=== PATIENT | female | born 1960 | race Caucasian/White ===

== ENCOUNTER → 2020-05-15 14:41 | Outpatient (BNVA) | payer OTHER, SELFPAY | PROVIDERS: PCP Internal Medicine; Visit Provider Internal Medicine | DX: I48.20 Chronic atrial fibrillation, unspecified (principal); Z51.81 Encounter for therapeutic drug level monitoring; Z79.01 Long term (current) use of anticoagulants | CPT/HCPCS: 85610 ==

== ENCOUNTER → 2020-06-19 14:49 | Outpatient (BNVA) | payer OTHER, SELFPAY | PROVIDERS: PCP Internal Medicine; Referring Provider Internal Medicine; Visit Provider Internal Medicine | DX: I48.20 Chronic atrial fibrillation, unspecified (principal); Z79.01 Long term (current) use of anticoagulants; Z51.81 Encounter for therapeutic drug level monitoring | CPT/HCPCS: 85610; 99211 ==

== ENCOUNTER 2020-07-04 07:55 | Outpatient (REF) | payer OTHER, SELFPAY ==
[2020-07-04 08:19] LABS: MANUAL DIFF FLAG NO
[2020-07-04 08:23] LABS: Basophils Percent Auto 0.8 % (0-2); Eosinophils Absolute Auto 0.2 X10*3/uL (0.0-0.4); Eosinophils Percent Auto 4.3 % (0-4); Hematocrit 40.6 % (37-47); Hemoglobin 13.4 g/dl (12.0-16.0); Imm Gran Abs Auto 0.01 X10*3/uL (0.00-0.03); Imm Gran Pct Auto 0.2 % (0.0-0.4); Lymphocytes Absolute Auto 1.3 X10*3/uL (1.2-4.9); Lymphocytes Percent Auto 25.5 % (20-40); Mean Corpuscular Hemoglobin 30.2 pg (27.0-33.0); Mean Corpuscular Volume 91.4 fL (80-98); Mean Platelet Volume 9.3 fL (9.4-12.3); Monocytes Absolute Auto 0.5 X10*3/uL (0.1-1.2); Monocytes Percent Auto 8.9 % (2-11); Neutrophils Absolute Auto 3.1 X10*3/uL (2.0-8.3); Neutrophils Percent Auto 60.3 % (45-73); Platelet Count 253 X10*3/uL (160-400); Red Blood Count 4.44 X10*6/uL (4.20-5.50); White Blood Count 5.1 X10*3/uL (4.8-10.8)
[2020-07-04 08:43] LABS: Alanine Aminotransferase 18 U/L (0-31); Alkaline Phosphatase 74 U/L (39-117); Anion Gap 12 (12-20); Aspartate Amino Transferase 18 U/L (5-31); Bilirubin Total 0.9 mg/dL (0.0-1.0); Blood Urea Nitrogen 13 mg/dL (9-16); Calcium 8.4 mg/dL (8.4-10.2); Carbon Dioxide 24 mmol/L (22-29); Chloride 104 mmol/L (96-108); Cholesterol 102 mg/dL; Estimated Glomerular Filt Rate > 60; Glucose Fasting 168 mg/dL (60-99); HDL Cholesterol 50 mg/dL; LDL Cholesterol Calculated 43 mg/dl; Potassium 3.8 mmol/l (3.3-5.1); Sodium 136 mmol/L (135-145); Total Protein 6.8 g/dL (6.5-8.0); Triglycerides 48 mg/dL
[2020-07-04 09:36] LABS: Estimated Average Glucose 183 mg/dL
[2020-07-04 09:42] LABS: Creatinine Urine 171.44 mg/dL; Microalbum/Creatinine Ratio Ur 29.1 ug/mg cr
== END 2020-07-04 07:56 | disposition home or self-care (01) ==
LOC: HO.LAB 07:55
PROVIDERS: Visit Provider Internal Medicine
DX: I10 Essential (primary) hypertension (principal); E11.9 Type 2 diabetes mellitus without complications; I48.91 Unspecified atrial fibrillation
CPT/HCPCS: 36415; 80053; 80061; 82043; 83036; 85025

== ENCOUNTER → 2020-07-17 14:57 | Outpatient (BNVA) | payer OTHER, SELFPAY | PROVIDERS: PCP Internal Medicine; Referring Provider Internal Medicine; Visit Provider Internal Medicine | DX: I48.20 Chronic atrial fibrillation, unspecified (principal); Z51.81 Encounter for therapeutic drug level monitoring; Z79.01 Long term (current) use of anticoagulants | CPT/HCPCS: 85610; 99211 ==

== ENCOUNTER → 2020-07-21 14:14 | Outpatient (BNVA) | payer OTHER, SELFPAY | PROVIDERS: PCP Internal Medicine; Referring Provider Internal Medicine; Visit Provider Internal Medicine Cardiovascular Disease | DX: Z76.89 Persons encountering health services in other specified circumstances (principal) ==

== ENCOUNTER → 2020-08-04 15:15 | Outpatient (BNVA) | payer OTHER, SELFPAY | PROVIDERS: PCP Internal Medicine; Visit Provider Internal Medicine | DX: I48.20 Chronic atrial fibrillation, unspecified (principal); Z79.01 Long term (current) use of anticoagulants; Z51.81 Encounter for therapeutic drug level monitoring | CPT/HCPCS: 85610; 99211 ==

== ENCOUNTER 2020-08-25 10:25 | Outpatient (REF) | payer OTHER, SELFPAY | END 2020-08-25 10:26 | disposition home or self-care (01) | LOC: HO.LAB 10:25 | PROVIDERS: PCP Internal Medicine; Visit Provider Internal Medicine | DX: Z20.822 Contact with and (suspected) exposure to COVID-19 (principal) | CPT/HCPCS: 36415; C9803; U0003 ==

== ENCOUNTER → 2020-08-31 14:38 | Outpatient (BNVA) | payer OTHER, SELFPAY | PROVIDERS: PCP Internal Medicine; Visit Provider Internal Medicine | DX: I48.20 Chronic atrial fibrillation, unspecified (principal); Z51.81 Encounter for therapeutic drug level monitoring; Z79.01 Long term (current) use of anticoagulants | CPT/HCPCS: 85610; 99211 ==

== ENCOUNTER → 2020-09-29 15:26 | Outpatient (BNVA) | payer OTHER, SELFPAY | PROVIDERS: PCP Internal Medicine; Visit Provider Internal Medicine | DX: I48.20 Chronic atrial fibrillation, unspecified (principal); Z51.81 Encounter for therapeutic drug level monitoring; Z79.01 Long term (current) use of anticoagulants | CPT/HCPCS: 85610; 99211 ==

== ENCOUNTER → 2020-11-03 14:13 | Outpatient (BNVA) | payer OTHER, SELFPAY | PROVIDERS: PCP Internal Medicine; Visit Provider Internal Medicine | DX: I48.20 Chronic atrial fibrillation, unspecified (principal); Z51.81 Encounter for therapeutic drug level monitoring; Z79.01 Long term (current) use of anticoagulants | CPT/HCPCS: 85610; 99211 ==

== ENCOUNTER 2020-11-17 14:42 | Outpatient (REF) | payer OTHER, SELFPAY ==
[2020-11-17 16:05] LABS: MANUAL DIFF FLAG NO
[2020-11-17 16:18] LABS: Basophils Percent Auto 0.6 % (0-2); Eosinophils Absolute Auto 0.2 X10*3/uL (0.0-0.4); Eosinophils Percent Auto 2.5 % (0-4); Estimated Average Glucose 183 mg/dL; Hematocrit 41.9 % (37-47); Hemoglobin 14.1 g/dl (12.0-16.0); Imm Gran Abs Auto 0.02 X10*3/uL (0.00-0.03); Imm Gran Pct Auto 0.3 % (0.0-0.4); Lymphocytes Absolute Auto 1.6 X10*3/uL (1.2-4.9); Mean Corpuscular HGB Conc 33.7 g/dl (31.0-35.0); Mean Corpuscular Hemoglobin 30.9 pg (27.0-33.0); Mean Corpuscular Volume 91.9 fL (80-98); Mean Platelet Volume 9.7 fL (9.4-12.3); Monocytes Absolute Auto 0.5 X10*3/uL (0.1-1.2); Monocytes Percent Auto 7.7 % (2-11); Neutrophils Absolute Auto 4.2 X10*3/uL (2.0-8.3); Neutrophils Percent Auto 64.9 % (45-73); Platelet Count 304 X10*3/uL (160-400); Red Blood Count 4.56 X10*6/uL (4.20-5.50); Red Cell Distribution Width 12.2 % (11.0-16.0); White Blood Count 6.5 X10*3/uL (4.8-10.8)
[2020-11-17 16:38] LABS: Alanine Aminotransferase 23 U/L (0-31); Albumin Level 4.3 g/dL (3.5-5.0); Alkaline Phosphatase 66 U/L (39-117); Anion Gap 14 (12-20); Aspartate Amino Transferase 25 U/L (5-31); Bilirubin Total 1.1 mg/dL (0.0-1.0); Blood Urea Nitrogen 19 mg/dL (9-16); Calcium 9.7 mg/dL (8.4-10.2); Carbon Dioxide 27 mmol/L (22-29); Chloride 107 mmol/L (96-108); Estimated Glomerular Filt Rate > 60; Glucose Random 133 mg/dL (60-115); Potassium 4.6 mmol/L (3.3-5.1); Sodium 143 mmol/L (135-145); Total Protein 7.3 g/dL (6.5-8.0)
[2020-11-17 16:56] LABS: Creatinine Urine 187.43 mg/dL; Microalbum/Creatinine Ratio Ur 18.1 ug/mg cr
== END 2020-11-17 14:43 | disposition home or self-care (01) ==
LOC: HO.LAB 14:42
PROVIDERS: Absent Provider Internal Medicine; PCP Internal Medicine; Visit Provider Internal Medicine
DX: E11.9 Type 2 diabetes mellitus without complications (principal); I10 Essential (primary) hypertension; I48.0 Paroxysmal atrial fibrillation; Z51.81 Encounter for therapeutic drug level monitoring; Z79.01 Long term (current) use of anticoagulants
CPT/HCPCS: 36415; 80053; 82043; 83036; 85025; 85610; 99211

== ENCOUNTER → 2020-12-01 15:21 | Outpatient (BNVA) | payer OTHER, SELFPAY | PROVIDERS: PCP Internal Medicine; Visit Provider Internal Medicine | DX: I48.0 Paroxysmal atrial fibrillation (principal); Z79.01 Long term (current) use of anticoagulants; Z51.81 Encounter for therapeutic drug level monitoring | CPT/HCPCS: 85610; 99211 ==

== ENCOUNTER → 2020-12-08 14:14 | Outpatient (BNVA) | payer OTHER, SELFPAY | PROVIDERS: PCP Internal Medicine; Visit Provider Internal Medicine | DX: I48.20 Chronic atrial fibrillation, unspecified (principal); Z51.81 Encounter for therapeutic drug level monitoring; Z79.01 Long term (current) use of anticoagulants | CPT/HCPCS: 85610; 99211 ==

== ENCOUNTER → 2020-12-15 14:16 | Outpatient (BNVA) | payer OTHER, SELFPAY | PROVIDERS: PCP Internal Medicine; Visit Provider Internal Medicine | DX: I48.20 Chronic atrial fibrillation, unspecified (principal); Z51.81 Encounter for therapeutic drug level monitoring; Z79.01 Long term (current) use of anticoagulants | CPT/HCPCS: 85610; 99211 ==

== ENCOUNTER → 2020-12-22 13:55 | Outpatient (BNVA) | payer OTHER, SELFPAY | PROVIDERS: PCP Internal Medicine; Visit Provider Internal Medicine | DX: I48.20 Chronic atrial fibrillation, unspecified (principal); Z51.81 Encounter for therapeutic drug level monitoring; Z79.01 Long term (current) use of anticoagulants | CPT/HCPCS: 85610; 99211 ==

== ENCOUNTER → 2021-01-01 14:30 | Outpatient (BNVA) | payer OTHER, SELFPAY | PROVIDERS: PCP Internal Medicine; Visit Provider Internal Medicine | DX: I48.20 Chronic atrial fibrillation, unspecified (principal); Z51.81 Encounter for therapeutic drug level monitoring; Z79.01 Long term (current) use of anticoagulants | CPT/HCPCS: 85610; 99211 ==

== ENCOUNTER → 2021-01-12 08:33 | Outpatient (BNVA) | payer OTHER, SELFPAY | PROVIDERS: PCP Internal Medicine; Visit Provider Internal Medicine | DX: I48.20 Chronic atrial fibrillation, unspecified (principal); Z51.81 Encounter for therapeutic drug level monitoring; Z79.01 Long term (current) use of anticoagulants | CPT/HCPCS: 85610; 99211 ==

== ENCOUNTER → 2021-01-20 13:39 | Outpatient (BNVA) | payer OTHER, SELFPAY | PROVIDERS: PCP Internal Medicine; Visit Provider Internal Medicine | DX: I48.20 Chronic atrial fibrillation, unspecified (principal); Z51.81 Encounter for therapeutic drug level monitoring; Z79.01 Long term (current) use of anticoagulants | CPT/HCPCS: 85610; 99211 ==

== ENCOUNTER → 2021-01-22 13:57 | Outpatient (BNVA) | payer OTHER, SELFPAY | PROVIDERS: PCP Internal Medicine; Visit Provider Internal Medicine | DX: I48.20 Chronic atrial fibrillation, unspecified (principal); Z51.81 Encounter for therapeutic drug level monitoring; Z79.01 Long term (current) use of anticoagulants | CPT/HCPCS: 85610; 99211 ==

== ENCOUNTER → 2021-01-25 13:58 | Outpatient (BNVA) | payer OTHER, SELFPAY | PROVIDERS: PCP Internal Medicine; Visit Provider Internal Medicine | DX: I48.20 Chronic atrial fibrillation, unspecified (principal); Z51.81 Encounter for therapeutic drug level monitoring; Z79.01 Long term (current) use of anticoagulants | CPT/HCPCS: 85610; 99211 ==

== ENCOUNTER → 2021-01-28 13:50 | Outpatient (BNVA) | payer OTHER, SELFPAY | PROVIDERS: PCP Internal Medicine; Visit Provider Internal Medicine | DX: I48.20 Chronic atrial fibrillation, unspecified (principal); Z51.81 Encounter for therapeutic drug level monitoring; Z79.01 Long term (current) use of anticoagulants | CPT/HCPCS: 85610; 99211 ==

== ENCOUNTER → 2021-02-04 13:49 | Outpatient (BNVA) | payer OTHER, SELFPAY | PROVIDERS: PCP Internal Medicine; Visit Provider Internal Medicine | DX: I48.20 Chronic atrial fibrillation, unspecified (principal); I50.9 Heart failure, unspecified; Z79.899 Other long term (current) drug therapy; Z79.01 Long term (current) use of anticoagulants | CPT/HCPCS: 85610; 99211 ==

== ENCOUNTER → 2021-03-05 14:17 | Outpatient (BNVA) | payer OTHER, SELFPAY | PROVIDERS: PCP Internal Medicine; Visit Provider Internal Medicine | DX: I48.20 Chronic atrial fibrillation, unspecified (principal); Z51.81 Encounter for therapeutic drug level monitoring; Z79.01 Long term (current) use of anticoagulants | CPT/HCPCS: 85610; 99211 ==

== ENCOUNTER → 2021-03-09 13:53 | Outpatient (BNVA) | payer OTHER, SELFPAY | PROVIDERS: PCP Internal Medicine; Visit Provider Internal Medicine | DX: I48.20 Chronic atrial fibrillation, unspecified (principal); Z51.81 Encounter for therapeutic drug level monitoring; Z79.01 Long term (current) use of anticoagulants | CPT/HCPCS: 85610; 99211 ==

== ENCOUNTER → 2021-03-12 14:08 | Outpatient (BNVA) | payer OTHER, SELFPAY | PROVIDERS: PCP Internal Medicine; Visit Provider Internal Medicine | DX: I48.20 Chronic atrial fibrillation, unspecified (principal); Z51.81 Encounter for therapeutic drug level monitoring; Z79.01 Long term (current) use of anticoagulants | CPT/HCPCS: 85610; 99211 ==

== ENCOUNTER → 2021-03-16 13:40 | Outpatient (BNVA) | payer OTHER, SELFPAY | PROVIDERS: PCP Internal Medicine; Visit Provider Internal Medicine | DX: I48.20 Chronic atrial fibrillation, unspecified (principal); Z51.81 Encounter for therapeutic drug level monitoring; Z79.01 Long term (current) use of anticoagulants | CPT/HCPCS: 85610; 99211 ==

== ENCOUNTER 2021-03-23 14:32 | Outpatient (REF) | payer OTHER, SELFPAY ==
[2021-03-23 15:11] LABS: MANUAL DIFF FLAG NO
[2021-03-23 15:17] LABS: Basophils Percent Auto 0.5 % (0-2); Eosinophils Absolute Auto 0.3 X10*3/uL (0.0-0.4); Eosinophils Percent Auto 4.6 % (0-4); Hematocrit 40.7 % (37-47); Hemoglobin 13.3 g/dl (12.0-16.0); Imm Gran Abs Auto 0.02 X10*3/uL (0.00-0.03); Imm Gran Pct Auto 0.3 % (0.0-0.4); Lymphocytes Absolute Auto 1.3 X10*3/uL (1.2-4.9); Lymphocytes Percent Auto 22.9 % (20-40); Mean Corpuscular HGB Conc 32.7 g/dl (31.0-35.0); Mean Corpuscular Hemoglobin 30.2 pg (27.0-33.0); Mean Corpuscular Volume 92.3 fL (80-98); Mean Platelet Volume 9.2 fL (9.4-12.3); Monocytes Absolute Auto 0.4 X10*3/uL (0.1-1.2); Monocytes Percent Auto 6.9 % (2-11); Neutrophils Absolute Auto 3.8 X10*3/uL (2.0-8.3); Neutrophils Percent Auto 64.8 % (45-73); Platelet Count 306 X10*3/uL (160-400); Red Blood Count 4.41 X10*6/uL (4.20-5.50); Red Cell Distribution Width 12.1 % (11.0-16.0); White Blood Count 5.8 X10*3/uL (4.8-10.8)
[2021-03-23 15:20] LABS: Prothrombin Time 35.1 SEC (9.9-13.0)
[2021-03-23 15:23] LABS: Estimated Average Glucose 174 mg/dL; Hemoglobin A1c % 7.7 %
[2021-03-23 15:43] LABS: Alanine Aminotransferase 18 U/L (0-31); Albumin Level 4.2 g/dL (3.5-5.0); Alkaline Phosphatase 64 U/L (39-117); Anion Gap 10 (12-20); Aspartate Amino Transferase 19 U/L (5-31); Bilirubin Total 0.8 mg/dL (0.0-1.0); Blood Urea Nitrogen 17 mg/dL (9-16); Calcium 9.4 mg/dL (8.4-10.2); Carbon Dioxide 28 mmol/L (22-29); Chloride 107 mmol/L (96-108); Estimated Glomerular Filt Rate > 60; Glucose Random 167 mg/dL (60-115); Potassium 4.1 mmol/L (3.3-5.1); Sodium 141 mmol/L (135-145); Total Protein 7.1 g/dL (6.5-8.0)
== END 2021-03-23 14:33 | disposition home or self-care (01) ==
LOC: HO.LAB 14:32
PROVIDERS: PCP Internal Medicine; Visit Provider Internal Medicine
DX: I48.91 Unspecified atrial fibrillation (principal); I10 Essential (primary) hypertension; E11.9 Type 2 diabetes mellitus without complications
CPT/HCPCS: 36415; 80053; 83036; 85025; 85610

== ENCOUNTER → 2021-03-31 14:13 | Outpatient (BNVA) | payer OTHER, SELFPAY | PROVIDERS: PCP Internal Medicine; Visit Provider Internal Medicine | DX: I48.20 Chronic atrial fibrillation, unspecified (principal); Z51.81 Encounter for therapeutic drug level monitoring; Z79.01 Long term (current) use of anticoagulants | CPT/HCPCS: 85610; 99211 ==

== ENCOUNTER → 2021-04-16 14:31 | Outpatient (BNVA) | payer OTHER, SELFPAY | PROVIDERS: PCP Internal Medicine; Visit Provider Internal Medicine | DX: I48.20 Chronic atrial fibrillation, unspecified (principal); Z51.81 Encounter for therapeutic drug level monitoring; Z79.01 Long term (current) use of anticoagulants | CPT/HCPCS: 85610; 99211 ==

== ENCOUNTER → 2021-04-30 15:09 | Outpatient (BNVA) | payer OTHER, SELFPAY | PROVIDERS: PCP Internal Medicine; Visit Provider Internal Medicine | DX: I48.20 Chronic atrial fibrillation, unspecified (principal); Z51.81 Encounter for therapeutic drug level monitoring; Z79.01 Long term (current) use of anticoagulants | CPT/HCPCS: 85610; 99211 ==

== ENCOUNTER → 2021-05-07 14:51 | Outpatient (BNVA) | payer OTHER, SELFPAY | PROVIDERS: PCP Internal Medicine; Visit Provider Internal Medicine | DX: I48.20 Chronic atrial fibrillation, unspecified (principal); Z51.81 Encounter for therapeutic drug level monitoring; Z79.01 Long term (current) use of anticoagulants | CPT/HCPCS: 85610; 99211 ==

== ENCOUNTER → 2021-05-18 14:25 | Outpatient (BNVA) | payer OTHER, SELFPAY | PROVIDERS: PCP Internal Medicine; Visit Provider Internal Medicine | DX: I48.20 Chronic atrial fibrillation, unspecified (principal); Z51.81 Encounter for therapeutic drug level monitoring; Z79.01 Long term (current) use of anticoagulants | CPT/HCPCS: 85610; 99211 ==

== ENCOUNTER → 2021-06-04 14:50 | Outpatient (BNVA) | payer OTHER, SELFPAY | PROVIDERS: PCP Internal Medicine; Visit Provider Internal Medicine | DX: I48.20 Chronic atrial fibrillation, unspecified (principal); Z51.81 Encounter for therapeutic drug level monitoring; Z79.01 Long term (current) use of anticoagulants | CPT/HCPCS: 85610; 99211 ==

== ENCOUNTER → 2021-06-24 10:18 | Outpatient (BNVA) | payer OTHER, SELFPAY | PROVIDERS: PCP Internal Medicine; Visit Provider Internal Medicine | DX: I48.20 Chronic atrial fibrillation, unspecified (principal); Z79.01 Long term (current) use of anticoagulants; Z51.81 Encounter for therapeutic drug level monitoring | CPT/HCPCS: 85610; 99211 ==

== ENCOUNTER 2021-07-10 07:28 | Outpatient (REF) | payer OTHER, SELFPAY ==
[2021-07-10 08:00] LABS: Basophils Absolute Auto 0.1 X10*3/uL (0.0-0.2); Basophils Percent Auto 0.8 % (0-2); Eosinophils Absolute Auto 0.2 X10*3/uL (0.0-0.4); Eosinophils Percent Auto 3.2 % (0-4); Hemoglobin 13.7 g/dl (12.0-16.0); Imm Gran Abs Auto 0.01 X10*3/uL (0.00-0.03); Imm Gran Pct Auto 0.2 % (0.0-0.4); Lymphocytes Absolute Auto 1.4 X10*3/uL (1.2-4.9); Lymphocytes Percent Auto 23.4 % (20-40); MANUAL DIFF FLAG NO; Mean Corpuscular HGB Conc 32.6 g/dl (31.0-35.0); Mean Corpuscular Volume 92.1 fL (80.0-98.0); Mean Platelet Volume 9.1 fL (9.4-12.3); Monocytes Absolute Auto 0.5 X10*3/uL (0.1-1.2); Monocytes Percent Auto 8.9 % (2-11); Neutrophils Absolute Auto 3.8 x10*3/uL (2.0-8.3); Neutrophils Percent Auto 63.5 % (45-73); Platelet Count 279 X10*3/uL (160-400); Red Blood Count 4.56 X10*6/uL (4.20-5.50); Red Cell Distribution Width 12.5 % (11.0-16.0); White Blood Count 5.9 X10*3/uL (4.8-10.8)
[2021-07-10 09:49] LABS: Creatinine Urine 236.71 mg/dL; Microalbum/Creatinine Ratio Ur 22.3 ug/mg cr
[2021-07-10 09:54] LABS: Estimated Average Glucose 177 mg/dL; Hemoglobin A1c % 7.8 %
[2021-07-10 09:56] LABS: Alanine Aminotransferase 14 U/L (0-31); Alkaline Phosphatase 60 U/L (39-117); Anion Gap 14 (12-20); Aspartate Amino Transferase 16 U/L (5-31); Bilirubin Total 1.2 mg/dL (0.0-1.0); Blood Urea Nitrogen 15 mg/dL (9-16); Calcium 9.4 mg/dL (8.4-10.2); Carbon Dioxide 24 mmol/L (22-29); Chloride 107 mmol/L (96-108); Cholesterol 121 mg/dL; Estimated Glomerular Filt Rate > 60; Glucose Fasting 187 mg/dL (60-99); HDL Cholesterol 43 mg/dL; LDL Cholesterol Calculated 60 mg/dl; Potassium 4.1 mmol/L (3.3-5.1); Sodium 141 mmol/L (135-145); Total Protein 7.1 g/dL (6.5-8.0); Triglycerides 93 mg/dL
== END 2021-07-10 07:29 | disposition home or self-care (01) ==
LOC: HO.LAB 07:28
PROVIDERS: PCP Internal Medicine; Visit Provider Internal Medicine
DX: Z00.00 Encounter for general adult medical examination without abnormal findings (principal); I48.91 Unspecified atrial fibrillation; E11.9 Type 2 diabetes mellitus without complications; I10 Essential (primary) hypertension; E78.00 Pure hypercholesterolemia, unspecified
CPT/HCPCS: 36415; 80053; 80061; 82043; 83036; 85025

== ENCOUNTER → 2021-07-15 14:45 | Outpatient (BNVA) | payer OTHER, SELFPAY | PROVIDERS: PCP Internal Medicine; Visit Provider Internal Medicine | DX: I48.20 Chronic atrial fibrillation, unspecified (principal); Z51.81 Encounter for therapeutic drug level monitoring; Z79.01 Long term (current) use of anticoagulants | CPT/HCPCS: 85610; 99211 ==

== ENCOUNTER 2021-07-26 15:25 | Outpatient (REF) | payer OTHER, SELFPAY ==
--- NOTE | ~2021-07-26 | MM_ITS ---
EXAMINATION: MM SCREENING DIGITAL BREAST TOMOSYNTHESIS, BILATERAL CLINICAL INFORMATION: Screening. Asymptomatic. The lifetime risk of breast cancer based on the Tyrer-Cuzick Model is 6%. COMPARISON: Mammography: 05/06/2020, 05/01/2019, 03/20/2018 TECHNIQUE: Digital breast tomosynthesis is performed in both the craniocaudal and mediolateral oblique views along with computer-aided detection (CAD). Synthesized 2D images are generated from the tomosynthesis. Additional left MLO view is provided. FINDINGS: The breasts are almost entirely fatty (ACR BI-RADS breast composition Category a). There are no significant masses, abnormal calcifications, or other abnormalities. Background stromal markings are stable. No significant changes. MM/MM tomosynthesis screening BI IMPRESSION: No mammographic evidence of malignancy. ASSESSMENT: BI-RADS 1: Negative RECOMMENDATION: Routine annual mammography screening. This patient's information was entered into a reminder system with a target due date for their next mammogram.
== END 2021-07-26 15:26 | disposition home or self-care (01) ==
LOC: HO.MAMMO 15:25
PROVIDERS: Visit Provider Internal Medicine
DX: Z12.31 Encounter for screening mammogram for malignant neoplasm of breast (principal)
CPT/HCPCS: 77063; 77067

== ENCOUNTER 2021-07-28 14:18 | Outpatient (REF) | payer OTHER, SELFPAY ==
--- NOTE | ~2021-07-28 | MM_ITS ---
EXAMINATION: BONE DENSITOMETRY CLINICAL INDICATION: Asymptomatic menopausal state. COMPARISON: None (current study represents initial baseline exam). TECHNIQUE: Using a BeSmart DXA System (software version: 13.1) manufactured by [employer], dual-energy x-ray absorptiometry was performed of the lumbar spine and left hip. The images are of good technical quality. Summary results are attached. FINDINGS: AP SPINE L1-L4: BMD 1.379 g/cm2, Z-score 1.7, T-score 1.7, normal. LEFT FEMUR, NECK: BMD 0.890 g/cm2, Z-score -0.6, T-score -1.1, osteopenia. LEFT FEMUR, TOTAL: BMD 1.008 g/cm2, Z-score 0.1, T-score 0.0, normal. IDENTIFIED RISK FACTORS: Early menopause, secondary osteoporosis. HISTORY OF FRACTURE: None listed. MEDICATIONS: Vitamin D. MM/XR DEXA axial skeleton IMPRESSION: 1. DIAGNOSIS: Osteopenia based on the lowest T-score value of -1.1 in the femoral neck applying World Health Organization criteria. 2. 10-YEAR FRACTURE RISK PREDICTION, FRAX: Major osteoporotic fracture (clinical spine, forearm, hip or shoulder) 6.5%. Hip fracture 0.4%. 3. Treatment Recommendations: NOF guidelines recommend consideration for treatment in postmenopausal women and men age 50 and older presenting with the following: -A hip or vertebral (clinical or morphometric) fracture. -T-score less than or equal to -2.5 at the femoral neck or spine after appropriate evaluation to exclude secondary causes. -Low bone mass at the hip or spine and a 10-year fracture probability by FRAX of greater than or equal to 3% for hip fracture or greater than or equal to 20% for major osteoporotic fracture based on the [place] adapted WHO algorithm. 4. Other Recommendations: All treatment decisions require clinical judgment and consideration of individual patient factors, including patient preferences, comorbidities, previous drug use, risk factors not captured in the FRAX model (e.g. frailty, falls, vitamin D deficiency, increased bone turnover, interval significant decline in bone density) and possible under or overestimation of fracture risk by FRAX. Additional medical evaluation for secondary cause of low bone mineral density may be appropriate. FUTURE SCAN RECOMMENDATION: People with diagnosed cases of osteoporosis or at high risk for fracture should have regular bone mineral density tests. For patients eligible for Medicare, routine testing is allowed once every 2 years. The testing frequency can be increased to one year for patients who have rapidly progressing disease, those who are receiving or discontinuing medical therapy to restore bone mass, or have additional risk factors.
== END 2021-07-28 14:19 | disposition home or self-care (01) ==
LOC: HO.MAMMO 14:18
PROVIDERS: PCP Internal Medicine; Visit Provider Internal Medicine
DX: Z13.820 Encounter for screening for osteoporosis (principal); M85.80 Other specified disorders of bone density and structure, unspecified site; Z78.0 Asymptomatic menopausal state; Z79.899 Other long term (current) drug therapy
CPT/HCPCS: 77080

== ENCOUNTER → 2021-08-05 14:50 | Outpatient (BNVA) | payer OTHER, SELFPAY | PROVIDERS: PCP Internal Medicine; Visit Provider Internal Medicine | DX: I48.20 Chronic atrial fibrillation, unspecified (principal); Z51.81 Encounter for therapeutic drug level monitoring; Z79.01 Long term (current) use of anticoagulants | CPT/HCPCS: 85610; 99211 ==

== ENCOUNTER → 2021-08-19 14:55 | Outpatient (BNVA) | payer OTHER, SELFPAY | PROVIDERS: PCP Internal Medicine; Visit Provider Internal Medicine | DX: I48.20 Chronic atrial fibrillation, unspecified (principal); Z51.81 Encounter for therapeutic drug level monitoring; Z79.01 Long term (current) use of anticoagulants | CPT/HCPCS: 85610; 99211 ==

== ENCOUNTER → 2021-09-10 14:49 | Outpatient (BNVA) | payer OTHER, SELFPAY | PROVIDERS: PCP Internal Medicine; Visit Provider Internal Medicine | DX: I48.20 Chronic atrial fibrillation, unspecified (principal); Z51.81 Encounter for therapeutic drug level monitoring; Z79.01 Long term (current) use of anticoagulants | CPT/HCPCS: 85610; 99211 ==

== ENCOUNTER 2021-09-21 16:34 | Emergency (ER) | payer OTHER, SELFPAY ==
--- NOTE | ~2021-09-21 | XR_ITS ---
EXAMINATION: X-RAY RIGHT SHOULDER X-RAY RIGHT HUMERUS X-RAY RIGHT ELBOW CLINICAL INFORMATION: Fall, pain, decreased range of motion. COMPARISON: None. TECHNIQUE: Multiple views of the right shoulder, right humerus and right elbow were obtained. FINDINGS: No evidence of acute fractures or malalignment. Mild to moderate degenerative osteoarthritis in the glenohumeral joint and acromioclavicular joint. Subchondral cystic changes in the greater trochanter of the humerus. No joint effusion in the elbow. Partially imaged sternotomy wires. Visualized right-sided ribs and right lung are within normal limits. XR/XR elbow RT 2V IMPRESSION: No acute fractures or malalignment. Moderate degenerative osteoarthritis.
--- NOTE | ~2021-09-21 | CT_ITS ---
EXAMINATION: CT HEAD WITHOUT CONTRAST CT FACIAL BONES WITHOUT CONTRAST CT CERVICAL SPINE WITHOUT CONTRAST CLINICAL INFORMATION: Status post fall. COMPARISON: CT head and cervical spine from 09/16/2019. TECHNIQUE: Imaging was performed from the skull base to vertex without intravenous administration of contrast. In addition, helical noncontrast CT imaging was acquired through the cervical spine and facial bones and source images were reviewed along with axial reconstructions and sagittal and coronal MPRs. This CT examination was performed using dose optimization techniques as appropriate, variously including the following: *Automated exposure control. *Adjustment of mA and/or kV according to patient size (this includes techniques or standardized protocols for targeted exams where dose is matched to indication/reason for exam; i.e. extremities or head). *Use of iterative reconstruction technique. DLP: 1410 mGy-cm FINDINGS: Head: There is no evidence of acute intracranial hemorrhage or edematous territorial infarction. A few foci of hypoattenuation in the periventricular and deep white matter are consistent with mild microangiopathy. Jim-white matter differentiation is preserved. The ventricles are normal in size and configuration. No evidence for obstructive hydrocephalus. Mild prominence of the CSF space posterior to the cerebellum. No abnormal mass effect or midline shift. No extra-axial fluid collections. Moderate subgaleal hematoma along the frontal bone, measuring up to 0.6 cm in depth. No associated osseous abnormalities. The mastoid air cells are underdeveloped. Chronic opacification of the right greater than left mastoid with chronic tract extending from the right mastoid antrum to the subcutaneous tissues. No periauricular collection. Maxillofacial Bones: Mild rightward angulation of the nasal bones is new compared to exam from 2019 suggestive of nondisplaced fractures. Mild edema along the nasal bridge. Mild leftward nasal septal deviation. No evidence of additional maxillofacial bone fractures. The zygomatic arches remain intact. No evidence of mandibular or maxillary fracture. The mandibular condyles remain well-seated in their respective temporal articular grooves. Normal appearance of the intraconal and extraconal fat. No evidence of traumatic injury to the extraocular musculature or globes. Mild mucosal thickening of the paranasal sinuses. No layering fluid collections. Odontogenic enamel erosion associated with the mandibular left 2nd premolar. Minimal periapical lucencies associated with multiple maxillary and mandibular teeth. Cervical Spine: The atlantooccipital and atlantoaxial articulations remain well aligned. Reversal the normal cervical lordosis centered on C6-C7. Otherwise, there is anatomic alignment of the vertebral bodies and posterior elements. No evidence of acute fracture or subluxation. The vertebral body heights are maintained. Advanced degenerative disc disease at C6-C7 with prominent disc-osteophyte complex. There appears to be at least moderate spinal canal stenosis at this C6-C7. Mild to moderate degenerative disc disease at all additional cervical levels. There appear to be mild to moderate disc herniations at multiple additional cervical levels, most notably C4-C5. Partial ossification of the posterior longitudinal ligament at the levels of C1-C3. Facet and uncovertebral joint arthropathy leads to osseous encroachment on the neural foramina at C5-C6 and C6-C7. There is no prevertebral soft tissue swelling. The thyroid gland and remaining cervical soft tissues are normal in appearance. The lung apices demonstrate no abnormalities. CT/CT cervical spine wo con IMPRESSION: 1. No evidence of acute intracranial hemorrhage or edematous territorial infarction. Mild underlying microangiopathy. 2. No evidence of acute fracture or traumatic subluxation of the cervical spine. 3. There appear to be mildly angulated and essentially nondisplaced nasal bone fractures. Frontal scalp hematoma without evidence of skull/orbital fracture. No additional maxillofacial bone fractures. 4. Moderate multilevel degenerative spinal arthropathy of the cervical spine. Most notably, there is advanced degenerative disc disease at C6-C7 with prominent disc-osteophyte complex formation. There appears to be at least moderate spinal canal stenosis at C6-C7.
--- NOTE | ~2021-09-21 | XR_ITS ---
EXAMINATION: X-RAY RIGHT SHOULDER X-RAY RIGHT HUMERUS X-RAY RIGHT ELBOW CLINICAL INFORMATION: Fall, pain, decreased range of motion. COMPARISON: None. TECHNIQUE: Multiple views of the right shoulder, right humerus and right elbow were obtained. FINDINGS: No evidence of acute fractures or malalignment. Mild to moderate degenerative osteoarthritis in the glenohumeral joint and acromioclavicular joint. Subchondral cystic changes in the greater trochanter of the humerus. No joint effusion in the elbow. Partially imaged sternotomy wires. Visualized right-sided ribs and right lung are within normal limits. XR/XR shoulder RT min 2V IMPRESSION: No acute fractures or malalignment. Moderate degenerative osteoarthritis.
--- NOTE | ~2021-09-21 | XR_ITS ---
EXAMINATION: X-RAY RIGHT SHOULDER X-RAY RIGHT HUMERUS X-RAY RIGHT ELBOW CLINICAL INFORMATION: Fall, pain, decreased range of motion. COMPARISON: None. TECHNIQUE: Multiple views of the right shoulder, right humerus and right elbow were obtained. FINDINGS: No evidence of acute fractures or malalignment. Mild to moderate degenerative osteoarthritis in the glenohumeral joint and acromioclavicular joint. Subchondral cystic changes in the greater trochanter of the humerus. No joint effusion in the elbow. Partially imaged sternotomy wires. Visualized right-sided ribs and right lung are within normal limits. XR/XR humerus RT IMPRESSION: No acute fractures or malalignment. Moderate degenerative osteoarthritis.
[2021-09-21 16:55] VITALS: BP 154/83; PULSE 83; RESP 18; TEMP 37.1; O2SAT 95; BMI 43.4
[2021-09-21 17:17] LABS: MANUAL DIFF FLAG NO
[2021-09-21 17:19] LABS: Basophils Percent Auto 0.4 % (0-2); Eosinophils Absolute Auto 0.1 X10*3/uL (0.0-0.4); Eosinophils Percent Auto 1.4 % (0-4); Imm Gran Abs Auto 0.04 X10*3/uL (0.00-0.03); Imm Gran Pct Auto 0.4 % (0.0-0.4); Lymphocytes Absolute Auto 1.1 X10*3/uL (1.2-4.9); Lymphocytes Percent Auto 11.3 % (20-40); Mean Corpuscular HGB Conc 33.3 g/dl (31.0-35.0); Mean Corpuscular Hemoglobin 30.2 pg (27.0-33.0); Mean Corpuscular Volume 90.5 fL (80.0-98.0); Mean Platelet Volume 9.1 fL (9.4-12.3); Monocytes Absolute Auto 0.5 X10*3/uL (0.1-1.2); Monocytes Percent Auto 5.3 % (2-11); Neutrophils Absolute Auto 7.6 x10*3/uL (2.0-8.3); Neutrophils Percent Auto 81.2 % (45-73); Platelet Count 245 X10*3/uL (160-400); Red Blood Count 4.64 X10*6/uL (4.20-5.50); Red Cell Distribution Width 12.6 % (11.0-16.0); White Blood Count 9.3 X10*3/uL (4.8-10.8)
[2021-09-21 17:25] LABS: INTERNATIONAL NORM RATIO 2.8 (0.9-1.1)
[2021-09-21 17:28] LABS: Partial Thromboplastin Time 43.9 SEC (24.1-38.0)
[2021-09-21 17:51] LABS: Anion Gap 15 (12-20); Blood Urea Nitrogen 17 mg/dL (9-16); Calcium 9.9 mg/dL (8.4-10.2); Carbon Dioxide 25 mmol/L (22-29); Chloride 105 mmol/L (96-108); Creatinine Clr Calc Pharmacy 96.8; Estimated Glomerular Filt Rate > 60; Glucose Random 176 mg/dL (60-115); Potassium 4.8 mmol/L (3.3-5.1); Sodium 140 mmol/L (135-145)
--- NOTE | 2021-09-21 20:03 | ED.FALL ---
HPI - Fall General Chief Complaint: Fall Stated Complaint: fell on face and arms Time Seen by Provider: 09/21/21 17:53 Source: patient Mode of arrival: ambulatory Limitations: no limitations History of Present Illness HPI Narrative: 61-year-old female presents with facial injury and right arm pain after tripping and falling in a parking lot and hitting her face on the ground. She is on Coumadin for AFib. complaint: fall Onset (ago): hour(s) (Within the hour of arrival) Fall from: standing Fall witnessed: yes, by family Place fall occurred: street Loss of consciousness: none Prolonged down time: no Symptoms prior to fall: none Context: tripped/slipped Location of injury: face Location of injury - extremities: right: arm Severity: moderate Severity scale (1-10): 7 Quality: aching and throbbing Associated symptoms (after fall): headache and other (Right arm pain and decreased range of motion) Related Data Home Medications Medication Instructions Recorded Confirmed diltiazem HCl 180 mg 180 mg PO DAILY 07/21/20 08/19/21 capsule,extended release 24 hr furosemide 20 mg tablet 20 mg PO DAILY 07/21/20 08/19/21 metformin 500 mg tablet,extended 500 mg PO DAILY 07/21/20 08/19/21 release 24 hr metoprolol succinate 25 mg mg PO 07/21/20 08/19/21 tablet,extended release 24 hr potassium chloride 10 mEq 10 meq PO DAILY 07/21/20 08/19/21 tablet,extended release(part/cryst) simvastatin 10 mg tablet 10 mg PO BEDTIME 07/21/20 08/19/21 Previous Rx's Medication Instructions Recorded warfarin 7.5 mg tablet See Rx Instructions .ROUTE 01/28/21 .COMPLEX #90 tab warfarin 5 mg tablet 5 mg PO DAILY #90 tab 03/05/21 Allergies Allergy/AdvReac Type Severity Reaction Status Date / Time No Known Allergies Allergy Verified 09/21/21 16:55 Review of Systems Review of Systems: Constitutional: No Fever, No Chills ENT/Mouth: Positive nasal pain, No Ear Pain, No Hoarseness, No sore throat Eyes: No Eye Pain, No Swelling, No Redness, No Foreign Body Cardiovascular: No Chest Pain, No SOB Respiratory: No Cough, No Dyspnea Gastrointestinal: No Nausea, No Vomiting, No Diarrhea, No abdominal Pain Genitourinary: No Dysuria, No Hematuria Musculoskeletal: positive nose and facial pain, positive right arm pain, No Myalgias, No Joint Swelling Skin: No Skin lacerations, No rash Neuro: No Weakness, No Numbness, No Paresthesias, No Loss of Consciousness, No Dizziness, positive Headache Psych: No Anxiety/Panic, No Depression Heme/Lymph: no easy bruising, no Lymphadenopathy Endocrine: No Polyuria, No Polydipsia Yes all other systems are reviewed and are negative [facility] Past Medical History Attestation statement: The following information was validated with the patient. Source: old records reviewed Medical History Biatrial enlargement Chronic atrial fibrillation Diabetes Heart failure, unspecified HTN (hypertension) Morbid obesity Surgical History Status post atrial septal defect repair Family History Family History Father No problems noted. Mother Diabetes Social History Social History Advance Directives: No Advance Directives Information Provided: No Physical Exam Vital Signs: Vital Signs: Last Vital Signs Temp 98 F 09/21/21 20:08 Pulse 80 09/21/21 21:52 Resp 16 09/21/21 21:52 BP 124/65 09/21/21 21:52 Pulse Ox 98 09/21/21 21:52 BMI result Body Mass Index 43.4 Appearance: Alert. Oriented X3. No acute distress. Head: Eyes: PERRLA. EOMI. Conjunctiva and sclera normal. Eyelids ecchymotic and edematous. ENT: TM's Normal. Pharynx normal. Uvula midline. Moist mucous membranes. No trismus noted. No drooling noted. No muffled voice noted. Neck: Normal inspection. Neck supple. No adenopathy. Thyroid Normal. No meningeal signs. No neck mass noted. No vertebral tenderness or step-off noted. Full range of motion. No pain on axial loading. CVS: AFib heart rate and rhythm. Heart sound normal. No murmurs noted. Pulses equal to all extremities. Respiratory: No respiratory distress. Painless inspiration. Breath sounds normal. No wheezes/rales/rhonchi noted. Chest nontender. No accessory muscle usage noted or decreased air movement noted. Abdomen: Soft and nontender. Bowel sounds normal in all 4 quadrants. No distention noted. No organomegaly noted. No visible injury noted. Back: No CVA tenderness. Full range of motion noted. Skin: Skin warm and dry. Normal skin turgor. No rashes/lesions/lacerations noted. Extremities: No lower extremity edema. Extremities exhibit normal range of motion with the exception of the right upper extremity. Decreased flexion, extension, pronation and supination of the right upper extremity. Tenderness to mid humeral biceps. Neuro: cranial nerves 2-12 intact, no focal neural deficits, strength 5/5 to all extremities, No motor deficit. No sensory deficit. Patellar Reflexes normal. Course Course Course Narrative: 61-year-old female presents with facial trauma, headache, ecchymosis to bilateral orbits and knees right arm pain after a slip and fall.. CT scan and labs drawn while patient was in the emergency department waiting room. PERRLA, EOMI, no nystagmus, no indication of hyphema, funduscopic exam is normal. Tympanic membranes intact. No indication of septal hematoma, nares patent. Cranial nerves 2-12 intact. No dental pain. Gait is well balanced well coordinated. 20:45 EKG indicates AFib. Patient does take her diltiazem in the evenings between 5 and 18:00. Will give her her p.o. medication as heart rate is 82. CT scan indicates nasal bone fracture without displacement. Still waiting for x-rays of the humerus shoulder and elbow 22:00 x-rays negative for fracture, show some degenerative arthritis, however with her decreased range of motion I feel that this could possibly be rotator cuff for ligament injury. I did discuss this case with on-call orthopedic PA, plan is for patient to follow-up in the office later this week. Also recommended that the patient should follow up with primary care physician. Patient verbalized understanding of and agrees to plan of care discharge home. Patient verbalized understanding of signs and symptoms indicating need for emergent intervention. Consultations Consultation #1: Margo Time: 22:00 MDM - Fall Differential Diagnosis Differential diagnosis: Likely fracture and concussion without loss of consciousness Medical Records Attestation: I reviewed the patient's medical records. Lab Data Attestation: I reviewed the patient's lab results. Result diagrams: 09/21/21 17:11 09/21/21 17:11 Labs: Lab Results 09/21/21 09/21/21 09/21/21 Range/Units 17:11 17:11 17:11 WBC 9.3 (4.8-10.8) X10*3/uL RBC 4.64 (4.20-5.50) X10*6/uL Hgb 14.0 (12.0-16.0) g/dl Hct 42.0 (37.0-47.0) % MCV 90.5 (80.0-98.0) fL MCH 30.2 (27.0-33.0) pg MCHC 33.3 (31.0-35.0) g/dl RDW 12.6 (11.0-16.0) % Plt Count 245 (160-400) X10*3/uL MPV 9.1 L (9.4-12.3) fL Immature Gran % (Auto) 0.4 (0.0-0.4) % Neut % (Auto) 81.2 H (45-73) % Lymph % (Auto) 11.3 L (20-40) % Denali % (Auto) 5.3 (2-11) % Eos % (Auto) 1.4 (0-4) % Baso % (Auto) 0.4 (0-2) % Lymph # (Auto) 1.1 L (1.2-4.9) X10*3/uL Denali # (Auto) 0.5 (0.1-1.2) X10*3/uL Eos # (Auto) 0.1 (0.0-0.4) X10*3/uL Baso # (Auto) 0.0 (0.0-0.2) X10*3/uL Abs Immat Gran (auto) 0.04 H (0.00-0.03) X10*3/uL Absolute Neuts (auto) 7.6 (2.0-8.3) x10*3/uL Absolute Nucleated RBC 0.000 (0.0-0.012) X10*3/uL Nucleated RBC % (auto) 0.0 (0.0-0.2) /100WBC PT 33.0 H (9.9-13.0) SEC INR 2.8 H (0.9-1.1) APTT 43.9 H (24.1-38.0) SEC Sodium 140 (135-145) mmol/L Potassium 4.8 (3.3-5.1) mmol/L Chloride 105 (96-108) mmol/L Carbon Dioxide 25 (22-29) mmol/L Anion Gap 15 (12-20) BUN 17 H (9-16) mg/dL Creatinine 0.74 (0.5-1.4) mg/dL Estim Creat Clear Calc 96.8 Estimated GFR > 60 Random Glucose 176 H (60-115) mg/dL Calcium 9.9 (8.4-10.2) mg/dL Imaging Data CT head neck facial bones: Attestation: I personally reviewed and interpreted this imaging study as follows: Radiologist's impression: EXAMINATION: CT HEAD WITHOUT CONTRAST CT FACIAL BONES WITHOUT CONTRAST CT CERVICAL SPINE WITHOUT CONTRAST CLINICAL INFORMATION: Status post fall.? COMPARISON: CT head and cervical spine from 09/16/2019. TECHNIQUE: Imaging was performed from the skull base to vertex without intravenous administration of contrast. In addition, helical noncontrast CT imaging was acquired through the cervical spine and facial bones and source images were reviewed along with axial reconstructions and sagittal and coronal MPRs. This CT examination was performed using dose optimization techniques as appropriate, variously including the following: *Automated exposure control. *Adjustment of mA and/or kV according to patient size (this includes techniques or standardized protocols for targeted exams where dose is matched to indication/reason for exam; i.e. extremities or head). *Use of iterative reconstruction technique. DLP: 1410 mGy-cm FINDINGS: Head: There is no evidence of acute intracranial hemorrhage or edematous territorial infarction. A few foci of hypoattenuation in the periventricular and deep white matter are consistent with mild microangiopathy. Jim-white matter differentiation is preserved. The ventricles are normal in size and configuration. No evidence for obstructive hydrocephalus. Mild prominence of the CSF space posterior to the cerebellum. No abnormal mass effect or midline shift. No extra-axial fluid collections. Moderate subgaleal hematoma along the frontal bone, measuring up to 0.6 cm in depth. No associated osseous abnormalities.? The mastoid air cells are underdeveloped. Chronic opacification of the right greater than left mastoid with chronic tract extending from the right mastoid antrum to the subcutaneous tissues. No periauricular collection. Maxillofacial Bones: Mild rightward angulation of the nasal bones is new compared to exam from 2019 suggestive of nondisplaced fractures. Mild edema along the nasal bridge. Mild leftward nasal septal deviation. No evidence of additional maxillofacial bone fractures. The zygomatic arches remain intact. No evidence of mandibular or maxillary fracture. The mandibular condyles remain well-seated in their respective temporal articular grooves. Normal appearance of the intraconal and extraconal fat. No evidence of traumatic injury to the extraocular musculature or globes. Mild mucosal thickening of the paranasal sinuses. No layering fluid collections. Odontogenic enamel erosion associated with the mandibular left 2nd premolar. Minimal periapical lucencies associated with multiple maxillary and mandibular teeth. Cervical Spine: The atlantooccipital and atlantoaxial articulations remain well aligned. Reversal the normal cervical lordosis centered on C6-C7. Otherwise, there is anatomic alignment of the vertebral bodies and posterior elements. No evidence of acute fracture or subluxation. The vertebral body heights are maintained. Advanced degenerative disc disease at C6-C7 with prominent disc-osteophyte complex. There appears to be at least moderate spinal canal stenosis at this C6-C7. Mild to moderate degenerative disc disease at all additional cervical levels. There appear to be mild to moderate disc herniations at multiple additional cervical levels, most notably C4-C5. Partial ossification of the posterior longitudinal ligament at the levels of C1-C3. Facet and uncovertebral joint arthropathy leads to osseous encroachment on the neural foramina at C5-C6 and C6-C7. There is no prevertebral soft tissue swelling. The thyroid gland and remaining cervical soft tissues are normal in appearance. The lung apices demonstrate no abnormalities. CT/CT head/brain wo con IMPRESSION: 1. No evidence of acute intracranial hemorrhage or edematous territorial infarction. Mild underlying microangiopathy. ? 2. No evidence of acute fracture or traumatic subluxation of the cervical spine. ? 3. There appear to be mildly angulated and essentially nondisplaced nasal bone fractures. Frontal scalp hematoma without evidence of skull/orbital fracture. No additional maxillofacial bone fractures. ? 4. Moderate multilevel degenerative spinal arthropathy of the cervical spine. Most notably, there is advanced degenerative disc disease at C6-C7 with prominent disc-osteophyte complex formation. There appears to be at least moderate spinal canal stenosis at C6-C7. Right shoulder humerus and elbow x-ray: Attestation: I personally reviewed and interpreted this imaging study as follows: Radiologist's impression: EXAMINATION: X-RAY RIGHT SHOULDER X-RAY RIGHT HUMERUS X-RAY RIGHT ELBOW CLINICAL INFORMATION: Fall, pain, decreased range of motion.? COMPARISON: None.? TECHNIQUE: Multiple views of the right shoulder, right humerus and right elbow were obtained.? FINDINGS: No evidence of acute fractures or malalignment. Mild to moderate degenerative osteoarthritis in the glenohumeral joint and acromioclavicular joint. Subchondral cystic changes in the greater trochanter of the humerus. No joint effusion in the elbow. Partially imaged sternotomy wires. Visualized right-sided ribs and right lung are within normal limits.? XR/XR humerus RT IMPRESSION: No acute fractures or malalignment. ? Moderate degenerative osteoarthritis.? ECG Data Attestation: I personally reviewed and interpreted this ECG as follows: ECG interpretation date: 09/21/21 ECG interpretation time: 20:45 Prior ECG tracings: available for review Interpretation: Vent. rate 82 BPM WI interval * ms QRS duration 86 ms QT/QTc 396/462 ms P-R-T axes * 15 45 Atrial fibrillation Possible Inferior infarct , age undetermined Abnormal ECG When compared with ECG of 16-SEP-2019 20:09, No significant change was found Discharge Plan Discharge Clinical Impression: Closed nondisplaced fracture of nasal bone, Concussion, Rotator cuff injury Patient Disposition: Home, Self-Care Instructions: Nasal Fracture (ED), Rotator Cuff Injury (ED), Concussion (ED), Post Concussion Syndrome (ED) Additional Instructions: You were evaluated for injuries sustained from a fall. CT scan of head and cervical spine indicates nondisplaced nasal bone fracture with no acute findings requiring emergent intervention. Your injuries are also consistent with a concussion. You must follow up with primary care physician this week for concussion protocol. X-rays to your right shoulder, humerus and elbow are negative for acute findings requiring emergent intervention. It does show osteoarthritis in the shoulder. Based on your decreased ability to move her arm, your injuries are highly suspicious for a rotator cuff injury. Please use sling as needed for support. Follow-up with orthopedics this week. I discussed your case with the on-call PA Galilea Aragon. Please call the office to request an appointment. They are expecting her phone call. Use Tylenol as needed for pain management. Continue to take all medications as directed. Hold Coumadin tonight. You may take Coumadin tomorrow. We gave you your diltiazem 180 mg extended release tablet while in the emergency department. Thank you for choosing this emergency department for evaluation. Please follow-up with primary care physician as needed. Return to the emergency department for any new, concerning, or worsening symptoms. Prescriptions: No Action diltiazem HCl 180 mg capsule,extended release 24hr 180 mg PO DAILY 0RF metformin 500 mg tablet extended release 24 hr 500 mg PO DAILY 0RF simvastatin 10 mg tablet 10 mg PO BEDTIME 0RF potassium chloride 10 mEq tablet,ER particles/crystals 10 meq PO DAILY 0RF metoprolol succinate 25 mg tablet extended release 24 hr PO 0RF furosemide 20 mg tablet 20 mg PO DAILY 0RF warfarin 7.5 mg tablet See Rx Instructions mg .ROUTE .COMPLEX Qty: 90 0RF Protocol: Dose Management Condition: Monday (Week One) Dose/Route: 5 mg Instruction: 1 x 5 mg tablet Condition: Monday Dose/Route: 7.5 mg Instruction: 1 x 7.5 mg tablet Condition: Monday Dose/Route: 5 mg Instruction: 1 x 5 mg tablet Condition: Monday Dose/Route: 7.5 mg Instruction: 1 x 7.5 mg tablet Condition: Dose/Route: 5 mg Instruction: 1 x 5 mg tablet Condition: Monday Dose/Route: 7.5 mg Instruction: 1 x 7.5 mg tablet Condition: Monday Dose/Route: 7.5 mg Instruction: 1 x 7.5 mg tablet Condition: Monday (Week Two) Dose/Route: 5 mg Instruction: 1 x 5 mg tablet Condition: Monday Dose/Route: 7.5 mg Instruction: 1 x 7.5 mg tablet Condition: Monday Dose/Route: 5 mg Instruction: 1 x 5 mg tablet Condition: Monday Dose/Route: 7.5 mg Instruction: 1 x 7.5 mg tablet Condition: Dose/Route: 5 mg Instruction: 1 x 5 mg tablet Condition: Monday Dose/Route: 7.5 mg Instruction: 1 x 7.5 mg tablet Condition: Monday Dose/Route: 7.5 mg Instruction: 1 x 7.5 mg tablet Protocol Text: Adjustment Start Date: Monday09/10/21 INR Value: 2.9 INR Date: 09/10/21 Recheck Date: 10/01/21 Additional Instructions: CONT REG DOSING CALL WITH ANY MEDICATION CHANGES Rx Instructions: 7.5MG MWF/ 3.75MG X4DAYS; on odd numbered days warfarin 5 mg tablet 5 mg PO DAILY Qty: 90 0RF Protocol: Dose Management Condition: Monday (Week One) Dose/Route: 5 mg Instruction: 1 x 5 mg tablet Condition: Monday Dose/Route: 7.5 mg Instruction: 1 x 7.5 mg tablet Condition: Monday Dose/Route: 5 mg Instruction: 1 x 5 mg tablet Condition: Monday Dose/Route: 7.5 mg Instruction: 1 x 7.5 mg tablet Condition: Dose/Route: 5 mg Instruction: 1 x 5 mg tablet Condition: Monday Dose/Route: 7.5 mg Instruction: 1 x 7.5 mg tablet Condition: Monday Dose/Route: 7.5 mg Instruction: 1 x 7.5 mg tablet Condition: Monday (Week Two) Dose/Route: 5 mg Instruction: 1 x 5 mg tablet Condition: Monday Dose/Route: 7.5 mg Instruction: 1 x 7.5 mg tablet Condition: Monday Dose/Route: 5 mg Instruction: 1 x 5 mg tablet Condition: Monday Dose/Route: 7.5 mg Instruction: 1 x 7.5 mg tablet Condition: Dose/Route: 5 mg Instruction: 1 x 5 mg tablet Condition: Monday Dose/Route: 7.5 mg Instruction: 1 x 7.5 mg tablet Condition: Monday Dose/Route: 7.5 mg Instruction: 1 x 7.5 mg tablet Protocol Text: Adjustment Start Date: Monday09/10/21 INR Value: 2.9 INR Date: 09/10/21 Recheck Date: 10/01/21 Additional Instructions: CONT REG DOSING CALL WITH ANY MEDICATION CHANGES Referrals: Galilea Aragon PA-C [Physician B2B Sales Manager] - 2 days (Suspected right rotator cuff injury) Abdulaziz Stewart MD [Physician] - 2 days (Concussion, fall, facial trauma, right rotator cuff injury) Stand Alone Forms: Work/School Release
[2021-09-21 20:08] VITALS: BP 130/76; PULSE 86; RESP 18; TEMP 36.6; O2SAT 98
--- NOTE | 2021-09-21 20:21 | ECG_ITS ---
Test Reason : FALL Blood Pressure : / mmHG Vent. Rate : 082 BPM Atrial Rate : 000 BPM P-R Int : 000 ms QRS Dur : 086 ms QT Int : 396 ms P-R-T Axes : 000 015 045 degrees QTc Int : 462 ms Atrial fibrillation Possible Inferior infarct , age undetermined Abnormal ECG When compared with ECG of 16-SEP-2019 20:09, No significant change was found Referred By: Sara Murray Electronically Signed By:Quang Cardona
[2021-09-21] MEDS: Diphth,Pertus(ACell),Tet Adult 0.5 ML SYRINGE IM (20:51)
[2021-09-21] MEDS: Acetaminophen 325 MG TABLET 650 MG PO (20:51)
[2021-09-21] MEDS: dilTIAZem HCL SR 90 MG CAP.ER.12H 180 MG PO (21:50)
[2021-09-21 21:52] VITALS: BP 124/65; PULSE 80; RESP 16; O2SAT 98
== END 2021-09-21 22:40 | disposition home or self-care (01) ==
PROVIDERS: Emergency Provider Internal Medicine; PCP Internal Medicine
DX: S02.2XXA Fracture of nasal bones, initial encounter for closed fracture (principal); S06.9X0A Unspecified intracranial injury without loss of consciousness, initial encounter; S05.12XA Contusion of eyeball and orbital tissues, left eye, initial encounter; S05.11XA Contusion of eyeball and orbital tissues, right eye, initial encounter; S01.511A Laceration without foreign body of lip, initial encounter; S89.91XA Unspecified injury of right lower leg, initial encounter; S89.92XA Unspecified injury of left lower leg, initial encounter; S40.212A Abrasion of left shoulder, initial encounter; S40.211A Abrasion of right shoulder, initial encounter; G44.309 Post-traumatic headache, unspecified, not intractable; M79.601 Pain in right arm; M54.2 Cervicalgia; I48.91 Unspecified atrial fibrillation; W01.0XXA Fall on same level from slipping, tripping and stumbling without subsequent striking against object, initial encounter; Y93.9 Activity, unspecified; Y92.481 Parking lot as the place of occurrence of the external cause; Y99.9 Unspecified external cause status; Z79.899 Other long term (current) drug therapy; Z79.01 Long term (current) use of anticoagulants
CPT/HCPCS: 36415; 70450; 70486; 72125; 73030; 73060; 73070; 80048; 85025; 85610; 85730; 90471; 90715; 93005; 99284

== ENCOUNTER → 2021-09-23 14:57 | Outpatient (BNVA) | payer OTHER, SELFPAY | PROVIDERS: PCP Internal Medicine; Referring Provider Internal Medicine; Visit Provider Internal Medicine Cardiovascular Disease ==

== ENCOUNTER → 2021-10-01 15:19 | Outpatient (BNVA) | payer OTHER, SELFPAY | PROVIDERS: PCP Internal Medicine; Visit Provider Internal Medicine | DX: I48.20 Chronic atrial fibrillation, unspecified (principal); Z51.81 Encounter for therapeutic drug level monitoring; Z79.01 Long term (current) use of anticoagulants | CPT/HCPCS: 85610; 99211 ==

== ENCOUNTER → 2021-10-15 14:29 | Outpatient (BNVA) | payer OTHER, SELFPAY | PROVIDERS: PCP Internal Medicine; Visit Provider Physician Assistant | DX: M75.81 Other shoulder lesions, right shoulder (principal) | CPT/HCPCS: 99202 ==

== ENCOUNTER → 2021-10-22 15:00 | Outpatient (BNVA) | payer OTHER, SELFPAY | PROVIDERS: PCP Internal Medicine; Visit Provider Internal Medicine | DX: I48.20 Chronic atrial fibrillation, unspecified (principal); Z51.81 Encounter for therapeutic drug level monitoring; Z79.01 Long term (current) use of anticoagulants | CPT/HCPCS: 85610; 99211 ==

== ENCOUNTER → 2021-11-02 13:27 | Outpatient (REF) | payer OTHER, SELFPAY ==
--- NOTE | 2021-11-02 14:19 | CA_ITS ---
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 The calculated ejection fraction is 56% by biplane method. - There is low normal right ventricular systolic function. - The left atrium is severely dilated. - There is mild mitral annular calcification. Findings Procedure Information Contrast agent, definity, is being given per protocol without apparent complications. Left Ventricle Normal left ventricular cavity size. There is mildly increased left ventricular wall thickness. The left ventricular systolic function is normal. The calculated ejection fraction is 56% by biplane method. There is no evidence of regional wall motion abnormalities. Diastolic function is indeterminate on the basis of available data. Right Ventricle Mildly increased right ventricular cavity size. There is low normal right ventricular systolic function. Atria The left atrium is severely dilated. The right atrium is normal in size. Aortic Valve There is a normal trileaflet aortic valve. There is no aortic valve stenosis. There is no aortic valve regurgitation. Mitral Valve There is mild mitral annular calcification. There is trace mitral valve regurgitation. There is no mitral valve stenosis. Pulmonic Valve The pulmonic valve was not well visualized. Tricuspid Valve Normal tricuspid valve structure. There is mild tricuspid valve regurgitation. The right ventricular systolic pressure is 34 mmHg. There is no evidence of pulmonary hypertension. Great Vessels The asc aorta is normal in size. Venous The inferior vena cava is mildly dilated and collapses greater than 50% with inspiration. Pericardium/Pleural There is no evidence of pericardial effusion. Prior Study Comparison No significant change compared to prior study dated: 02/05/2020. Measurements 2D Linear Measurements IVSd: 1.16 0.6-0.9/0.6-1.0 cm LVIDd: 4.64 3.9-5.3/4.2-5.9 cm LVIDd Index: 2.12 2.4-3.2/2.2-3.1 cm/m2 LVIDs: 3.06 2.0-3.6 cm LVPWd: 1.14 0.7-1.1 cm LA Diam: 4.30 2.7-3.8/3.0-4.0 cm LAIDs Index: 1.96 1.5-2.3 cm/m2 LV Mass: 243.73 67-162/88-224 g LV Mass Index: 111.29 43-95/49-115 g/m2 LVOT Diam: 2.00 3.0+(-)1.3 cm 2D Systolic Function EF 4C: 54.10 >55% EF 2C: 57.50 >55% EF BiP: 56.00 >55% Mitral Valve MV Pk E: 1.39 MV PK A: 0.40 MV Decel Time: 161.00 E/A: 3.50 E'Lateral: 11.60 E'Medial: 6.31 E/E' Med: 22.00 E/E' Lat: 12.00 PHT: 47.00 MVA PHT: 4.68 Decel [place]: 8.65 Aortic Valve AoV Pk Liam: 1.46 AoV Mn Liam: 1.09 AoV VTI: 0.38 AoV Pk Grad: 9.00 Aov Mn Grad: 5.00 RL Cont.VTI: 2.15 LVOT LVOT Pk Liam: 1.12 LVOT Mn Liam: 0.77 LVOT VTI: 0.26 LVOT Pk Grad: 5.00 LVOT Mn Grad: 3.00 LVOT Diam: 2.00 LVOT Area: 3.14 Diastolic Function MV Pk E: 1.39 MV Pk A: 0.40 E/A: 3.50 E'Medial: 6.31 E/E' Med: 22.00 E' Laterial: 11.60 E/E' Lat: 12.00 Right Ventricle TAPSE (mm): 17.00 TVS' Liam: 9.00 Tricuspid Valve TR Pk Liam: 2.53 TR Pk Grad: 26.00 RA Press: 8.00 RVSP: 34.00 Great Vessels Aorta Sinus of Valsalva: 2.80 2.0-3.5 cm Ao Asc: 3.00 2.1-3.4 cm Ao Arch: 3.10 Updated in Other Vendor System with Status of Final Carlos Nava MD electronically signed on 11/03/2021 1:22:03 PM with status of Final
== END ==
LOC: HO.CARD 13:27
PROVIDERS: Visit Provider Internal Medicine Cardiovascular Disease
DX: I50.9 Heart failure, unspecified (principal)
CPT/HCPCS: 93306; Q9957

== ENCOUNTER → 2021-11-12 14:50 | Outpatient (BNVA) | payer OTHER, SELFPAY | PROVIDERS: PCP Internal Medicine; Visit Provider Internal Medicine | DX: I48.20 Chronic atrial fibrillation, unspecified (principal); Z51.81 Encounter for therapeutic drug level monitoring; Z79.01 Long term (current) use of anticoagulants | CPT/HCPCS: 85610; 99211 ==

== ENCOUNTER → 2021-11-26 11:04 | Outpatient (BNVA) | payer OTHER, SELFPAY | PROVIDERS: PCP Internal Medicine; Visit Provider Internal Medicine | DX: I48.0 Paroxysmal atrial fibrillation (principal); Z79.01 Long term (current) use of anticoagulants; Z51.81 Encounter for therapeutic drug level monitoring | CPT/HCPCS: 85610; 99211 ==

== ENCOUNTER → 2021-12-06 14:21 | Outpatient (BNVA) | payer OTHER, SELFPAY | PROVIDERS: Visit Provider Internal Medicine | DX: I48.20 Chronic atrial fibrillation, unspecified (principal); Z79.01 Long term (current) use of anticoagulants; Z51.81 Encounter for therapeutic drug level monitoring | CPT/HCPCS: 85610; 99211 ==

== ENCOUNTER 2021-12-08 14:00 | Outpatient (RCR) | payer OTHER, SELFPAY ==
--- NOTE | 2021-11-03 11:19 | MHC.PT.EP ---
[facility] [place] [facility] [place] Office [address] [place] [address] [phone] F: [phone] F: [phone] F: [phone] F: [phone] Physical Therapy Plan of Care Date of Evaluation: 11/03/21 Date of Surgery: Diagnosis: right shoulder pain Assessment: The patient arrived reporting shoulder, neck, and face pain after a fall sustained to her face and chest. x-rays show nondisplaced fractures of her nose. She also has intermittent numbness and pain in her right arm. CT of her neck show degenerative changes to her neck mostly at C5-6-7. She arrived with fear avoidance behavior of her right arm movement. She was guarding her arm as if it were in a sling. She had fairly normal ROM bilaterally, but she moved her right arm with apprehension. She has globally decreased strength of her right arm. The patient shows poor body mechanics, sitting posture, and bed mobility. She talks with increased conversational head movements. I believe her radicular symptoms are coming from her cervical spine. I will begin here first. I educated her on proper sleeping and sitting posture, and I will r/o cervical involvement first. Frequency and Duration: The patient will be seen 2x/week x 4 weeks. Short Term Goals: 1.Pt to able to demonstrate proper sitting posture with the use of a lumbar roll to decrease aggravating factors. 2.Pt to be able to demonstrate proper posture for common leisure activities such as crocheting and phone/tablet use. 3.For the patient to demonstrate proper upright sitting posture with use of the lumbar roll to improve compliance and carryover. Detention Goals: 1. Pt to be able to return to normal PLOF without limiting pain. 2. Pt to be able to return to overhead reaching without pain or limitation. 3. Pt to be able to manage her pain with selected exercise and stretching regime. Treatment Plan: Modalities to reduce pain, spasms and effusion. Manual therapy to restore motion and function. Therapeutic exercise to improve strength and flexibility. Neuromuscular re-education for posture and balance. Therapeutic activities to return to functional activities of daily living. Electronically signed by: Lakeshia Olmedo PT DPT Please sign and return to therapist. Thank you for your referral.
== END 2022-03-18 08:28 | disposition home or self-care (01) ==
LOC: HO.PT 14:00
PROVIDERS: PCP Internal Medicine; Visit Provider Physician Assistant
DX: M75.81 Other shoulder lesions, right shoulder (principal)
CPT/HCPCS: 97110; 97112; 97140; 97162; 97530

== ENCOUNTER 2021-12-10 06:58 | Day surgery (SDC) | payer OTHER, SELFPAY ==
--- NOTE | 2021-12-09 12:27 | HO.ANESPROP2 ---
Documented by User: Antonia Johnson NP 12/09/21 12:30 HPI - Anesthesia Eval Consult details Narrative: 61yo F for Colonoscopy Warfarin for afib PMFSH Active Problems Active Problems: All Active Problems (Updated 12/06/21 @ 14:21 by Bailey Juárez RN) Current use of anticoagulant therapy (Acute) Tendinitis of right rotator cuff (Acute) Chronic atrial fibrillation (Acute) Heart failure, unspecified (Acute) Diabetes (Acute) HTN (hypertension) (Acute) Morbid obesity (Acute) Past Medical History Medical History (Updated 12/06/21 @ 14:21 by Bailey Juárez, RN) Biatrial enlargement Chronic atrial fibrillation Diabetes Heart failure, unspecified History of cardioversion HTN (hypertension) Morbid obesity On anticoagulant therapy On beta kathrine at home Family History Family History Father No problems noted. 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 Meds Allergies Allergy/AdvReac Type Severity Reaction Status Date / Time No Known Allergies Allergy Verified 12/06/21 14:31 Home Medications Medication Instructions Recorded Confirmed Last Taken Type diltiazem HCl 180 mg 180 mg PO DAILY 07/21/20 12/06/21 Unknown History capsule,extended release 24 hr furosemide 20 mg tablet 20 mg PO DAILY 07/21/20 12/06/21 Unknown History metformin 500 mg tablet,extended 500 mg PO DAILY 07/21/20 12/06/21 Unknown History release 24 hr potassium chloride 10 mEq 10 meq PO DAILY 07/21/20 12/06/21 Unknown History tablet,extended release(part/cryst) simvastatin 10 mg tablet 10 mg PO BEDTIME 07/21/20 12/06/21 Unknown History metoprolol succinate 25 mg 25 mg PO BID tab 09/23/21 12/06/21 Unknown History tablet,extended release 24 hr vitamin E 200 unit capsule 200 unit PO DAILY 09/23/21 12/06/21 Unknown History Exam Exam Date and Time: December 09, 2021 1227 Pertinent Lab Results Pertinent Lab Results: Laboratory Tests 09/21/21 09/21/21 17:11 17:11 WBC 9.3 Hgb 14.0 Hct 42.0 Plt Count 245 Sodium 140 Potassium 4.8 Chloride 105 Carbon Dioxide 25 BUN 17 H Creatinine 0.74 Narrative Narrative: EKG 09/2021 Vent. Rate : 082 BPM ? ? Atrial Rate : 000 BPM ?? P-R Int : 000 ms? QRS Dur : 086 ms ? ? QT Int : 396 ms ? ? ? P-R-T Axes : 000 015 045 degrees ?? QTc Int : 462 ms ? Atrial fibrillation Possible Inferior infarct , age undetermined Abnormal ECG When compared with ECG of 16-SEP-2019 20:09, No significant change was found ECHO 10/2021 Conclusions: - The left ventricular systolic function is normal.? The ? calculated ejection fraction is 56% by biplane method. ? - There is low normal right ventricular systolic function. ? ? ? - The left atrium is severely dilated. ? - There is mild mitral annular calcification.?? Assessment and Plan Assessment Anesthesia Assessment: Chart Reviewed Documented by User: June Elliott MD 12/10/21 08:41 PMFSH Active Problems Active Problems: All Active Problems (Updated 12/06/21 @ 14:21 by Bailey Juárez, ANNIKA) Current use of anticoagulant therapy (Acute) Tendinitis of right rotator cuff (Acute) Chronic atrial fibrillation (Acute) Heart failure, unspecified (Acute) Diabetes (Acute) HTN (hypertension) (Acute) Morbid obesity (Acute) Denies SAMPSON Past Medical History Medical History (Updated 12/06/21 @ 14:21 by Bailey Juárez RN) Biatrial enlargement Chronic atrial fibrillation Diabetes Heart failure, unspecified History of cardioversion HTN (hypertension) Morbid obesity On anticoagulant therapy On beta kathrine at home Family History Family History Father No problems noted. 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 Meds Allergies Allergy/AdvReac Type Severity Reaction Status Date / Time No Known Allergies Allergy Verified 12/06/21 14:31 Home Medications Medication Instructions Recorded Confirmed Last Taken Type diltiazem HCl 180 mg 180 mg PO DAILY 07/21/20 12/06/21 Unknown History capsule,extended release 24 hr furosemide 20 mg tablet 20 mg PO DAILY 07/21/20 12/06/21 Unknown History metformin 500 mg tablet,extended 500 mg PO DAILY 07/21/20 12/06/21 Unknown History release 24 hr potassium chloride 10 mEq 10 meq PO DAILY 07/21/20 12/06/21 Unknown History tablet,extended release(part/cryst) simvastatin 10 mg tablet 10 mg PO BEDTIME 07/21/20 12/06/21 Unknown History metoprolol succinate 25 mg 25 mg PO BID tab 09/23/21 12/06/21 Unknown History tablet,extended release 24 hr vitamin E 200 unit capsule 200 unit PO DAILY 09/23/21 12/06/21 Unknown History Exam Height,Weight and Vital Signs: Height 5 ft 3 in Weight 102.512 kg Vital Signs Temp Pulse Resp BP Pulse Ox 12/10/21 08:04 97.4 F 74 18 139/77 97 Airway Mallampati Class: II TM Dist: >3cm Neck ROM: Full Heart: Irregularly irregular Lungs: CTAB Assessment and Plan Assessment Anesthesia Assessment: Anesthesia Plan Discussed Final Anesthetic Review Family History of Problems with Anesthesia: No History of Problems with Anesthesia: No NPO: Yes ASA Class: III Final Preanesthetic Review: No Changes in Pt Med Stat, Meds/Allgs Chart Reviewed, Consent Obtained/Reviewed and Anes Risks/Benef Reviewed Patient Risk: Intermediate Procedure Risk: Low Assessment/Block/Sedation in SS: Assess/Block/Sedation-SS Anesthetic Plan Anesthetic Plan: MAC: Disposition: Standard PACU
[2021-12-10 07:48] VITALS: BMI 40.0
[2021-12-10 08:01] LABS: INTERNATIONAL NORM RATIO 1.6 (0.9-1.1); Prothrombin Time 18.2 SEC (9.9-13.0)
[2021-12-10 08:04] VITALS: BP 139/77; PULSE 74; RESP 18; TEMP 36.3; O2SAT 97
[2021-12-10] MEDS: Lactated Ringers 1,000 ML 100 ML IVCONT (08:05)
[2021-12-10 08:11] LABS: Glucose, Whole Blood 168 mg/dL (60-115)
[2021-12-10 08:40] VITALS: BP 139/77; PULSE 77; RESP 19; TEMP 36.3; O2SAT 97
[2021-12-10 09:54] VITALS: BP 112/71; PULSE 66; RESP 20; TEMP 36.2; O2SAT 98
--- NOTE | 2021-12-10 09:54 | P.BOP_ITS ---
Brief Operative Note Date of Service: 12/10/21 Pre-op diagnosis: Screening Post-op diagnosis: other (Colon polyps) Procedure: Colonoscopy to the cecum and TI with bx/removal of cecal polyp and cold snare polypectomy of rectal polyp, with placement of Resolution clips on each site. Surgeon: Adam Morales Anesthesia: MAC Was an Support Coordinator used for this Procedure?: No Estimated blood loss (mL): 2.0 Pathology: other (A. Cecal polyp B. Rectal polyp) Condition: stable Disposition: PACU
[2021-12-10 10:09] VITALS: BP 137/72; PULSE 57; RESP 22; TEMP 36.4
--- NOTE | 2021-12-10 20:32 | OP_ITS ---
SURGEON: Adam Morales MD INDICATIONS: The patient presents for evaluation of colorectal cancer screening. Full consent was obtained from her for this, including risks of bleeding and perforation. PREOPERATIVE DIAGNOSIS: Colorectal cancer screening. POSTOPERATIVE DIAGNOSIS: PROCEDURE PERFORMED: Colonoscopy to the cecum and terminal ileum with cold biopsy and removal of cecal polyp and cold snare polypectomy of rectal polyp with placement of Resolution Clips. ESTIMATED BLOOD LOSS: COMPLICATIONS: ANESTHESIA: Monitored anesthesia care. ASSISTANTS: SPECIMENS: POSTOPERATIVE DIAGNOSES: Colorectal cancer screening, small colon polyps, diverticulosis and internal hemorrhoids. DESCRIPTION OF PROCEDURE: The patient was placed in the left lateral decubitus position. The digital rectal exam revealed no abnormalities. The Olympus video pediatric colonoscope was entered into the rectum and advanced easily to the cecum. Once in the cecum, I did identify cecal pouch with appendiceal orifice and a normal-appearing ileocecal valve. The terminal ileum was cannulated and appeared normal. The scope withdrawn back into the colon. The entire cecum and ileocecal valve appeared normal other than an approximately 4 or 5 mm cecal polyp, which was removed completely with a cold biopsy forceps. There was no significant bleeding, but I did place 2 Resolution Clips on the polypectomy site with good deployment and good hemostasis. The scope was then slowly withdrawn assessing all mucosal surfaces carefully. Preparation was excellent. There was a mild amount of sigmoid diverticulosis. I did not visualize any sign of colitis nor angiodysplasia. In the rectum, the scope was retroflexed visualizing an approximately 5 or 6 mm grossly adenomatous polyp. This was removed with a cold snare polypectomy. The polypectomy site appeared free of any residual polyp tissue, but there was persistent oozing. A single Resolution Clip was deployed, but after further inspection was found not to be on the polypectomy site. Therefore, a 2nd Resolution Clip was deployed onto the polypectomy site with good deployment and good hemostasis. Internal hemorrhoids were noted as well. The scope was straightened and withdrawn from the patient. She tolerated the procedure well and was returned to the recovery area in stable condition. IMPRESSION: 1. Colon polyps. 2. Diverticulosis. 3. Internal hemorrhoids. PLAN: The results of the pathology will be checked. If these are tubular adenomas, I would recommend a followup colonoscopy in 5 years. If they are both hyperplastic, I would recommend a followup colonoscopy in 10 years. Her PT was 18.2 with an INR 1.6 today and therefore she was advised not to use any more Lovenox. 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 She was advised not to use any aspirin or NSAIDs while on the Coumadin. This has been discussed with her daughter. MD NADIR Ayala/LILIYA / [id number] MTDEdna
== END 2021-12-10 10:55 | disposition home or self-care (01) ==
PROVIDERS: PCP Internal Medicine; Visit Provider Internal Medicine
PROC: 0DJD8ZZ Inspection of Lower Intestinal Tract, Via Natural or Artificial Opening Endoscopic (ICD-10-PCS; CPT 45378; principal; 2021-12-10 09:10)
DX: Z12.11 Encounter for screening for malignant neoplasm of colon (principal); D12.0 Benign neoplasm of cecum; D12.8 Benign neoplasm of rectum; K57.30 Diverticulosis of large intestine without perforation or abscess without bleeding; K64.8 Other hemorrhoids; I48.20 Chronic atrial fibrillation, unspecified; Z79.01 Long term (current) use of anticoagulants; E78.00 Pure hypercholesterolemia, unspecified; I10 Essential (primary) hypertension; E11.9 Type 2 diabetes mellitus without complications; Z79.84 Long term (current) use of oral hypoglycemic drugs; Z79.899 Other long term (current) drug therapy
CPT/HCPCS: 45385; 45380; 36415; 82947; 85610; 88305

== ENCOUNTER → 2021-12-17 14:37 | Outpatient (BNVA) | payer OTHER, SELFPAY | PROVIDERS: Visit Provider Internal Medicine | DX: I48.20 Chronic atrial fibrillation, unspecified (principal); Z79.01 Long term (current) use of anticoagulants; Z51.81 Encounter for therapeutic drug level monitoring | CPT/HCPCS: 85610; 99211 ==

== ENCOUNTER → 2021-12-20 14:37 | Outpatient (BNVA) | payer OTHER, SELFPAY | PROVIDERS: PCP Internal Medicine; Visit Provider Internal Medicine | DX: I48.20 Chronic atrial fibrillation, unspecified (principal); Z79.01 Long term (current) use of anticoagulants; Z51.81 Encounter for therapeutic drug level monitoring | CPT/HCPCS: 85610; 99211 ==

== ENCOUNTER → 2021-12-29 14:23 | Outpatient (BNVA) | payer OTHER, SELFPAY | PROVIDERS: PCP Internal Medicine; Visit Provider Internal Medicine | DX: I48.20 Chronic atrial fibrillation, unspecified (principal); Z79.01 Long term (current) use of anticoagulants; Z51.81 Encounter for therapeutic drug level monitoring | CPT/HCPCS: 85610; 99211 ==

== ENCOUNTER → 2022-01-14 14:54 | Outpatient (BNVA) | payer OTHER, SELFPAY | PROVIDERS: PCP Internal Medicine; Visit Provider Internal Medicine | DX: I48.20 Chronic atrial fibrillation, unspecified (principal); Z79.01 Long term (current) use of anticoagulants; Z51.81 Encounter for therapeutic drug level monitoring | CPT/HCPCS: 85610; 99211 ==

== ENCOUNTER 2022-02-03 10:30 | Outpatient (REF) | payer OTHER, SELFPAY ==
[2022-02-03 11:21] LABS: MANUAL DIFF FLAG NO
[2022-02-03 11:32] LABS: Hematocrit 40.2 % (37.0-47.0); Hemoglobin 13.5 g/dl (12.0-16.0); Mean Corpuscular Hemoglobin 30.2 pg (27.0-33.0); Mean Corpuscular Volume 89.9 fL (80.0-98.0); Red Blood Count 4.47 X10*6/uL (4.20-5.50); White Blood Count 6.8 X10*3/uL (4.8-10.8)
[2022-02-03 11:33] LABS: Basophils Absolute Auto 0.1 X10*3/uL (0.0-0.2); Basophils Percent Auto 0.7 % (0-2); Eosinophils Absolute Auto 0.2 X10*3/uL (0.0-0.4); Eosinophils Percent Auto 2.8 % (0-4); Imm Gran Abs Auto 0.01 X10*3/uL (0.00-0.03); Imm Gran Pct Auto 0.1 % (0.0-0.4); Lymphocytes Absolute Auto 1.1 X10*3/uL (1.2-4.9); Lymphocytes Percent Auto 15.6 % (20-40); Mean Corpuscular HGB Conc 33.6 g/dl (31.0-35.0); Mean Platelet Volume 8.9 fL (9.4-12.3); Monocytes Absolute Auto 0.5 X10*3/uL (0.1-1.2); Monocytes Percent Auto 7.8 % (2-11); Platelet Count 269 X10*3/uL (160-400)
[2022-02-03 11:41] LABS: Estimated Average Glucose 203 mg/dL; Hemoglobin A1c % 8.7 %
[2022-02-03 12:01] LABS: INTERNATIONAL NORM RATIO 3.3 (0.9-1.1); Prothrombin Time 38.6 SEC (9.9-13.0)
[2022-02-03 12:07] LABS: Alanine Aminotransferase 18 U/L (0-31); Alkaline Phosphatase 64 U/L (39-117); Anion Gap 12 (12-20); Aspartate Amino Transferase 18 U/L (5-31); Bilirubin Total 1.1 mg/dL (0.0-1.0); Blood Urea Nitrogen 13 mg/dL (9-16); Calcium 9.1 mg/dL (8.4-10.2); Carbon Dioxide 27 mmol/L (22-29); Chloride 104 mmol/L (96-108); Estimated Glomerular Filt Rate > 60; Glucose Random 198 mg/dL (60-115); Potassium 4.2 mmol/L (3.3-5.1); Sodium 139 mmol/L (135-145); Total Protein 7.1 g/dL (6.5-8.0)
[2022-02-03 12:51] LABS: Creatinine Urine 286.35 mg/dL
== END 2022-02-03 10:31 | disposition home or self-care (01) ==
LOC: HO.LAB 10:30
PROVIDERS: Absent Provider Internal Medicine; PCP Internal Medicine; Visit Provider Internal Medicine
DX: I48.20 Chronic atrial fibrillation, unspecified (principal); I10 Essential (primary) hypertension; E11.9 Type 2 diabetes mellitus without complications; Z51.81 Encounter for therapeutic drug level monitoring; Z79.01 Long term (current) use of anticoagulants
CPT/HCPCS: 36415; 80053; 82043; 83036; 85025; 85610; 99211

== ENCOUNTER → 2022-02-23 10:52 | Outpatient (BNVA) | payer OTHER, SELFPAY | PROVIDERS: PCP Internal Medicine; Visit Provider Internal Medicine | DX: I48.20 Chronic atrial fibrillation, unspecified (principal); Z51.81 Encounter for therapeutic drug level monitoring; Z79.01 Long term (current) use of anticoagulants | CPT/HCPCS: 85610; 99211 ==

== ENCOUNTER 2022-03-16 10:36 | Outpatient (REF) | payer OTHER, SELFPAY ==
[2022-03-16 11:05] LABS: Prothrombin Time 62.1 SEC (10.0-13.1)
[2022-03-16 11:07] LABS: INTERNATIONAL NORM RATIO 5.1 (0.9-1.1)
== END 2022-03-16 10:37 | disposition home or self-care (01) ==
LOC: HO.LAB 10:36
PROVIDERS: Visit Provider Internal Medicine
DX: I48.20 Chronic atrial fibrillation, unspecified (principal); Z51.81 Encounter for therapeutic drug level monitoring; Z79.01 Long term (current) use of anticoagulants
CPT/HCPCS: 36415; 85610; 99212

== ENCOUNTER → 2022-03-18 09:28 | Outpatient (BNVA) | payer OTHER, SELFPAY | PROVIDERS: PCP Internal Medicine; Visit Provider Internal Medicine | DX: I48.20 Chronic atrial fibrillation, unspecified (principal); Z51.81 Encounter for therapeutic drug level monitoring; Z79.01 Long term (current) use of anticoagulants | CPT/HCPCS: 85610; 99211 ==

== ENCOUNTER → 2022-03-25 09:34 | Outpatient (BNVA) | payer OTHER, SELFPAY | PROVIDERS: PCP Internal Medicine; Visit Provider Internal Medicine | DX: I48.20 Chronic atrial fibrillation, unspecified (principal); Z51.81 Encounter for therapeutic drug level monitoring; Z79.01 Long term (current) use of anticoagulants | CPT/HCPCS: 85610; 99211 ==

== ENCOUNTER → 2022-04-08 14:46 | Outpatient (BNVA) | payer OTHER, SELFPAY | PROVIDERS: PCP Internal Medicine; Visit Provider Internal Medicine | DX: I48.20 Chronic atrial fibrillation, unspecified (principal); Z51.81 Encounter for therapeutic drug level monitoring; Z79.01 Long term (current) use of anticoagulants | CPT/HCPCS: 85610; 99211 ==

== ENCOUNTER → 2022-04-22 15:55 | Outpatient (BNVA) | payer OTHER, SELFPAY | PROVIDERS: PCP Internal Medicine; Visit Provider Internal Medicine | DX: I48.20 Chronic atrial fibrillation, unspecified (principal); Z51.81 Encounter for therapeutic drug level monitoring; Z79.01 Long term (current) use of anticoagulants | CPT/HCPCS: 85610; 99211 ==

== ENCOUNTER 2022-05-06 15:15 | Outpatient (REF) | payer OTHER, SELFPAY ==
[2022-05-06 15:50] LABS: MANUAL DIFF FLAG NO
[2022-05-06 16:03] LABS: Basophils Absolute Auto 0.1 X10*3/uL (0.0-0.2); Basophils Percent Auto 0.9 % (0-2); Eosinophils Absolute Auto 0.2 X10*3/uL (0.0-0.4); Eosinophils Percent Auto 3.2 % (0-4); Hematocrit 40.3 % (37.0-47.0); Hemoglobin 13.4 g/dl (12.0-16.0); Imm Gran Abs Auto 0.01 X10*3/uL (0.00-0.03); Imm Gran Pct Auto 0.2 % (0.0-0.4); Lymphocytes Absolute Auto 1.6 X10*3/uL (1.2-4.9); Mean Corpuscular HGB Conc 33.3 g/dl (31.0-35.0); Mean Corpuscular Hemoglobin 29.8 pg (27.0-33.0); Mean Corpuscular Volume 89.6 fL (80.0-98.0); Mean Platelet Volume 8.9 fL (9.4-12.3); Monocytes Absolute Auto 0.5 X10*3/uL (0.1-1.2); Monocytes Percent Auto 8.2 % (2-11); Neutrophils Absolute Auto 4.1 x10*3/uL (2.0-8.3); Neutrophils Percent Auto 63.5 % (45-73); Platelet Count 306 X10*3/uL (160-400); Red Cell Distribution Width 12.9 % (11.0-16.0); White Blood Count 6.5 X10*3/uL (4.8-10.8)
[2022-05-06 16:12] LABS: Estimated Average Glucose 217 mg/dL; Hemoglobin A1c % 9.2 %
[2022-05-06 16:21] LABS: Alanine Aminotransferase 15 U/L (0-31); Albumin Level 4.1 g/dL (3.5-5.0); Alkaline Phosphatase 78 U/L (39-117); Anion Gap 17 (12-20); Aspartate Amino Transferase 16 U/L (5-31); Bilirubin Total 0.8 mg/dL (0.0-1.0); Blood Urea Nitrogen 18 mg/dL (9-16); Calcium 9.6 mg/dL (8.4-10.2); Carbon Dioxide 23 mmol/L (22-29); Chloride 106 mmol/L (96-108); Estimated Glomerular Filt Rate > 60; Glucose Random 183 mg/dL (60-115); Potassium 4.6 mmol/L (3.3-5.1); Sodium 141 mmol/L (135-145); Total Protein 7.2 g/dL (6.5-8.0)
[2022-05-06 18:00] LABS: Microalbum/Creatinine Ratio Ur 18.2 ug/mg cr
== END 2022-05-06 15:16 | disposition home or self-care (01) ==
LOC: HO.LAB 15:15
PROVIDERS: Absent Provider Internal Medicine; PCP Internal Medicine; Visit Provider Internal Medicine
DX: E11.9 Type 2 diabetes mellitus without complications (principal); I10 Essential (primary) hypertension; I48.0 Paroxysmal atrial fibrillation; Z51.81 Encounter for therapeutic drug level monitoring; Z79.01 Long term (current) use of anticoagulants
CPT/HCPCS: 36415; 80053; 82043; 83036; 85025; 85610; 99211

== ENCOUNTER → 2022-07-01 14:46 | Outpatient (BNVA) | payer OTHER, SELFPAY | PROVIDERS: PCP Internal Medicine; Visit Provider Internal Medicine | DX: I48.20 Chronic atrial fibrillation, unspecified (principal); Z51.81 Encounter for therapeutic drug level monitoring; Z79.01 Long term (current) use of anticoagulants | CPT/HCPCS: 85610; 99211 ==

== ENCOUNTER 2022-07-29 13:49 | Outpatient (REF) | payer OTHER, SELFPAY ==
[2022-07-29 16:07] LABS: MANUAL DIFF FLAG NO
[2022-07-29 16:44] LABS: Basophils Percent Auto 0.6 % (0-2); Eosinophils Absolute Auto 0.2 X10*3/uL (0.0-0.4); Eosinophils Percent Auto 2.7 % (0-4); Hematocrit 43.6 % (37.0-47.0); Hemoglobin 14.1 g/dl (12.0-16.0); Imm Gran Abs Auto 0.02 X10*3/uL (0.00-0.03); Imm Gran Pct Auto 0.3 % (0.0-0.4); Lymphocytes Absolute Auto 1.7 X10*3/uL (1.2-4.9); Lymphocytes Percent Auto 26.2 % (20-40); Mean Corpuscular HGB Conc 32.3 g/dl (31.0-35.0); Mean Corpuscular Hemoglobin 29.4 pg (27.0-33.0); Mean Corpuscular Volume 90.8 fL (80.0-98.0); Mean Platelet Volume 8.9 fL (9.4-12.3); Monocytes Absolute Auto 0.5 X10*3/uL (0.1-1.2); Monocytes Percent Auto 7.9 % (2-11); Neutrophils Absolute Auto 3.9 x10*3/uL (2.0-8.3); Neutrophils Percent Auto 62.3 % (45-73); Platelet Count 348 X10*3/uL (160-400); Red Cell Distribution Width 11.8 % (11.0-16.0); White Blood Count 6.3 X10*3/uL (4.8-10.8)
[2022-07-29 17:01] LABS: Estimated Average Glucose 226 mg/dL; Hemoglobin A1c % 9.5 %
[2022-07-29 17:05] LABS: Alanine Aminotransferase 18 U/L (0-31); Albumin Level 4.3 g/dL (3.5-5.0); Alkaline Phosphatase 71 U/L (39-117); Anion Gap 12 (12-20); Aspartate Amino Transferase 19 U/L (5-31); Bilirubin Total 0.8 mg/dL (0.0-1.0); Blood Urea Nitrogen 18 mg/dL (9-16); Carbon Dioxide 31 mmol/L (22-29); Chloride 104 mmol/L (96-108); Cholesterol 115 mg/dL; Estimated Glomerular Filt Rate > 60; Glucose Random 168 mg/dL (60-115); Potassium 4.5 mmol/L (3.3-5.1); Sodium 142 mmol/L (135-145); Total Protein 7.3 g/dL (6.5-8.0)
[2022-07-29 18:21] LABS: INTERNATIONAL NORM RATIO 3.4 (0.9-1.1); Prothrombin Time 40.9 SEC (10.0-13.1)
== END 2022-07-29 13:50 | disposition home or self-care (01) ==
LOC: HO.LAB 13:49
PROVIDERS: Absent Provider Internal Medicine; PCP Internal Medicine; Visit Provider Internal Medicine
DX: I48.20 Chronic atrial fibrillation, unspecified (principal); E11.9 Type 2 diabetes mellitus without complications; I10 Essential (primary) hypertension; Z51.81 Encounter for therapeutic drug level monitoring; Z79.01 Long term (current) use of anticoagulants
CPT/HCPCS: 36415; 80053; 82465; 83036; 85025; 85610; 99211

== ENCOUNTER → 2022-08-26 14:26 | Outpatient (BNVA) | payer OTHER, SELFPAY | PROVIDERS: PCP Internal Medicine; Visit Provider Internal Medicine | DX: I48.20 Chronic atrial fibrillation, unspecified (principal); Z51.81 Encounter for therapeutic drug level monitoring; Z79.01 Long term (current) use of anticoagulants | CPT/HCPCS: 85610; 99211 ==

== ENCOUNTER 2022-09-02 14:10 | Outpatient (REF) | payer OTHER, SELFPAY ==
[2022-09-02 14:58] LABS: INTERNATIONAL NORM RATIO 2.5 (0.9-1.1); Prothrombin Time 29.3 SEC (10.0-13.1)
[2022-09-02 15:41] LABS: Estimated Average Glucose 203 mg/dL; Hemoglobin A1c % 8.7 %
[2022-09-02 15:44] LABS: Anion Gap 13 (12-20); Blood Urea Nitrogen 20 mg/dL (9-16); Calcium 9.7 mg/dL (8.4-10.2); Carbon Dioxide 25 mmol/L (22-29); Chloride 108 mmol/L (96-108); Estimated Glomerular Filt Rate > 60; Glucose Random 103 mg/dL (60-115); Potassium 4.4 mmol/L (3.3-5.1); Sodium 142 mmol/L (135-145)
== END 2022-09-02 14:11 | disposition home or self-care (01) ==
LOC: HO.LAB 14:10
PROVIDERS: PCP Internal Medicine; Visit Provider Internal Medicine
DX: E11.9 Type 2 diabetes mellitus without complications (principal); I48.91 Unspecified atrial fibrillation; I10 Essential (primary) hypertension
CPT/HCPCS: 36415; 80048; 83036; 85610

== ENCOUNTER → 2022-09-23 14:25 | Outpatient (BNVA) | payer OTHER, SELFPAY | PROVIDERS: PCP Internal Medicine; Visit Provider Internal Medicine | DX: I48.20 Chronic atrial fibrillation, unspecified (principal); Z51.81 Encounter for therapeutic drug level monitoring; Z79.01 Long term (current) use of anticoagulants | CPT/HCPCS: 85610; 99211 ==

== ENCOUNTER → 2022-10-21 14:20 | Outpatient (BNVA) | payer OTHER, SELFPAY | PROVIDERS: PCP Internal Medicine; Visit Provider Internal Medicine | DX: I48.20 Chronic atrial fibrillation, unspecified (principal); Z51.81 Encounter for therapeutic drug level monitoring; Z79.01 Long term (current) use of anticoagulants | CPT/HCPCS: 85610; 99211 ==

== ENCOUNTER 2022-11-18 08:34 | Outpatient (REF) | payer OTHER, SELFPAY ==
[2022-11-18 09:46] LABS: Estimated Average Glucose 171 mg/dL; Hemoglobin A1c % 7.6 %
[2022-11-18 09:51] LABS: Alanine Aminotransferase 16 U/L (0-31); Albumin Level 3.9 g/dL (3.5-5.0); Alkaline Phosphatase 73 U/L (39-117); Anion Gap 11 (12-20); Aspartate Amino Transferase 17 U/L (5-31); Bilirubin Total 1.1 mg/dL (0.0-1.0); Blood Urea Nitrogen 15 mg/dL (9-16); Calcium 8.9 mg/dL (8.4-10.2); Carbon Dioxide 25 mmol/L (22-29); Chloride 107 mmol/L (96-108); Estimated Glomerular Filt Rate > 60; Glucose Random 207 mg/dL (60-115); Potassium 4.3 mmol/L (3.3-5.1); Sodium 139 mmol/L (135-145); Total Protein 6.6 g/dL (6.5-8.0)
[2022-11-18 10:04] LABS: Microalbum/Creatinine Ratio Ur 8.4 ug/mg cr
== END 2022-11-18 08:35 | disposition home or self-care (01) ==
LOC: HO.LAB 08:34
PROVIDERS: PCP Internal Medicine; Visit Provider Internal Medicine
DX: I48.91 Unspecified atrial fibrillation (principal); I10 Essential (primary) hypertension; E11.9 Type 2 diabetes mellitus without complications; Z51.81 Encounter for therapeutic drug level monitoring; Z79.01 Long term (current) use of anticoagulants
CPT/HCPCS: 36415; 80053; 82043; 83036; 85610; 99211

== ENCOUNTER → 2022-12-16 14:32 | Outpatient (BNVA) | payer OTHER, SELFPAY | PROVIDERS: PCP Internal Medicine; Visit Provider Internal Medicine | DX: Z51.81 Encounter for therapeutic drug level monitoring (principal); Z79.01 Long term (current) use of anticoagulants; I48.20 Chronic atrial fibrillation, unspecified | CPT/HCPCS: 85610; 99212 ==

== ENCOUNTER → 2022-12-21 14:13 | Outpatient (BNVA) | payer OTHER, SELFPAY | PROVIDERS: PCP Internal Medicine; Visit Provider Internal Medicine | DX: I48.20 Chronic atrial fibrillation, unspecified (principal); Z51.81 Encounter for therapeutic drug level monitoring; Z79.01 Long term (current) use of anticoagulants | CPT/HCPCS: 85610; 99211 ==

== ENCOUNTER 2022-12-26 07:19 | Outpatient (REF) | payer OTHER, SELFPAY ==
[2022-12-26 08:12] LABS: INTERNATIONAL NORM RATIO 2.5 (0.9-1.1)
== END 2022-12-26 07:20 | disposition home or self-care (01) ==
LOC: HO.LAB 07:19
PROVIDERS: PCP Internal Medicine; Visit Provider Internal Medicine
DX: I48.20 Chronic atrial fibrillation, unspecified (principal)
CPT/HCPCS: 36415; 85610

== ENCOUNTER → 2022-12-27 15:49 | Outpatient (BNVA) | payer OTHER, SELFPAY | PROVIDERS: PCP Internal Medicine; Visit Provider Internal Medicine | DX: Z79.01 Long term (current) use of anticoagulants (principal) ==

== ENCOUNTER → 2023-01-04 14:39 | Outpatient (BNVA) | payer OTHER, SELFPAY | PROVIDERS: PCP Internal Medicine; Visit Provider Internal Medicine | DX: I48.20 Chronic atrial fibrillation, unspecified (principal); Z51.81 Encounter for therapeutic drug level monitoring; Z79.01 Long term (current) use of anticoagulants | CPT/HCPCS: 85610; 99211 ==

== ENCOUNTER → 2023-01-26 14:45 | Outpatient (BNVA) | payer OTHER, SELFPAY | PROVIDERS: PCP Internal Medicine; Visit Provider Internal Medicine | DX: Z51.81 Encounter for therapeutic drug level monitoring (principal); Z79.01 Long term (current) use of anticoagulants; I48.20 Chronic atrial fibrillation, unspecified | CPT/HCPCS: 85610; 99211 ==

== ENCOUNTER 2023-02-08 09:29 | Outpatient (REF) | payer OTHER, SELFPAY ==
[2023-02-08 09:43] LABS: MANUAL DIFF FLAG NO
[2023-02-08 10:06] LABS: Basophils Percent Auto 0.5 % (0-2); Eosinophils Absolute Auto 0.2 X10*3/uL (0.0-0.4); Eosinophils Percent Auto 2.5 % (0-4); Hematocrit 42.7 % (37.0-47.0); Hemoglobin 13.8 g/dl (12.0-16.0); Imm Gran Abs Auto 0.02 X10*3/uL (0.00-0.03); Imm Gran Pct Auto 0.3 % (0.0-0.4); Lymphocytes Absolute Auto 1.4 X10*3/uL (1.2-4.9); Lymphocytes Percent Auto 22.2 % (20-40); Mean Corpuscular HGB Conc 32.3 g/dl (31.0-35.0); Mean Corpuscular Hemoglobin 29.2 pg (27.0-33.0); Mean Corpuscular Volume 90.5 fL (80.0-98.0); Mean Platelet Volume 9.2 fL (9.4-12.3); Monocytes Absolute Auto 0.4 X10*3/uL (0.1-1.2); Monocytes Percent Auto 6.2 % (2-11); Neutrophils Absolute Auto 4.4 x10*3/uL (2.0-8.3); Neutrophils Percent Auto 68.3 % (45-73); Platelet Count 282 X10*3/uL (160-400); Red Blood Count 4.72 X10*6/uL (4.20-5.50); Red Cell Distribution Width 12.7 % (11.0-16.0); White Blood Count 6.4 X10*3/uL (4.8-10.8)
[2023-02-08 10:22] LABS: Estimated Average Glucose 189 mg/dL; Hemoglobin A1c % 8.2 %
[2023-02-08 10:40] LABS: Alanine Aminotransferase 17 U/L (0-31); Albumin Level 3.9 g/dL (3.5-5.0); Alkaline Phosphatase 59 U/L (39-117); Anion Gap 10 (12-20); Aspartate Amino Transferase 18 U/L (5-31); Bilirubin Total 1.3 mg/dL (0.0-1.0); Blood Urea Nitrogen 12 mg/dL (9-16); Calcium 9.4 mg/dL (8.4-10.2); Carbon Dioxide 26 mmol/L (22-29); Chloride 104 mmol/L (96-108); Estimated Glomerular Filt Rate > 60; Glucose Random 233 mg/dL (60-115); Potassium 3.8 mmol/L (3.3-5.1); Sodium 136 mmol/L (135-145); Total Protein 7.2 g/dL (6.5-8.0)
[2023-02-08 12:14] LABS: Creatinine Urine 343.58 mg/dL
== END 2023-02-08 09:30 | disposition home or self-care (01) ==
LOC: HO.LAB 09:29
PROVIDERS: PCP Internal Medicine; Visit Provider Internal Medicine
DX: E11.8 Type 2 diabetes mellitus with unspecified complications (principal); F32.9 Major depressive disorder, single episode, unspecified; I48.91 Unspecified atrial fibrillation; I10 Essential (primary) hypertension
CPT/HCPCS: 36415; 80053; 82043; 83036; 85025

== ENCOUNTER 2023-02-23 10:34 | Outpatient (AMB) | payer OTHER, SELFPAY ==
--- NOTE | 2023-02-23 10:56 | MHC.OFFVISCO ---
Intake Intake Visit Reasons: Anticoagulation Allergies enoxaparin Adverse Reaction (Intermediate, Verified 02/23/23 10:48) Hives, leg swelling Medication List - Last Reconciled 02/23/23 by Melyssa Kimball RN cholecalciferol (vitamin D3) 25 mcg PO DAILY diltiazem HCl 180 mg PO DAILY furosemide 20 mg PO DAILY metformin 500 mg PO BID metoprolol succinate ER 25 mg PO BID potassium chloride ER 10 mEq PO DAILY simvastatin 10 mg PO BEDTIME warfarin 5 mg See Protocol PO DAILY warfarin See Protocol 7.5MG MWF/ 3.75MG X4DAYS; on odd numbered days Nursing Note PT VISIT DELAYED DUE TO METER INTERFACING INR ??3.4 out of therapeutic range Medications and supplements reviewed Patient status: DOING WELL, NOT WORKING FOR THE SUMMER, HAS NOT HAD USUAL GREENS, ONLY LETTUCE X 1 THIS WEEK Medications or supplements: NO CHANGES Diet: GOOD Denies any signs and symptoms of bleeding or clotting or unusual bruising Bleeding, bruising, clotting discussed Nutritional guidance given: INCREASE GREENS WHEN EATING MORE REDS, EAT 2-3 SERVINGS OF GREENS / WEEK Dose: KEEP SAME FOR NOW 7.5MG X 2 DAYS/ 5MG X 5 DAYS F/U INR Date : 3 WEEKS?? Patient verbalizing understanding of instructions given. Anti-Coag Initial Assessment Social Hx Patient Tobacco Use Status: Never used Tobacco Coding Level of Care Code Est Patient Level 1 Diagnoses Current use of anticoagulant therapy Z79.01 Results AMB INR Fingerstick AMB INR Fingerstick 3.4 Last Edit by Melyssa Kimball RN on 02/23/23 11:02 INTERFACE FAILURE ONGOING MANUAL ENTRY Assessment & Plan Assessment & Plan (1) Current use of anticoagulant therapy: Code(s): Z79.01 - manager intermediate (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
[2023-02-23 10:57] LABS: Prothrombin Time Whole Bld POC 40.8 sec (11.1-13.5); ~PT, ~INR - Anti Coag Clinic 3.4 (0.9-1.1)
== END 2023-02-23 11:09 | disposition home or self-care (01) ==
LOC: HO.ACS 10:34
PROVIDERS: PCP Internal Medicine; Visit Provider Internal Medicine
DX: Z79.01 Long term (current) use of anticoagulants (principal)

== ENCOUNTER → 2023-02-23 10:34 | Outpatient (BNVA) | payer OTHER, SELFPAY | PROVIDERS: PCP Internal Medicine; Visit Provider Internal Medicine | DX: Z51.81 Encounter for therapeutic drug level monitoring (principal); Z79.01 Long term (current) use of anticoagulants; I48.20 Chronic atrial fibrillation, unspecified | CPT/HCPCS: 85610; 99211 ==

== ENCOUNTER → 2023-03-02 08:54 | Outpatient (REF) | payer OTHER, SELFPAY ==
--- NOTE | 2023-03-02 08:56 | CA_ITS ---
Transthoracic Echocardiogram Patient (Last, First, Middle): Myla Farrell H Gender: Female Date of : 1960 Age: 63 Procedure Date: 03/02/2023 Procedure Type: Transthoracic Echocardiogram Location: OP Height: 160.02 cm Weight: 104.33 kg BSA: 2.05 m2 Heart Rate: 67 bpm BP: 130 / 70 mmHg Social Insurance Analyst: EMELIA Referring MD: Geremias Valdivia MD Symptoms: I50.9 - Heart failure, unspecified Study Quality: Fair/Contrast ECG Rhythm: Atrial Fibrillation Conclusions: - The left ventricular systolic function is normal. The calculated ejection fraction is 56% by biplane method. - Moderately increased right ventricular cavity size. - There is mild to moderately decreased right ventricular systolic function. - Atrial septal closure device noted. - The left atrium is severely dilated. Findings Procedure Information Contrast agent, definity, is being given per protocol without apparent complications. Left Ventricle Normal left ventricular cavity size. There is normal left ventricular wall thickness. The left ventricular systolic function is normal. The calculated ejection fraction is 56% by biplane method. There is no evidence of regional wall motion abnormalities. There is paradoxical septal motion consistent with post-operative status. Diastolic function is indeterminate on the basis of available data. Right Ventricle Moderately increased right ventricular cavity size. There is mild to moderately decreased right ventricular systolic function. Atria The left atrium is severely dilated. There is no evidence of interatrial shunt by color Doppler. The right atrium is moderately dilated. Atrial septal closure device noted. Aortic Valve There is a normal trileaflet aortic valve. There is no aortic valve stenosis. There is no aortic valve regurgitation. Mitral Valve The mitral valve appears normal. There is mild mitral annular calcification. There is trace mitral valve regurgitation. There is no mitral valve stenosis. Pulmonic Valve The pulmonic valve is likely normal. Tricuspid Valve Normal tricuspid valve structure. There is mild tricuspid valve regurgitation. There is no evidence of pulmonary hypertension. Great Vessels The asc aorta is normal in size. Venous The inferior vena cava is normal in size and collapses less than 50% with inspiration. Pericardium/Pleural There is no evidence of pericardial effusion. Prior Study Comparison Changes noted compared to prior study dated: 11/02/2021. see comment on atrial septum. Measurements 2D Linear Measurements IVSd: 0.80 0.6-0.9/0.6-1.0 cm LVIDd: 4.60 3.9-5.3/4.2-5.9 cm LVIDd Index: 2.24 2.4-3.2/2.2-3.1 cm/m2 LVIDs: 3.10 2.0-3.6 cm LVPWd: 1.10 0.7-1.1 cm LA Diam: 4.50 2.7-3.8/3.0-4.0 cm LAIDs Index: 2.20 1.5-2.3 cm/m2 LV Mass: 184.38 67-162/88-224 g LV Mass Index: 89.94 43-95/49-115 g/m2 LVOT Diam: 1.80 3.0+(-)1.3 cm 2D Systolic Function EF 4C: 54.60 >55% EF 2C: 56.80 >55% EF BiP: 55.80 >55% Mitral Valve MV Pk E: 1.42 MV Decel Time: 141.00 E'Lateral: 13.60 E'Medial: 6.20 E/E' Med: 22.90 E/E' Lat: 10.40 PHT: 41.00 MVA PHT: 5.37 Decel Mason: 10.10 Aortic Valve AoV Pk Liam: 1.39 AoV Mn Liam: 0.96 AoV VTI: 0.30 AoV Pk Grad: 8.00 Aov Mn Grad: 4.00 RL Cont.VTI: 1.71 LVOT LVOT Pk Liam: 0.97 LVOT Mn Liam: 0.66 LVOT VTI: 0.20 LVOT Pk Grad: 4.00 LVOT Mn Grad: 2.00 LVOT Diam: 1.80 LVOT Area: 2.54 Diastolic Function MV Pk E: 1.42 E'Medial: 6.20 E/E' Med: 22.90 E' Laterial: 13.60 E/E' Lat: 10.40 Right Ventricle TAPSE (mm): 12.70 TVS' Liam: 8.38 Tricuspid Valve TR Pk Liam: 2.62 TR Pk Grad: 27.00 RA Press: 8.00 RVSP: 35.00 Great Vessels Aorta Sinus of Valsalva: 3.00 2.0-3.5 cm Ao Asc: 3.40 2.1-3.4 cm Pulmonary Valve PV Pk Liam: 0.91 Peak PV Grad: 3.00 Updated in Other Vendor System with Status of Final Carlos Nava MD electronically signed on 03/03/2023 1:11:53 PM with status of Final
== END ==
LOC: HO.CARD 08:54
PROVIDERS: PCP Internal Medicine; Visit Provider Internal Medicine Cardiovascular Disease
DX: I50.9 Heart failure, unspecified (principal)
CPT/HCPCS: 93306; Q9957

== ENCOUNTER → 2023-03-02 08:56 | Outpatient (BNV) | payer OTHER, SELFPAY | PROVIDERS: PCP Internal Medicine; Visit Provider Internal Medicine | DX: I34.81 Nonrheumatic mitral (valve) annulus calcification (principal); I36.1 Nonrheumatic tricuspid (valve) insufficiency | CPT/HCPCS: 93306 ==

== ENCOUNTER 2023-03-20 10:21 | Outpatient (AMB) | payer OTHER, SELFPAY ==
[2023-03-20 10:30] LABS: Prothrombin Time Whole Bld POC 44.1 sec (11.1-13.5); ~PT, ~INR - Anti Coag Clinic 3.7 (0.9-1.1)
--- NOTE | 2023-03-20 10:39 | MHC.OFFVISCO ---
Intake Intake Visit Reasons: Anticoagulation Allergies enoxaparin Adverse Reaction (Intermediate, Verified 03/20/23 10:24) Hives, leg swelling Medication List - Last Reconciled 03/20/23 by Melyssa Kimball RN cholecalciferol (vitamin D3) 25 mcg PO DAILY diltiazem HCl 180 mg PO DAILY furosemide 20 mg PO DAILY metformin 500 mg PO BID metoprolol succinate ER 25 mg PO BID potassium chloride ER 10 mEq PO DAILY simvastatin 10 mg PO BEDTIME warfarin 5 mg See Protocol PO DAILY warfarin See Protocol 7.5MG MWF/ 3.75MG X4DAYS; on odd numbered days Nursing Note INR 3.7 in therapeutic range INR TRENDING HIGHER, MAY BE ELEVATED DUE TO HOT WEATHER - DECREASED DIET Medications and supplements reviewed No changes in health, diet, medications, or supplements, Denies any signs and symptoms of bleeding or bruising or clotting. Bleeding, bruising, clotting discussed Nutritional guidance given - COOKED GREENS HELP LOWER THE INR Dose: DECREASED 7.5MG X 1 DAY/ 5MG X 6DAYS F/U INR: 2 WEEKS Patient verbalizes understanding of instructions given Anti-Coag Initial Assessment Social Hx Patient Tobacco Use Status: Never used Tobacco Coding Level of Care Code Est Patient Level 1 Diagnoses Current use of anticoagulant therapy Z79.01 Results AMB INR Fingerstick AMB INR Fingerstick 3.7 Last Edit by Melyssa Kimball RN on 03/20/23 10:31 MANUAL ENTRY Assessment & Plan Assessment & Plan (1) Current use of anticoagulant therapy: Code(s): Z79.01 - longterm (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
== END 2023-03-20 10:44 | disposition home or self-care (01) ==
LOC: HO.ACS 10:21
PROVIDERS: PCP Internal Medicine; Visit Provider Internal Medicine
DX: Z79.01 Long term (current) use of anticoagulants (principal)

== ENCOUNTER → 2023-03-20 10:21 | Outpatient (BNVA) | payer OTHER, SELFPAY | PROVIDERS: PCP Internal Medicine; Visit Provider Internal Medicine | DX: Z51.81 Encounter for therapeutic drug level monitoring (principal); Z79.01 Long term (current) use of anticoagulants; I48.20 Chronic atrial fibrillation, unspecified | CPT/HCPCS: 85610; 99211 ==

== ENCOUNTER 2023-03-29 10:27 | Outpatient (REF) | payer OTHER, SELFPAY | END 2023-03-29 10:28 | disposition home or self-care (01) | LOC: HO.MAMMO 10:27 | PROVIDERS: PCP Internal Medicine; Visit Provider Internal Medicine | DX: Z12.31 Encounter for screening mammogram for malignant neoplasm of breast (principal) | CPT/HCPCS: 77063; 77067 ==

== ENCOUNTER → 2023-03-29 10:45 | Outpatient (BNV) | payer OTHER, SELFPAY | PROVIDERS: PCP Internal Medicine; Visit Provider Radiology Diagnostic Radiology | DX: Z12.31 Encounter for screening mammogram for malignant neoplasm of breast (principal) | CPT/HCPCS: 77063; 77067 ==

== ENCOUNTER 2023-04-03 13:59 | Outpatient (AMB) | payer OTHER, SELFPAY ==
[2023-04-03 14:42] LABS: Prothrombin Time Whole Bld POC 46.8 sec (11.1-13.5); ~PT, ~INR - Anti Coag Clinic 3.9 (0.9-1.1)
--- NOTE | 2023-04-03 14:49 | MHC.OFFVISCO ---
Intake Intake Visit Reasons: Anticoagulation Allergies enoxaparin Adverse Reaction (Intermediate, Verified 04/03/23 14:36) Hives, leg swelling Medication List - Last Reconciled 04/03/23 by Melyssa Kimball RN cholecalciferol (vitamin D3) 25 mcg PO DAILY diltiazem HCl 180 mg PO DAILY furosemide 20 mg PO DAILY metformin 500 mg PO BID metoprolol succinate ER 25 mg PO BID potassium chloride ER 10 mEq PO DAILY simvastatin 10 mg PO BEDTIME warfarin 5 mg See Protocol PO DAILY warfarin See Protocol 7.5MG MWF/ 3.75MG X4DAYS; on odd numbered days Nursing Note INR 3.9? out of therapeutic range Medications and supplements reviewed Patient status: PT HAD A COLD LAST WEEK URI - STATED SHE HAD A FEW DAYS ALSO OF DECREASED APPETITE, FEELING BETTER THIS WEEK Medications or supplements: TOOK OTC COLD/COUGH MED 1/2 TSP DOSE LAST WEEK Diet: WAS FAIR A FEW DAYS, BETTER NOW Denies any signs and symptoms of bleeding or clotting or unusual bruising Bleeding, bruising, clotting discussed Nutritional guidance given: EAT GREENS TODAY AND TOMORROW, NO REDS TODAY OR TOMORROW, EXPLAINED DIET WITH WRITTEN REMINDER WHICH FOODS RAISE AND LOWER Dose: 2.5MG TODAY AND EAT GREENS THEN RESUME LOWER DOSE ATTEMPT AGAIN 7.5MG FRI/ 5MG ALL OTHER DAYS F/U INR Date : 2 WEEKS?? Patient verbalizing understanding of instructions given. 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
== END 2023-04-03 14:53 | disposition home or self-care (01) ==
LOC: HO.ACS 13:59
PROVIDERS: PCP Internal Medicine; Visit Provider Internal Medicine
DX: Z79.01 Long term (current) use of anticoagulants (principal)

== ENCOUNTER → 2023-04-03 13:59 | Outpatient (BNVA) | payer OTHER, SELFPAY | PROVIDERS: PCP Internal Medicine; Visit Provider Internal Medicine | DX: I48.20 Chronic atrial fibrillation, unspecified (principal); I50.9 Heart failure, unspecified; Z79.01 Long term (current) use of anticoagulants; Z79.899 Other long term (current) drug therapy; Z87.74 Personal history of (corrected) congenital malformations of heart and circulatory system | CPT/HCPCS: 85610; 93005; 99211 ==

== ENCOUNTER 2023-04-03 15:00 | Outpatient (AMB) | payer OTHER, SELFPAY ==
--- NOTE | 2023-04-03 15:34 | A.OFFVIS_ITS ---
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 She denies any new cardiac symptoms. She has been doing well. No bleeding issues or neurologic events. Denies any orthopnea, PND, leg edema, worsening shortness of breath. Currently takes her diuretics. Recent echocardiogram shows normal LV ejection fraction 56% with moderately increased right ventricular size with significant biatrial enlargement with atrial septal closure device in place. [facility] Medical History Biatrial enlargement Chronic atrial fibrillation Diabetes Heart failure, unspecified History of cardioversion HTN (hypertension) Morbid obesity On anticoagulant therapy On beta kathrine at home Surgical History (Updated 04/03/23 @ 15:51 by Geremias Valdivia MD) History of placement of ear tubes History of tonsillectomy Status post atrial septal defect repair Family History Father No problems noted. 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 Review of Systems ENT Reports dizziness Card Denies chest pain, Denies chest pain at rest, Denies chest pain with activity, Denies rapid heart rate, Denies pedal edema, Denies edema, Denies leg edema, Denies lightheadedness, Denies palpitations, Denies dyspnea, Denies dyspnea on exertion and Denies orthopnea Resp Denies cough, Denies dyspnea and Denies dyspnea on exertion GI Denies hematochezia and Denies change in stool character Musc Denies abnormal gait, Reports limited range of motion, Reports muscle cramps, Denies muscle weakness, Denies numbness, Denies radiating pain into limb, Denies stiffness and Denies tingling Neuro Denies abnormal gait, Reports dizziness, Denies numbness and Denies tingling Endo Denies palpitations Physical Exam Vital Signs: Last Vital Signs Pulse 63 04/03/23 15:35 BP 120/72 04/03/23 15:35 BMI result Body Mass Index 39.4 Const General: cooperative, comfortable, no acute distress, alert and awake Nutritional Appearance: obese Orientation/consciousness: patient oriented x3 Limitations: no limitations HEENT Head: Yes raccoon eyes Neck Neck: Yes trachea midline, Yes supple and Yes no JVD Resp Effort & Inspection: normal respiratory effort Auscultation: clear to auscultation bilaterally Cardio Jugular venous distension: no JVD Rhythm: abnormal rhythm irregularly irregular Heart sounds: S1 normal heart sound present and S2 normal heart sound present GI Inspection: Yes obesity Auscultation: normal bowel sounds Skin General skin exam: no rashes or lesions noted Neuro General: patient oriented x3 and no focal motor deficits Extrem General: Yes no clubbing, cyanosis or edema Psych Appearance: grossly normal Office Procedures EKG Details: EKG shows atrial fibrillation with nonspecific ST T wave changes [id number], Complete Results AMB INR Fingerstick AMB INR Fingerstick 3.9 Last Edit by Melyssa Kimball RN on 04/03/23 14:44 INTERFACING DELAY ,MANUAL ENTRY Assessment & Plan Assessment & Plan (1) Chronic atrial fibrillation: Comment: Has failed rhythm control approach Code(s): I48.20 - Chronic atrial fibrillation, unspecified Plan: Chronic rate control atrial fibrillation without any current decompensation. Has failed rhythm control approach in the past. Continue rate control approach with current medications including metoprolol and Cardizem. Do full oral anticoagulation, currently on warfarin therapy. Maintain target INR between 2 and 3. Did discuss use of direct oral anticoagulant agent but she is currently not interested. (2) Heart failure, unspecified: Code(s): I50.9 - Heart failure, unspecified Plan: Heart failure preserved ejection fraction, clinically euvolemic and well compensated. NYHA class 2 symptoms. Continue current low-dose diuretic regimen. Continue current rate control approach. Management of heart failure was discussed. Daily weight monitoring avoidance of salt loading was discussed advised to maintain activity level and participate in weight loss program. Blood pressure is currently well optimized. (3) Status post atrial septal defect repair: Comment: 2007 initially underwent surgical repair for secundum ASD for biventricular failure, this failed. Subsequently patient underwent percutaneous closure with significantly improved heart failure syndrome. Last echocardiogram showed nor mal biventricular systolic function and size. Code(s): Z87.74 - Personal history of (corrected) congenital malformations of heart and circulatory system Plan: Status post 2nd number AST diagnose late leading to biventricular failure. Failed surgical repair and subsequently underwent a percutaneous closure with residual structural heart changes but improved heart failure syndrome. Will follow up in the clinic in 1 year's time, sooner p.r.n.. Thank you for allowing me to partake in her care Coding Level of Care Code Est Pt Level 4 (55845) Diagnoses Chronic atrial fibrillation I48.20 Heart failure, unspecified I50.9 Status post atrial septal defect repair Z87.74 CPT Codes EKG - CPT: 25893-[id number], Complete ([id number])
[2023-04-03 15:35] VITALS: BP 120/72; PULSE 63; BMI 39.4
== END 2023-04-03 15:50 | disposition home or self-care (01) ==
PROVIDERS: PCP Internal Medicine; Referring Provider Internal Medicine; Visit Provider Internal Medicine Cardiovascular Disease
DX: I48.20 Chronic atrial fibrillation, unspecified (principal); I50.9 Heart failure, unspecified; Z87.74 Personal history of (corrected) congenital malformations of heart and circulatory system
CPT/HCPCS: 93010; 99214

== ENCOUNTER 2023-04-20 14:45 | Outpatient (AMB) | payer OTHER, SELFPAY ==
[2023-04-20 15:10] LABS: Prothrombin Time Whole Bld POC 32.7 sec (11.1-13.5); ~PT, ~INR - Anti Coag Clinic 2.7 (0.9-1.1)
--- NOTE | 2023-04-20 15:11 | MHC.OFFVISCO ---
Intake Intake Visit Reasons: Anticoagulation Allergies enoxaparin Adverse Reaction (Intermediate, Verified 04/20/23 15:02) Hives, leg swelling Medication List - Last Reconciled 04/20/23 by Fernanda Munoz RN cholecalciferol (vitamin D3) 25 mcg PO DAILY diltiazem HCl 180 mg PO DAILY furosemide 20 mg PO DAILY metformin 500 mg PO BID metoprolol succinate ER 25 mg PO BID potassium chloride ER 10 mEq PO DAILY simvastatin 10 mg PO BEDTIME warfarin 5 mg See Protocol PO DAILY warfarin See Protocol 7.5MG MWF/ 3.75MG X4DAYS; on odd numbered days Nursing Note Amb to ACS feeling ok, cold sxs are gone Medications and supplements reviewed No changes in health, diet, medications, or supplements other than recent weekly decrease in warfarin Denies any unusual signs and symptoms of bruising, bleeding Denies any new Chest pain, SOB, or clotting INR: 2.7now in therapeutic range Nutritional guidance given: balance greens and reds in diet Dose: continue new dosing; 5mg x 6 days and 7.5mg x 1 day F/U INR: 3 weeks Patient verbalizes understanding of instructions given with accurate read back/ teach back of dosing Anti-Coag Initial Assessment Social Hx Patient Tobacco Use Status: Never used Tobacco Coding Level of Care Code Est Patient Level 1 Diagnoses Current use of anticoagulant therapy Z79.01 Time Spent (min) 15 Assessment & Plan Assessment & Plan (1) Current use of anticoagulant therapy: Code(s): Z79.01 - alf (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
== END 2023-04-20 15:15 | disposition home or self-care (01) ==
LOC: HO.ACS 14:45
PROVIDERS: PCP Internal Medicine; Visit Provider Internal Medicine
DX: Z79.01 Long term (current) use of anticoagulants (principal)

== ENCOUNTER → 2023-04-20 14:45 | Outpatient (BNVA) | payer OTHER, SELFPAY | PROVIDERS: PCP Internal Medicine; Visit Provider Internal Medicine | DX: I48.20 Chronic atrial fibrillation, unspecified (principal); Z51.81 Encounter for therapeutic drug level monitoring; Z79.01 Long term (current) use of anticoagulants | CPT/HCPCS: 85610; 99211 ==

== ENCOUNTER 2023-05-15 14:45 | Outpatient (AMB) | payer OTHER, SELFPAY ==
[2023-05-15 14:53] LABS: ~PT, ~INR - Anti Coag Clinic 2.1 (0.9-1.1)
--- NOTE | 2023-05-15 14:58 | MHC.OFFVISCO ---
Intake Intake Visit Reasons: Anticoagulation Allergies enoxaparin Adverse Reaction (Intermediate, Verified 05/15/23 14:47) Hives, leg swelling Medication List - Last Reconciled 05/15/23 by Melyssa Kimball RN cholecalciferol (vitamin D3) 25 mcg PO DAILY diltiazem HCl 180 mg PO DAILY furosemide 20 mg PO DAILY metformin 500 mg PO BID metoprolol succinate ER 25 mg PO BID potassium chloride ER 10 mEq PO DAILY simvastatin 10 mg PO BEDTIME warfarin 5 mg See Protocol PO DAILY warfarin See Protocol 7.5MG MWF/ 3.75MG X4DAYS; on odd numbered days Nursing Note INR: 2.1 in therapeutic range Medications and supplements reviewed STILL HAS A COUGH SINE END OF MARCH, JUST WALKED FROM SCHOOL/WORK NO CHANGE IN diet, medications, or supplements, Denies any signs and symptoms of bleeding or bruising or clotting. Bleeding, bruising, clotting discussed Nutritional guidance given - EAT A MIX OF FRUITS AND VEGETABLES Dose: KEEP SAME DOSE 7.5MG X 1 DAY/ 5MG X 6 DAYS F/U INR: 3 WKS NEED FRIDAYS Patient verbalizes understanding of instructions given Anti-Coag Initial Assessment Social Hx Patient Tobacco Use Status: Never used Tobacco Coding Level of Care Code Est Patient Level 1 Diagnoses Current use of anticoagulant therapy Z79.01 Assessment & Plan Assessment & Plan (1) Current use of anticoagulant therapy: Code(s): Z79.01 - long term (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
== END 2023-05-15 15:01 | disposition home or self-care (01) ==
LOC: HO.ACS 14:45
PROVIDERS: PCP Internal Medicine; Visit Provider Internal Medicine
DX: Z79.01 Long term (current) use of anticoagulants (principal)

== ENCOUNTER → 2023-05-15 14:45 | Outpatient (BNVA) | payer OTHER, SELFPAY | PROVIDERS: PCP Internal Medicine; Visit Provider Internal Medicine | DX: I48.20 Chronic atrial fibrillation, unspecified (principal); Z51.81 Encounter for therapeutic drug level monitoring; Z79.01 Long term (current) use of anticoagulants | CPT/HCPCS: 85610; 99211 ==

== ENCOUNTER 2023-06-09 14:57 | Outpatient (AMB) | payer OTHER, SELFPAY ==
[2023-06-09 15:03] LABS: Prothrombin Time Whole Bld POC 26.9 sec (11.1-13.5); ~PT, ~INR - Anti Coag Clinic 2.2 (0.9-1.1)
--- NOTE | 2023-06-09 15:05 | MHC.OFFVISCO ---
Intake Intake Visit Reasons: Anticoagulation Allergies enoxaparin Adverse Reaction (Intermediate, Verified 06/09/23 14:58) Hives, leg swelling Medication List - Last Reconciled 06/09/23 by Melyssa Kimball RN cholecalciferol (vitamin D3) 25 mcg PO DAILY diltiazem HCl 180 mg PO DAILY furosemide 20 mg PO DAILY metformin 500 mg PO BID metoprolol succinate ER 25 mg PO BID potassium chloride ER 10 mEq PO DAILY simvastatin 10 mg PO BEDTIME warfarin 5 mg See Protocol PO DAILY warfarin See Protocol 7.5MG MWF/ 3.75MG X4DAYS; on odd numbered days Nursing Note INR: 2.2 in therapeutic range Medications and supplements reviewed No changes in health, diet, medications, or supplements, Denies any signs and symptoms of bleeding or bruising or clotting. 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
== END 2023-06-09 15:09 | disposition home or self-care (01) ==
LOC: HO.ACS 14:57
PROVIDERS: PCP Internal Medicine; Visit Provider Internal Medicine
DX: Z79.01 Long term (current) use of anticoagulants (principal)

== ENCOUNTER → 2023-06-09 14:57 | Outpatient (BNVA) | payer OTHER, SELFPAY | PROVIDERS: PCP Internal Medicine; Visit Provider Internal Medicine | DX: I48.20 Chronic atrial fibrillation, unspecified (principal); Z51.81 Encounter for therapeutic drug level monitoring; Z79.01 Long term (current) use of anticoagulants | CPT/HCPCS: 85610; 99211 ==

== ENCOUNTER 2023-07-17 15:20 | Outpatient (AMB) | payer SELFPAY ==
[2023-07-17 15:28] LABS: Prothrombin Time Whole Bld POC 28.7 sec (11.1-13.5); ~PT, ~INR - Anti Coag Clinic 2.4 (0.9-1.1)
--- NOTE | 2023-07-17 15:43 | MHC.OFFVISCO ---
Intake Intake Visit Reasons: Anticoagulation Allergies Penicillins Allergy (Severe, Verified 07/17/23 15:43) Diarrhea enoxaparin Adverse Reaction (Intermediate, Verified 07/17/23 15:43) Hives, leg swelling Medication List - Last Reconciled 07/17/23 by Melyssa Kimball RN cholecalciferol (vitamin D3) 25 mcg PO DAILY diltiazem HCl 180 mg PO DAILY furosemide 20 mg PO DAILY metformin 500 mg PO BID metoprolol succinate ER 25 mg PO BID penicillin V potassium 500 mg PO QID potassium chloride ER 10 mEq PO DAILY simvastatin 10 mg PO BEDTIME warfarin 5 mg See Protocol PO DAILY warfarin See Protocol 7.5MG MWF/ 3.75MG X4DAYS; on odd numbered days Nursing Note INR: 2.4 in therapeutic range Medications and supplements reviewed No changes in health, diet, medications, or supplements, Denies any signs and symptoms of bleeding or bruising or clotting. Bleeding, bruising, clotting discussed Nutritional guidance given - EAT GREENS 3-4 DAYS PRIOR DEEP ROOT CLEANING, CALL DENTIST IF WARFARIN NEEDS TO BE HELD OR INR CLOSER TO 2.0 Dose: 7.5MG MONDAY/ 5MG X 6 DAYS F/U INR: 1 MONTH OR PRN DENTAL PROCEDURE - DEEP ROOT CLEANING Patient AND DAUGHTER verbalizes understanding of instructions given Anti-Coag Initial Assessment Social Hx Patient Tobacco Use Status: Never used Tobacco Coding Level of Care Code Est Patient Level 1 Diagnoses Current use of anticoagulant therapy Z79.01 Assessment & Plan Assessment & Plan (1) Current use of anticoagulant therapy: Code(s): Z79.01 - FPC (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
== END 2023-07-17 15:48 | disposition home or self-care (01) ==
LOC: HO.ACS 15:20
PROVIDERS: PCP Internal Medicine; Visit Provider Internal Medicine
DX: Z79.01 Long term (current) use of anticoagulants (principal)

== ENCOUNTER → 2023-07-17 15:20 | Outpatient (BNVA) | payer OTHER, SELFPAY | PROVIDERS: PCP Internal Medicine; Visit Provider Internal Medicine | DX: I48.20 Chronic atrial fibrillation, unspecified (principal); Z51.81 Encounter for therapeutic drug level monitoring; Z79.01 Long term (current) use of anticoagulants | CPT/HCPCS: 85610; 99211 ==

== ENCOUNTER 2023-08-16 15:32 | Outpatient (AMB) | payer OTHER, SELFPAY ==
--- NOTE | 2023-08-16 15:38 | MHC.OFFVISCO ---
Intake Intake Visit Reasons: Anticoagulation Allergies Penicillins Allergy (Severe, Verified 08/16/23 15:33) Diarrhea enoxaparin Adverse Reaction (Intermediate, Verified 08/16/23 15:33) Hives, leg swelling Medication List - Last Reconciled 08/16/23 by Michelle Boyce, RN cholecalciferol (vitamin D3) 25 mcg PO DAILY diltiazem HCl 180 mg PO DAILY furosemide 20 mg PO DAILY metformin 500 mg PO BID metoprolol succinate ER 25 mg PO BID potassium chloride ER 10 mEq PO DAILY simvastatin 10 mg PO BEDTIME warfarin 5 mg See Protocol PO DAILY warfarin See Protocol 7.5MG MWF/ 3.75MG X4DAYS; on odd numbered days Nursing Note INR: 2.0- in therapeutic range of 2-3 Medications and supplements reviewed No changes in health, diet, medications, or supplements, Denies any signs and symptoms of bleeding or bruising or clotting. 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
== END 2023-08-16 15:48 | disposition home or self-care (01) ==
LOC: HO.ACS 15:32
PROVIDERS: PCP Internal Medicine; Visit Provider Internal Medicine
DX: Z79.01 Long term (current) use of anticoagulants (principal)

== ENCOUNTER → 2023-08-16 15:32 | Outpatient (BNVA) | payer OTHER, SELFPAY | PROVIDERS: PCP Internal Medicine; Visit Provider Internal Medicine | DX: I48.20 Chronic atrial fibrillation, unspecified (principal); Z51.81 Encounter for therapeutic drug level monitoring; Z79.01 Long term (current) use of anticoagulants | CPT/HCPCS: 85610; 99211 ==

== ENCOUNTER 2023-09-15 15:07 | Outpatient (AMB) | payer OTHER, SELFPAY ==
--- NOTE | 2023-09-15 15:15 | MHC.OFFVISCO ---
Intake Intake Visit Reasons: Anticoagulation Allergies Penicillins Allergy (Severe, Verified 09/15/23 15:10) Diarrhea enoxaparin Adverse Reaction (Intermediate, Verified 09/15/23 15:10) Hives, leg swelling Medication List - Last Reconciled 09/15/23 by Michelle Boyce, RN cholecalciferol (vitamin D3) 25 mcg PO DAILY diltiazem HCl 180 mg PO DAILY furosemide 20 mg PO DAILY metformin 500 mg PO BID metoprolol succinate ER 25 mg PO BID potassium chloride ER 10 mEq PO DAILY simvastatin 10 mg PO BEDTIME warfarin 5 mg See Protocol PO DAILY warfarin See Protocol 7.5MG MWF/ 3.75MG X4DAYS; on odd numbered days Nursing Note INR: 2.1- in therapeutic range of 2-3 Medications and supplements reviewed- no changes No changes in health, diet, medications, or supplements, Denies any signs and symptoms of bleeding or bruising or clotting. 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
[2023-09-15 15:16] LABS: Prothrombin Time Whole Bld POC 25.4 sec (11.1-13.5); ~PT, ~INR - Anti Coag Clinic 2.1 (0.9-1.1)
== END 2023-09-15 15:19 | disposition home or self-care (01) ==
LOC: HO.ACS 15:07
PROVIDERS: PCP Internal Medicine; Visit Provider Internal Medicine
DX: Z79.01 Long term (current) use of anticoagulants (principal)

== ENCOUNTER → 2023-09-15 15:07 | Outpatient (BNVA) | payer OTHER, SELFPAY | PROVIDERS: PCP Internal Medicine; Visit Provider Internal Medicine | DX: I48.20 Chronic atrial fibrillation, unspecified (principal); Z51.81 Encounter for therapeutic drug level monitoring; Z79.01 Long term (current) use of anticoagulants | CPT/HCPCS: 85610; 99211 ==

== ENCOUNTER 2023-10-04 09:41 | Outpatient (REF) | payer OTHER, SELFPAY ==
[2023-10-04 10:11] LABS: MANUAL DIFF FLAG NO
[2023-10-04 10:16] LABS: Basophils Percent Auto 0.5 % (0-2); Eosinophils Absolute Auto 0.3 X10*3/uL (0.0-0.4); Eosinophils Percent Auto 4.2 % (0-4); Hematocrit 42.9 % (37.0-47.0); Hemoglobin 14.3 g/dl (12.0-16.0); Imm Gran Abs Auto 0.01 X10*3/uL (0.00-0.03); Imm Gran Pct Auto 0.2 % (0.0-0.4); Lymphocytes Absolute Auto 1.3 X10*3/uL (1.2-4.9); Lymphocytes Percent Auto 21.9 % (20-40); Mean Corpuscular HGB Conc 33.3 g/dl (31.0-35.0); Mean Corpuscular Hemoglobin 29.2 pg (27.0-33.0); Mean Corpuscular Volume 87.6 fL (80.0-98.0); Mean Platelet Volume 8.9 fL (9.4-12.3); Monocytes Absolute Auto 0.4 X10*3/uL (0.1-1.2); Monocytes Percent Auto 7.2 % (2-11); Platelet Count 307 X10*3/uL (160-400); Red Cell Distribution Width 12.6 % (11.0-16.0)
[2023-10-04 10:24] LABS: Estimated Average Glucose 197 mg/dL; Hemoglobin A1c % 8.5 % (<6.0)
[2023-10-04 10:43] LABS: Alanine Aminotransferase 18 U/L (0-31); Albumin Level 4.1 g/dL (3.5-5.0); Alkaline Phosphatase 68 U/L (39-117); Anion Gap 13 (12-20); Aspartate Amino Transferase 23 U/L (5-31); Bilirubin Total 1.1 mg/dL (0.0-1.0); Blood Urea Nitrogen 12 mg/dL (9-16); Calcium 9.4 mg/dL (8.4-10.2); Carbon Dioxide 25 mmol/L (22-29); Chloride 106 mmol/L (96-108); Cholesterol 120 mg/dL (<200); Estimated Glomerular Filt Rate > 60; Glucose Fasting 185 mg/dL (60-99); HDL Cholesterol 52 mg/dL (>40); LDL Cholesterol Calculated 53 mg/dL (<100); Potassium 4.2 mmol/L (3.3-5.1); Sodium 140 mmol/L (135-145); Total Protein 7.4 g/dL (6.5-8.0); Triglycerides 75 mg/dL (<150)
[2023-10-04 12:09] LABS: Creatinine Urine 311.95 mg/dL; Microalbum/Creatinine Ratio Ur 21.1 ug/mg cr (<30)
== END 2023-10-04 09:42 | disposition home or self-care (01) ==
LOC: HO.LAB 09:41
PROVIDERS: PCP Internal Medicine; Visit Provider Internal Medicine
DX: I48.91 Unspecified atrial fibrillation (principal); I10 Essential (primary) hypertension; E78.00 Pure hypercholesterolemia, unspecified; E11.9 Type 2 diabetes mellitus without complications
CPT/HCPCS: 36415; 80053; 80061; 82043; 82570; 83036; 85025

== ENCOUNTER → 2023-10-20 14:44 | Outpatient (BNVA) | payer OTHER, SELFPAY | PROVIDERS: PCP Internal Medicine; Visit Provider Internal Medicine | DX: I48.20 Chronic atrial fibrillation, unspecified (principal); Z51.81 Encounter for therapeutic drug level monitoring; Z79.01 Long term (current) use of anticoagulants | CPT/HCPCS: 85610 ==

== ENCOUNTER 2023-11-17 14:18 | Outpatient (AMB) | payer OTHER, SELFPAY ==
[2023-11-17 14:47] LABS: Prothrombin Time Whole Bld POC 32.8 sec (11.1-13.5); ~PT, ~INR - Anti Coag Clinic 2.7 (0.9-1.1)
--- NOTE | 2023-11-17 14:55 | MHC.OFFVISCO ---
Intake Intake Visit Reasons: Anticoagulation Allergies Penicillins Allergy (Severe, Verified 11/17/23 14:42) Diarrhea enoxaparin Adverse Reaction (Intermediate, Verified 11/17/23 14:42) Hives, leg swelling Medication List - Last Reconciled 11/17/23 by Fernanda Sierra, RN cholecalciferol (vitamin D3) 25 mcg PO DAILY diltiazem HCl CD 180 mg PO DAILY furosemide 20 mg PO DAILY metformin 500 mg PO BID metoprolol succinate ER 25 mg PO BID potassium chloride ER 10 mEq PO DAILY simvastatin 10 mg PO BEDTIME warfarin 5 mg See Protocol PO DAILY warfarin See Protocol 7.5MG MWF/ 3.75MG X4DAYS; on odd numbered days Nursing Note INR: 2.7 in therapeutic range of 2-3 Medications and supplements reviewed: no changes No changes in health, diet, medications, or supplements, Denies any signs and symptoms of bleeding or bruising or clotting. 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
== END 2023-11-17 15:02 | disposition home or self-care (01) ==
LOC: HO.ACS 14:19
PROVIDERS: PCP Internal Medicine; Visit Provider Internal Medicine
DX: Z79.01 Long term (current) use of anticoagulants (principal)

== ENCOUNTER → 2023-11-17 14:18 | Outpatient (BNVA) | payer OTHER, SELFPAY | PROVIDERS: PCP Internal Medicine; Visit Provider Internal Medicine | DX: I48.20 Chronic atrial fibrillation, unspecified (principal); Z51.81 Encounter for therapeutic drug level monitoring; Z79.01 Long term (current) use of anticoagulants | CPT/HCPCS: 85610; 99211 ==

== ENCOUNTER 2023-12-15 14:24 | Outpatient (AMB) | payer OTHER, SELFPAY ==
--- NOTE | 2023-12-15 14:36 | MHC.OFFVISCO ---
Intake Intake Visit Reasons: Anticoagulation Allergies Penicillins Allergy (Severe, Verified 12/15/23 14:25) Diarrhea enoxaparin Adverse Reaction (Intermediate, Verified 12/15/23 14:25) Hives, leg swelling Medication List - Last Reconciled 12/15/23 by Fernanda Sierra, RN cholecalciferol (vitamin D3) 25 mcg PO DAILY diltiazem HCl CD 180 mg PO DAILY furosemide 20 mg PO DAILY metformin 500 mg PO BID metoprolol succinate ER 25 mg PO BID potassium chloride ER 10 mEq PO DAILY simvastatin 10 mg PO BEDTIME warfarin 5 mg See Protocol PO DAILY warfarin See Protocol 7.5MG MWF/ 3.75MG X4DAYS; on odd numbered days Nursing Note INR: 2.3in therapeutic range of 2-3 Medications and supplements reviewed: no changes No changes in health, diet, medications, or supplements, Denies any signs and symptoms of bleeding or bruising or clotting. Bleeding, bruising, clotting discussed Nutritional guidance given to cont to balance reds and greens Dose: 7.5mg on Fridays and 5 mg all other days F/U INR: 1 month Patient verbalizes understanding of instructions given Anti-Coag Initial Assessment Social Hx Patient Tobacco Use Status: Never used Tobacco Coding Level of Care Code Est Patient Level 1 Diagnoses Current use of anticoagulant therapy Z79.01 Results AMB INR Fingerstick AMB INR Fingerstick 2.3 Last Edit by Fernanda Sierra, RN on 12/15/23 14:34 interface delay Assessment & Plan Assessment & Plan (1) Current use of anticoagulant therapy: Code(s): Z79.01 - halfway (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
[2023-12-15 14:38] LABS: Prothrombin Time Whole Bld POC 28.2 sec (11.1-13.5); ~PT, ~INR - Anti Coag Clinic 2.3 (0.9-1.1)
== END 2023-12-15 14:39 | disposition home or self-care (01) ==
LOC: HO.ACS 14:24
PROVIDERS: PCP Internal Medicine; Visit Provider Internal Medicine
DX: Z79.01 Long term (current) use of anticoagulants (principal)

== ENCOUNTER → 2023-12-15 14:24 | Outpatient (BNVA) | payer OTHER, SELFPAY | PROVIDERS: PCP Internal Medicine; Visit Provider Internal Medicine | DX: I48.20 Chronic atrial fibrillation, unspecified (principal); Z51.81 Encounter for therapeutic drug level monitoring; Z79.01 Long term (current) use of anticoagulants | CPT/HCPCS: 85610; 99211 ==

== ENCOUNTER 2024-01-12 14:10 | Outpatient (AMB) | payer OTHER, SELFPAY ==
[2024-01-12 14:50] LABS: Prothrombin Time Whole Bld POC 23.9 sec (11.1-13.5)
--- NOTE | 2024-01-12 14:57 | MHC.OFFVISCO ---
Intake Intake Visit Reasons: Anticoagulation Allergies Penicillins Allergy (Severe, Verified 01/12/24 14:45) Diarrhea enoxaparin Adverse Reaction (Intermediate, Verified 01/12/24 14:45) Hives, leg swelling Medication List - Last Reconciled 01/12/24 by Fernanda Sierra, RN cholecalciferol (vitamin D3) 25 mcg PO DAILY diltiazem HCl CD 180 mg PO DAILY furosemide 20 mg PO DAILY metformin 500 mg PO BID metoprolol succinate ER 25 mg PO BID potassium chloride ER 10 mEq PO DAILY simvastatin 10 mg PO BEDTIME warfarin 5 mg See Protocol PO DAILY warfarin See Protocol 7.5MG MWF/ 3.75MG X4DAYS; on odd numbered days Nursing Note Pt to [facility] accompanied by her daughter. INR: 2.0 in therapeutic range of 2-3 Medications and supplements reviewed: no changes No changes in health, diet, medications, or supplements, Denies any signs and symptoms of bleeding or bruising or clotting. Bleeding, bruising, clotting discussed Nutritional guidance given to avoid greens today and tomorrow and to have a serving of foods from the list that raises the INR Dose: 7.5mg X 1 day and 5mg X 6 days F/U INR: 4 weeks Patient verbalizes understanding of instructions given Anti-Coag Initial Assessment Social Hx Patient Tobacco Use Status: Never used Tobacco Coding Level of Care Code Est Patient Level 1 Diagnoses Current use of anticoagulant therapy Z79.01 Assessment & Plan Assessment & Plan (1) Current use of anticoagulant therapy: Code(s): Z79.01 - senior living (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
== END 2024-01-12 15:17 | disposition home or self-care (01) ==
LOC: HO.ACS 14:10
PROVIDERS: PCP Internal Medicine; Visit Provider Internal Medicine
DX: Z79.01 Long term (current) use of anticoagulants (principal)

== ENCOUNTER → 2024-01-12 14:10 | Outpatient (BNVA) | payer OTHER, SELFPAY | PROVIDERS: PCP Internal Medicine; Visit Provider Internal Medicine | DX: I48.20 Chronic atrial fibrillation, unspecified (principal); Z51.81 Encounter for therapeutic drug level monitoring; Z79.01 Long term (current) use of anticoagulants | CPT/HCPCS: 85610; 99211 ==

== ENCOUNTER 2024-02-09 12:08 | Outpatient (REF) | payer OTHER, SELFPAY ==
[2024-02-09 13:39] LABS: MANUAL DIFF FLAG NO
[2024-02-09 13:45] LABS: Basophils Absolute Auto 0.1 X10*3/uL (0.0-0.2); Basophils Percent Auto 0.8 % (0-2); Eosinophils Absolute Auto 0.2 X10*3/uL (0.0-0.4); Eosinophils Percent Auto 2.8 % (0-4); Hematocrit 40.9 % (37.0-47.0); Hemoglobin 13.2 g/dl (12.0-16.0); Imm Gran Abs Auto 0.02 X10*3/uL (0.00-0.03); Imm Gran Pct Auto 0.3 % (0.0-0.4); Lymphocytes Absolute Auto 1.3 X10*3/uL (1.2-4.9); Lymphocytes Percent Auto 18.6 % (20-40); Mean Corpuscular HGB Conc 32.3 g/dl (31.0-35.0); Mean Corpuscular Hemoglobin 29.3 pg (27.0-33.0); Mean Corpuscular Volume 90.9 fL (80.0-98.0); Mean Platelet Volume 9.2 fL (9.4-12.3); Monocytes Absolute Auto 0.6 X10*3/uL (0.1-1.2); Monocytes Percent Auto 7.9 % (2-11); Neutrophils Percent Auto 69.6 % (45-73); Platelet Count 269 X10*3/uL (160-400); Red Cell Distribution Width 12.5 % (11.0-16.0); White Blood Count 7.2 X10*3/uL (4.8-10.8)
[2024-02-09 13:51] LABS: INTERNATIONAL NORM RATIO 2.2 (0.9-1.1); Prothrombin Time 26.7 SEC (11.1-13.3)
[2024-02-09 14:01] LABS: Estimated Average Glucose 197 mg/dL; Hemoglobin A1c % 8.5 % (<6.0)
[2024-02-09 14:42] LABS: Anion Gap 12 (12-20); Blood Urea Nitrogen 13 mg/dL (9-16); Calcium 9.5 mg/dL (8.4-10.2); Carbon Dioxide 27 mmol/L (22-29); Chloride 103 mmol/L (96-108); Estimated Glomerular Filt Rate > 60; Glucose Random 194 mg/dL (60-115); Potassium 4.2 mmol/L (3.3-5.1); Sodium 138 mmol/L (135-145)
== END 2024-02-09 12:09 | disposition home or self-care (01) ==
LOC: HO.10HDL 12:08
PROVIDERS: Visit Provider Internal Medicine
DX: I48.20 Chronic atrial fibrillation, unspecified (principal); E11.9 Type 2 diabetes mellitus without complications; I10 Essential (primary) hypertension; Z51.81 Encounter for therapeutic drug level monitoring; Z79.01 Long term (current) use of anticoagulants
CPT/HCPCS: 36415; 80048; 83036; 85025; 85610; 99211

== ENCOUNTER 2024-03-08 14:19 | Outpatient (AMB) | payer OTHER, SELFPAY ==
[2024-03-08 14:27] LABS: Prothrombin Time Whole Bld POC 31.4 sec (11.1-13.5); ~PT, ~INR - Anti Coag Clinic 2.6 (0.9-1.1)
--- NOTE | 2024-03-08 14:31 | MHC.OFFVISCO ---
Intake Intake Visit Reasons: Anticoagulation Allergies Penicillins Allergy (Severe, Verified 03/08/24 14:21) Diarrhea enoxaparin Adverse Reaction (Intermediate, Verified 03/08/24 14:21) Hives, leg swelling Medication List - Last Reconciled 03/08/24 by Fernanda Sierra, RN cholecalciferol (vitamin D3) 25 mcg PO DAILY diltiazem HCl CD 180 mg PO DAILY furosemide 20 mg PO DAILY metformin 500 mg PO BID metoprolol succinate ER 25 mg PO BID potassium chloride ER 10 mEq PO DAILY simvastatin 10 mg PO BEDTIME warfarin 5 mg See Protocol PO DAILY warfarin See Protocol 7.5MG MWF/ 3.75MG X4DAYS; on odd numbered days Nursing Note INR: 2.6 in therapeutic range of 2.5-3.5 Medications and supplements reviewed No changes in health, diet, medications, or supplements, Denies any signs and symptoms of bleeding or bruising or clotting. 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
== END 2024-03-08 14:32 | disposition home or self-care (01) ==
LOC: HO.ACS 14:20
PROVIDERS: PCP Internal Medicine; Visit Provider Internal Medicine
DX: Z79.01 Long term (current) use of anticoagulants (principal)

== ENCOUNTER → 2024-03-08 14:19 | Outpatient (BNVA) | payer OTHER, SELFPAY | PROVIDERS: PCP Internal Medicine; Visit Provider Internal Medicine | DX: I48.20 Chronic atrial fibrillation, unspecified (principal); Z51.81 Encounter for therapeutic drug level monitoring; Z79.01 Long term (current) use of anticoagulants | CPT/HCPCS: 85610; 99211 ==

== ENCOUNTER 2024-04-05 14:07 | Outpatient (AMB) | payer OTHER, SELFPAY ==
[2024-04-05 14:14] LABS: Prothrombin Time Whole Bld POC 29.3 sec (11.1-13.5); ~PT, ~INR - Anti Coag Clinic 2.4 (0.9-1.1)
--- NOTE | 2024-04-05 14:18 | MHC.OFFVISCO ---
Intake Intake Visit Reasons: Anticoagulation Allergies Penicillins Allergy (Severe, Verified 04/05/24 14:09) Diarrhea enoxaparin Adverse Reaction (Intermediate, Verified 04/05/24 14:09) Hives, leg swelling Medication List - Last Reconciled 04/05/24 by Fernanda Sierra, RN cholecalciferol (vitamin D3) 25 mcg PO DAILY diltiazem HCl CD 180 mg PO DAILY furosemide 20 mg PO DAILY metformin 500 mg PO BID metoprolol succinate ER 25 mg PO BID potassium chloride ER 10 mEq PO DAILY simvastatin 10 mg PO BEDTIME warfarin 5 mg See Protocol PO DAILY warfarin See Protocol 7.5MG MWF/ 3.75MG X4DAYS; on odd numbered days Nursing Note INR: 2.4 in therapeutic range of 2-3 Medications and supplements reviewed No changes in health, diet, medications, or supplements, Denies any signs and symptoms of bleeding or bruising or clotting. Bleeding, bruising, clotting discussed Nutritional guidance given Dose: 5mg X 6 day and 7.5mg X 1 day F/U INR: 4 weeks Patient verbalizes understanding of instructions given Anti-Coag Initial Assessment Social Hx Patient Tobacco Use Status: Never used Tobacco Coding Level of Care Code Est Patient Level 1 Diagnoses Current use of anticoagulant therapy Z79.01 Results AMB INR Fingerstick AMB INR Fingerstick 2.4 Last Edit by Fernanda Sierra, ANNIKA on 04/05/24 14:15 interface delay Assessment & Plan Assessment & Plan (1) Current use of anticoagulant therapy: Code(s): Z79.01 - correction (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
== END 2024-04-05 14:21 | disposition home or self-care (01) ==
LOC: HO.ACS 14:07
PROVIDERS: PCP Internal Medicine; Visit Provider Internal Medicine
DX: Z79.01 Long term (current) use of anticoagulants (principal)

== ENCOUNTER → 2024-04-05 14:07 | Outpatient (BNVA) | payer OTHER, SELFPAY | PROVIDERS: PCP Internal Medicine; Visit Provider Internal Medicine | DX: I48.20 Chronic atrial fibrillation, unspecified (principal); Z51.81 Encounter for therapeutic drug level monitoring; Z79.01 Long term (current) use of anticoagulants | CPT/HCPCS: 85610; 99211 ==

== ENCOUNTER 2024-05-03 14:27 | Outpatient (AMB) | payer OTHER, SELFPAY ==
[2024-05-03 14:33] LABS: Prothrombin Time Whole Bld POC 28.6 sec (11.1-13.5); ~PT, ~INR - Anti Coag Clinic 2.4 (0.9-1.1)
--- NOTE | 2024-05-03 14:33 | MHC.OFFVISCO ---
Intake Intake Visit Reasons: Anticoagulation Allergies Penicillins Allergy (Severe, Verified 05/03/24 14:28) Diarrhea enoxaparin Adverse Reaction (Intermediate, Verified 05/03/24 14:28) Hives, leg swelling Medication List - Last Reconciled 05/03/24 by Hannah Richardson, RN cholecalciferol (vitamin D3) 25 mcg PO DAILY diltiazem HCl CD 180 mg PO DAILY furosemide 20 mg PO DAILY metformin 500 mg PO BID metoprolol succinate ER 25 mg PO BID potassium chloride ER 10 mEq PO DAILY simvastatin 10 mg PO BEDTIME warfarin 5 mg See Protocol PO DAILY warfarin See Protocol 7.5MG MWF/ 3.75MG X4DAYS; on odd numbered days Nursing Note NO CP,SOB,DIET/MED CHANGES,FALLS OR SX OF BLEEDING. CONTINUE PRESENT DOSE AND FOLLOW-UP IN 4 WEEKS. GOOD UNDERSTANDING OF DOSING INSTR. Anti-Coag Initial Assessment Social Hx Patient Tobacco Use Status: Never used Tobacco Coding Level of Care Code Est Patient Level 1 Diagnoses Current use of anticoagulant therapy Z79.01 Assessment & Plan Assessment & Plan (1) Current use of anticoagulant therapy: Code(s): Z79.01 - group home (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
== END 2024-05-03 14:37 | disposition home or self-care (01) ==
LOC: HO.ACS 14:27
PROVIDERS: PCP Internal Medicine; Visit Provider Internal Medicine
DX: Z79.01 Long term (current) use of anticoagulants (principal)

== ENCOUNTER → 2024-05-03 14:27 | Outpatient (BNVA) | payer OTHER, SELFPAY | PROVIDERS: PCP Internal Medicine; Visit Provider Internal Medicine | DX: I48.20 Chronic atrial fibrillation, unspecified (principal); Z79.01 Long term (current) use of anticoagulants; Z51.81 Encounter for therapeutic drug level monitoring | CPT/HCPCS: 85610; 99211 ==

== ENCOUNTER 2024-05-16 14:59 | Outpatient (AMB) | payer OTHER, SELFPAY ==
[2024-05-16 15:02] VITALS: BP 120/78; PULSE 82; BMI 38.3
--- NOTE | 2024-05-16 15:02 | A.OFFVIS_ITS ---
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 Allergies Penicillins Allergy (Severe, Verified 05/03/24 14:28) Diarrhea enoxaparin Adverse Reaction (Intermediate, Verified 05/03/24 14:28) Hives, leg swelling Medication List - Last Reconciled 05/16/24 by Geremias Valdivia MD cholecalciferol (vitamin D3) 25 mcg PO DAILY diltiazem HCl CD 180 mg PO DAILY furosemide 20 mg PO DAILY metformin 500 mg PO BID metoprolol succinate ER 25 mg PO BID potassium chloride ER 10 mEq PO DAILY simvastatin 10 mg PO BEDTIME warfarin 5 mg See Protocol PO DAILY warfarin See Protocol 7.5MG MWF/ 3.75MG X4DAYS; on odd numbered days HPI Comments Details: Myla comes for follow-up. 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 Since starting to work she is feeling more tiredness and fatigue. Although denies any orthopnea, PND, leg swelling. Complains of food discomfort. She says in his summertime when she does not exercise much she has no significant symptoms. She denies any prolonged palpitation irregular heartbeat. Denies any lightheadedness, syncope. INRs have been well optimized. Denies any bleeding issues or neurologic events [facility] Medical History History of cardioversion On anticoagulant therapy On beta kathrine at home Biatrial enlargement Chronic atrial fibrillation Heart failure, unspecified Diabetes HTN (hypertension) Morbid obesity Surgical History History of placement of ear tubes History of tonsillectomy Status post atrial septal defect repair Family History Father No problems noted. 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 Review of Systems Const Denies chills, Denies fatigue, Denies fever(s), Denies frequent falls, Denies weakness, Denies weight gain and Denies weight loss ENT Denies dizziness Card Denies chest pain, Denies leg edema, Denies lightheadedness, Denies palpitations, Denies dyspnea, Denies dyspnea on exertion, Denies orthopnea and Denies other (loss of consciousness) Resp Denies cough, Denies dyspnea and Denies dyspnea on exertion GI Denies hematochezia and Denies change in stool character Musc Denies abnormal gait, Denies muscle weakness, Denies numbness, Denies radiating pain into limb and Denies tingling Neuro Denies abnormal gait, Denies dizziness, Denies frequent falls, Denies numbness, Denies tingling and Denies weakness Endo Denies fatigue and Denies palpitations Physical Exam Vital Signs: Last Vital Signs Pulse 82 05/16/24 15:02 BP 120/78 05/16/24 15:02 BMI result Body Mass Index 38.3 Const General: cooperative, comfortable, no acute distress, alert and awake Nutritional Appearance: obese Orientation/consciousness: patient oriented x3 Limitations: no limitations HEENT Head: Yes raccoon eyes Neck Neck: Yes trachea midline, Yes supple and Yes no JVD Resp Effort & Inspection: normal respiratory effort Auscultation: clear to auscultation bilaterally Cardio Jugular venous distension: no JVD Rhythm: abnormal rhythm irregularly irregular Heart sounds: S1 normal heart sound present and S2 normal heart sound present GI Inspection: Yes obesity Auscultation: normal bowel sounds Skin General skin exam: no rashes or lesions noted Neuro General: patient oriented x3 and no focal motor deficits Extrem General: Yes no clubbing, cyanosis or edema Psych Appearance: grossly normal Office Procedures EKG Details: EKG shows atrial fibrillation with nonspecific T-wave changes [id number], Complete Assessment & Plan Assessment & Plan (1) Status post atrial septal defect repair: Comment: 2007 initially underwent surgical repair for secundum ASD for biventricular failure, this failed. Subsequently patient underwent percutaneous closure with significantly improved heart failure syndrome. Last echocardiogram showed normal biventricular systolic function and size. Code(s): Z87.74 - Personal history of (corrected) congenital malformations of heart and circulatory system Category: Surgical Plan: Patient with adult congenital heart disease with prior surgical revascularization which failed and subsequently underwent a percutaneous closure with significantly improved heart failure syndrome. Initially remained stable. Follow-up echocardiogram next year with saline contrast study. (2) Chronic atrial fibrillation: Comment: Has failed rhythm control approach Code(s): I48.20 - Chronic atrial fibrillation, unspecified Category: Medical Plan: Biatrial enlargement which is significant for chronic atrial fibrillation, has failed rhythm control approach. Has remained stable. Continue rate control approach Cardizem and metoprolol therapy. Currently on warfarin therapy. Target INR between 2 and 3 being followed by [facility]. (3) Heart failure, unspecified: Code(s): I50.9 - Heart failure, unspecified Category: Medical Plan: Patient predominantly right heart failure syndrome with right ventricular enlargement which had improved post ASD repair but has remained enlarged. C urrently on low-dose diuretic therapy daily weight monitoring avoidance of salt loading was discussed. Continue rate control approach. Daily weight monitoring avoidance of salt loading was discussed. She is having symptoms of fatigue and tiredness which could be related to weight and also chronic AFib and heart failure syndrome. Clinically appears to be euvolemic. No change in therapy. Will follow up in the clinic in 1 year's time after an echocardiogram. Thank you for allowing me to partake in her care Orders: Orders CA echo transthoracic complete 1 Year I48.20 - Chronic atrial fibrillation, unspecified Coding Level of Care Code Est Pt Level 4 (17481) Diagnoses Status post atrial septal defect repair Z87.74 Chronic atrial fibrillation I48.20 Heart failure, unspecified I50.9 CPT Codes EKG - CPT: 40553-[id number], Complete ([id number])
== END 2024-05-16 15:25 | disposition home or self-care (01) ==
PROVIDERS: PCP Internal Medicine; Visit Provider Internal Medicine Cardiovascular Disease
DX: Z87.74 Personal history of (corrected) congenital malformations of heart and circulatory system (principal); I48.20 Chronic atrial fibrillation, unspecified; I50.9 Heart failure, unspecified
CPT/HCPCS: 93010; 99214

== ENCOUNTER → 2024-05-16 14:59 | Outpatient (BNVA) | payer OTHER, SELFPAY | PROVIDERS: PCP Internal Medicine; Visit Provider Internal Medicine Cardiovascular Disease | DX: I48.20 Chronic atrial fibrillation, unspecified (principal); I50.9 Heart failure, unspecified; Z79.01 Long term (current) use of anticoagulants; Z79.899 Other long term (current) drug therapy; Z87.74 Personal history of (corrected) congenital malformations of heart and circulatory system | CPT/HCPCS: 93005 ==

== ENCOUNTER 2024-05-25 08:09 | Outpatient (REF) | payer OTHER, SELFPAY ==
--- NOTE | ~2024-05-25 | MM_ITS ---
EXAMINATION: MM SCREENING DIGITAL BREAST TOMOSYNTHESIS, BILATERAL CLINICAL INFORMATION: Screening. Asymptomatic. COMPARISON: Mammography: Comparison is made with available priors TECHNIQUE: Digital breast mammography with tomosynthesis is performed in both the craniocaudal and mediolateral oblique views along with computer-aided detection (CAD). FINDINGS: There are scattered areas of fibroglandular density (ACR BI-RADS breast composition Category b). There are no significant masses, abnormal calcifications, or other abnormalities. MM/MM tomosynthesis screening BI IMPRESSION: No mammographic evidence of malignancy. ASSESSMENT: BI-RADS BI-RADS 1 - Negative RECOMMENDATION: Routine annual mammography screening. 1 year F/U This examination should not preclude the clinical evaluation of a suspicious palpable abnormality. This patient's information was entered into a reminder system with a target due date for their next mammogram. Electronically signed by: Carisa Burks DO 06/06/2024 10:01 PM DARREN
== END 2024-05-25 08:10 | disposition home or self-care (01) ==
LOC: HO.MAMMO 08:09
PROVIDERS: PCP Internal Medicine; Visit Provider Internal Medicine
DX: Z12.31 Encounter for screening mammogram for malignant neoplasm of breast (principal)
CPT/HCPCS: 77063; 77067

== ENCOUNTER → 2024-05-25 08:15 | Outpatient (BNV) | payer OTHER, SELFPAY | PROVIDERS: PCP Internal Medicine; Visit Provider Internal Medicine | DX: Z12.31 Encounter for screening mammogram for malignant neoplasm of breast (principal) | CPT/HCPCS: 77063; 77067 ==

== ENCOUNTER 2024-05-31 15:33 | Outpatient (AMB) | payer OTHER, SELFPAY ==
[2024-05-31 15:38] LABS: Prothrombin Time Whole Bld POC 24.1 sec (11.1-13.5)
--- NOTE | 2024-05-31 15:41 | MHC.OFFVISCO ---
Intake Intake Visit Reasons: Anticoagulation Allergies Penicillins Allergy (Severe, Verified 06/01/24 08:59) Diarrhea enoxaparin Adverse Reaction (Intermediate, Verified 06/01/24 08:59) Hives, leg swelling Medication List - Last Reconciled 05/31/24 by Fernanda Sierra, RN cholecalciferol (vitamin D3) 25 mcg PO DAILY diltiazem HCl CD 180 mg PO DAILY furosemide 20 mg PO DAILY metformin 500 mg PO BID metoprolol succinate ER 25 mg PO BID potassium chloride ER 10 mEq PO DAILY simvastatin 10 mg PO BEDTIME warfarin 5 mg See Protocol PO DAILY warfarin See Protocol 7.5MG MWF/ 3.75MG X4DAYS; on odd numbered days Nursing Note INR: 2.0 in therapeutic range of 2-3 Pt c/o pain right knee/leg. Just came from Dr Stewart's office. No new meds. Will take tylenol before bed. No changes in health, diet, medications, or supplements, Denies any signs and symptoms of bleeding or bruising or clotting. Bleeding, bruising, clotting discussed Nutritional guidance given Dose: continue same dose of 5mg X 6 days and 7.5mg X 1 day F/U INR: 4 weeks Patient verbalizes understanding of instructions given Anti-Coag Initial Assessment Social Hx Patient Tobacco Use Status: Never used Tobacco Coding Level of Care Code Est Patient Level 1 Diagnoses Current use of anticoagulant therapy Z79.01 Assessment & Plan Assessment & Plan (1) Current use of anticoagulant therapy: Code(s): Z79.01 - detention (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
== END 2024-05-31 15:44 | disposition home or self-care (01) ==
LOC: HO.ACS 15:33
PROVIDERS: PCP Internal Medicine; Visit Provider Internal Medicine
DX: Z79.01 Long term (current) use of anticoagulants (principal)

== ENCOUNTER → 2024-05-31 15:33 | Outpatient (BNVA) | payer OTHER, SELFPAY | PROVIDERS: PCP Internal Medicine; Visit Provider Internal Medicine | DX: I48.20 Chronic atrial fibrillation, unspecified (principal); Z79.01 Long term (current) use of anticoagulants; Z51.81 Encounter for therapeutic drug level monitoring | CPT/HCPCS: 85610; 99211 ==

== ENCOUNTER 2024-06-01 08:42 | Emergency (ER) | payer OTHER, SELFPAY ==
--- NOTE | ~2024-06-01 | XR_ITS ---
EXAMINATION: XR KNEE, RIGHT CLINICAL INFORMATION: Pain COMPARISON: None available. TECHNIQUE: Four views of the right knee. FINDINGS: No acute fracture or dislocation. Multi compartment arthritic changes. Chondrocalcinosis along the lateral and medial femorotibial compartment. Joint space alignment are otherwise maintained. Trace knee joint effusion. Soft tissues are unremarkable. Atherosclerotic calcifications are noted. XR/XR knee RT 4V IMPRESSION: 1. No acute fracture or dislocation. 2. Multi compartment arthritic changes. 3. Chondrocalcinosis along the lateral and medial femorotibial compartment. 4. Trace knee joint effusion. Electronically signed by: Laura Blanton MD 06/01/2024 10:44 AM EDT
[2024-06-01 08:57] VITALS: BP 122/52; PULSE 67; RESP 20; TEMP 36; O2SAT 98; BMI 38.1
--- NOTE | 2024-06-01 09:03 | PC.NURSE ---
pt a&ox3, pt c/o 05/23 bilateral knee pain, pt awaiting xrays
--- NOTE | 2024-06-01 11:05 | ED.GENADULT ---
HPI - General Adult General Chief complaint: Extremity Injury, Lower Stated complaint: knee pain Time Seen by Provider: 06/01/24 09:02 Source: patient and RN notes reviewed Mode of arrival: ambulatory Limitations: no limitations History of Present Illness ED Provider: Ros Khan PA-C HPI narrative: This is a 64-year-old female, with a history of AFib on Coumadin, hypertension, heart failure, diabetes, who presents emergency department with complaints of atraumatic right knee pain x 2 days. Patient reports that she believes that she is having increased pain and swelling in her right knee as she stands for prolonged periods of time at work. She states that she mentioned her knee pain to her primary care doctor who recommended that this may be attributed to her shoes therefore she has been switching her shoes every so often. She denies any fevers, chills, chest pain, shortness of breath. She has been taking Tylenol intermittently for her pain which has provided her with some relief. Denies history of similar knee pain in the past. Other complaints or concerns at this time. MD complaint: Right knee pain Onset (ago): day(s) Location: lower extremity Radiation: non-radiation Severity: moderate Quality: aching Pain Consistency: constant Relieving factors: none Exacerbating factors: none Associated symptoms: denies other symptoms Treatments prior to arrival: none Related Data Home Medications ?Medication ?Instructions ?Recorded ?Confirmed diltiazem HCl 180 mg 180 mg PO DAILY 07/21/20 05/31/24 capsule,extended release 24 hr furosemide 20 mg tablet 20 mg PO DAILY 07/21/20 05/31/24 potassium chloride 10 mEq 10 meq PO DAILY 07/21/20 05/31/24 tablet,extended release(part/cryst) simvastatin 10 mg tablet 10 mg PO BEDTIME 07/21/20 05/31/24 metoprolol succinate 25 mg 25 mg PO BID 09/23/21 05/31/24 tablet,extended release 24 hr cholecalciferol (vitamin D3) 25 25 mcg PO DAILY 12/20/21 05/31/24 mcg (1,000 unit) capsule metformin 500 mg tablet 500 mg PO BID 01/04/23 05/31/24 Previous Rx's ?Medication ?Instructions ?Recorded warfarin 7.5 mg tablet See Rx Instructions .Route 01/28/21 .COMPLEX #90 tabs warfarin 5 mg tablet 5 mg PO DAILY #90 tabs 03/05/21 Allergies Allergy/AdvReac Type Severity Reaction Status Date / Time Penicillins Allergy Severe Diarrhea Verified 06/01/24 08:59 enoxaparin AdvReac Intermediate Hives, leg Verified 06/01/24 08:59 swelling Review of Systems Review of Systems: Yes all other systems are reviewed and are negative Constitutional: Constitutional: Reports as per [facility] Past Medical History Medical History History of cardioversion On anticoagulant therapy On beta kathrine at home Biatrial enlargement Chronic atrial fibrillation Heart failure, unspecified Diabetes HTN (hypertension) Morbid obesity Surgical History History of placement of ear tubes History of tonsillectomy Status post atrial septal defect repair Family History Family History Father No problems noted. 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 Physical Exam ED Vital Signs: Vital Signs - 24 hr 06/01/24 08:57 06/01/24 12:03 Temperature 96.8 F 97.8 F Pulse Rate 67 57 Respiratory Rate 20 16 Blood Pressure 122/52 L 116/61 Pulse Oximetry 98 97 Oxygen Delivery Method Room Air Room Air BMI result Body Mass Index 38.1 Const General: cooperative, comfortable and no acute distress Orientation/consciousness: patient oriented x3 Limitations: no limitations HENMT Head: Yes normal to inspection, Yes normocephalic and Yes atraumatic Ears: hearing grossly normal bilaterally General nose exam: Normal external nose present Face and sinus: Yes normal facial exam Mouth: Normal oral and palatal mucosa present, oropharynx normal and moist mucous membranes Throat: Yes posterior oropharynx normal Eyes General: appearance normal, both eyes and all related structures Eyelids: Yes eyelids normal Conjunctivae: conjunctivae normal Sclerae: sclerae normal Pupils: Equal, round and reactive pupils present EOM: EOMs intact bilaterally Neck Neck: Yes normal visual inspection, Yes full ROM and Yes no lymphadenopathy Lymphatic: no lymphadenopathy noted Chest Chest palpation & inspection: normal inspection of the chest Resp Effort & Inspection: normal respiratory effort and able to speak in complete sentences Auscultation: clear to auscultation bilaterally, no crackles, no rales, no rhonchi and no wheezes Cardio Rate: regular rate Rhythm: regular rhythm Heart sounds: S1 normal heart sound present and S2 normal heart sound present GI Inspection: Yes normal to inspection Skin General skin exam: no rashes or lesions noted Trauma: no lacerations or abrasions Wounds: no wounds Neuro General: patient oriented x3 and moves all extremities Cranial nerves: Yes Equal, round and reactive pupils present Extrem Other: Right knee mild effusion noted, she has no exquisite tenderness to palpation. No tenderness palpation along the entire joint. No medial or lateral joint line tenderness. Full ROM of the knee joint without difficulty. No calf tenderness. Strong DP pulse. Distal sensation circulation intact. General: Yes normal to inspection Right upper extremity: normal to inspection Left upper extremity: normal to inspection Right lower extremity: normal to inspection Left lower extremity: normal to inspection Medical Decision Making Medical Decision Making MDM Narrative: This is a 64-year-old female, with a history of diabetes, hypertension, AFib on Coumadin, who presents emergency department with complaints of atraumatic right knee pain x 2 days. Patient reports that she spends a prolonged period of time standing at work. She denies any recent trauma or injury. On arrival, vital signs within normal limits. She is ambulatory with steady gait. Right knee with moderate effusion noted, with no exquisite tenderness to palpation, the joint is nonerythematous. With full range of motion. Strong DP pulse, no calf tenderness. X-ray was obtained prior to my assessment, this reveals no fracture dislocation, she has multi compartment arthritic changes as well as chondrocalcinosis along the lateral medial femoral tibial compartment with a trace knee joint effusion. Discussed these findings with patient as well as daughter at bedside. She has no evidence of gout as her joint is nonerythematous, with no significant tenderness to palpation. Discussed that this may be the possibility of a pseudogout like presentation, which should be treated with anti-inflammatories and or prednisone. Patient is on Coumadin therefore unable to treat with anti-inflammatories. A point of care was performed, point of care glucose was 211 therefore resistant to start on prednisone routinely check her sugars at home. She will rest, ice, elevate leg, and take Tylenol as needed for pain. She understands and agrees with plan. Given strict return precautions. Patient stable for discharge Differential Diagnosis Differential Diagnoses: The differential diagnosis associated with the presentation includes Gout, pseudogout, tried effusion, strain Admission/Observation Consideration of admission/observation: Escalation of care including admission/observation considered Lab Data MDM Lab Attestation statement: I reviewed the patient's lab results. Point of care glucose 211 Labs: Lab Results 06/01/24 Range/Units 11:28 POC Glucose 211 H (60-115) mg/dL Radiology Impression Discussion of test interpretation with radiology: I have reviewed the radiologist's reading. Radiologist Impression: XR/XR knee RT 4V IMPRESSION: 1. No acute fracture or dislocation. 2. Multi compartment arthritic changes. 3. Chondrocalcinosis along the lateral and medial femorotibial compartment. 4. Trace knee joint effusion. Electronically signed by: Laura Blanton MD 06/01/2024 10:44 AM EDT Dictated By: Laura Blanton MD Signed By: <Electronically signed by Discharge Plan Discharge Clinical Impression: Knee pain, left, Pseudogout Patient Disposition: Home, Self-Care Instructions: Knee Pain (ED) Additional Instructions: You were seen in the emergency department due to right knee pain. Your x-ray shows swelling, arthritis, and possible evidence of pseudogout. Given your chronic and complex medical conditions, as well as elevated blood glucose level, we are limited on what we can treat for this. I want you to keep knee elevated, and wrap with [place] wrap. You may follow-up with the technical service specialist for further management treatment of your symptoms. Any new or worsening symptoms occur including but not limited to red, hot, swollen knee joint, chest pain, shortness of breath, please seek emergent care. Prescriptions: No Action diltiazem HCl 180 mg capsule,extended release 24hr 180 mg PO DAILY simvastatin 10 mg tablet 10 mg PO BEDTIME potassium chloride 10 mEq tablet,ER particles/crystals 10 meq PO DAILY furosemide 20 mg tablet 20 mg PO DAILY metoprolol succinate 25 mg tablet extended release 24 hr 25 mg PO BID warfarin 7.5 mg tablet See Rx Instructions .ROUTE .COMPLEX Qty: 90 0RF Protocol: Dose Management Condition: Monday () Dose/Route: 5 mg Instruction: 1 x 5 mg tablet Condition: Monday Dose/Route: 5 mg Instruction: 1 x 5 mg tablet Condition: Monday Dose/Route: 5 mg Instruction: 1 x 5 mg tablet Condition: Monday Dose/Route: 5 mg Instruction: 1 x 5 mg tablet Condition: Dose/Route: 5 mg Instruction: 1 x 5 mg tablet Condition: Monday Dose/Route: 7.5 mg Instruction: 1 x 7.5 mg tablet Condition: Monday Dose/Route: 5 mg Instruction: 1 x 5 mg tablet Condition: Monday () Dose/Route: 5 mg Instruction: 1 x 5 mg tablet Condition: Monday Dose/Route: 5 mg Instruction: 1 x 5 mg tablet Condition: Monday Dose/Route: 5 mg Instruction: 1 x 5 mg tablet Condition: Monday Dose/Route: 5 mg Instruction: 1 x 5 mg tablet Condition: Dose/Route: 5 mg Instruction: 1 x 5 mg tablet Condition: Monday Dose/Route: 7.5 mg Instruction: 1 x 7.5 mg tablet Condition: Monday Dose/Route: 5 mg Instruction: 1 x 5 mg tablet Protocol Text: Adjustment Start Date: Monday05/31/24 INR Value: 2.0 INR Date: 05/31/24 Recheck Date: 06/28/24 Rx Instructions: 7.5MG MWF/ 3.75MG X4DAYS; on odd numbered days warfarin 5 mg tablet 5 mg PO DAILY Qty: 90 0RF Protocol: Dose Management Condition: Monday ( One) Dose/Route: 5 mg Instruction: 1 x 5 mg tablet Condition: Monday Dose/Route: 5 mg Instruction: 1 x 5 mg tablet Condition: Monday Dose/Route: 5 mg Instruction: 1 x 5 mg tablet Condition: Monday Dose/Route: 5 mg Instruction: 1 x 5 mg tablet Condition: Dose/Route: 5 mg Instruction: 1 x 5 mg tablet Condition: Monday Dose/Route: 7.5 mg Instruction: 1 x 7.5 mg tablet Condition: Monday Dose/Route: 5 mg Instruction: 1 x 5 mg tablet Condition: Monday () Dose/Route: 5 mg Instruction: 1 x 5 mg tablet Condition: Monday Dose/Route: 5 mg Instruction: 1 x 5 mg tablet Condition: Monday Dose/Route: 5 mg Instruction: 1 x 5 mg tablet Condition: Monday Dose/Route: 5 mg Instruction: 1 x 5 mg tablet Condition: Dose/Route: 5 mg Instruction: 1 x 5 mg tablet Condition: Monday Dose/Route: 7.5 mg Instruction: 1 x 7.5 mg tablet Condition: Monday Dose/Route: 5 mg Instruction: 1 x 5 mg tablet Protocol Text: Adjustment Start Date: Monday05/31/24 INR Value: 2.0 INR Date: 05/31/24 Recheck Date: 06/28/24 cholecalciferol (vitamin D3) 25 mcg (1,000 unit) capsule 25 mcg PO DAILY metformin 500 mg tablet 500 mg PO BID Referrals: [facility] [place] Orthopedic Surgeons [Provider Group] Stand Alone Forms: Work/School Release Interventions: ED Discharge Assessment Last Done: 06/01/24 12:03 Discharge Date/Time: 06/01/24 12:05 Print Language: Upper Sorbian
[2024-06-01 11:31] LABS: Glucose, Whole Blood 211 mg/dL (60-115)
[2024-06-01 12:03] VITALS: BP 116/61; PULSE 57; RESP 16; TEMP 36.6; O2SAT 97
== END 2024-06-01 12:05 | disposition home or self-care (01) ==
PROVIDERS: Emergency Provider Emergency Medicine; PCP Internal Medicine
DX: M25.561 Pain in right knee (principal); M11.272 Other chondrocalcinosis, left ankle and foot; I48.91 Unspecified atrial fibrillation; E11.9 Type 2 diabetes mellitus without complications; I11.0 Hypertensive heart disease with heart failure; I50.9 Heart failure, unspecified; Z79.01 Long term (current) use of anticoagulants
CPT/HCPCS: 73564; 82947; 99282; 99283

== ENCOUNTER 2024-06-27 14:55 | Outpatient (AMB) | payer OTHER, SELFPAY ==
--- NOTE | 2024-06-27 14:59 | MHC.OFFVIS ---
Intake Visit Reasons: Right knee pain and giving way Intake Note: Myla is a 64 year old female who presents with complaints of progressively worsening right knee pain and giving way. The patient states that her symptoms have gotten worse over the last year. Most of the pain is along the medial aspect of her knee. She has failed the last 6 weeks of conservative treatment which has consisted of topical creams, a home physical therapy program and Tylenol. She is not able to take anti-inflammatory medicines because she is on Coumadin. She states that her right knee will give out several times per day. Allergies Penicillins Allergy (Severe, Verified 06/27/24 15:04) Diarrhea enoxaparin Adverse Reaction (Intermediate, Verified 06/27/24 15:04) Hives, leg swelling Medication List - Last Reconciled 06/28/24 by Delfino Matt MD cholecalciferol (vitamin D3) 25 mcg PO DAILY diltiazem HCl CD 180 mg PO DAILY furosemide 20 mg PO DAILY metformin 500 mg PO BID metoprolol succinate ER 25 mg PO BID potassium chloride ER 10 mEq PO DAILY simvastatin 10 mg PO BEDTIME warfarin 5 mg See Protocol PO DAILY warfarin See Protocol 7.5MG MWF/ 3.75MG X4DAYS; on odd numbered days [facility] Medical History History of cardioversion On anticoagulant therapy On beta kathrine at home Biatrial enlargement Chronic atrial fibrillation Heart failure, unspecified Diabetes HTN (hypertension) Morbid obesity Surgical History History of placement of ear tubes History of tonsillectomy Status post atrial septal defect repair Family History Father No problems noted. 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 Physical Exam Const Other: Well-nourished well-developed very friendly female awake alert and oriented x3 in no acute distress Extrem Other: Bilateral lower extremity examination shows good capillary refill, no skin lesions noted, normal sensation light touch Right knee examination shows a minimal effusion, minimal crepitus with range of motion, tenderness along her medial joint line, positive Emeka's test, no instability Results Reviewed Results Reviewed: Standing full weight-bearing x-rays of the patient's right knee show mild diffuse joint space narrowing, no acute bony abnormalities Assessment & Plan Assessment & Plan (1) Right knee pain: Code(s): M25.561 - Pain in right knee Category: Medical Plan Myla presents with progressively worsening right knee pain and mechanical symptoms most likely due to a medial meniscus tear. Thus, I will send the patient for an MRI of her right knee for further evaluation. I will see her back after the MRI is completed to discuss the findings and treatment options. Feel free to call me at any time should questions regarding her orthopedic management arise. Thank you very much for asking me to see this very friendly patient. I spent 22 minutes in reviewing the patient's records and imaging studies, seeing the patient and documenting in the medical record. Orders: Orders MR knee RT wo con Today M25.561 - Pain in right knee Coding Level of Care Code New Pt Level 3 (13054) Complex EM visit Add On G2211 Diagnoses Right knee pain M25.561
== END 2024-06-27 15:20 | disposition home or self-care (01) ==
PROVIDERS: PCP Internal Medicine; Visit Provider Orthopaedic Surgery
DX: M25.561 Pain in right knee (principal)
CPT/HCPCS: 99203; G2211

== ENCOUNTER 2024-06-28 14:30 | Outpatient (AMB) | payer OTHER, SELFPAY ==
[2024-06-28 14:45] LABS: Prothrombin Time Whole Bld POC 27.3 sec (11.1-13.5); ~PT, ~INR - Anti Coag Clinic 2.3 (0.9-1.1)
--- NOTE | 2024-06-28 15:02 | MHC.OFFVISCO ---
Intake Intake Visit Reasons: Anticoagulation Allergies Penicillins Allergy (Severe, Verified 06/28/24 14:39) Diarrhea enoxaparin Adverse Reaction (Intermediate, Verified 06/28/24 14:39) Hives, leg swelling Medication List - Last Reconciled 06/28/24 by Fernanda Sierra, RN cholecalciferol (vitamin D3) 25 mcg PO DAILY diltiazem HCl CD 180 mg PO DAILY furosemide 20 mg PO DAILY metformin 500 mg PO BID metoprolol succinate ER 25 mg PO BID potassium chloride ER 10 mEq PO DAILY simvastatin 10 mg PO BEDTIME warfarin 5 mg See Protocol PO DAILY warfarin See Protocol 7.5MG MWF/ 3.75MG X4DAYS; on odd numbered days Nursing Note INR: 2.3 in therapeutic range of 2-3 Medications and supplements reviewed Continues with right knee pain and has been to the ER with that issue since last visit to [facility]. She will be having an MRI possbily next week. Has been taking tylenol but only takes 1 or 2 a day. No changes in diet, medications, or supplements, Denies any signs and symptoms of bleeding or bruising or clotting. Bleeding, bruising, clotting discussed Nutritional guidance given. Instructed pt to have a serving of greens if she finds herself taking more tylenol. 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
== END 2024-06-28 15:09 | disposition home or self-care (01) ==
LOC: HO.ACS 14:30
PROVIDERS: PCP Internal Medicine; Visit Provider Internal Medicine
DX: Z79.01 Long term (current) use of anticoagulants (principal)

== ENCOUNTER → 2024-06-28 14:30 | Outpatient (BNVA) | payer OTHER, SELFPAY | PROVIDERS: PCP Internal Medicine; Visit Provider Internal Medicine | DX: I48.20 Chronic atrial fibrillation, unspecified (principal); Z79.01 Long term (current) use of anticoagulants; Z51.81 Encounter for therapeutic drug level monitoring | CPT/HCPCS: 85610; 99211 ==

== ENCOUNTER 2024-07-06 09:56 | Outpatient (REF) | payer OTHER, SELFPAY ==
[2024-07-06 10:32] LABS: MANUAL DIFF FLAG NO
[2024-07-06 11:10] LABS: Basophils Percent Auto 0.8 % (0-2); Eosinophils Absolute Auto 0.3 X10*3/uL (0.0-0.4); Hematocrit 41.5 % (37.0-47.0); Hemoglobin 13.8 g/dl (12.0-16.0); Imm Gran Abs Auto 0.01 X10*3/uL (0.00-0.03); Imm Gran Pct Auto 0.2 % (0.0-0.4); Lymphocytes Absolute Auto 1.1 X10*3/uL (1.2-4.9); Lymphocytes Percent Auto 22.6 % (20-40); Mean Corpuscular HGB Conc 33.3 g/dl (31.0-35.0); Mean Corpuscular Hemoglobin 29.7 pg (27.0-33.0); Mean Corpuscular Volume 89.2 fL (80.0-98.0); Mean Platelet Volume 8.9 fL (9.4-12.3); Monocytes Absolute Auto 0.4 X10*3/uL (0.1-1.2); Monocytes Percent Auto 8.6 % (2-11); Neutrophils Absolute Auto 3.2 x10*3/uL (2.0-8.3); Neutrophils Percent Auto 62.8 % (45-73); Platelet Count 318 X10*3/uL (160-400); Red Blood Count 4.65 X10*6/uL (4.20-5.50); Red Cell Distribution Width 12.2 % (11.0-16.0)
[2024-07-06 11:17] LABS: Estimated Average Glucose 197 mg/dL; Hemoglobin A1C 246.6068 umol/L; Hemoglobin A1c % 8.5 % (<6.0); Total Hemoglobin (HGBA1C) 3527.0909 umol/L
[2024-07-06 11:51] LABS: Alanine Aminotransferase 18 U/L (0-31); Albumin Level 4.1 g/dL (3.5-5.0); Alkaline Phosphatase 65 U/L (39-117); Anion Gap 11 (12-20); Aspartate Amino Transferase 24 U/L (5-31); Bilirubin Total 1.2 mg/dL (0.0-1.0); Blood Urea Nitrogen 13 mg/dL (9-16); Calcium 9.8 mg/dL (8.4-10.2); Carbon Dioxide 26 mmol/L (22-29); Chloride 106 mmol/L (96-108); Cholesterol 113 mg/dL (<200); Estimated Glomerular Filt Rate > 60; Glucose Fasting 181 mg/dL (60-99); HDL Cholesterol 53 mg/dL (>40); LDL Cholesterol Calculated 50 mg/dL (<100); Potassium 4.1 mmol/L (3.3-5.1); Sodium 139 mmol/L (135-145); Total Protein 7.6 g/dL (6.5-8.0); Triglycerides 53 mg/dL (<150)
[2024-07-06 11:53] LABS: Creatinine Urine 144.49 mg/dL; Microalbum/Creatinine Ratio Ur 13.1 ug/mg cr (<30)
[2024-07-06 12:19] LABS: Vitamin D 25-OH Total 31.5 ng/mL (>30)
== END 2024-07-06 09:57 | disposition home or self-care (01) ==
LOC: HO.LAB 09:56
PROVIDERS: PCP Internal Medicine; Visit Provider Internal Medicine
DX: I48.91 Unspecified atrial fibrillation (principal); I10 Essential (primary) hypertension; E78.00 Pure hypercholesterolemia, unspecified; M19.90 Unspecified osteoarthritis, unspecified site; E11.9 Type 2 diabetes mellitus without complications
CPT/HCPCS: 36415; 80053; 80061; 82043; 82306; 82570; 83036; 85025

== ENCOUNTER 2024-07-26 14:21 | Outpatient (AMB) | payer OTHER, SELFPAY ==
--- OUTSIDE RECORDS SUMMARY | 2024-07-26 14:22 | XMS_ITS ---
Author Organization [facility] [place] Address [address] [place] [address] Care Team Providers Care Senior It Project Manager Name Role Phone Abdulaziz Stewart MD Primary Care Provider Unavaila ble Black, Carrie Unavailable [phone] Allergies No Known Allergies REASON FOR VISIT At Risk Footcare, Skin Problem Medications Medication SIG (Take, Route, Frequency, Duration) Notes Start Date End Date Status Ciclopirox Olamine 0.77% external Apply to effected areas twice a day for 30 days 02/06/2014 Not-Taking Ciclopirox 0.77 % 1 application to affected area Externally Twice a day to effected nails for 30 days 02/01/2024 Active Extra-Depth Diabetic Shoes with 3 Pair Custom heat-molded multi-density innersoles . for 1 year . Dx:hunter and calloused lesions for . 02/23/2015 Not-Taki ng Amiodarone HCl 100 MG 1 tablet Orally On ce a day Not-Taking Aspirin Adult Low Strength 81 MG 1 tablet Orally Once a day Not-Taking Furosemide 20 MG 1 tablet Orally Once a day Active Extra-Depth Diabetic Shoes with 3 Pair Custom heat-molded multi-density innersoles . for 1 year . Dx:NIDDM/NEURO and preulcerative lesions,hunter for . 11/04/2013 Active dilTIAZem HCl ER 180 MG Orally Once a day Active Ciclopirox Olamine 0.77 % 1 application to affected area Externally Twice a day for 30 days 12/04/2017 Not-Taking Ciclopirox Olamine 0.77% external Apply to effected areas twice a day for 30 days 11/21/2016 Not-Taking Warfarin Sodium 5 MG 1 tablet Orally Two times a Week Active Vitamin D 1000 UNIT 1 tablet Orally Once a day Active metFORMIN HCl ER (OSM) 500 MG 1 tablet with evening meal Orally Once a day X2 a day Active Simvastatin 10 MG 1 tablet in the even ing Orally Once a day Active Metoprolol Succinate ER 25 MG 1 tablet Orally Once a day Active B Complex Orally Active Klor-Con 10 10 MEQ 1 tablet Orally Four times a day Active Social History Tobacco Use: Social History Observation Description Date Details (start date - stop date) Never Smoker NA - NA Tobacco Use/Smoking Question Answer Notes Are you a: nonsmoker Additional Findings: Tobacco Non-User Current no n-smoker Alcohol Screen Question Answer Notes Did you have a drink containing alcohol in the p ast year? No Points 0 Interpretation Negative Tobacco use other than smoking: Question Answer Notes Are you an other tobacco user? No Vital Signs Height 5ft3in in 02/01/2024 Weight 245 lbs 02/01/2024 BMI 43.4 kg/m2 02/01/2024 Procedures Procedure Date Ordered Date Performed Result Body Sit e 66576-IEVSEYJ NAIL, 6 OR MORE 02/01/2024 N/A 90511-WRBG SKIN LESIONS, OVER 4 02/01/2024 N/A Encounters Encounter Location Date Provider Diagnosis [facility] [place] [place] [address] 02/01/2024 Carrie Black Type 2 diabetes mellitus with diabetic polyneuropathy E11.42 ; Tinea unguium B35.1 ; Ingrowing nail L60.0 and Tinea pedis of both feet B35.3 Assessments Encounter Date Diagnosis (ICD Code) Assessment Notes Treatment Notes Treatment Clinical Notes Section Notes 02/01/2024 Type 2 diabetes mellitus with diabetic polyneuropathy (ICD-10 - E11.42) 02/01/2024 Tinea unguium (ICD-10 - B35.1) 02/01/2024 Ingrowing nail (ICD-10 - L60.0) 02/01/2024 Tinea pedis of both feet (ICD-10 - B35.3) Plan Of Treatment Medication Medication Name Sig Start Date Stop Date Notes Ciclopirox 0.77 % 1 application to aff ected area Externally Twice a day to effected nails for 30 days 02/01/2024 Pending Test Test Name Order Date 55948-HTHUQQX NAIL, 6 OR MORE 02/01/2024 17056-AXOV SKIN LESIONS, OVER 4 02/01/20 24 Next Appt Details Follow Up: prn, Reason: Provider Name:Carrie Lerma , 07/29/2024 03:30:00 PM, [address] [place], [address], Procedure Notes * Category Sub-Category Detail Notes Debride Nail 6-10 Nail debridement Nail debridem ent performed extensively to reduce/remove overall nail length and girth, subungual debris, and necrotic tissue, by manual and electrical means with use of a nail nipper and/or dremel, to more viable healthy nail plate or bed tissue 6-10. Silver nitrate used for any petechial bleeding as necessary. Patient chooses, no pharmaceutical tx (04039) Keratoma Treatment Parring or Cutting o f Benign Hyperkeratotic Lesion(s) 92602 ( >4 Lesions) - The Benign hyperkeratotic lesions, as described above were pared, and/or cut utilizing a sterile #15 blade, tissue nippers, and/or dremel Progress Notes * Kita VENEGASeDOB:[birth year] (63 yo F)Acc No.[id number]:02/01/2024 Progress Note Patient:?Kita Venegas Provider:?Carrie LermaCELSO :1960???Age:63 Y???Sex:Female D ate:02/01/2024 Address:[address] [place], [place] [id number] Pcp:Abdulaziz Stewart MD Subjective: * Chief Complaints: * ???At Risk FootcareSkin Prob maria * HPI: ???At Risk footcare:?Pt States Last PCP Visit:?Date?10/25/2023 ???Skin problems:?Nature:?scaling , redness.?Location:?B/L , Interspace(s)/Between toe(s).?Duration:?several days.?Course:?worse.? * ROS:?General/Constitutional:?Nausea?denies.?Vomiting?denies.?Hunger Thirst?denies.?Loss appetite?denies.?Chills?denies.?Fatigue?denies.?Fever?denies.?Night Sweats?denies.?Unexplained weight loss?denies.?Unexplained weight gain?denies.?HEENTM:?Dentures?denies.?Dizziness?denies.?Glasses/contacts?admits.?Retinopathy?de nies.?Blurred/double vision?denies.?TMJ?denies.?Discharge/drainage?denies.?Implants?denies.?Sore throat?denies.?Dental implants?denies.?Hard of hearing ?denies.?Difficulty chewing/swallowing/speaking?denies.?Nose bleeds?denies.?Sore mouth?denies.?Respiratory:?On Oxygen?denies.?Pneumonia/pleurisy?denies.?Bronchitis?denies.?Emphysema?denies.?C oughing?denies.?Cough blood?denies.?Shortness of breath?denies.?Wheezing?denies.?Cardiovascular:?Pacemaker?denies.?MVP?denies.?WPW?denies.?CHF?denies.?Heart attack?denies.?Septal defect?denies.?Rapid beat?denies.?Chest pain ?denies.?Atrial Fib.?denies.?Murmur/Palpitations?denies.?Gastrointestinal:?Hemorrhoids?denies.?Stomach/Abdominal pain?denies.?Dark blood stool?denies.?Irritable bowel ?denies.?Constipation?denies.?Diarrhea?denies.?Hematology:?Swelling?admits.?Clots?denies.?Varicose Veins?denies.?Bruising?denies.?Bleeding problem?denies.?Genitourinary:?Blood urine?denies.?Frequent/Painfu/urination/bladder control?denies.?Kidney stones?denies.?Infection (UTI)?denies.?Nephropathy?denies.?sex trans dis (STD)?denies.?Prostate?denies.?Musculoskeletal:?Hammertoes?denies.?Bunions?denies.?Back Pain?denies.?Muscle Cramps/ Resting?denies.?Muscle cramps / walking?denies.?Generalized aches and pains?admits.?Weakness?denies.?Integ.:?Henry?denies.?Scars?denies.?Corns/calluses?denies.?Ingrown nails?admits.?Painful nails?denies.?Open Sores?denies.?Rashes?denies.?Neurologic:?Difficulty sleeping?denies.?Brain disorder?denies.?Numbness?admits.?Balance trouble?denies.?Confusion?denies.?Fainting/blackouts?denies.?Tingling?admits.?Tr emors?denies.? * Medical History:? * Surgical History:?heart surg zach hole in heart 09/2007 * Hospitalization/Major Diagno stic Procedure:?Denies Past Hospitalization * Family History:?Mother: dece ased, foot problems, diagnosed with Diabetic - NIDDM.?Father: , diagnosed with Other malignant neoplasm of unspecified site.?Daughter(s): alive.?Siblings: stroke, foot problems, diabetes.? * Social History:?Tobacco Use:?Tobacco Use/Smoking?Are you a:?nonsmoker ?Additional Findings: Tobacco Non-User?Current non-smoker ?Tobacco use other than smoking?Are you an other tobacco user??No ???Drugs/Alcohol:?Drugs?Have you used drugs other than those for medical reasons in the past 12 months??No ?Alcohol Screen?Did you have a drink containing alcohol in the past year??No ?Points?0 ?Interpretation?Negative ???Miscellaneous:?Caffeine: yes, frequency: , 1 cup a day. ?Children: yes. ?Exercise: yes, walking. ?Marital status: single. 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 * Medications:?TakingB Complex Tablet Orally Klor-Con 10 10 MEQ Tablet Extended Release 1 tablet Orally Four times a daymetFORMIN HCl ER (OSM) 500 MG Tablet Extended Release 24 Hour 1 tablet with evening meal Orally Once a day, Notes: X2 a dayMetoprolol Succinate ER 25 MG Tablet Extended Release 24 Hour 1 tablet Orally Once a daySimvastatin 10 MG Tablet 1 tablet in the evening Orally Once a dayVitamin D 1000 UNIT Tablet 1 tablet Orally Once a dayWarfarin Sodium 5 MG Tablet 1 tablet Orally Two times a WeekExtra-Depth Diabetic Shoes with 3 Pair Custom heat-molded multi- density innersoles . . for 1 year . Dx:NIDDM/NEURO and preulcerative lesions,hammertoesFurosemide 20 MG Tablet 1 tablet Orally Once a daydilTIAZem HCl ER 180 MG Capsule Extended Release 24 Hour Orally Once a dayTaking B Complex Tablet Orally Taking Klor-Con 10 10 MEQ Tablet Extended Release 1 tablet Orally Four times a dayTaking metFORMIN HCl ER (OSM) 500 MG Tablet Extended Release 24 Hour 1 tablet with evening meal Orally Once a day, Notes: X2 a dayTaking Metoprolol Succinate ER 25 MG Tablet Extended Release 24 Hour 1 tablet Orally Once a dayTaking Simvastatin 10 MG Tablet 1 tablet in the evening Orally Once a dayTaking Vitamin D 1000 UNIT Tablet 1 tablet Orally Once a dayTaking Warfarin Sodium 5 MG Tablet 1 tablet Orally Two times a WeekTaking Extra-Depth Diabetic Shoes with 3 Pair Custom heat-molded multi- density innersoles . . for 1 year . Dx:NIDDM/NEURO and preulcerative lesions,hammertoesTaking Furosemide 20 MG Tablet 1 tablet Orally Once a dayTaking dilTIAZem HCl ER 180 MG Capsule Extended Release 24 Hour Orally Once a dayNot-Taking/PRNCiclopirox Olamine 0.77% Cream external Apply to effected areas twice a dayCiclopirox Olamine 0.77 % Cream 1 application to affected area Externally Twice a dayExtra-Depth Diabetic Shoes with 3 Pair Custom heat-molded multi-density innersoles . . for 1 year . Dx:hammertoes and calloused lesionsCiclopirox Olamine 0.77% Cream external Apply to effected areas twice a dayAspirin Adult Low Strength 81 MG Tablet Delayed Release 1 tablet Orally Once a dayAmiodarone HCl 100 MG Tablet 1 tablet Orally Once a dayMedication List reviewed and reconciled with the patientNot-Taking/PRN Ciclopirox Olamine 0.77% Cream external Apply to effected areas twice a dayNot-Taking/PRN Ciclopirox Olamine 0.77 % Cream 1 application to affected area Externally Twice a dayNot-Taking/PRN Extra-Depth Diabetic Shoes with 3 Pair Custom heat-molded multi-density innersoles . . for 1 year . Dx:hammertoes and calloused lesionsNot-Taking/PRN Ciclopirox Olamine 0.77% Cream external Apply to effected areas twice a dayNot-Taking/PRN Aspirin Adult Low Strength 81 MG Tablet Delayed Release 1 tablet Orally Once a dayNot-Taking/PRN Amiodarone HCl 100 MG Tablet 1 tablet Orally Once a dayMedication List reviewed and reconciled with the patient * Allergies:?N.K.D.A.yes[Aller gies Verified] Objective: * Vitals:?Ht: 5ft3in, Wt:245, BMI:43.4, Shoe size: 10, BS: 137, Ht-cm: 160.02 cm, Wt-k.13 kg. * Examination: ???Ophthalmology Referral: ?DIABETES EYE EXAM?Neurological: ?SENSORY:?Neurological exam demonstrates, reduced light touch sensation, reduced sharp/dull pin prick discrimination , reduced vibration sensation, 5.07 monofilament test performed at plantar aspects of 5 varied sites per foot shows sensation,, absent, B/L.?Vascular: ?DORSALIS PEDIS PULSE:?2/4, B/L.?POSTERIOR TIBIAL PULSE:?2/4, B/L.?Nails: ?NAILS are:?elongated, overgrown, dystrophic, greater than 3mm thick, discolored and friable with crumbly malodorous subungual debris, with dull to no pain on palpation due to neuropathy,, 1-5 Right foot, TA, T1, T3,.?Dermatologic: ?SKIN FINDINGS:?Skin exam reveals Keratotic lesion(s) located at,, ,SUB MTH (s),1,B/L,Plantar, Midfoot,B/L,SUB MTH (s),2,3, , , Skin shows sign(s) of, inflammation, interdigital maceration, vesicles, pruritus, B/L.?General Examination: ?GENERAL APPEARANCE:?Reveals a pleasant, alert, well nourished, well- developed, well hydrated individual, who demonstrates proper attention to hygiene/body habitus, and is in no acute distress, Pt serves as own historian for office visit today.?ORIENTED:?person, place, and time.? Assessment: * Assessment: 1.?Type 2 diabetes mellitus with diabetic polyneuropathy - E11.42 (Primary)?2.?Tinea unguium - B35.1?3.?Ingrowing nail - L60.0?4.?Tinea pedis of both feet - B35.3, Acute problem, Uncomplicated (3),Rx drug management (4)? Plan: * Treatment: 2.?Tinea unguium?Procedure: 69428-CRHCIHC NAIL, 6 OR MORE 3.?Tinea pedis of both feet? Start Ciclopirox Gel, 0.77 %, 1 application to affected area, Externally, Twice a day to effected nails, 30 days, 45 Gram, Refills 6.?? * Procedures:?Debride Nail 6-10:?Nail debridement?Nail debridement performed extensively to reduce/remove overall nail length and girth, subungual debris, and necrotic tissue, by manual and electrical means with use of a nail nipper and/or dremel, to more viable healthy nail plate or bed tissue 6-10. Silver nitrate used for any petechial bleeding as necessary. Patient chooses, no pharmaceutical tx (07173).?Keratoma Treatment:?Parring or Cutting of Benign Hyperkeratotic Lesion(s)?11873 ( >4 Lesions) - The Benign hyperkeratotic lesions, as described above were pared, and/or cut utilizing a sterile #15 blade, tissue nippers, and/or dremel.? * Procedure Codes:?86602 DEBRI DE NAIL, 6 OR MORE, Modifiers: XS 74514 TRIM SKIN LESIONS, OVER 4, Modifiers: XS * Preventive Medicine:? ??Counseling:?Discussion:?-13: Office or other outpatient visit for the evaluation and management of an established patient, which required a medically appropriate history and/or examination and LOW level of DECISION MAKING for: 1 STABLE ACUTE UNCOMPLICATED PROBLEM, 2 OR MORE MINOR PROBLEMS, OR 1 STABLE CHRONIC PROBLEM, THAT POSE(S) A LOW RISK FOR MORBIDITY/MORTALITY. The visit on the day of the encounter encompassed interpreting the data and educating the patient as to the nature of their condition, treatment options available according to their individual PMH, meds, allergies, and overall health/living conditions, as well as any potential risks or complications that may occur from a failure to adhere to, and participate in, the recommended course of therapy. The discussion included a complete verbal, and/or written explanation of the examination results, any x-rays taken, the proposed diagnosis, and outline of the treatment plan. A schedule for future care needs was also explained. The patient verbalized an understanding of the instructions at this time and agreed to be an active participant in their treatment. If the patient should think of any questions or concerns after the visit, I have encouraged the patient to call the office.?Tinea Pedis:?The patient was counseled on the diagnosis, potential etiologies, and treatment options for their skin condition. We discussed the risks and benefits of each option from performing no treatment, to utilizing OTC topical skin creams, prescription topical creams, customized compounded topical medications, and, if necessary, to utilize oral antifungal therapy. We discussed the advantages and disadvantages of each possible treatment and importance for adherence to all the recommended therapies for optimum success and avoid potential complications such as open sore/infection/possible hospitalization. We discussed the potential effectiveness of each topical preparation as well as each ones possible side effects and/or patient medication interactions if oral therapy is selected. Patient questions re: the advantages and disadvantages of each treatment choice, medication use/dosage, successful outcomes, and application consistency were reviewed and the patient verbalized that all answers were clearly understood. The patient was told they can help alleviate symptoms by utilizing moisture absorbant innersoles with activated charcoal and baking soda, applying antifungal sprays daily, aerating toe web spaces at night by putting cotton or lambs wool between the toes, alternating shoe gear daily if possible so they can dry out, changing socks at least once during the day, wearing well-ventilated shoes or sandals. The patient has decided to apply antifungal skin creams to their feet as directed. Rx was sent to their pharmacy at the time of visit, Rx topical antifungal bid for 4 weeks, Betadine swabs to interspace BID.? * Follow Up:?prn * Images: * Sign off status: Completed true * Provider:?Carrie Lerma DPM Date:?2023 Generated for Martinez estrada/Jim/Leaitting on:?07/26/2024 02:22 PM EST History and Physical Notes * HPI (History of Present Illness) Category Sub-Category Detail Notes Category Not es Skin problems Nature: scaling , redness Location: B/L , Interspace(s)/ Between toe(s) Duration: several days Course: worse At Risk footcare Pt States Last PCP Visit: Date: 4 Examination Category Sub-Category Detail Notes Category Not es Neurological SENSORY: Neurological exa m demonstrates, reduced light touch sensation, reduced sharp/dull pin prick discrimination , reduced vibration sensation, 5.07 monofilament test performed at plantar aspects of 5 varied sites per foot shows sensation,, absent, B/L Dermatologic SKIN FINDINGS: Skin exam reveal s Keratotic lesion(s) located at,, ,SUB MTH (s),1,B/L,Plantar, Midfoot,B/L,SUB MTH (s),2,3, , , Skin shows sign(s) of, inflammation, interdigital maceration, vesicles, pruritus, B/L Vascular DORSALIS PEDIS PULSE: 2/4, B/L CAPILLARY REFILL: TEMPERATURE GRADIENT: POSTERIOR TIBIAL PULSE: 2/4, B/L General Examination GENERAL APPEARANCE: Reveals a pleasant, alert, well nourished, well-developed, well hydrated individual, who demonstrates proper attention to hygiene/body habitus, and is in no acute distress, Pt serves as own historian for office visit today ORIENTED: person, place, and t espinoza Ophthalmology Referral DIABETES EYE EXAM Diabetic Retinopa thy Screening:: No Findings of Diabetic Eye Exam:: retinopa thy Nails NAILS are: elongated, overg rown, dystrophic, greater than 3mm thick, discolored and friable with crumbly malodorous subungual debris, with dull to no pain on palpation due to neuropathy,, 1-5 Right foot, TA, T1, T3,
--- OUTSIDE RECORDS SUMMARY | 2024-07-26 14:22 | XMS_ITS ---
Author Organization [facility] Address [address] [place] [address] Care Team Providers Care Thermodynamics Teacher Name Role Phone Abdulaziz Stewart MD Primary Care Provider Unavaila ble Black, Carrie Unavailable [phone] Allergies No Known Allergies REASON FOR VISIT At Risk Footcare, Ingrown Nail Medications Medication SIG (Take, Route, Frequency, Duration) Notes Start Date End Date Status metFORMIN HCl ER (OSM) 500 MG 1 tablet with evening meal Orally Once a day X2 a day Active Simvastatin 10 MG 1 tablet in the even ing Orally Once a day Active Metoprolol Succinate ER 25 MG 1 tablet Orally Once a day Active Warfarin Sodium 5 MG 1 tablet Orally Two times a Week Active Vitamin D 1000 UNIT 1 tablet Orally Once a day Active B Complex Orally Active Ciclopirox Olamine 0.77% external Apply to effected areas twice a day for 30 days 02/06/2014 Not-Taking Klor-Con 10 10 MEQ 1 tablet Orally Four times a day Active Amiodarone HCl 100 MG 1 tablet Orally On ce a day Not-Taking Aspirin Adult Low Strength 81 MG 1 tablet Orally Once a day Not-Taking Ciclopirox Olamine 0.77 % 1 application to affected area Externally Twice a day for 30 days 12/04/2017 Not-Taking Ciclopirox Olamine 0.77% external Apply to effected areas twice a day for 30 days 11/21/2016 Not-Taking Extra-Depth Diabetic Shoes with 3 Pair Custom heat-molded multi-density innersoles . for 1 year . Dx:hammertoes and calloused lesions for . 02/23/2015 Not-Taki ng Furosemide 20 MG 1 tablet Orally Once a day Active dilTIAZem HCl ER 180 MG Orally Once a day Active Extra-Depth Diabetic Shoes with 3 Pair Custom heat-molded multi-density innersoles . for 1 year . Dx:NIDDM/NEURO and preulcerative lesions,hammertoes for . 11/04/2013 Active Social History Tobacco Use: Social History [...] other tobacco user? No Vital Signs Height 5 ft 4 in in 08/03/2023 Weight 245 lbs 08/03/2023 BMI 42.05 kg/m2 08/03/2023 Blood pressure systolic 120 mm Hg 08/03/20 23 Blood pressure diastolic 80 mm Hg 023 Procedures Procedure Date Ordered Date Performed Result Body Sit e 71997-XTQOGRM NAIL, 6 OR MORE 08/03/2023 N/A 51309-Emcyvcde Plate 08/03/2023 N/A 04428-ELRI SKIN LESIONS, OVER 4 08/03/2023 N/A Encounters Encounter Location Date Provider Diagnosis [facility] [place] [address] [place] [address] 08/03/2023 Carrie Black Type 2 diabetes mellitus with diabetic polyneuropathy E11.42 ; Tinea unguium B35.1 and Ingrowing nail L60.0 Assessments Encounter Date Diagnosis (ICD Code) Assessment Notes Treatment Notes Treatment Clinical Notes Section Notes 08/03/2023 Type 2 diabetes mellitus with diabetic polyneuropathy (ICD-10 - E11.42) 08/03/2023 Tinea unguium (ICD-10 - B35.1) 08/03/2023 Ingrowing nail (ICD-10 - L60.0) Plan Of Treatment Pending Test Test Name Order Date 52796-ARUDGTO NAIL, 6 OR MORE 08/03/2023 78704-Slurhnrd Plate 08/03/2023 82009-AUCY SKIN LESIONS, OVER 4 08/03/20 23 Next Appt Details Follow Up: 2 Weeks, Reason: Provider Name:Carrie Lerma , 07/29/2024 03:30:00 PM, [address] [facility], [place], [address], Procedure Notes * Category Sub-Category Detail Notes Nail Avulsion Procedure A fine sterile e levator was placed between the eponychium, nail fold, and nail plate to separate the structures. A sterile nail splitter, and/or sterile 316 blade, was then used to longitudinally section the nail along its entire length through the eponychium to the area under the nail fold. The offending portion of nail was from the nail bed with a rolling action and then removed with a hemostat. No underlying bone was identified. There was minimal bleeding as hemostasis was achieved through the temporary use of either a digital tourniquet or the aforementioned local with epinephrine. A bacitracin sterile dressing was applied. Local wound aftercare instructions were discussed and dispensed. The patient was informed of both conservative and future surgical procedures to prevent recurrence. Tylenol or Motrin was recommended for pain or discomfort (19680) Anesthesia was deferred - NEURO SMITH: patient has medically documented neuropathic condition affecting sensation Location Medial nail border, T5, Debride Nail 6-10 Nail debridement Nail debridem ent performed extensively to reduce/remove overall nail length and girth, subungual debris, and necrotic tissue, by manual and electrical means with use of a nail nipper and/or dremel, to more viable healthy nail plate or bed tissue 6-10. Silver nitrate used for any petechial bleeding as necessary. Patient chooses, no pharmaceutical tx (64756) Keratoma Treatment Parring or Cutting o f Benign Hyperkeratotic Lesion(s) 81239 ( >4 Lesions) - The Benign hyperkeratotic lesions, as described above were pared, and/or cut utilizing a sterile #15 blade, tissue nippers, and/or dremel Progress Notes * Jenna VENEGASOB:[birth year] (63 yo F)Acc No.[id number]:08/03/2023 Progress Note Patient:?Kita Venegas Provider:?Carrie Lerma DPM :1960???Age:63 Y???Sex:Female D ate:08/03/2023 Address:[address] [facility] [place] Pcp:Abdulaziz Stewart MD Subjective: * Chief Complaints: * ???At Risk FootcareIngrown N ail * HPI: ???At Risk footcare:?Pt States Last PCP Visit:?Date?01/27/2023 * Medical History:? * Surgical History:?heart surg [...] year??No ?Points?0 ?Interpretation?Negative ???Miscellaneous:?Caffeine: yes, frequency: , 1-2 cups per day. ?Exercise: yes, walking. 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 * Medications:?TakingB Complex Tablet [...] MG Tablet 1 tablet Orally Once a dayNot-Taking/PRN Ciclopirox Olamine 0.77% Cream external Apply to [...] MG Tablet 1 tablet Orally Once a day * Allergies:?N.K.D.A.yes[Aller gies Verified] Objective: * Vitals:?Ht: 5 ft 4 in, Wt:24 5, BMI:42.05, Shoe size:10, BP:120/80 mm Hg, BS:124. * Examination: ???Ophthalmology Referral: ?DIABETES EYE EXAM?Neurological: [...] no pain on palpation due to neuropathy,, 2-5 Right foot, TA, T1, T3,.?Dermatologic: ?SKIN FINDINGS:?Skin exam reveals Keratotic lesion(s) located at,,?,SUB MTH (s),1,B/L,Plantar, Midfoot,B/L,SUB MTH (s),2,3,.?Ingrown Nail: ?INSPECTION:?Reveals nail incurvation, dull pain on palpation due to neuropathy, groove hypertrophy , There is evidence of surrounding periungual tissue erythema , , Medial nail border , T5.? Assessment: * Assessment: 1.?Type 2 diabetes mellitus with diabetic polyneuropathy - E11.42 (Primary)?2.?Tinea unguium - B35.1?3.?Ingrowing nail - L60.0? Plan: * Treatment: 2.?Tinea unguium?Procedure: 02095-HKIQBOC NAIL, 6 OR MORE 3.?Ingrowing nail?Procedure: 01269-Auovkhtx Plate * Procedures:?Debride Nail 6-10:?Nail debridement?Nail debridement performed extensively to reduce/remove overall nail length and girth, subungual debris, and necrotic tissue, by manual and electrical means with use of a nail nipper and/or dremel, to more viable healthy nail plate or bed tissue 6-10. Silver nitrate used for any petechial bleeding as necessary. Patient chooses, no pharmaceutical tx (92976).?Keratoma Treatment:?Parring or Cutting of Benign Hyperkeratotic Lesion(s)?62091 ( >4 Lesions) - The Benign hyperkeratotic lesions, as described above were pared, and/or cut utilizing a sterile #15 blade, tissue nippers, and/or dremel.?Nail Avulsion:?Location?Medial nail border, T5, ?.?Anesthesia?was deferred - NEUROPATHY: patient has medically documented neuropathic condition affecting sensation.?Procedure?A fine sterile elevator was placed between the eponychium, nail fold, and nail plate to separate the structures. A sterile nail splitter, and/or sterile 316 blade, was then used to longitudinally section the nail along its entire length through the eponychium to the area under the nail fold. The offending portion of nail was from the nail bed with a rolling action and then removed with a hemostat. No underlying bone was identified. There was minimal bleeding as hemostasis was achieved through the temporary use of either a digital tourniquet or the aforementioned local with epinephrine. A bacitracin sterile dressing was applied. Local wound aftercare instructions were discussed and dispensed. The patient was informed of both conservative and future surgical procedures to prevent recurrence. Tylenol or Motrin was recommended for pain or discomfort (91730).? * Procedure Codes:?04276 DEBRI DE NAIL, 6 OR MORE, Modifiers: XS 72378 Avulsion Plate, Modifiers: T5 07633 TRIM SKIN LESIONS, OVER 4, Modifiers: XS * Follow Up:?2 Weeks * Images: * Sign off status: Completed true * Provider:?Carrie Lerma DPM Date:?2022 Generated for Martinez estrada/Jim/Rosalio on:?07/26/2024 02:22 PM EST History and Physical Notes * HPI (History of Present Illness) Category Sub-Category Detail Notes Category Not es At Risk footcare Pt States Last PCP Visit: Date: 3 Examination Category Sub-Category Detail Notes Category Not es Ingrown Nail INSPECTION: Reveals nail inc urvation, dull pain on palpation due to neuropathy, groove hypertrophy , There is evidence of surrounding periungual tissue erythema , , Medial nail border , T5 Neurological SENSORY: Neurological exa m demonstrates, reduced light touch sensation, reduced sharp/dull pin prick discrimination , reduced vibration sensation, 5.07 monofilament test performed at plantar aspects of 5 varied sites per foot shows sensation,, absent, B/L Dermatologic SKIN FINDINGS: Skin exam reveal s Keratotic lesion(s) located at,, ,SUB MTH (s),1,B/L,Plantar, Midfoot,B/L,SUB MTH (s),2,3, Vascular DORSALIS PEDIS PULSE: 2/4, B/L CAPILLARY REFILL: TEMPERATURE GRADIENT: POSTERIOR TIBIAL PULSE: 2/4, B/L Ophthalmology Referral DIABETES EYE EXAM Diabetic Retinopa thy Screening:: Yes Findings of Diabetic Eye Exam:: no retin opathy Nails NAILS are: elongated, overg rown, dystrophic, greater than 3mm thick, discolored and friable with crumbly malodorous subungual debris, with dull to no pain on palpation due to neuropathy,, 2-5 Right foot, TA, T1, T3,
--- OUTSIDE RECORDS SUMMARY | 2024-07-26 14:23 | XMS_ITS ---
Author Organization [facility] Address [address] [place] [address] Care Team Providers Care Post Framer Name Role Phone Abdulaziz Stewart MD Primary Care Provider Unavaila Carrie Mesa [phone] Encounters Encounter Location Date Provider Diagnosis [address] [address] 07/31/2023 Carrie Lerma Plan Of Treatment Next Appt Details Provider Name:Carrie Hermes Lerma , 07/29/2024 03:30:00 PM, [address] [place] [address], [address], Progress Notes * THEO KitaeDOB:[birth year] (64 yo F)Acc No.[id number]:07/31/2023 Progress Note Patient:?THEO Kita mendoza Provider:?Carrie Lerma DPM :1960???Age:63 Y???Sex:Female D ate:07/31/2023 Address:[address] [place] [address] Pcp:Abdulaziz Stewart MD Subjective: * Chief Complaints: * ??? * Medical History:? Objective: * Vitals:? Assessment: Plan: * Treatment: * Images: * The named appointment provid er may or may not be the originator of this progress note, and it is not deemed complete until electronically signed by the appointment provider. Sign off status: Pending * Provider:Mica Lerma DPM Date:?2022 Generated for Martinez estrada/Jim/Rosalio on:?07/26/2024 02:22 PM EST
--- OUTSIDE RECORDS SUMMARY | 2024-07-26 14:23 | XMS_ITS | Patient Health Record ---
Author Organization [facility] Address [address] [place] [address] Care Team Providers Care Asset Liability Analyst Name Role Phone Abdulaziz Stewart MD Primary Care Provider Adam Chaudhary Unavailable [phone] ALLERGIES No Known Allergies REASON FOR REFERRAL No Information MEDICATIONS Medication SIG (Take, Route, Frequency, Duration) Notes Start Date End Date Status Simvastatin 10 MG Oral for 90 Active Warfarin Sodium 5 MG Oral for 90 Active dilTIAZem HCl ER Coated Beads 180 MG TAKE ONE CAPSULE BY MOUTH DAILY Oral for 90 Active Furosemide 20 MG Oral for 90 A ctive Klor-Con M10 10 MEQ Oral for 90 Active Vitamin D 1000 UNIT 1 tablet Orally Once a day for 30 day(s) 11/03/2021 Active metFORMIN HCl ER 500 MG TAKE 1 TABLET BY MOUTH EVERY DAY Oral for 90 Active Metoprolol Succinate ER 25 MG TAKE 1 TABLET BY MOUTH TWICE A DAY Oral for 90 Active IMMUNIZATIONS Vaccine Route Administration Date Status Comme nts Influenza Unknown 06/02/2021 Administered SOCIAL HISTORY Tobacco Use: Social History Observation Description Date Details (start date - stop date) Never Smoker NA - NA Sex Assigned At : Social History Observation Description Sex Assigned At Unknown Tobacco Use/Smoking Question Answer Notes Patient is a nonsmoker Alcohol Screen Question Answer Notes Did you have a drink containing alcohol in the p ast year? No Points 0 Interpretation Negative PROBLEMS Problem Type ICD Code Onset Dates Problem Status W/U Status Risk SNOMED Code Notes Problem longterm current use of anticoagulant (Z79.01) Active confirmed 330149117 Problem Encounter for screening for malignant neoplasm of colon (Z12.11) Active confirmed 746845540 Problem Preprocedural examination (Z01.818) Active confirmed 390903863583452 Problem Diverticulosis of colon (K57.30) Active confirmed Diverticulosi s of colon (294651280) PLAN OF TREATMENT Pending Test Test Name Order Date Pathology 12/10/2021 Future Test Test Name Order Date COLONOSCOPY 11/03/2021 Insurance Providers Payer Name Payer Address Payer Phone Subscriber Number Group Number Insured Name Patient Relationship to Insured Coverage Start Date Coverage End Date [facility] [address] [place] [phone] [id number] SAVANNA VENEGAS Self - patient is the insured MEDICAL (GENERAL) HISTORY Medical History History ICD Code High cholesterol Afib Denies [place],CVA,Lung disease,renal disease NIDDM Surgical History Surgery Date(Month/Year) Open heart surgery for a PFO 2007 Ear tubes Tonsils
--- OUTSIDE RECORDS SUMMARY | 2024-07-26 14:23 | XMS_ITS | Patient Health Record ---
Author Organization [facility] Address [address] [facility] [place] [address] Care Team Providers Care Veterinary Toxicologist Name Role Phone Abdulaziz Stewart MD Primary Care Provider Unavaila ble Black, Carrie Unavailable [phone] Allergies No Known Allergies Reason For Referral No Information Medications Medication SIG (Take, Route, Frequency, Duration) Notes Start Date End Date Status Warfarin Sodium 5 MG 1 tablet Orally Two times a Week Active Vitamin D 1000 UNIT 1 tablet Orally Once a day Active Furosemide 20 MG 1 tablet Orally Once a day Active Extra-Depth Diabetic Shoes with 3 Pair Custom heat-molded multi-density innersoles . for 1 year . Dx:NIDDM/NEURO and preulcerative lesions,hammertoes for . 11/04/2013 Active dilTIAZem HCl ER 180 MG Orally Once a day Active B Complex Orally Active Ciclopirox Olamine 0.77 % 1 application to affected area Externally Twice a day for 30 days 12/04/2017 Not-Taking Ciclopirox Olamine 0.77% external Apply to effected areas twice a day for 30 days 11/21/2016 Not-Taking metFORMIN HCl ER (OSM) 500 MG 1 tablet with evening meal Orally Once a day X2 a day Active Ciclopirox Olamine 0.77% external Apply to effected areas twice a day for 30 days 02/06/2014 Not-Taking Klor-Con 10 10 MEQ 1 tablet Orally Four times a day Active Extra-Depth Diabetic Shoes with 3 Pair Custom heat-molded multi-density innersoles . for 1 year . Dx:hammertoes and calloused lesions for . 02/23/2015 Not-Taki ng Simvastatin 10 MG 1 tablet in the even ing Orally Once a day Active Amiodarone HCl 100 MG 1 tablet Orally On ce a day Not-Taking Metoprolol Succinate ER 25 MG 1 tablet Orally Once a day Active Aspirin Adult Low Strength 81 MG 1 tablet Orally Once a day Not-Taking Ciclopirox 0.77 % 1 application to affected area Externally Twice a day to effected nails for 30 days 02/01/2024 Active Immunizations Vaccine Route Administration Date Status Comme nts Influenza Unknown 06/29/2015 Administered Influenza Unknown 05/30/2016 Administered Influenza Unknown 06/18/2018 Administered Influenza Unknown 07/15/2019 Administered Influenza Unknown 07/14/2020 Administered Influenza Unknown 06/25/2021 Administered Influenza Unknown 07/14/2023 Administered Pneumococcal Unknown 08/22/2016 Refused Social History Tobacco Use: Social History Observation [...] Are you an other tobacco user? No Section Notes: Flu shot--04/2015 Dr Stewart No Eye exam Flu shot--04/2015 Dr Stewart No Eye exam Flu shot--04/2015 Dr Stewart No Eye exam Flu shot--04/2015 Dr Stewart No Eye exam Flu shot--04/2015 Dr Stewart No Eye exam Flu shot--04/2015 Dr Stewart No Eye exam Flu shot--04/2015 Dr Stewart No Eye exam Flu shot--04/2015 Dr Stewart No Eye exam Flu shot--04/2015 Dr Stewart No Eye exam Flu shot--04/2015 Dr Stewart No Eye exam Flu shot--04/2015 Dr Stewart No Eye exam Flu shot--04/2015 Dr Stewart No Eye exam Flu shot--04/2015 Dr Stewart No Eye exam Problems Problem Type SNOMED Code ICD Code Onset Dates Problem Status W/U Status Risk Notes Problem Acquired hammer toe of right foot (6956892682160045 ) Other hammer toe(s) (acquired), right foot (M20.41) Active confirmed Problem Acquired hammer toe of left foot (5867033574574675 ) Other hammer toe(s) (acquired), left foot (M20.42) Active confirmed Problem Localized, primary osteoarthritis of the ankle and/or foot (279110871) Primary osteoarthritis, right ankle and foot (M19.071) Active confirmed Problem Localized, primary osteoarthritis of the ankle and/or foot (486293400) Primary osteoarthritis, left ankle and foot (M19.072) Active confirmed Problem Polyneuropathy due to type 2 diabetes mellitus (713487438) Type 2 diabetes mellitus with diabetic polyneuropathy (E11.42) Active confirmed Vital Signs Blood pressure diastolic 80 mm Hg 08/03/2023 Height 5ft3in in 02/01/2024 Blood pressure systolic 120 mm Hg 08/03/2023 Weight 245 lbs 02/01/2024 BMI 43.4 kg/m2 02/01/2024 Procedures Procedure Date Ordered Date Performed Result Body Sit e 62625-DITUUHW NAIL, 6 OR MORE 08/03/2023 N/A 57780-Ymwzeyfe Plate 08/03/2023 N/A 35627-YENX SKIN LESIONS, OVER 4 08/03/2023 N/A 91483-YTBPFHX NAIL, 6 OR MORE 02/01/2024 N/A 02083-QHWD SKIN LESIONS, OVER 4 02/01/2024 N/A Encounters Encounter Location Date Provider Diagnosis [facility] [address] 08/03/2023 Carrie Black Type 2 diabetes mellitus with diabetic polyneuropathy E11.42 ; Tinea unguium B35.1 and Ingrowing nail L60.[address] [facility] [address] 02/01/2024 Carrie Black Type 2 diabetes mellitus with diabetic polyneuropathy E11.42 ; Tinea unguium B35.1 ; Ingrowing nail L60.0 and Tinea pedis of both feet B35.3 Assessments Encounter Date Diagnosis (ICD Code) Assessment Notes Treatment Notes Treatment Clinical Notes Section Notes 08/03/2023 Type 2 diabetes mellitus with diabetic polyneuropathy (ICD-10 - E11.42) 02/01/2024 Type 2 diabetes mellitus with diabetic polyneuropathy (ICD-10 - E11.42) 02/01/2024 Tinea unguium (ICD-10 - B35.1) 08/03/2023 Tinea unguium (ICD-10 - B35.1) 08/03/2023 Ingrowing nail (ICD-10 - L60.0) 02/01/2024 Ingrowing nail (ICD-10 - L60.0) 02/01/2024 Tinea pedis of both feet (ICD-10 - B35.3) Plan Of Treatment Pending Test Test Name Order Date Hemoglobin A1c 07/14/2015 06744-VICPHBL NAIL, 6 OR MORE 02/01/2024 44207-PSOJTIY NAIL, 6 OR MORE 07/25/2022 60383-AINPVHM NAIL, 6 OR MORE 08/03/2023 03619-YNLSVBQ NAIL, 6 OR MORE 01/24/2022 63307-DLVFZEL NAIL, 6 OR MORE 01/30/2023 70591-BYSXAZZ NAIL, 6 OR MORE 11/04/2013 14743-XNNHJLM NAIL, 6 OR MORE 02/06/2014 29988-PZIHKOZ NAIL, 6 OR MORE 05/12/2014 92893-FBLWFJR NAIL, 6 OR MORE 08/25/2014 50946-PAUFCEX NAIL, 6 OR MORE 12/15/2014 73903-WDCVJOL NAIL, 6 OR MORE 02/23/2015 59226-OEPXHZI NAIL, 6 OR MORE 05/07/2015 23421-KCTFTFL NAIL, 6 OR MORE 08/03/2015 31075-UUIBTMF NAIL, 6 OR MORE 11/02/2015 21252-BRAXYKN NAIL, 6 OR MORE 02/01/2016 98539-EOSXHLR NAIL, 6 OR MORE 05/09/2016 56880-KACQMTY NAIL, 6 OR MORE 08/22/2016 06381-LNSNKGX NAIL, 6 OR MORE 11/21/2016 27120-OZUFYEZ NAIL, 6 OR MORE 02/20/2017 08504-GIPEWFW NAIL, 6 OR MORE 05/29/2017 62443-CNMWDQX NAIL, 6 OR MORE 09/04/2017 16656-LPOTCAX NAIL, 6 OR MORE 12/04/2017 97072-PEYELKO NAIL, 6 OR MORE 03/12/2018 98590-HLLYQGL NAIL, 6 OR MORE 06/11/2018 56179-ZZQYDPF NAIL, 6 OR MORE 09/24/2018 95875-QJUZRJN NAIL, 6 OR MORE 12/24/2018 92015-JAJDXAY NAIL, 6 OR MORE 03/25/2019 96820-GVFWYIV NAIL, 6 OR MORE 07/01/2019 34179-MRSVJRL NAIL, 6 OR MORE 10/07/2019 73625-RHBTNAJ NAIL, 6 OR MORE 12/30/2019 11069-CMQGIRY NAIL, 6 OR MORE 04/13/2020 16775-HMLFHMM NAIL, 6 OR MORE 10/01/2020 72584-HUEQQEX NAIL, 6 OR MORE 01/04/2021 53634-COJULSS NAIL, 6 OR MORE 07/12/2021 61159-Unbxucmv Plate 11/21/2016 26427-Wgafjavm Plate 08/22/2016 56594-Xjkbukzu Plate 05/07/2015 03322-Vcehjctt Plate 02/23/2015 23869-Lltjtuuh Plate 05/12/2014 71440-Wpnrwgfj Plate 12/15/2014 78127-Gqdulqwr Plate 08/25/2014 71326-Wnmaqoaf Plate 01/30/2023 57360-Cxxjjgbt Plate 08/03/2023 17873-Dkuudbpy Plate 07/12/2021 04858-Fykknhit Plate 05/09/2016 52319-Bcfjqwqv Plate Each Additional 20985-Ynrtbnjv Plate Each Additional 52054- Debride <25 sq cm 12/15/2014 92946- Debride <25 sq cm 08/25/2014 88235-NKZQ SKIN LESIONS, OVER 4 02/24/20 15 72101-FTDK SKIN LESIONS, OVER 4 12/16/19 15 02535-ZIZV SKIN LESIONS, OVER 4 11/05/19 14 87105-VZLK SKIN LESIONS, OVER 4 08/25/19 15 23318-OARI SKIN LESIONS, OVER 4 05/12/20 14 49450-SXTJ SKIN LESIONS, OVER 4 02/07/20 14 75415-EMEB SKIN LESIONS, OVER 4 05/07/20 15 82137-HLBA SKIN LESIONS, OVER 4 08/03/20 15 03046-QZBF SKIN LESIONS, OVER 4 02/01/20 16 41144-MVFN SKIN LESIONS, OVER 4 11/02/19 16 71427-RKPK SKIN LESIONS, OVER 4 08/22/19 17 85629-NKAE SKIN LESIONS, OVER 4 05/09/20 16 22693-ITYB SKIN LESIONS, OVER 4 11/22/19 17 41679-MYNO SKIN LESIONS, OVER 4 02/21/20 21146-YYYA SKIN LESIONS, OVER 4 07/12/20 93319-WZLM SKIN LESIONS, OVER 4 01/05/20 59177-LJMD SKIN LESIONS, OVER 4 10/01/19 88937-QFXN SKIN LESIONS, OVER 4 04/13/20 87467-ZEHT SKIN LESIONS, OVER 4 12/30/19 55141-UHVW SKIN LESIONS, OVER 4 10/07/19 09073-VXIN SKIN LESIONS, OVER 4 07/01/20 13353-AFXP SKIN LESIONS, OVER 4 03/25/20 57011-BPTM SKIN LESIONS, OVER 4 12/25/19 07474-LEKW SKIN LESIONS, OVER 4 09/24/19 35483-FBII SKIN LESIONS, OVER 4 06/11/20 18 16500-HWKH SKIN LESIONS, OVER 4 03/12/20 18 94866-HDLT SKIN LESIONS, OVER 4 12/05/19 18 90874-JVFU SKIN LESIONS, OVER 4 09/04/19 18 64411-QMHG SKIN LESIONS, OVER 4 05/29/20 23082-KCVC SKIN LESIONS, OVER 4 02/01/20 25063-VLFP SKIN LESIONS, OVER 4 01/31/20 10411-MBXP SKIN LESIONS, OVER 4 01/25/20 25964-YMLU SKIN LESIONS, OVER 4 07/25/20 15823-DENN SKIN LESIONS, OVER 4 08/03/20 Next Appt Details Provider Name:Carrie Lerma , 07/29/2024 03:30:00 PM, [address] [place] [address], [phone], Insurance Providers Payer Name Payer Address Payer Phone Subscriber Number Group Number Insured Name Patient Relationship to Insured Coverage Start Date Coverage End Date [employer] [address] [place] [address] [id number] Myla Dunn Self - patient is the insured Medical (General) History Medical History History ICD Code Diabetic Measles Mumps Chicken pox Atrial fibrillation Surgical History Surgery Date(Month/Year) heart surgery hole in heart 09/2007
[2024-07-26 14:38] LABS: Prothrombin Time Whole Bld POC 23.8 sec (11.1-13.5)
--- NOTE | 2024-07-26 14:42 | MHC.OFFVISCO ---
Intake Intake Visit Reasons: Anticoagulation Allergies Penicillins Allergy (Severe, Verified 07/26/24 14:32) Diarrhea enoxaparin Adverse Reaction (Intermediate, Verified 07/26/24 14:32) Hives, leg swelling Medication List - Last Reconciled 07/26/24 by Fernanda Munoz, RN cholecalciferol (vitamin D3) 25 mcg PO DAILY diltiazem HCl CD 180 mg PO DAILY furosemide 20 mg PO DAILY metformin 500 mg PO BID metoprolol succinate ER 25 mg PO BID potassium chloride ER 10 mEq PO DAILY simvastatin 10 mg PO BEDTIME warfarin 5 mg See Protocol PO DAILY warfarin See Protocol 7.5MG MWF/ 3.75MG X4DAYS; on odd numbered days Nursing Note Amb to ACS feeling COLD but well, accomp by daughter Medications and supplements reviewed No changes in health, diet, medications, or supplements, Denies any signs and symptoms of bleeding, bruising, or clotting. Bleeding, bruising, clotting discussed INR 2.0 low in therapeutic range Dose: usual 5mg x 6 days and 7.5mg x 1 day no greens today then balance greens and reds in diet and be consisitent F/U INR: 4 weeks Patient verbalizes understanding of instructions given Anti-Coag Initial Assessment Social Hx Patient Tobacco Use Status: Never used Tobacco Coding Level of Care Code Est Patient Level 1 Diagnoses Current use of anticoagulant therapy Z79.01 Time Spent (min) 15 Assessment & Plan Assessment & Plan (1) Current use of anticoagulant therapy: Code(s): Z79.01 - correction (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
== END 2024-07-26 14:56 | disposition home or self-care (01) ==
LOC: HO.ACS 14:21
PROVIDERS: PCP Internal Medicine; Visit Provider Internal Medicine
DX: Z79.01 Long term (current) use of anticoagulants (principal)

== ENCOUNTER → 2024-07-26 14:21 | Outpatient (BNVA) | payer OTHER, SELFPAY | PROVIDERS: PCP Internal Medicine; Visit Provider Internal Medicine | DX: I48.20 Chronic atrial fibrillation, unspecified (principal); Z79.01 Long term (current) use of anticoagulants; Z51.81 Encounter for therapeutic drug level monitoring | CPT/HCPCS: 85610; 99211 ==

== ENCOUNTER 2024-08-05 10:40 | Outpatient (REF) | payer OTHER, SELFPAY ==
--- NOTE | ~2024-08-05 | MR_ITS ---
EXAMINATION: MR KNEE WITHOUT CONTRAST RIGHT CLINICAL INFORMATION: Swelling and pain in right knee M25.561. COMPARISON: XR right knee 06/01/2024. TECHNIQUE: MRI of the right knee without contrast was performed using routine sequences on a high-field scanner. FINDINGS: MENISCI: Medial Meniscus: Attenuation and heterogeneity of the anterior horn and root, consistent with complex tearing. Tearing extends to the inner margin of the meniscal body which is slightly medially extruded. Oblique inner margin tearing extending into the posterior horn. Lateral Meniscus: Complex tearing of the anterior horn and root with a nondisplaced oblique inner margin tear of the meniscal body. Oblique tibial articular surface tear of the posterior horn. LIGAMENTS: Cruciate: Early mucoid degeneration of the anterior cruciate ligament. Intact posterior cruciate ligament. Collateral: Findings consistent with remote medial collateral ligament injury. No evidence of acute injury. Intact fibular collateral ligament. EXTENSOR MECHANISM: Intact. ARTICULAR CARTILAGE/BONE: Patellofemoral Compartment: Patellar median ridge articular cartilage fissuring with delamination measuring up to 0.7 cm in ML dimension. Underlying subchondral cystic change. Inferior medial trochlear fissuring with subchondral cystic change. Tiny marginal osteophytes. Medial Compartment: Weightbearing articular cartilage signal heterogeneity with tiny marginal osteophytes. Lateral Compartment: Intact articular cartilage. JOINT FLUID AND BURSAE: Miamp-yg-swjivhpk joint effusion and trace Velasco's cyst. MR/MR knee RT wo con IMPRESSION: 1. Complex tearing of the medial meniscus anterior horn and root which extends to the inner margin of the meniscal body which is slightly medially extruded. Oblique inner margin tearing extending into the posterior horn. 2. Complex tearing of the lateral meniscus anterior horn and root with a nondisplaced oblique inner margin tear of the meniscal body. Oblique tibial articular surface tear of the posterior horn. 3. Early mucoid degeneration of the anterior cruciate ligament. No evidence of acute ligament injury. 4. Mild patellofemoral and medial compartment osteoarthritis. Hiior-ct-jpdoxhbs joint effusion and trace Velasco's cyst. Electronically signed by: Siva Carroll MD 08/06/2024 02:26 PM [facility]
== END 2024-08-05 10:41 | disposition home or self-care (01) ==
LOC: HO.MRI 10:40
PROVIDERS: PCP Internal Medicine; Visit Provider Orthopaedic Surgery
DX: M25.561 Pain in right knee (principal)
CPT/HCPCS: 73721

== ENCOUNTER 2024-08-19 08:52 | Outpatient (AMB) | payer OTHER, SELFPAY ==
[2024-08-19 08:55] VITALS: BMI 38.1
--- NOTE | 2024-08-19 08:55 | MHC.OFFVIS ---
Vital Signs 08/19/24 08:55 Height 5 ft 3 in Weight 215 lb BMI 38.1 Intake Visit Reasons: Right knee pain and giving way Intake Note: Myla is a 64 year old female who presents with complaints of progressively worsening right knee pain and giving way. The patient states that her symptoms have gotten worse over the last year. Most of the pain is along the medial aspect of her knee. She has failed the last 6 weeks of conservative treatment which has consisted of topical creams, a home physical therapy program and Tylenol. She is not able to take anti-inflammatory medicines because she is on Coumadin. She states that her right knee will give out several times per day. Allergies Penicillins Allergy (Severe, Verified 08/19/24 08:55) Diarrhea enoxaparin Adverse Reaction (Intermediate, Verified 08/19/24 08:55) Hives, leg swelling Medication List - Last Reconciled 08/19/24 by Delfino Matt MD cholecalciferol (vitamin D3) 25 mcg PO DAILY diltiazem HCl CD 180 mg PO DAILY furosemide 20 mg PO DAILY metformin 500 mg PO BID metoprolol succinate ER 25 mg PO BID potassium chloride ER 10 mEq PO DAILY simvastatin 10 mg PO BEDTIME warfarin 5 mg See Protocol PO DAILY warfarin See Protocol 7.5MG MWF/ 3.75MG X4DAYS; on odd numbered days [facility] Medical History History of cardioversion On anticoagulant therapy On beta kathrine at home Biatrial enlargement Chronic atrial fibrillation Heart failure, unspecified Diabetes HTN (hypertension) Morbid obesity Surgical History History of placement of ear tubes History of tonsillectomy Status post atrial septal defect repair Family History Father No problems noted. 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 Physical Exam Vital Signs: BMI result Body Mass Index 38.1 Const Other: Well-nourished well-developed very friendly female awake alert and oriented x3 in no acute distress Extrem Other: Bilateral lower extremity examination shows good capillary refill, no skin lesions noted, normal sensation light touch Right knee examination shows a minimal effusion, minimal crepitus with range of motion, tenderness along her medial and lateral joint lines, positive Emeka's test, no instability Results Reviewed Results Reviewed: Standing full weight-bearing x-rays of the patient's right knee show mild diffuse joint space narrowing, no acute bony abnormalities MRI of the patient's right knee shows mild diffuse degenerative changes as well as tearing of her medial and lateral menisci Assessment & Plan Assessment & Plan (1) Tear of medial meniscus of right knee: Code(s): S83.241A - Other tear of medial meniscus, current injury, right knee, initial encounter Category: Medical Plan Ms. Farrell presents with progressively worsening right knee pain and mechanical symptoms due to tearing of her medial and lateral menisci. I had a lengthy discussion with the patient regarding the treatment options. At this point she appears to be failing continued non operative treatments. The risks and benefits of right knee arthroscopic surgery were discussed at length with the patient. The patient is considering undergoing surgery later this year. She will contact my office to pick a surgery date if she chooses to do so. Surgery will most likely involve right knee diagnostic arthroscopy with arthroscopic partial medial and lateral meniscectomies. The patient does understand that she may not get 100% relief of her symptoms depending on the severity of her degenerative changes. The patient will continue with her qwhre-eh-tambym exercises in the meantime. Feel free to call me at any time should questions regarding her orthopedic management arise. I spent 20 minutes in reviewing the patient's records and imaging studies, seeing the patient and documenting in the medical record. Coding Level of Care Code Est Pt Level 3 (94210) Complex EM visit Add On G2211 Diagnoses Tear of medial meniscus of right knee S83.241A
--- OUTSIDE RECORDS SUMMARY | 2024-08-19 09:18 | XMS_ITS ---
Author Organization [facility] Address [address] [place] [address] Care Team Providers Care Floor Layer Name Role Phone Abdulaziz Stewart MD Primary Care Provider Unavaila ble Black, Carrie Unavailable [phone] Allergies No Known Allergies REASON FOR VISIT [...] Ordered Date Performed Result Body Sit e 46032-ECZSFPA NAIL, 6 OR MORE 08/03/2023 N/A 05957-Ycqxcmil Plate 08/03/2023 N/A 78319-WYMN SKIN LESIONS, OVER 4 08/03/2023 N/A Encounters Encounter Location Date Provider Diagnosis [facility] [place] [address] [place] [address] 08/03/2023 Carrie Black Type 2 diabetes mellitus [...] Treatment Pending Test Test Name Order Date 37015-ZUNJUGZ NAIL, 6 OR MORE 08/03/2023 38751-Lpgnbmio Plate 08/03/2023 98176-SYAH SKIN LESIONS, OVER 4 08/03/20 23 Next Appt Details Follow Up: 2 Weeks, Reason: Provider Name:Carrie Lerma , 01/27/2025 03:00:00 PM, [address] [facility], [place], [address], Procedure Notes * Category Sub-Category Detail Notes [...] Motrin was recommended for pain or discomfort (33597) Anesthesia was deferred - NEURO SMITH: patient [...] as necessary. Patient chooses, no pharmaceutical tx (75102) Keratoma Treatment Parring or Cutting o f Benign Hyperkeratotic Lesion(s) 24998 ( >4 Lesions) - The Benign hyperkeratotic lesions, as described above were pared, and/or cut utilizing a sterile #15 blade, tissue nippers, and/or dremel Progress Notes * Jenna VENEGASOB:[birth year] (63 yo F)Acc No.[id number]:08/03/2023 Progress Note Patient:?Kita Venegas Provider:?Carrie Lerma DPM :1960???Age:63 Y???Sex:Female D ate:08/03/2023 Address:[address] [facility], [place] Pcp:Abdulaziz Stewart MD Subjective: * Chief Complaints: [...] - L60.0? Plan: * Treatment: 2.?Tinea unguium?Procedure: 98567-QCJUXXN NAIL, 6 OR MORE 3.?Ingrowing nail?Procedure: 26950-Kreffeae Plate * Procedures:?Debride Nail 6-10:?Nail debridement?Nail debridement performed extensively to reduce/remove overall nail length and girth, subungual debris, and necrotic tissue, by manual and electrical means with use of a nail nipper and/or dremel, to more viable healthy nail plate or bed tissue 6-10. Silver nitrate used for any petechial bleeding as necessary. Patient chooses, no pharmaceutical tx (60083).?Keratoma Treatment:?Parring or Cutting of Benign Hyperkeratotic Lesion(s)?97727 ( >4 Lesions) - The Benign hyperkeratotic [...] Motrin was recommended for pain or discomfort (08351).? * Procedure Codes:?52098 DEBRI DE NAIL, 6 OR MORE, Modifiers: XS 81575 Avulsion Plate, Modifiers: T5 70365 TRIM SKIN LESIONS, OVER 4, Modifiers: XS * Follow Up:?2 Weeks * Images: * Sign off status: Completed true * Provider:?Carrie Lerma DPM Date:?2022 Generated for Martinez estrada/Jim/Rosalio on:?08/19/2024 09:18 AM EST History and Physical Notes * HPI [...]
--- OUTSIDE RECORDS SUMMARY | 2024-08-19 09:18 | XMS_ITS | Patient Health Record ---
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 (Z79.01) Active confirmed 300552163 Problem Encounter for screening for malignant neoplasm of colon (Z12.11) Active confirmed 568370895 Problem Preprocedural examination (Z01.818) Active confirmed 053466727847471 Problem Diverticulosis of colon (K57.30) Active confirmed Diverticulosi s of colon (077865028) PLAN OF TREATMENT Pending Test Test Name Order Date Pathology 12/10/2021 Future Test Test Name Order Date COLONOSCOPY 11/03/2021 Insurance Providers Payer Name Payer Address Payer Phone Subscriber Number Group Number Insured Name Patient Relationship to Insured Coverage Start Date Coverage End Date [facility] [address] [place] [phone] [id number] SAVANNA VENEGAS Self - patient is the insured MEDICAL (GENERAL) HISTORY Medical History History ICD Code High cholesterol Afib Denies [place],CVA,Lung disease,renal disease NIDDM Surgical History Surgery Date(Month/Year) Open heart surgery for a PFO 2007 Ear tubes Tonsils
--- OUTSIDE RECORDS SUMMARY | 2024-08-19 09:18 | XMS_ITS ---
Author Organization [facility] [place] Address [address] [place] [address] Care Team Providers Care Relay Operator Name Role Phone Abdulaziz Stewart MD Primary Care Provider Unavaila ble Black, Carrie Unavailable [phone] Allergies No Known Allergies REASON FOR VISIT [...] Ordered Date Performed Result Body Sit e 68801-BAIHNMK NAIL, 6 OR MORE 02/01/2024 N/A 82109-WRMD SKIN LESIONS, OVER 4 02/01/2024 N/A Encounters Encounter Location Date Provider Diagnosis [facility] [place] [address] [place] [address] 02/01/2024 Carrie Black Type 2 diabetes mellitus [...] 02/01/2024 Pending Test Test Name Order Date 00034-WBSNLPC NAIL, 6 OR MORE 02/01/2024 36115-WUUI SKIN LESIONS, OVER 4 02/01/20 24 Next Appt Details Follow Up: prn, Reason: Provider Name:Carrie Lerma , 01/27/2025 03:00:00 PM, [address] [place], [address], Procedure Notes * Category Sub-Category Detail Notes [...] as necessary. Patient chooses, no pharmaceutical tx (46577) Keratoma Treatment Parring or Cutting o f Benign Hyperkeratotic Lesion(s) 78629 ( >4 Lesions) - The Benign hyperkeratotic lesions, as described above were pared, and/or cut utilizing a sterile #15 blade, tissue nippers, and/or dremel Progress Notes * Kita VENEGASeDOB:[birth year] (63 yo F)Acc No.[id number]:02/01/2024 Progress Note Patient:?Kita Venegas Provider:?Carrie LermaCELSO :1960???Age:63 Y???Sex:Female D ate:02/01/2024 Address:[address] [place], [place] [id number] Pcp:Abdulaziz Stewart MD Subjective: * Chief Complaints: [...] management (4)? Plan: * Treatment: 2.?Tinea unguium?Procedure: 85905-DBKWNFK NAIL, 6 OR MORE 3.?Tinea pedis of [...] as necessary. Patient chooses, no pharmaceutical tx (89668).?Keratoma Treatment:?Parring or Cutting of Benign Hyperkeratotic Lesion(s)?18438 ( >4 Lesions) - The Benign hyperkeratotic lesions, as described above were pared, and/or cut utilizing a sterile #15 blade, tissue nippers, and/or dremel.? * Procedure Codes:?98631 DEBRI DE NAIL, 6 OR MORE, Modifiers: XS 39321 TRIM SKIN LESIONS, OVER 4, Modifiers: XS [...] Provider:?Carrie Lerma DPM Date:?2023 Generated for Martinez estrada/Jim/Rosalio on:?08/19/2024 09:17 AM EST History and Physical Notes * [...]
--- OUTSIDE RECORDS SUMMARY | 2024-08-19 09:18 | XMS_ITS | Patient Health Record ---
Author Organization [facility] Address [address] [facility] [address] Care Team Providers Care Accounting Analyst Name Role Phone Abdulaziz Stewart MD Primary Care Provider Unavaila ble Black, Carrie Unavailable [phone] Allergies No Known Allergies Reason For Referral No Information Medications Medication SIG (Take, Route, Frequency, Duration) Notes Start Date End Date Status Ciclopirox 0.77 % 1 application to affected area Externally Twice a day to effected nails for 30 days Active Amiodarone HCl 100 MG 1 tablet Orally Once a day Not-Taking Ciclopirox Olamine 0.77% external Apply to effected areas twice a day for 30 days 02/06/2014 Not-Taking Aspirin Adult Low Strength 81 MG 1 tablet Orally Once a day Not-Taking B Complex Orally Active Ciclopirox Olamine 0.77 % 1 application to affected area Externally Twice a day for 30 days 12/04/2017 Not-Taking Extra Depth Orthopedic Shoes (1 Pair) with Customized Heat Molded Multidensity Innersoles (3 Pair) as directed Dx: NIDDM/Polyneuropathy (E11.42), Hammertoe Foot Deformity (M20.41,M20.42), Preulcerative Skin Lesion(s) (L85.1 07/29/2024 Active Extra-Depth Diabetic Shoes with 3 Pair Custom heat-molded multi-density innersoles . for 1 year . Dx:hammertoes and calloused lesions for . 02/23/2015 Not-Taking Ciclopirox Olamine 0.77% external Apply to effected areas twice a day for 30 days 11/21/2016 Not-Taking Extra-Depth Diabetic Shoes with 3 Pair Custom heat-molded multi-density innersoles . for 1 year . Dx:NIDDM/NEURO and preulcerative lesions,hunter for . 11/04/2013 Active Warfarin Sodium 5 MG 1 tablet Orally Two times a Week 7.5 Fridays only Active dilTIAZem HCl ER 180 MG Orally Once a day Active Furosemide 20 MG 1 tablet Orally Once a day Active Metoprolol Succinate ER 25 MG 1 tablet Orally Once a day Active metFORMIN HCl ER (OSM) 500 MG 1 tablet with evening meal Orally Once a day X2 a day Active Vitamin D 1000 UNIT 1 tablet Orally Once a day Active Simvastatin 10 MG 1 tablet in the evening Orally Once a day Active Klor-Con 10 10 MEQ 1 tablet Orally Four times a day Active Immunizations Vaccine Route Administration Date Status Comme nts Pneumococcal Unknown 08/22/2016 Refused Influenza Unknown 06/29/2015 Administered Influenza Unknown 05/30/2016 Administered Influenza Unknown 06/18/2018 Administered Influenza Unknown 07/15/2019 Administered Influenza Unknown 07/14/2020 Administered Influenza Unknown 06/25/2021 Administered Influenza Unknown 07/14/2023 Administered Social History Tobacco Use: Social History Observation [...] Stewart No Eye exam Flu shot--04/2015 Dr Stweart No Eye exam Flu shot--04/2015 Dr Stewart [...] Problem Acquired hammer toe of right foot (8545260054857555 ) Other hammer toe(s) (acquired), right foot (M20.41) Active confirmed Problem Acquired hammer toe of left foot (8296523578689507 ) Other hammer toe(s) (acquired), left foot (M20.42) Active confirmed Problem Localized, primary osteoarthritis of the ankle and/or foot (459961129) Primary osteoarthritis, right ankle and foot (M19.071) Active confirmed Problem Localized, primary osteoarthritis of the ankle and/or foot (538115325) Primary osteoarthritis, left ankle and foot (M19.072) Active confirmed Problem Polyneuropathy due to type 2 diabetes mellitus (378032296) Type 2 diabetes mellitus with diabetic polyneuropathy (E11.42) Active confirmed Problem 30181847 Essential hypertension (I10) Active confirmed Vital Signs Blood pressure diastolic 62 mm Hg 07/29/2024 Height 5ft3in in 07/29/2024 Blood pressure systolic 130 mm Hg 07/29/2024 Weight 245 lbs 07/29/2024 BMI 43.4 kg/m2 07/29/2024 Procedures Procedure Date Ordered Date Performed Result Body Sit e 36771-EVXGDFL NAIL, 6 OR MORE 02/01/2024 N/A 24548-OKUX SKIN LESIONS, OVER 4 02/01/2024 N/A Encounters Encounter Location Date [facility] [address] [facility] Carrie Black Type 2 diabetes mellitus with diabetic polyneuropathy E11.42 ; Tinea unguium B35.1 ; Ingrowing nail L60.0 and Tinea pedis of both feet B35.3 [facility] [address] 07/29/2024 Carrie Black Type 2 diabetes mellitus with diabetic polyneuropathy E11.42 ; Tinea unguium B35.1 ; Tinea pedis of both feet B35.3 ; Other hammer toe(s) (acquired), right foot M20.41 and Other hammer toe(s) (acquired), left foot M20.42 Assessments Encounter Date Diagnosis (ICD Code) Assessment Notes Treatment Notes Treatment Clinical Notes Section Notes 02/01/2024 Type 2 diabetes mellitus with diabetic polyneuropathy (ICD-10 - E11.42) 07/29/2024 Type 2 diabetes mellitus with diabetic polyneuropathy (ICD-10 - E11.42) 07/29/2024 Tinea unguium (ICD-10 - B35.1) 07/29/2024 Tinea pedis of both feet (ICD-10 - B35.3) 02/01/2024 Tinea unguium (ICD-10 - B35.1) 02/01/2024 Ingrowing nail (ICD-10 - L60.0) 07/29/2024 Other hammer toe(s) (acquired), right foot (ICD-10 - M20.41) Patient Educated with: DIABETIC FOOT CARE INSTRUCTIONS. pdf (DIABETIC FOOT CARE INSTRUCTIONS. pdf) 07/29/2024 Other hammer toe(s) (acquired), left foot (ICD-10 - M20.42) 02/01/2024 Tinea pedis of both feet (ICD-10 - B35.3) Plan Of Treatment Pending Test Test Name Order Date Hemoglobin A1c 07/14/2015 92866-UWLPDQA NAIL, 6 OR MORE 02/01/2024 55543-VNXBCKK NAIL, 6 OR MORE 07/25/2022 15494-PZIPKCB NAIL, 6 OR MORE 08/03/2023 94437-AXHJEVS NAIL, 6 OR MORE 01/24/2022 10465-JNZDCJM NAIL, 6 OR MORE 01/30/2023 19852-DFDKYOB NAIL, 6 OR MORE 11/04/2013 47317-ESWLVMR NAIL, 6 OR MORE 02/06/2014 62413-DCEGXXV NAIL, 6 OR MORE 05/12/2014 53855-HXGHMRL NAIL, 6 OR MORE 08/25/2014 70221-RHXGQUU NAIL, 6 OR MORE 12/15/2014 76734-ZNCWRUY NAIL, 6 OR MORE 02/23/2015 94845-OMFNAGX NAIL, 6 OR MORE 05/07/2015 81300-FFQPFBC NAIL, 6 OR MORE 08/03/2015 80300-UYHGCJU NAIL, 6 OR MORE 11/02/2015 05664-EFHMVGM NAIL, 6 OR MORE 02/01/2016 69484-VRTQPGF NAIL, 6 OR MORE 05/09/2016 07715-BXYBMNP NAIL, 6 OR MORE 08/22/2016 51933-KKLKMMZ NAIL, 6 OR MORE 11/21/2016 88149-DIKSPQI NAIL, 6 OR MORE 02/20/2017 88158-ELJJEPB NAIL, 6 OR MORE 05/29/2017 81544-BIHSFUB NAIL, 6 OR MORE 09/04/2017 86057-KPMGBAL NAIL, 6 OR MORE 12/04/2017 55636-CJQVRSE NAIL, 6 OR MORE 03/12/2018 36481-WKFCWZX NAIL, 6 OR MORE 06/11/2018 03653-TCOCYAR NAIL, 6 OR MORE 09/24/2018 80591-QJJICSY NAIL, 6 OR MORE 12/24/2018 11508-YCLMGPD NAIL, 6 OR MORE 03/25/2019 01225-NBVKQWI NAIL, 6 OR MORE 07/01/2019 76248-FTULYIK NAIL, 6 OR MORE 10/07/2019 22089-HXPCQXX NAIL, 6 OR MORE 12/30/2019 49420-SSGKZSM NAIL, 6 OR MORE 04/13/2020 69869-MRRQQLU NAIL, 6 OR MORE 10/01/2020 86063-UOEGZKF NAIL, 6 OR MORE 01/04/2021 91949-JKYTEUO NAIL, 6 OR MORE 07/12/2021 64744-Vavctmhj Plate 11/21/2016 66143-Fickimmt Plate 08/22/2016 35548-Xykhworp Plate 05/07/2015 43888-Naowqmkf Plate 02/23/2015 84615-Wfjqfvyd Plate 05/12/2014 16846-Mhiiaedm Plate 12/15/2014 05594-Dbazygow Plate 08/25/2014 45776-Vojbeonp Plate 01/30/2023 30585-Aqqhetim Plate 08/03/2023 11565-Ujxbndzr Plate 07/12/2021 76347-Hktbbjjf Plate 05/09/2016 49438-Fcwpvpxy Plate Each Additional 66351-Dtzwtbsy Plate Each Additional 22564- Debride <25 sq cm 12/15/2014 99419- Debride <25 sq cm 08/25/2014 43141-UQZT SKIN LESIONS, OVER 4 02/24/20 15 40584-BRXG SKIN LESIONS, OVER 4 12/16/19 15 37550-YSFC SKIN LESIONS, OVER 4 11/05/19 14 84703-TEWD SKIN LESIONS, OVER 4 08/25/19 15 84369-YDZO SKIN LESIONS, OVER 4 05/12/20 14 59111-GYXW SKIN LESIONS, OVER 4 02/07/20 14 26815-GMLX SKIN LESIONS, OVER 4 05/07/20 15 64926-WFKL SKIN LESIONS, OVER 4 08/03/20 15 62835-KZJP SKIN LESIONS, OVER 4 02/01/20 16 60604-FTJC SKIN LESIONS, OVER 4 11/02/19 16 62653-AKKD SKIN LESIONS, OVER 4 08/22/19 17 27720-CVDJ SKIN LESIONS, OVER 4 05/09/20 16 63954-CPDI SKIN LESIONS, OVER 4 11/22/19 17 86406-AFNX SKIN LESIONS, OVER 4 02/21/20 17 28159-PSNS SKIN LESIONS, OVER 4 07/12/20 21 57539-IBDH SKIN LESIONS, OVER 4 01/05/20 21 83318-JGYM SKIN LESIONS, OVER 4 10/01/19 21 89013-UDJK SKIN LESIONS, OVER 4 04/13/20 20 90412-NJGS SKIN LESIONS, OVER 4 12/30/19 20 74127-RUMX SKIN LESIONS, OVER 4 10/07/19 20 64613-TPJS SKIN LESIONS, OVER 4 07/01/20 19 98698-BHPP SKIN LESIONS, OVER 4 03/25/20 19 88969-DBSX SKIN LESIONS, OVER 4 12/25/19 19 70120-TTHQ SKIN LESIONS, OVER 4 09/24/19 19 60345-QUWH SKIN LESIONS, OVER 4 06/11/20 18 56687-PAHV SKIN LESIONS, OVER 4 03/12/20 18 46797-UAVI SKIN LESIONS, OVER 4 12/05/19 18 02963-MTCR SKIN LESIONS, OVER 4 09/04/19 18 82356-LMKJ SKIN LESIONS, OVER 4 05/29/20 17 64793-QSEG SKIN LESIONS, OVER 4 02/01/20 24 57183-LBPK SKIN LESIONS, OVER 4 01/31/20 23 38858-GBMX SKIN LESIONS, OVER 4 01/25/20 77827-QADM SKIN LESIONS, OVER 4 07/25/20 88924-AZXD SKIN LESIONS, OVER 4 08/03/20 Next Appt Details Provider Name:Carrie Lerma , 01/27/2025 03:00:00 PM, [address] [place], [address], Insurance Providers Payer Name Payer Address Payer Phone Subscriber Number Group Number Insured Name Patient Relationship to Insured Coverage Start Date Coverage End Date [employer] [address] [place] [address] [id number] Myla Dunn Self - patient is the insured Medical (General) History Medical History History ICD Code Diabetic Measles Mumps Chicken pox Atrial fibrillation Surgical History Surgery Date(Month/Year) heart surgery hole in heart 09/2007
--- OUTSIDE RECORDS SUMMARY | 2024-08-19 09:18 | XMS_ITS ---
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 for 1 year . Dx:NIDDM/NEURO and preulcerative lesions,hunter for . 11/04/2013 Active Warfarin Sodium 5 MG 1 tablet Orally Two times a Week 7.5 Fridays only Active dilTIAZem HCl ER 180 MG Orally Once a day Active Furosemide 20 MG 1 tablet Orally Once a day Active Ciclopirox Olamine 0.77% external Apply to effected areas twice a day for 30 days 11/21/2016 Not-Taking Metoprolol Succinate ER 25 MG 1 [...] tablet Orally Four times a day Active Ciclopirox 0.77 % 1 application to affected area Externally Twice a day to effected nails for 30 days Active Amiodarone HCl 100 MG 1 tablet Orally Once a day Not-Taking Aspirin Adult Low Strength 81 MG 1 tablet Orally Once a day Not-Taking B Complex Orally Active Extra Depth Orthopedic Shoes (1 Pair) with Customized Heat Molded Multidensity Innersoles (3 Pair) as directed Dx: NIDDM/Polyneuropathy (E11.42), Hammertoe Foot Deformity (M20.41,M20.42), Preulcerative Skin Lesion(s) (L85.1 07/29/2024 Active Ciclopirox Olamine 0.77% external Apply to effected areas twice a day for 30 days 02/06/2014 Not-Taking Ciclopirox Olamine 0.77 % 1 application to affected area Externally Twice a day for 30 days 12/04/2017 Not-Taking Extra-Depth Diabetic Shoes with 3 Pair Custom heat-molded multi-density innersoles . for 1 year . Dx:hammertoes and calloused lesions for . 02/23/2015 Not-Taking Social History Tobacco Use: Social History Observation Description Date Details (start date - stop date) Never Smoker NA - NA Tobacco Use/Smoking Question Answer Notes Are you a: nonsmoker Additional Findings: Tobacco Non-User Current no n-smoker Tobacco use other than smoking: Question Answer Notes Are you an other tobacco user? No Problems Problem Type SNOMED Code ICD Code Onset Dates Problem Status W/U Status Risk Notes Problem 80568040 Essential hypertension (I10) Active confirmed Vital Signs Height 5ft3in in 07/29/2024 Weight 245 lbs 07/29/2024 BMI 43.4 kg/m2 07/29/2024 Blood pressure systolic 130 mm Hg 07/29/20 24 Blood pressure diastolic 62 mm Hg 024 Encounters Encounter Location Date Provider Diagnosis [facility] [address] [address] 07/29/2024 Carrie Black Type 2 diabetes mellitus with diabetic polyneuropathy E11.42 ; Tinea unguium B35.1 ; Tinea pedis of both feet B35.3 ; Other hammer toe(s) (acquired), right foot M20.41 and Other hammer toe(s) (acquired), left foot M20.42 Assessments Encounter Date Diagnosis (ICD Code) Assessment Notes Treatment Notes Treatment Clinical Notes Section Notes 07/29/2024 Type 2 diabetes mellitus with diabetic polyneuropathy (ICD-10 - E11.42) 07/29/2024 Tinea unguium (ICD-10 - B35.1) 07/29/2024 Tinea pedis of both feet (ICD-10 - B35.3) 07/29/2024 Other hammer toe(s) (acquired), right foot (ICD-10 - M20.41) Patient Educated with: DIABETIC FOOT CARE INSTRUCTIONS. pdf (DIABETIC FOOT CARE INSTRUCTIONS. pdf) 07/29/2024 Other hammer toe(s) (acquired), left foot (ICD-10 - M20.42) Plan Of Treatment Medication Medication Name Sig Start Date Stop Date Notes Ciclopirox 0.77 % 1 application to aff ected area Externally Twice a day to effected nails for 30 days Extra Depth Orthopedic Shoes (1 Pair) with Customized Heat Molded Multidensity Innersoles (3 Pair) as directed Dx: NIDDM/Polyneuropathy (E11.42), Hammertoe Foot Deformity (M20.41,M20.42), Preulcerative Skin Lesion(s) (L85.1 07/29/2024 Treatment Notes Assessment Notes Other hammer toe(s) (acquired), right fo ot Patient Educated with: DIABETIC FOOT CARE INSTRUCTIONS.pdf (DIABETIC FOOT CARE INSTRUCTIONS.pdf) Next Appt Details Follow Up: prn, Reason: Provider Name:Carrie Lerma , 01/27/2025 03:00:00 PM, [address] [place] [address], [phone], Procedure Notes * Category Sub-Category Detail Notes Debride Nail 6-10 Nail debridement Due to the cl inical pathology outlined in the exam findings, performance of this nail treatment is medically necessary as its management by an unskilled/untrained nonprofessional would put this patients foot and overall health at risk. Therefore, debridement to affected nail(s), as described in exam (1-5 Right foot, TA, T1, T3 ), was performed exclusively by the physician of record to reduce/remove overall nail length, girth, thickness, subungual debris, and necrotic tissue, by manual and/or electrical means through the use of a nail nipper and/or dremel-type swing grinder, to a more viable healthy nail plate or bed tissue 6-10 nails in total. Silver nitrate was used for any petechial bleeding as necessary. Definitive antifungal treatment options, both pharmaceutical and surgical, have been reviewed and discussed with the patient. The patient solely prefers the use of intermittent/as needed professional debridement services for their nail condition and understands the need for additional periodic treatments to maintain effectiveness in symptomatic relief - 78780 Keratoma Treatment Parring or Cutting o f Benign Hyperkeratotic Lesion(s) (-57) More than 4 Lesions - Due to the at risk nature of the patients medical condition as documented in the exam findings, performance of this keratoderma treatment is medically necessary as its management by an unskilled/untrained nonprofessional would put this patients foot and overall health at risk. Therefore, the benign hyperkeratotic lesions, ( 6 ) in total, locations as stated and described in the exam ( ,SUB MTH (s),1,B/L,Plantar, Midfoot,B/L,SUB MTH (s),2,3, ), were pared, and/or cut utilizing a sterile 15 blade, tissue nippers, and/or power dremel instrumentation by the physician of record - 73087 Progress Notes * Kita VENEGASeDOB:[birth year] (64 yo F)Acc No.[id number]:07/29/2024 Progress Note Patient:?Kita VENEGAS Provider:?Carrie eLrma DPM :1960???Age:64 Y???Sex:Female D ate:07/29/2024 Address:[address] [place], [place] [id number] Pcp:Abdulaziz Stewart MD Subjective: * Chief Complaints: * ???At Risk FootcareSkin Prob lemToe Irritation * HPI: ???At Risk footcare:?Pt States Last PCP Visit:?Date?06/05/2024 ???Skin problems:?Nature:?scaling , redness.?Location:?B/L , Interspace(s)/Between toe(s).?Duration:?, several months.?Course:?, improved, at 80?%.?Treatments:?Medication (Ciclopirox Olamine 0.77 Cream).?Toe pain:?Location:?B/L feet.?Duration:?several years.?Course:?worse.?Aggravated by:?shoes, any pressure.?Treatments:?change in shoes.? * ROS:?General/Constitutional:?Nausea?denies.?Vomiting?denies.?Hunger Thirst?denies.?Loss appetite?denies.?Chills?denies.?Fatigue?denies.?Fever?denies.?Night Sweats?denies.?Unexplained weight loss?denies.?Unexplained weight gain?denies.?HEENTM:?Dentures?denies.?Dizziness?denies.?Glasses/contacts?admits.?Retinopathy?den ies.?Blurred/double vision?denies.?TMJ?denies.?Discharge/drainage?denies.?Implants?denies.?Sore throat?denies.?Dental implants?denies.?Hard of hearing ?denies.?Difficulty chewing/swallowing/speaking?denies.?Nose bleeds?denies.?Sore mouth?denies.?Respiratory:?On O xygen?denies.?Pneumonia/pleurisy?denies.?Bronchitis?denies.?Emphysema?denies.?Co ughing?denies.?Cough blood?denies.?Shortness of breath?denies.?Wheezing?denies.?Cardiovascular:?Pacemaker?denies.?MVP?denies.?WPW?denies.?CHF?denies.?Heart attack?denies.?Septal defect?denies.?Rapid beat?denies.?Chest pain ?denies.?Atrial Fib.?denies.?Murmur/Palpitations?denies.?Gastrointestinal:?Hemorrhoids?denies.?Stomach/Abdominal pain?denies.?Dark blood stool?denies.?Irritable bowel ?denies.?Constipation?denies.?Diarrhea?denies.?Hematology:?Swelling?admits.?Clots?denies.?Varicose Veins?denies.?Bruising?denies.?Bleeding problem?denies.?Genitourinary:?Blood urine?denies.?Frequent/Painfu/urination/bladder control?denies.?Kidney stones?denies.?Infection (UTI)?denies.?Nephropathy?denies.?sex trans dis (STD)?denies.?Prostate?denies.?Musculoskeletal:?Hammertoes?denies.?Bunions?denies.?Back Pain?denies.?Muscle Cramps/ Resting?denies.?Muscle cramps / walking?denies.?Generalized aches and pains?admits.?Weakness?denies.?Integ.:?Henry?denies.?Scars?denies.?Corns/calluses?denies.?Ingrown nails?admits.?Painful nails?denies.?Open Sores?denies.?Rashes?denies.?Neurologic:?Difficulty sleeping?denies.?Brain disorder?denies.?Numbness?admits.?Balance t rouble?denies.?Confusion?denies.?Fainting/blackouts?denies.?Tingling?admits.?Jules mors?denies.? * Medical History:? * Surgical History:?heart surg [...] than smoking?Are you an other tobacco user??No * Medications:?TakingB Complex Tablet Orally Klor-Con 10 10 MEQ Tablet Extended Release 1 tablet Orally Four times a day metFORMIN HCl ER (OSM) 500 MG Tablet Extended Release 24 Hour 1 tablet with evening meal Orally Once a day , Notes to Pharmacist: X2 a dayMetoprolol Succinate ER 25 MG Tablet Extended Release 24 Hour 1 tablet Orally Once a day Simvastatin 10 MG Tablet 1 tablet in the evening Orally Once a day Vitamin D 1000 UNIT Tablet 1 tablet Orally Once a day Warfarin Sodium 5 MG Tablet 1 tablet Orally Two times a Week , Notes to Pharmacist: 7.Fridays onlyExtra-Depth Diabetic Shoes with 3 Pair Custom heat-molded multi-density innersoles . . for 1 year . Dx:NIDDM/NEURO and preulcerative lesions,hammertoes Furosemide 20 MG Tablet 1 tablet Orally Once a day dilTIAZem HCl ER 180 MG Capsule Extended Release 24 Hour Orally Once a day Ciclopirox 0.77 % Gel 1 application to affected area Externally Twice a day to effected nails Taking B Complex Tablet Orally Taking Klor-Con 10 10 MEQ Tablet Extended Release 1 tablet Orally Four times a day Taking metFORMIN HCl ER (OSM) 500 MG Tablet Extended Release 24 Hour 1 tablet with evening meal Orally Once a day , Notes to Pharmacist: X2 a dayTaking Metoprolol Succinate ER 25 MG Tablet Extended Release 24 Hour 1 tablet Orally Once a day Taking Simvastatin 10 MG Tablet 1 tablet in the evening Orally Once a day Taking Vitamin D 1000 UNIT Tablet 1 tablet Orally Once a day Taking Warfarin Sodium 5 MG Tablet 1 tablet Orally Two times a Week , Notes to Pharmacist: 7.5 Fridays onlyTaking Extra-Depth Diabetic Shoes with 3 Pair Custom heat-molded multi-density innersoles . . for 1 year . Dx:NIDDM/NEURO and preulcerative lesions,hammertoes Taking Furosemide 20 MG Tablet 1 tablet Orally Once a day Taking dilTIAZem HCl ER 180 MG Capsule Extended Release 24 Hour Orally Once a day Taking Ciclopirox 0.77 % Gel 1 application to affected area Externally Twice a day to effected nails Not-Taking/PRNCiclopirox Olamine 0.77% Cream external Apply to effected areas twice a day Ciclopirox Olamine 0.77 % Cream 1 application to affected area Externally Twice a day Extra-Depth Diabetic Shoes with 3 Pair Custom heat- molded multi-density innersoles . . for 1 year . Dx:hammertoes and calloused lesions Ciclopirox Olamine 0.77% Cream external Apply to effected areas twice a day Aspirin Adult Low Strength 81 MG Tablet Delayed Release 1 tablet Orally Once a day Amiodarone HCl 100 MG Tablet 1 tablet Orally Once a day Medication List reviewed and reconciled with the patientNot-Taking/PRN Ciclopirox Olamine 0.77% Cream external Apply to effected areas twice a day Not-Taking/PRN Ciclopirox Olamine 0.77 % Cream 1 application to affected area Externally Twice a day Not-Taking/PRN Extra-Depth Diabetic Shoes with 3 Pair Custom heat-molded multi-density innersoles . . for 1 year . Dx:hammertoes and calloused lesions Not-Taking/PRN Ciclopirox Olamine 0.77% Cream external Apply to effected areas twice a day Not-Taking/PRN Aspirin Adult Low Strength 81 MG Tablet Delayed Release 1 tablet Orally Once a day Not-Taking/PRN Amiodarone HCl 100 MG Tablet 1 tablet Orally Once a day Medication List reviewed and reconciled with the patient * Allergies:?N.K.D.A.yes[Aller gies Verified] Objective: * Vitals:?Ht: 5ft3in, Wt:245, BMI:43.4, Shoe size: 10, BP:130/62mm Hg, BS: 157, Ht-cm: 160.02 cm, Wt-k.13 kg. * Examination: ???Ophthalmology Referral: ?DIABETES EYE EXAM?CQM Exceptions:: ?Hemoglobin A1c not performed?General Examination: ?GENERAL APPEARANCE:?Reveals a pleasant, alert, well nourished, well- developed, well hydrated individual, who demonstrates proper attention to hygiene/body habitus, and is in no acute distress, Pt serves as own historian for office visit today.?ORIENTED:?person, place, and time.?FOOT EXAM:?Footwear Evaluation?Neurological: ?SENSORY:?Neurological exam demonstrates, reduced light touch sensation, [...] of, inflammation, interdigital maceration, vesicles, pruritus, B/L , approximately 80? percent LESS.?Orthopedic: ?DIGITAL DEFORMITIES:?Digital contracture, PIPJ, 2-5 B/L, incompl-reducible to push-up test, no over, nor underlapping,?there is?evidence of shoe producing skin irritation.?FOOTWEAR:?worn, non-supportive, shoe gear properties exacerbate patient's foot/toe deformity.? Assessment: * Assessment: 1.?Type 2 diabetes mellitus with diabetic polyneuropathy - E11.42 (Primary)???2.?Tinea unguium - B35.1???3.?Tinea pedis of both feet - B35.3???Specify :Response to treatment - Improvement???4.?Other hammer toe(s) (acquired), right foot - M20.41???Specify :Chronic problem, Worse (4),Rx Management (4)???5.?Other hammer toe(s) (acquired), left foot - M20.42???Specify :Chronic problem, Worse (4),Rx Management (4)??? Plan: * Treatment: 2.?Other hammer toe(s) (acqu ired), right foot? Start Extra Depth Orthopedic Shoes (1 Pair) with Customized Heat Molded Multidensity Innersoles (3 Pair), as directed, Dx: NIDDM/Polyneuropathy (E11.42), Hammertoe Foot Deformity (M20.41,M20.42), Preulcerative Skin Lesion(s) (L85.1, 1, Refills 0.?? Notes: Patient Educated with: DIABETIC FOOT CARE INSTRUCTIONS.pdf (DIABETIC FOOT CARE INSTRUCTIONS.pdf)?? * Procedures:?Debride Nail 6-10:?Nail debridement?Due to the clinical pathology outlined in the exam findings, performance of this nail treatment is medically necessary as its management by an unskilled/untrained nonprofessional would put this patients foot and overall health at risk. Therefore, debridement to affected nail(s), as described in exam (1-5 Right foot, TA, T1, T3 ), was performed exclusively by the physician of record to reduce/remove overall nail length, girth, thickness, subungual debris, and necrotic tissue, by manual and/or electrical means through the use of a nail nipper and/or dremel-type swing grinder, to a more viable healthy nail plate or bed tissue 6-10 nails in total. Silver nitrate was used for any petechial bleeding as necessary. Definitive antifungal treatment options, both pharmaceutical and surgical, have been reviewed and discussed with the patient. The patient solely prefers the use of intermittent/as needed professional debridement services for their nail condition and understands the need for additional periodic treatments to maintain effectiveness in symptomatic relief - 21543.?Keratoma Treatment:?Parring or Cutting of Benign Hyperkeratotic Lesion(s)?(-57) More than 4 Lesions - Due to the at risk nature of the patients medical condition as documented in the exam findings, performance of this keratoderma treatment is medically necessary as its management by an unskilled/untrained nonprofessional would put this patients foot and overall health at risk. Therefore, the benign hyperkeratotic lesions, ( 6 ) in total, locations as stated and described in the exam (??,SUB MTH (s),1,B/L,Plantar,?Midfoot,B/L,SUB MTH (s),2,3,?), were pared, and/or cut utilizing a sterile 15 blade, tissue nippers, and/or power dremel instrumentation by the physician of record - 98485.? * Procedure Codes:?43075 DEBRI DE NAIL, 6 OR MORE, Modifiers: XS 42906 TRIM SKIN LESIONS, OVER 4, Modifiers: XS * Preventive Medicine:? ??Counseling:?Discussion:?-14: Office or other outpatient visit for the evaluation and management of an established patient, which required a medically appropriate history and/or examination and MODERATE level of DECISION MAKING for: 1 OR MORE CHRONIC PROBLEM(S) THATS WORSENING, 2 STABLE CHRONIC PROBLEMS, A NEWLY DIAGNOSED PROBLEM WITH UNCERTAIN PROGNOSIS, AN ACUTE COMPLICATED INJURY WITH MULTIPLE TREATMENT OPTIONS, OR AN ACUTE PROBLEM WITH ACCOMPANYING SYSTEMIC SYMPTOMS, THAT POSE(S) A MODERATE RISK OF MORBIDITY. THIS CONDITION MAY ALSO INCLUDE RX DRUG MANAGEMENT, OR A DECISON FOR MINOR SURGERY. The visit on the day of the [...] have encouraged the patient to call the office.?Digital Surgery:?Digital surgery was discussed with the patient, including the risks of surgery(below), vs not having surgery (persistent pain, deformity, risk for skin ulceration/infection, loss of toe), the potential surg complications, the anesthesia, and the usual post-op course. No guarentees were given. We discussed the potential procedure complications including, but not limited to: pain, swelling, bleeding, scarring, numbness, infection, delayed/non healing, floppy/unstable/shorthened toe, recurrence, failure of the procedure, overcorrection leading to plantarflexed/downward positioned toe, recurrence, need for further surgery, as well as the possibility for loss of the toe itself. We discussed the use of local anesthesia, and the usual post-op course for healing. No guarentees were given. The patient verbally indicated a full understanding of the above conversation, and any other of their questions were answered to their satisfaction. Alternatives to the procedure were also discussed, including conservative care. I also discussed the usual post-operative course and gave no guarantees regarding outcome, We elected to try conservative treatment at the present time.?Digital Treatment:?HT- I explained to the patient the possible etiologies of Hammertoes, including genetics/foot type/shoegear/activity level/exercise routine and the risks/benefits of all the different treatment options for their pain including: No treatment at all, Rest, Ice, New/supportive/wider/deeper Shoegear, Digital Padding/Strapping/Taping/Bracing/Gel protective sleeves, Foot/Ankle AFO Bracing, Stretching exercises, Deep Tissue Massage, Arch support/shoe inserts with splay metatarsal padding, and Custom orthoses. I insisted that any digital devices be removed daily and not worn overnight for safety. The patient is to carefully examine the toes daily for any skin irritation while using any splinting or padding device. The advantages and disadvantages of each option were discussed and the patients questions re: shoegear, padding, custom vs prefabricated inserts, activity level, and consistency in home treatment regimens for optimal success were answered to their verbally confirmed satisfaction.?Shoe Gear Counseling:?SHOE Rx - The patient was counseled in great detail on their muscoloskeletal foot and toe deformities which coincided with the dermatological presentations visualized on exam. We discussed how their deformities put the integrity of their feet at risk for potential pedal complications which makes the accomidative diabetic shoes and cutomizable inserts medically necessary. We discussed the different shoe and insert treatment types and options, as well as the important advantages for adhering to regularly wearing these accomidative devices daily. The patient was made aware of the fact that a failure to abide by these recommedations may be deleterious to their foot health as they are able to prevent many pedal complications such as skin irritation, skin ulceration, infection, and even loss of toe/foot/leg/or life. Time was also spent with the patient dispensing and discussing proper diabetic footcare techniques including daily skin moisturization, daily foot inspection for any interruption in skin integrity including open lesions, or sign of infection such as redness/malodor/drainage/swelling. Also discussed and recommended were procedures regarding daily shoe inspection for the presence of internal foreign bodies as well as any visualized irregular shoe or insert wear. Patient questions re: shoes, inserts, and self foot inspections were answered to their satisfaction as the patient verbally confirmed a full understanding of the above information. A Rx for Extra Depth Orthopedic Shoes with 3 pair of custom heat-molded inserts was dispensed.?Tinea Pedis:?Given recent successful results to treatment, The patient is to cont the rx cream as directed.? * Follow Up:?prn * Images: * Sign off status: Completed true * Provider:?Carrie Lerma DPM Date:?2023 Generated for Martinez estrada/Jim/Rosalio on:?08/19/2024 09:17 AM EST History and Physical Notes * HPI (History of Present Illness) Category Sub-Category Detail Notes Category Not es Toe pain Location: B/L feet Duration: several years Course: worse Aggravated by: shoes, any pressure Treatments: change in shoes Skin problems Nature: scaling , redness Location: B/L , Interspace(s)/ Between toe(s) Duration: , several months Course: , improved, at 80 % Aggravated by: Treatments: Medication (Ciclopir ox Olamine 0.77 Cream) At Risk footcare Pt States Last PCP [...] of, inflammation, interdigital maceration, vesicles, pruritus, B/L , approximately 80 percent LESS Orthopedic FOOTWEAR: worn, non-suppor tive, shoe gear properties exacerbate patient's foot/toe deformity DIGITAL DEFORMITIES: Digital contracture , PIPJ, 2-5 B/L, incompl-reducible to push-up test, no over, nor underlapping, there is evidence of shoe producing skin irritation Vascular DORSALIS PEDIS PULSE: 2/4, B/L CAPILLARY REFILL: TEMPERATURE GRADIENT: POSTERIOR TIBIAL PULSE: 2/4, B/L General Examination GENERAL APPEARANCE: Reveals a pleasant, alert, well nourished, well-developed, well hydrated individual, who demonstrates proper attention to hygiene/body habitus, and is in no acute distress, Pt serves as own historian for office visit today FOOT EXAM: Lower Extremity Neurological Exa m performed:: Yes ORIENTED: person, place, and t espinoza Footwear Evaluation Footwear Evaluation performe d:: Yes Ophthalmology Referral DIABETES EYE EXAM Procedure Perform ed:: Yes ?Date of Exam Performed: 03/25/2024 Diabetic Retinopathy Screening:: No Findings of Diabetic Eye Exam:: no retin opathy, retinopathy Nails NAILS are: elongated, overg rown, dystrophic, greater than 3mm thick, discolored and friable with crumbly malodorous subungual debris, with dull to no pain on palpation due to neuropathy,, 1-5 Right foot, TA, T1, T3, CQM Exceptions: Hemoglobin A1c not performed Reason:: No r sylwia specified
== END 2024-08-19 09:31 | disposition home or self-care (01) ==
PROVIDERS: PCP Internal Medicine; Visit Provider Orthopaedic Surgery
DX: S83.241A Other tear of medial meniscus, current injury, right knee, initial encounter (principal)
CPT/HCPCS: 99213; G2211

== ENCOUNTER 2024-08-23 14:39 | Outpatient (AMB) | payer OTHER, SELFPAY ==
[2024-08-23 14:51] LABS: Prothrombin Time Whole Bld POC 25.7 sec (11.1-13.5); ~PT, ~INR - Anti Coag Clinic 2.1 (0.9-1.1)
--- NOTE | 2024-08-23 15:03 | MHC.OFFVISCO ---
Intake Intake Visit Reasons: Anticoagulation Allergies Penicillins Allergy (Severe, Verified 08/23/24 14:44) Diarrhea enoxaparin Adverse Reaction (Intermediate, Verified 08/23/24 14:44) Hives, leg swelling Medication List - Last Reconciled 08/23/24 by Melyssa Kimball, RN cholecalciferol (vitamin D3) 25 mcg PO DAILY ciclopirox 0.77% topical diltiazem HCl CD 180 mg PO DAILY furosemide 20 mg PO DAILY metformin 500 mg PO BID metoprolol succinate ER 25 mg PO BID potassium chloride ER 10 mEq PO DAILY simvastatin 10 mg PO BEDTIME warfarin 5 mg See Protocol PO DAILY warfarin See Protocol 7.5MG MWF/ 3.75MG X4DAYS; on odd numbered days Nursing Note INR 2.1 therapeutic range Medications and supplements reviewed Patient status:RIGHT KNEE miniscus tear several weeks ago had MRI, seems to be healing on own pt is not sure if she is going to receive injections or have minor surgery- for now she is letting it heal on its own Medications or supplements: no changes Diet: good Denies any signs and symptoms of bleeding or clotting or unusual bruising Bleeding, bruising, clotting discussed Nutritional guidance given: more orange and red vegetables Dose: 7.5mg x 1 day/ 5mg x 6 days F/U INR Date: 09/13/24 ?? Patient and daughter verbalizing understanding of instructions given. 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
== END 2024-08-23 15:11 | disposition home or self-care (01) ==
LOC: HO.ACS 14:39
PROVIDERS: PCP Internal Medicine; Visit Provider Internal Medicine
DX: Z79.01 Long term (current) use of anticoagulants (principal)

== ENCOUNTER → 2024-08-23 14:39 | Outpatient (BNVA) | payer OTHER, SELFPAY | PROVIDERS: PCP Internal Medicine; Visit Provider Internal Medicine | DX: I48.20 Chronic atrial fibrillation, unspecified (principal); Z79.01 Long term (current) use of anticoagulants; Z51.81 Encounter for therapeutic drug level monitoring | CPT/HCPCS: 85610; 99211 ==

== ENCOUNTER 2024-09-13 14:13 | Outpatient (AMB) | payer OTHER, SELFPAY ==
[2024-09-13 14:30] LABS: Prothrombin Time Whole Bld POC 21.8 sec (11.1-13.5); ~PT, ~INR - Anti Coag Clinic 1.8 (0.9-1.1)
--- NOTE | 2024-09-13 14:39 | MHC.OFFVISCO ---
Intake Intake Visit Reasons: Anticoagulation Allergies Penicillins Allergy (Severe, Verified 09/13/24 14:25) Diarrhea enoxaparin Adverse Reaction (Intermediate, Verified 09/13/24 14:25) Hives, leg swelling Medication List - Last Reconciled 09/13/24 by Melyssa Kimball RN cholecalciferol (vitamin D3) 25 mcg PO DAILY ciclopirox 0.77% topical diltiazem HCl CD 180 mg PO DAILY furosemide 20 mg PO DAILY metformin 500 mg PO BID metoprolol succinate ER 25 mg PO BID potassium chloride ER 10 mEq PO DAILY simvastatin 10 mg PO BEDTIME warfarin 5 mg See Protocol PO DAILY warfarin See Protocol 7.5MG MWF/ 3.75MG X4DAYS; on odd numbered days Nursing Note INR: 1.8 OUT OF therapeutic range- may have more cabbage than usual Medications and supplements reviewed No changes in health, diet, medications, or supplements, Denies any signs and symptoms of bleeding or bruising or clotting. Bleeding, bruising, clotting discussed Nutritional guidance given - avoid greens today - eat orange and reds to help keep the INR above 2.0 then cont to eat a mix of fruits and vegetables Dose: 7.5mg x 2 days this week then 7.5mg x 1 day/ 5mg x 6 days F/U INR: 2 weeks Patient verbalizes understanding of instructions given Anti-Coag Initial Assessment Social Hx Patient Tobacco Use Status: Never used Tobacco Coding Level of Care Code Est Patient Level 1 Diagnoses Current use of anticoagulant therapy Z79.01 Results AMB INR Fingerstick AMB INR Fingerstick 1.8 Last Edit by Melyssa Kimball RN on 09/13/24 14:35 MANUAL ENTRY Assessment & Plan Assessment & Plan (1) Current use of anticoagulant therapy: Code(s): 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
== END 2024-09-13 14:47 | disposition home or self-care (01) ==
LOC: HO.ACS 14:13
PROVIDERS: PCP Internal Medicine; Visit Provider Internal Medicine
DX: Z79.01 Long term (current) use of anticoagulants (principal)

== ENCOUNTER 2024-09-26 14:31 | Outpatient (AMB) | payer OTHER, SELFPAY ==
--- OUTSIDE RECORDS SUMMARY | 2024-09-26 14:39 | XMS_ITS | Patient Health Record ---
Author Organization [facility] Address [address] [facility] [place] [address] Care Team Providers Care Conduit Reamer Operator Name Role Phone Abdulaziz Stewart MD Primary Care Provider Unavaila ble Black, Carrie Unavailable [phone] Allergies No Known Allergies Reason For Referral [...] Problem Acquired hammer toe of right foot (6570567475045447 ) Other hammer toe(s) (acquired), right foot (M20.41) Active confirmed Problem Acquired hammer toe of left foot (6515690018706193 ) Other hammer toe(s) (acquired), left foot (M20.42) Active confirmed Problem Localized, primary osteoarthritis of the ankle and/or foot (514308331) Primary osteoarthritis, right ankle and foot (M19.071) Active confirmed Problem Localized, primary osteoarthritis of the ankle and/or foot (291520065) Primary osteoarthritis, left ankle and foot (M19.072) Active confirmed Problem Polyneuropathy due to type 2 diabetes mellitus (866595710) Type 2 diabetes mellitus with diabetic polyneuropathy (E11.42) Active confirmed Problem 73118529 Essential hypertension (I10) Active confirmed Vital Signs Blood pressure diastolic 62 mm Hg 07/29/2024 Height 5ft3in in 07/29/2024 Blood pressure systolic 130 mm Hg 07/29/2024 Weight 245 lbs 07/29/2024 BMI 43.4 kg/m2 07/29/2024 Procedures Procedure Date Ordered Date Performed Result Body Sit e 21638-EJEKQAS NAIL, 6 OR MORE 02/01/2024 N/A 56916-KUOC SKIN LESIONS, OVER 4 02/01/2024 N/A Encounters Encounter Location Date Provider Diagnosis [facility] [address] 02/01/2024 Carrie Black Type 2 diabetes mellitus with diabetic polyneuropathy E11.42 ; Tinea unguium B35.1 ; Ingrowing nail L60.0 and Tinea pedis of both feet B35.[address] [facility] [address] 07/29/2024 Carrie Black Type 2 diabetes mellitus [...] Test Name Order Date Hemoglobin A1c 07/14/2015 65946-HYSGGCH NAIL, 6 OR MORE 02/01/2024 74847-WYTWEVA NAIL, 6 OR MORE 07/25/2022 33065-ZGUHNCF NAIL, 6 OR MORE 08/03/2023 09849-AWODFTO NAIL, 6 OR MORE 01/24/2022 95708-DKWRZUH NAIL, 6 OR MORE 01/30/2023 07650-AYBAPWN NAIL, 6 OR MORE 11/04/2013 04529-FQELFAY NAIL, 6 OR MORE 02/06/2014 27295-DQYOFUT NAIL, 6 OR MORE 05/12/2014 45716-NMTXQDK NAIL, 6 OR MORE 08/25/2014 15649-NKCWEAX NAIL, 6 OR MORE 12/15/2014 46105-HBBLZGM NAIL, 6 OR MORE 02/23/2015 97697-MXVCLFZ NAIL, 6 OR MORE 05/07/2015 88998-SSFZLNL NAIL, 6 OR MORE 08/03/2015 37962-MRSNBKZ NAIL, 6 OR MORE 11/02/2015 00247-CJNMUCC NAIL, 6 OR MORE 02/01/2016 12577-LEOZODY NAIL, 6 OR MORE 05/09/2016 22120-UBUNTNG NAIL, 6 OR MORE 08/22/2016 49570-AJAFYEK NAIL, 6 OR MORE 11/21/2016 44904-BJRJJJT NAIL, 6 OR MORE 02/20/2017 62473-AMEZUGT NAIL, 6 OR MORE 05/29/2017 40074-BMYPVWQ NAIL, 6 OR MORE 09/04/2017 92164-YNMUOAB NAIL, 6 OR MORE 12/04/2017 76749-XXUERZX NAIL, 6 OR MORE 03/12/2018 66202-GKYUSNA NAIL, 6 OR MORE 06/11/2018 42040-OHIMKQR NAIL, 6 OR MORE 09/24/2018 31031-WFZOPME NAIL, 6 OR MORE 12/24/2018 59019-ZCRTNZF NAIL, 6 OR MORE 03/25/2019 29236-VAYRNJY NAIL, 6 OR MORE 07/01/2019 18036-FBCQGRG NAIL, 6 OR MORE 10/07/2019 47061-COBKKGN NAIL, 6 OR MORE 12/30/2019 57541-NDPZQVL NAIL, 6 OR MORE 04/13/2020 61632-ZJQSEXX NAIL, 6 OR MORE 10/01/2020 18199-YYIQQGE NAIL, 6 OR MORE 01/04/2021 48592-TWVCXMG NAIL, 6 OR MORE 07/12/2021 16587-Eytvpfdo Plate 11/21/2016 62823-Mgpylseg Plate 08/22/2016 10386-Gleizzbg Plate 05/07/2015 50665-Ozmqqrzi Plate 02/23/2015 59658-Bcoapqwx Plate 05/12/2014 96029-Jzbweglj Plate 12/15/2014 52123-Srjmdmbw Plate 08/25/2014 12248-Jqygbmry Plate 01/30/2023 60282-Gdorzbnx Plate 08/03/2023 83169-Ssllsfgi Plate 07/12/2021 10996-Olllwaly Plate 05/09/2016 36489-Xoppvdrm Plate Each Additional 49946-Dlrnkmsf Plate Each Additional 70967- Debride <25 sq cm 12/15/2014 19802- Debride <25 sq cm 08/25/2014 97725-RKCC SKIN LESIONS, OVER 4 02/24/20 15 61771-QLER SKIN LESIONS, OVER 4 12/16/19 15 77224-MCOD SKIN LESIONS, OVER 4 11/05/19 14 08957-LZEY SKIN LESIONS, OVER 4 08/25/19 15 71797-AHSP SKIN LESIONS, OVER 4 05/12/20 14 51656-LCRM SKIN LESIONS, OVER 4 02/07/20 14 70630-UOGM SKIN LESIONS, OVER 4 05/07/20 15 00619-RXMH SKIN LESIONS, OVER 4 08/03/20 15 38670-FOEY SKIN LESIONS, OVER 4 02/01/20 16 40838-EQJD SKIN LESIONS, OVER 4 11/02/19 16 54697-GJJY SKIN LESIONS, OVER 4 08/22/19 17 00284-QJIM SKIN LESIONS, OVER 4 05/09/20 16 46988-RVWL SKIN LESIONS, OVER 4 11/22/19 17 52310-EZVW SKIN LESIONS, OVER 4 02/21/20 17 32063-CYKW SKIN LESIONS, OVER 4 07/12/20 21 23789-JMTM SKIN LESIONS, OVER 4 01/05/20 21 25216-HTXE SKIN LESIONS, OVER 4 10/01/19 21 18132-TJTJ SKIN LESIONS, OVER 4 04/13/20 20 64735-YRDF SKIN LESIONS, OVER 4 12/30/19 20 66090-DSRW SKIN LESIONS, OVER 4 10/07/19 20 04972-QYQB SKIN LESIONS, OVER 4 07/01/20 19 92802-RKQP SKIN LESIONS, OVER 4 03/25/20 19 86075-XCYL SKIN LESIONS, OVER 4 12/25/19 19 52105-DTMG SKIN LESIONS, OVER 4 09/24/19 19 07808-WBZM SKIN LESIONS, OVER 4 06/11/20 18 71967-FBGQ SKIN LESIONS, OVER 4 03/12/20 18 67421-ZZRP SKIN LESIONS, OVER 4 12/05/19 18 48826-URVH SKIN LESIONS, OVER 4 09/04/19 18 42378-QQXN SKIN LESIONS, OVER 4 05/29/20 17 50230-TCJF SKIN LESIONS, OVER 4 02/01/20 24 77800-GAHG SKIN LESIONS, OVER 4 01/31/20 23 99089-POQY SKIN LESIONS, OVER 4 01/25/20 49311-GSKU SKIN LESIONS, OVER 4 07/25/20 08529-LDGB SKIN LESIONS, OVER 4 08/03/20 Next Appt Details Provider Name:Carrie Lerma , 01/27/2025 03:00:00 PM, [address] [place], [address], Insurance Providers Payer Name Payer Address Payer Phone Subscriber Number Group Number Insured Name Patient Relationship to Insured Coverage Start Date Coverage End Date [employer] [address] [place] [address] [id number] Myla Dunn Self - patient is the insured Medical (General) History Medical History History ICD Code Diabetic Measles Mumps Chicken pox Atrial fibrillation Surgical History Surgery Date(Month/Year) heart surgery hole in heart 09/2007
--- OUTSIDE RECORDS SUMMARY | 2024-09-26 14:39 | XMS_ITS ---
Author Organization [facility] Address [address] [place] [address] Care Team Providers Care Registration Representative Name Role Phone Abdulaziz Stewart MD Primary Care Provider Unavaila ble Black, Carrie Unavailable [phone] Allergies No Known Allergies REASON FOR VISIT [...] Ordered Date Performed Result Body Sit e 17566-FNOVCCA NAIL, 6 OR MORE 08/03/2023 N/A 78632-Tbiiucsi Plate 08/03/2023 N/A 48681-PCNX SKIN LESIONS, OVER 4 08/03/2023 N/A Encounters Encounter Location Date Provider Diagnosis [facility] [place] [address] [place] [address] 08/03/2023 Carrie Black Type 2 diabetes mellitus [...] Treatment Pending Test Test Name Order Date 58211-CFTKPMV NAIL, 6 OR MORE 08/03/2023 61342-Wrjxolws Plate 08/03/2023 72052-YPOH SKIN LESIONS, OVER 4 08/03/20 23 Next Appt Details Follow Up: 2 Weeks, Reason: Provider Name:Carrie Lerma , 01/27/2025 03:00:00 PM, [address] [facility], [place], [address], Procedure Notes * Category Sub-Category Detail Notes [...] Motrin was recommended for pain or discomfort (52806) Anesthesia was deferred - NEURO SMITH: patient [...] as necessary. Patient chooses, no pharmaceutical tx (79790) Keratoma Treatment Parring or Cutting o f Benign Hyperkeratotic Lesion(s) 20553 ( >4 Lesions) - The Benign hyperkeratotic lesions, as described above were pared, and/or cut utilizing a sterile #15 blade, tissue nippers, and/or dremel Progress Notes * Jenna VENEGASOB:[birth year] (63 yo F)Acc No.[id number]:08/03/2023 Progress Note Patient:?Kita Venegas Provider:?Carrie Lerma DPM :1960???Age:63 Y???Sex:Female D ate:08/03/2023 Address:[address] [facility], [place] Pcp:Abdulaziz Stewart MD Subjective: * Chief Complaints: [...] - L60.0? Plan: * Treatment: 2.?Tinea unguium?Procedure: 25901-MASFBPA NAIL, 6 OR MORE 3.?Ingrowing nail?Procedure: 14661-Hahvpekk Plate * Procedures:?Debride Nail 6-10:?Nail debridement?Nail debridement performed extensively to reduce/remove overall nail length and girth, subungual debris, and necrotic tissue, by manual and electrical means with use of a nail nipper and/or dremel, to more viable healthy nail plate or bed tissue 6-10. Silver nitrate used for any petechial bleeding as necessary. Patient chooses, no pharmaceutical tx (11618).?Keratoma Treatment:?Parring or Cutting of Benign Hyperkeratotic Lesion(s)?75201 ( >4 Lesions) - The Benign hyperkeratotic [...] Motrin was recommended for pain or discomfort (26946).? * Procedure Codes:?14199 DEBRI DE NAIL, 6 OR MORE, Modifiers: XS 52270 Avulsion Plate, Modifiers: T5 54920 TRIM SKIN LESIONS, OVER 4, Modifiers: XS * Follow Up:?2 Weeks * Images: * Sign off status: Completed true * Provider:?Carrie Lerma DPM Date:?2022 Generated for Martinez estrada/Jim/Rosalio on:?09/26/2024 02:39 PM EST History and Physical Notes * [...]
--- OUTSIDE RECORDS SUMMARY | 2024-09-26 14:39 | XMS_ITS ---
Author Organization [facility] Address [address] [place] [address] Care Team Providers Care Shift Stacker Name Role Phone Abdulaziz Stewart MD Primary Care Provider Unavaila ble Black, Carrie Unavailable [phone] Allergies No Known Allergies REASON FOR VISIT [...] Ordered Date Performed Result Body Sit e 18721-QJLOBQP NAIL, 6 OR MORE 02/01/2024 N/A 09819-ARWI SKIN LESIONS, OVER 4 02/01/2024 N/A Encounters Encounter Location Date Provider Diagnosis [facility] [place] [address] [place] [address] 02/01/2024 Carrie Black Type 2 diabetes mellitus [...] 02/01/2024 Pending Test Test Name Order Date 29069-COBWZRI NAIL, 6 OR MORE 02/01/2024 69775-WGDB SKIN LESIONS, OVER 4 02/01/20 24 Next Appt Details Follow Up: prn, Reason: Provider Name:Carrie Lerma , 01/27/2025 03:00:00 PM, [address] [place], [address], Procedure Notes * Category Sub-Category Detail Notes [...] as necessary. Patient chooses, no pharmaceutical tx (27763) Keratoma Treatment Parring or Cutting o f Benign Hyperkeratotic Lesion(s) 99290 ( >4 Lesions) - The Benign hyperkeratotic lesions, as described above were pared, and/or cut utilizing a sterile #15 blade, tissue nippers, and/or dremel Progress Notes * Kita VENEGASeDOB:[birth year] (63 yo F)Acc No.[id number]:02/01/2024 Progress Note Patient:?Kita Venegas Provider:?Carrie LermaCELSO :1960???Age:63 Y???Sex:Female D ate:02/01/2024 Address:[address] [place], [place] [id number] Pcp:Abdulaziz Stewart MD Subjective: * Chief Complaints: [...] management (4)? Plan: * Treatment: 2.?Tinea unguium?Procedure: 18573-KLCNWZQ NAIL, 6 OR MORE 3.?Tinea pedis of [...] as necessary. Patient chooses, no pharmaceutical tx (16405).?Keratoma Treatment:?Parring or Cutting of Benign Hyperkeratotic Lesion(s)?11244 ( >4 Lesions) - The Benign hyperkeratotic lesions, as described above were pared, and/or cut utilizing a sterile #15 blade, tissue nippers, and/or dremel.? * Procedure Codes:?54075 DEBRI DE NAIL, 6 OR MORE, Modifiers: XS 46931 TRIM SKIN LESIONS, OVER 4, Modifiers: XS [...] Lerma DPM Date:?2023 Generated for Martinez estrada/Jim/Rosalio on:?09/26/2024 02:39 PM [...]
--- OUTSIDE RECORDS SUMMARY | 2024-09-26 14:40 | XMS_ITS | Patient Health Record ---
Author Organization [facility] Address [address] [place] [address] Care Team Providers Care Floral Manager Name Role Phone Abdulaziz Stewart MD Primary Care Provider Adam Chaudhary Unavailable [phone] ALLERGIES No Known Allergies REASON FOR REFERRAL [...] W/U Status Risk SNOMED Code Notes Problem FPC current use of anticoagulant (Z79.01) Active confirmed 328306796 Problem Encounter for screening for malignant neoplasm of colon (Z12.11) Active confirmed 809002542 Problem Preprocedural examination (Z01.818) Active confirmed 178563846050135 Problem Diverticulosis of colon (K57.30) Active confirmed Diverticulosi s of colon (663165902) PLAN OF TREATMENT Pending Test Test Name Order Date Pathology 12/10/2021 Future Test Test Name Order Date COLONOSCOPY 11/03/2021 Insurance Providers Payer Name Payer Address Payer Phone Subscriber Number Group Number Insured Name Patient Relationship to Insured Coverage Start Date Coverage End Date [facility] [address] [place] [phone] [id number] SAVANNA VENEGAS Self - patient is the insured MEDICAL (GENERAL) HISTORY Medical History History ICD Code High cholesterol Afib Denies [place],CVA,Lung disease,renal disease NIDDM Surgical History Surgery Date(Month/Year) Open heart surgery for a PFO 2007 Ear tubes Tonsils
--- OUTSIDE RECORDS SUMMARY | 2024-09-26 14:40 | XMS_ITS ---
Author Organization [facility] Address [address] [place] [address] Care Team Providers Care Dry Press Operator Name Role Phone Abdulaziz Stewart MD Primary Care Provider Unavaila ble Black, Carrie Unavailable [phone] Allergies No Known Allergies REASON FOR VISIT [...] Problem Status W/U Status Risk Notes Problem 99791288 Essential hypertension (I10) Active confirmed Vital Signs Height 5ft3in in 07/29/2024 Weight 245 lbs 07/29/2024 BMI 43.4 kg/m2 07/29/2024 Blood pressure systolic 130 mm Hg 07/29/20 24 Blood pressure diastolic 62 mm Hg 024 Encounters Encounter Location Date Provider Diagnosis [facility] [address] [address] 07/29/2024 Carrie Black Type 2 diabetes mellitus [...] Provider Name:Carrie Lerma , 01/27/2025 03:00:00 PM, [address] [place] [address], [address], Procedure Notes * Category Sub-Category Detail Notes [...] use of a nail nipper and/or dremel-type level vial inside grinder, to a more viable healthy nail [...] to maintain effectiveness in symptomatic relief - 09548 Keratoma Treatment Parring or Cutting o f [...] instrumentation by the physician of record - 44085 Progress Notes * Kita VENEGASeDOB:[birth year] (64 yo F)Acc No.[id number]:07/29/2024 Progress Note Patient:?Kita VENEGAS Provider:?Carrie Lerma DPM :1960???Age:64 Y???Sex:Female D ate:07/29/2024 Address:[address] [place], [place] [id number] Pcp:Abdulaziz Stewart MD Subjective: * Chief Complaints: [...] use of a nail nipper and/or dremel-type level vial inside grinder, to a more viable healthy nail [...] to maintain effectiveness in symptomatic relief - 53725.?Keratoma Treatment:?Parring or Cutting of Benign Hyperkeratotic Lesion(s)?(-57) [...] instrumentation by the physician of record - 79821.? * Procedure Codes:?50230 DEBRI DE NAIL, 6 OR MORE, Modifiers: XS 59406 TRIM SKIN LESIONS, OVER 4, Modifiers: XS [...]
[2024-09-26 14:47] LABS: Prothrombin Time Whole Bld POC 18.7 sec (11.1-13.5); ~PT, ~INR - Anti Coag Clinic 1.6 (0.9-1.1)
--- NOTE | 2024-09-26 14:59 | MHC.OFFVISCO ---
Intake Intake Visit Reasons: Anticoagulation Allergies Penicillins Allergy (Severe, Verified 09/26/24 14:41) Diarrhea enoxaparin Adverse Reaction (Intermediate, Verified 09/26/24 14:41) Hives, leg swelling Medication List - Last Reconciled 09/26/24 by Hannah Richardson, RN cholecalciferol (vitamin D3) 25 mcg PO DAILY ciclopirox 0.77% topical diltiazem HCl CD 180 mg PO DAILY furosemide 20 mg PO DAILY metformin 500 mg PO BID metoprolol succinate ER 25 mg PO BID potassium chloride ER 10 mEq PO DAILY simvastatin 10 mg PO BEDTIME warfarin 5 mg See Protocol PO DAILY warfarin See Protocol 7.5MG MWF/ 3.75MG X4DAYS; on odd numbered days Nursing Note PT.HAS HAD NO MISSED DOSES,CP,SOB OR SX OF BLEEDING. 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
== END 2024-09-26 15:04 | disposition home or self-care (01) ==
LOC: HO.ACS 14:31
PROVIDERS: PCP Internal Medicine; Visit Provider Internal Medicine
DX: Z79.01 Long term (current) use of anticoagulants (principal)

== ENCOUNTER → 2024-09-26 14:31 | Outpatient (BNVA) | payer OTHER, SELFPAY | PROVIDERS: PCP Internal Medicine; Visit Provider Internal Medicine | DX: I48.20 Chronic atrial fibrillation, unspecified (principal); Z79.01 Long term (current) use of anticoagulants; Z51.81 Encounter for therapeutic drug level monitoring | CPT/HCPCS: 85610; 99211 ==

== ENCOUNTER 2024-10-04 08:31 | Outpatient (AMB) | payer OTHER, SELFPAY ==
[2024-10-04 08:40] LABS: Prothrombin Time Whole Bld POC 29.4 sec (11.1-13.5); ~PT, ~INR - Anti Coag Clinic 2.5 (0.9-1.1)
--- OUTSIDE RECORDS SUMMARY | 2024-10-04 08:45 | XMS_ITS | Patient Health Record ---
Author Organization [facility] Address [address] [facility] [place] [address] Care Team Providers Care Rail Layer Name Role Phone Abdulaziz Stewart MD Primary Care Provider Unavaila ble Black, Carrie Unavailable [phone] Allergies No Known Allergies Reason For Referral [...] Problem Acquired hammer toe of right foot (6567311108885299 ) Other hammer toe(s) (acquired), right foot (M20.41) Active confirmed Problem Acquired hammer toe of left foot (3398570569746578 ) Other hammer toe(s) (acquired), left foot (M20.42) Active confirmed Problem Localized, primary osteoarthritis of the ankle and/or foot (533738474) Primary osteoarthritis, right ankle and foot (M19.071) Active confirmed Problem Localized, primary osteoarthritis of the ankle and/or foot (072427248) Primary osteoarthritis, left ankle and foot (M19.072) Active confirmed Problem Polyneuropathy due to type 2 diabetes mellitus (203840653) Type 2 diabetes mellitus with diabetic polyneuropathy (E11.42) Active confirmed Problem 37973492 Essential hypertension (I10) Active confirmed Vital Signs Blood pressure diastolic 62 mm Hg 07/29/2024 Height 5ft3in in 07/29/2024 Blood pressure systolic 130 mm Hg 07/29/2024 Weight 245 lbs 07/29/2024 BMI 43.4 kg/m2 07/29/2024 Procedures Procedure Date Ordered Date Performed Result Body Sit e 31591-DBKIUJD NAIL, 6 OR MORE 02/01/2024 N/A 84971-OEOH SKIN LESIONS, OVER 4 02/01/2024 N/A Encounters Encounter [facility] Date [facility] [address] [facility] Carrie Black Type 2 diabetes mellitus with diabetic polyneuropathy E11.42 ; Tinea unguium B35.1 ; Ingrowing nail L60.0 and Tinea pedis of both feet B35.3 [facility] [address] 07/29/2024 Carrie Black Type 2 diabetes mellitus [...] Test Name Order Date Hemoglobin A1c 07/14/2015 19729-VRQZAZL NAIL, 6 OR MORE 02/01/2024 28562-XPFZXUK NAIL, 6 OR MORE 07/25/2022 67821-XKZOLVB NAIL, 6 OR MORE 08/03/2023 95025-SSMBDTN NAIL, 6 OR MORE 01/24/2022 99186-SLOGIKJ NAIL, 6 OR MORE 01/30/2023 84024-HZRKOWC NAIL, 6 OR MORE 11/04/2013 48916-YJBPDLS NAIL, 6 OR MORE 02/06/2014 74597-ANEPCVB NAIL, 6 OR MORE 05/12/2014 24566-JPMWRWC NAIL, 6 OR MORE 08/25/2014 57106-YVOQHYV NAIL, 6 OR MORE 12/15/2014 88793-CWDWJPO NAIL, 6 OR MORE 02/23/2015 59274-WXFYDAB NAIL, 6 OR MORE 05/07/2015 00948-YKAPGFT NAIL, 6 OR MORE 08/03/2015 76710-MXWLHYC NAIL, 6 OR MORE 11/02/2015 30979-YWBVIAY NAIL, 6 OR MORE 02/01/2016 46125-VHUNDUG NAIL, 6 OR MORE 05/09/2016 45530-TXUYTRC NAIL, 6 OR MORE 08/22/2016 57192-GFWUQUC NAIL, 6 OR MORE 11/21/2016 31608-RZSDLNX NAIL, 6 OR MORE 02/20/2017 58996-VEEPIAI NAIL, 6 OR MORE 05/29/2017 99425-RDXYTHB NAIL, 6 OR MORE 09/04/2017 41318-MRTEELL NAIL, 6 OR MORE 12/04/2017 26271-SXOILAR NAIL, 6 OR MORE 03/12/2018 33798-YUAYIUN NAIL, 6 OR MORE 06/11/2018 97095-GXKRPQS NAIL, 6 OR MORE 09/24/2018 29790-UZPGLBE NAIL, 6 OR MORE 12/24/2018 18884-RZPOJJX NAIL, 6 OR MORE 03/25/2019 41425-RYNTBFS NAIL, 6 OR MORE 07/01/2019 81583-COUOHDL NAIL, 6 OR MORE 10/07/2019 51601-UPEMDZR NAIL, 6 OR MORE 12/30/2019 95304-ICSUEUG NAIL, 6 OR MORE 04/13/2020 26687-RDFGHOH NAIL, 6 OR MORE 10/01/2020 90991-DUSVOLE NAIL, 6 OR MORE 01/04/2021 90425-SHHWYXL NAIL, 6 OR MORE 07/12/2021 50968-Beeworci Plate 11/21/2016 25845-Szowetdm Plate 08/22/2016 91137-Jfleitef Plate 05/07/2015 74984-Fqylxfip Plate 02/23/2015 24297-Mzapinfc Plate 05/12/2014 61699-Ugaeyqvr Plate 12/15/2014 38993-Bljsilqh Plate 08/25/2014 91350-Tycgnffk Plate 01/30/2023 99047-Cfjyzipo Plate 08/03/2023 75626-Bppaltwk Plate 07/12/2021 79312-Cqkfwxmr Plate 05/09/2016 85033-Quiwzvwo Plate Each Additional 36226-Ocomuuyr Plate Each Additional 83971- Debride <25 sq cm 12/15/2014 38365- Debride <25 sq cm 08/25/2014 34539-AKQQ SKIN LESIONS, OVER 4 02/24/20 15 18599-JQQE SKIN LESIONS, OVER 4 12/16/19 15 03719-XPNB SKIN LESIONS, OVER 4 11/05/19 14 10382-ZMLN SKIN LESIONS, OVER 4 08/25/19 15 25953-NBOU SKIN LESIONS, OVER 4 05/12/20 14 69949-MSXA SKIN LESIONS, OVER 4 02/07/20 14 72923-RFKC SKIN LESIONS, OVER 4 05/07/20 15 23837-JEVV SKIN LESIONS, OVER 4 08/03/20 15 56892-JXBI SKIN LESIONS, OVER 4 02/01/20 16 16065-YXNC SKIN LESIONS, OVER 4 11/02/19 16 66103-LKKF SKIN LESIONS, OVER 4 08/22/19 17 70550-GWAS SKIN LESIONS, OVER 4 05/09/20 16 93829-NBRW SKIN LESIONS, OVER 4 11/22/19 17 04286-MGAQ SKIN LESIONS, OVER 4 02/21/20 17 64627-VWCL SKIN LESIONS, OVER 4 07/12/20 21 86477-ALCI SKIN LESIONS, OVER 4 01/05/20 21 78887-MZMT SKIN LESIONS, OVER 4 10/01/19 21 57130-LMNV SKIN LESIONS, OVER 4 04/13/20 20 64701-DBWY SKIN LESIONS, OVER 4 12/30/19 20 91882-ZDXQ SKIN LESIONS, OVER 4 10/07/19 20 63066-RRWN SKIN LESIONS, OVER 4 07/01/20 19 47187-ZPMR SKIN LESIONS, OVER 4 03/25/20 19 81660-GLPR SKIN LESIONS, OVER 4 12/25/19 19 07343-XRID SKIN LESIONS, OVER 4 09/24/19 19 27674-STKB SKIN LESIONS, OVER 4 06/11/20 18 51508-RAZP SKIN LESIONS, OVER 4 03/12/20 18 72909-UBRF SKIN LESIONS, OVER 4 12/05/19 18 67692-YDDR SKIN LESIONS, OVER 4 09/04/19 18 15983-VFTW SKIN LESIONS, OVER 4 05/29/20 17 65587-VKPD SKIN LESIONS, OVER 4 02/01/20 24 16413-WFWX SKIN LESIONS, OVER 4 01/31/20 23 63628-GQJR SKIN LESIONS, OVER 4 01/25/20 97940-HOIN SKIN LESIONS, OVER 4 07/25/20 26051-GLHQ SKIN LESIONS, OVER 4 08/03/20 Next Appt Details Provider Name:Carrie Lerma , 01/27/2025 03:00:00 PM, [address] [place], [address], Insurance Providers Payer Name Payer Address Payer Phone Subscriber Number Group Number Insured Name Patient Relationship to Insured Coverage Start Date Coverage End Date [employer] [address] [place] [address] [id number] Myla Dunn Self - patient is the insured Medical (General) History Medical History History ICD Code Diabetic Measles Mumps Chicken pox Atrial fibrillation Surgical History Surgery Date(Month/Year) heart surgery hole in heart 09/2007
--- OUTSIDE RECORDS SUMMARY | 2024-10-04 08:45 | XMS_ITS ---
Author Organization [facility] Address [address] [place] [address] Care Team Providers Care Litharge Mill Operator Name Role Phone Abdulaziz Stewart MD Primary Care Provider Unavaila ble Black, Carrie Unavailable [phone] Allergies No Known Allergies REASON FOR VISIT [...] Problem Status W/U Status Risk Notes Problem 27834945 Essential hypertension (I10) Active confirmed Vital Signs Height 5ft3in in 07/29/2024 Weight 245 lbs 07/29/2024 BMI 43.4 kg/m2 07/29/2024 Blood pressure systolic 130 mm Hg 07/29/20 24 Blood pressure diastolic 62 mm Hg 024 Encounters Encounter Location Date Provider Diagnosis [facility] [address] [address] 07/29/2024 Carrie Black Type 2 diabetes mellitus [...] Provider Name:Carrie Lerma , 01/27/2025 03:00:00 PM, [address] [place] [address], [address], Procedure Notes * Category Sub-Category Detail Notes [...] use of a nail nipper and/or dremel-type fusion juncture grinder, to a more viable healthy nail [...] to maintain effectiveness in symptomatic relief - 20493 Keratoma Treatment Parring or Cutting o f [...] instrumentation by the physician of record - 13874 Progress Notes * Kita VENEGASeDOB:[birth year] (64 yo F)Acc No.[id number]:07/29/2024 Progress Note Patient:?Kita VENEGAS Provider:?Carrie Lerma DPM :1960???Age:64 Y???Sex:Female D ate:07/29/2024 Address:[address] [place], [place] [id number] Pcp:Abdulaziz Stewart MD Subjective: * Chief Complaints: [...] use of a nail nipper and/or dremel-type fusion juncture grinder, to a more viable healthy nail [...] to maintain effectiveness in symptomatic relief - 89177.?Keratoma Treatment:?Parring or Cutting of Benign Hyperkeratotic Lesion(s)?(-57) [...] instrumentation by the physician of record - 26687.? * Procedure Codes:?17893 DEBRI DE NAIL, 6 OR MORE, Modifiers: XS 79152 TRIM SKIN LESIONS, OVER 4, Modifiers: XS [...] Lerma DPM Date:?2023 Generated for Martinez estrada/Jim/Rosalio on:?10/04/2024 08:45 AM EST History and Physical Notes * [...]
--- OUTSIDE RECORDS SUMMARY | 2024-10-04 08:45 | XMS_ITS ---
Author Organization [facility] [place] Address [address] [place] [address] Care Team Providers Care Software Installation Engineer Name Role Phone Abdulaziz Stewart MD Primary Care Provider Unavaila ble Black, Carrie Unavailable [phone] Allergies No Known Allergies REASON FOR VISIT [...] Ordered Date Performed Result Body Sit e 29696-DPVLYRX NAIL, 6 OR MORE 02/01/2024 N/A 00739-OZEX SKIN LESIONS, OVER 4 02/01/2024 N/A Encounters Encounter Location Date Provider Diagnosis [facility] [place] [address] [place] [address] 02/01/2024 Carrie Black Type 2 diabetes mellitus [...] 02/01/2024 Pending Test Test Name Order Date 57846-BRPTRIH NAIL, 6 OR MORE 02/01/2024 85926-DILU SKIN LESIONS, OVER 4 02/01/20 24 Next Appt Details Follow Up: prn, Reason: Provider Name:Carrie Lerma , 01/27/2025 03:00:00 PM, [address] [place], [address], Procedure Notes * Category Sub-Category Detail Notes [...] as necessary. Patient chooses, no pharmaceutical tx (19000) Keratoma Treatment Parring or Cutting o f Benign Hyperkeratotic Lesion(s) 88301 ( >4 Lesions) - The Benign hyperkeratotic lesions, as described above were pared, and/or cut utilizing a sterile #15 blade, tissue nippers, and/or dremel Progress Notes * Kita VENEGASeDOB:[birth year] (63 yo F)Acc No.[id number]:02/01/2024 Progress Note Patient:?Kita Venegas Provider:?Carrie LermaCELSO :1960???Age:63 Y???Sex:Female D ate:02/01/2024 Address:[address] [place], [place] [id number] Pcp:Abdulaziz Stewart MD Subjective: * Chief Complaints: [...] management (4)? Plan: * Treatment: 2.?Tinea unguium?Procedure: 32259-UQMOGAR NAIL, 6 OR MORE 3.?Tinea pedis of [...] as necessary. Patient chooses, no pharmaceutical tx (61142).?Keratoma Treatment:?Parring or Cutting of Benign Hyperkeratotic Lesion(s)?18088 ( >4 Lesions) - The Benign hyperkeratotic lesions, as described above were pared, and/or cut utilizing a sterile #15 blade, tissue nippers, and/or dremel.? * Procedure Codes:?87723 DEBRI DE NAIL, 6 OR MORE, Modifiers: XS 19836 TRIM SKIN LESIONS, OVER 4, Modifiers: XS [...]
--- OUTSIDE RECORDS SUMMARY | 2024-10-04 08:45 | XMS_ITS ---
Author Organization [facility] Becker[facility] Address [address] [place] [address] Care Team Providers Care Core Composer Feeder Name Role Phone Abdulaziz Stewart MD Primary Care Provider Unavaila ble Black, Carrie Unavailable [phone] Allergies No Known Allergies REASON FOR VISIT [...] Ordered Date Performed Result Body Sit e 86522-CKKILFQ NAIL, 6 OR MORE 08/03/2023 N/A 75832-Tyjyoqmk Plate 08/03/2023 N/A 42483-BZUF SKIN LESIONS, OVER 4 08/03/2023 N/A Encounters Encounter Location Date Provider Diagnosis [facility] [place] [address] [place] [address] 08/03/2023 Carrie Black Type 2 diabetes mellitus [...] Treatment Pending Test Test Name Order Date 47594-HUTMYDR NAIL, 6 OR MORE 08/03/2023 01692-Zbkylrqp Plate 08/03/2023 60711-ZDCK SKIN LESIONS, OVER 4 08/03/20 23 Next Appt Details Follow Up: 2 Weeks, Reason: Provider Name:Carrie Lerma , 01/27/2025 03:00:00 PM, [address] [facility], [place], [address], Procedure Notes * Category Sub-Category Detail Notes [...] Motrin was recommended for pain or discomfort (67273) Anesthesia was deferred - NEURO SMITH: patient [...] as necessary. Patient chooses, no pharmaceutical tx (71655) Keratoma Treatment Parring or Cutting o f Benign Hyperkeratotic Lesion(s) 91256 ( >4 Lesions) - The Benign hyperkeratotic lesions, as described above were pared, and/or cut utilizing a sterile #15 blade, tissue nippers, and/or dremel Progress Notes * Jenna VENEGASOB:[birth year] (63 yo F)Acc No.[id number]:08/03/2023 Progress Note Patient:?Kita Venegas Provider:?Carrie Lerma DPM :1960???Age:63 Y???Sex:Female D ate:08/03/2023 Address:[address] [facility] Pcp:Abdulaziz Stewart MD Subjective: * Chief Complaints: [...] - L60.0? Plan: * Treatment: 2.?Tinea unguium?Procedure: 09528-OHXYOKT NAIL, 6 OR MORE 3.?Ingrowing nail?Procedure: 44065-Olstfhla Plate * Procedures:?Debride Nail 6-10:?Nail debridement?Nail debridement performed extensively to reduce/remove overall nail length and girth, subungual debris, and necrotic tissue, by manual and electrical means with use of a nail nipper and/or dremel, to more viable healthy nail plate or bed tissue 6-10. Silver nitrate used for any petechial bleeding as necessary. Patient chooses, no pharmaceutical tx (04331).?Keratoma Treatment:?Parring or Cutting of Benign Hyperkeratotic Lesion(s)?46656 ( >4 Lesions) - The Benign hyperkeratotic [...] Motrin was recommended for pain or discomfort (48026).? * Procedure Codes:?59388 DEBRI DE NAIL, 6 OR MORE, Modifiers: XS 11585 Avulsion Plate, Modifiers: T5 79127 TRIM SKIN LESIONS, OVER 4, Modifiers: XS * Follow Up:?2 Weeks * Images: * Sign off status: Completed true * Provider:?Carrie Lerma DPM Date:?2022 Generated for Martinez estrada/Jim/Rosalio on:?10/04/2024 08:45 AM [...]
--- OUTSIDE RECORDS SUMMARY | 2024-10-04 08:46 | XMS_ITS | Patient Health Record ---
Author Organization [facility] Address [address] [place] [address] Care Team Providers Care Gas Or Water Meter Installer Name Role Phone Abdulaziz Stewart MD Primary Care Provider Adam Chaudhary Unavailable [phone] ALLERGIES No Known Allergies REASON FOR REFERRAL [...] W/U Status Risk SNOMED Code Notes Problem penitentiary current use of anticoagulant (Z79.01) Active confirmed 112168686 Problem Encounter for screening for malignant neoplasm of colon (Z12.11) Active confirmed 359701829 Problem Preprocedural examination (Z01.818) Active confirmed 858243812983571 Problem Diverticulosis of colon (K57.30) Active confirmed Diverticulosi s of colon (199937406) PLAN OF TREATMENT Pending Test Test Name Order Date Pathology 12/10/2021 Future Test Test Name Order Date COLONOSCOPY 11/03/2021 Insurance Providers Payer Name Payer Address Payer Phone Subscriber Number Group Number Insured Name Patient Relationship to Insured Coverage Start Date Coverage End Date [facility] [address] [place] [phone] [id number] SAVANNA VENEGAS Self - patient is the insured MEDICAL (GENERAL) HISTORY Medical History History ICD Code High cholesterol Afib Denies VT,CVA,Lung disease,renal disease NIDDM Surgical History Surgery Date(Month/Year) Open heart surgery for a PFO 2007 Ear tubes Tonsils
--- NOTE | 2024-10-04 08:49 | MHC.OFFVISCO ---
Intake Intake Visit Reasons: Anticoagulation Allergies Penicillins Allergy (Severe, Verified 10/04/24 08:34) Diarrhea enoxaparin Adverse Reaction (Intermediate, Verified 10/04/24 08:34) Hives, leg swelling Medication List - Last Reconciled 10/04/24 by Melyssa Kimball RN cholecalciferol (vitamin D3) 25 mcg PO DAILY ciclopirox 0.77% topical diltiazem HCl CD 180 mg PO DAILY furosemide 20 mg PO DAILY metformin 500 mg PO BID metoprolol succinate ER 25 mg PO BID potassium chloride ER 10 mEq PO DAILY simvastatin 10 mg PO BEDTIME warfarin 5 mg See Protocol PO DAILY warfarin See Protocol 7.5MG MWF/ 3.75MG X4DAYS; on odd numbered days Nursing Note INR: 2.5 in therapeutic range Medications and supplements reviewed- pt and daughter to check metformin dose either ER q 24 hours or 500mg po BID No changes in health, diet, medications, or supplements, Denies any signs and symptoms of bleeding or bruising or clotting. Bleeding, bruising, clotting discussed Nutritional guidance given Dose: 7.5mg x 2 days/ 5mg x 5 days F/U INR: 2 weeks Patient verbalizes understanding of instructions given Anti-Coag Initial Assessment Social Hx Patient Tobacco Use Status: Never used Tobacco Questionnaires HAS-BLED Does the patient had uncontrolled Hypertension?: No Does the patient have renal disease?: No Does the patient have liver disease?: No Does the patient have a history of stroke?: No Has the patient had major bleeding or predisposition to bleeding?: No Does the patient have labile INRs?: Yes Is the patient over 65 years of age?: No Is the patient on medications that gives them a predisposition to bleeding?: Yes Does the patient use alcohol?: No HAS-BLED Score: 2 CHADSVASC Age: <65 Gender: Female Does the patient have a history of CHF?: Yes Does the patient have a history of Hypertension?: Yes Does the patient have a history of Stroke/TIA/Thromboembolism?: Yes Does the patient have a history of Vascular Disease (prior [place], PAD or aortic plaque)?: No Does the patient have a history of Diabetes?: Yes CHADS VACS Score: 6 Macey Prediction Score Rsk VTE Active Cancer: No Previous VTE, excluding superficial vein thrombosis: No Reduced mobility: No Already known Thrombophilic Condition: No With-in last month Trauma and/or Surgery: No Elderly 70 year or older: No Heart and/or Respiratory Failure: No Acute Myocardial infarction and/or Ischemic Stroke: No Acute Infection and/or Rheumatologic Disorder: No Obesity (BMI 30 or greater): Yes Ongoing Hormonal Treatment: No Score: 1 Macey Score less than 4; Low Risk of VTE Macey Score 4 or greater; High Risk of VTE Coding Level of Care Code Est Patient Level 1 Diagnoses Current use of anticoagulant therapy Z79.01 Assessment & Plan Assessment & Plan (1) Current use of anticoagulant therapy: Code(s): Z79.01 - supervisor intermediates (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
== END 2024-10-04 08:55 | disposition home or self-care (01) ==
LOC: HO.ACS 08:31
PROVIDERS: PCP Internal Medicine; Visit Provider Internal Medicine
DX: Z79.01 Long term (current) use of anticoagulants (principal)

== ENCOUNTER → 2024-10-04 08:31 | Outpatient (BNVA) | payer OTHER, SELFPAY | PROVIDERS: PCP Internal Medicine; Visit Provider Internal Medicine | DX: I48.20 Chronic atrial fibrillation, unspecified (principal); Z79.01 Long term (current) use of anticoagulants; Z51.81 Encounter for therapeutic drug level monitoring | CPT/HCPCS: 85610; 99211 ==

== ENCOUNTER 2024-10-21 14:36 | Outpatient (AMB) | payer OTHER, SELFPAY ==
--- NOTE | 2024-10-21 14:59 | MHC.OFFVISCO ---
Intake Intake Visit Reasons: Anticoagulation Allergies Penicillins Allergy (Severe, Verified 10/21/24 14:38) Diarrhea enoxaparin Adverse Reaction (Intermediate, Verified 10/21/24 14:38) Hives, leg swelling Medication List - Last Reconciled 10/21/24 by Melyssa Kimball RN cholecalciferol (vitamin D3) 25 mcg PO DAILY ciclopirox 0.77% topical diltiazem HCl CD 180 mg PO DAILY furosemide 20 mg PO DAILY metformin ER mg PO metoprolol succinate ER 25 mg PO BID potassium chloride ER 10 mEq PO DAILY simvastatin 10 mg PO BEDTIME warfarin 5 mg See Protocol PO DAILY warfarin See Protocol 7.5MG MWF/ 3.75MG X4DAYS; on odd numbered days Nursing Note INR: 2.7 in therapeutic range Medications and supplements reviewed No changes in health, diet, medications, or supplements, Denies any signs and symptoms of bleeding or bruising or clotting. Bleeding, bruising, clotting discussed Nutritional guidance given Dose: 7.5MG X 2 DAYS/ 5MG X 4 DAYS F/U INR: 11/08/2024 Patient verbalizes understanding of instructions given with read back Anti-Coag Initial Assessment Social Hx Patient Tobacco Use Status: Never used Tobacco Coding Level of Care Code Est Patient Level 1 Diagnoses Current use of anticoagulant therapy Z79.01 Results AMB INR Fingerstick AMB INR Fingerstick 2.7 Last Edit by Melyssa Kimball RN on 10/21/24 14:49 MANUAL ENTRY Assessment & Plan Assessment & Plan (1) Current use of anticoagulant therapy: Code(s): Z79.01 - snf (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
[2024-10-21 15:37] LABS: Prothrombin Time Whole Bld POC 32.4 sec (11.1-13.5); ~PT, ~INR - Anti Coag Clinic 2.7 (0.9-1.1)
--- OUTSIDE RECORDS SUMMARY | 2024-10-21 16:43 | XMS_ITS ---
Author Organization [facility] Address [address] [place] [address] Care Team Providers Care Forester Aide Name Role Phone Abdulaziz Stewart MD Primary Care Provider Unavaila ble Black, Carrie Unavailable [phone] Allergies No Known Allergies REASON FOR VISIT [...] Ordered Date Performed Result Body Sit e 02693-TBCYQBR NAIL, 6 OR MORE 08/03/2023 N/A 14412-Vhlyuzig Plate 08/03/2023 N/A 27886-TEZM SKIN LESIONS, OVER 4 08/03/2023 N/A Encounters Encounter Location Date Provider Diagnosis [facility] [place] [address] [place] [address] 08/03/2023 Carrie Black Type 2 diabetes mellitus [...] Treatment Pending Test Test Name Order Date 96434-KDCZDQM NAIL, 6 OR MORE 08/03/2023 44556-Joubaeyl Plate 08/03/2023 06781-LOOM SKIN LESIONS, OVER 4 08/03/20 23 Next Appt Details Follow Up: 2 Weeks, Reason: Provider Name:Carrie Lerma , 01/27/2025 03:00:00 PM, [address] [facility], [place], [address], Procedure Notes * Category Sub-Category Detail Notes [...] Motrin was recommended for pain or discomfort (59169) Anesthesia was deferred - NEURO SMITH: patient [...] as necessary. Patient chooses, no pharmaceutical tx (97829) Keratoma Treatment Parring or Cutting o f Benign Hyperkeratotic Lesion(s) 18040 ( >4 Lesions) - The Benign hyperkeratotic lesions, as described above were pared, and/or cut utilizing a sterile #15 blade, tissue nippers, and/or dremel Progress Notes * Jenna VENEGASOB:[birth year] (63 yo F)Acc No.[id number]:08/03/2023 Progress Note Patient:?Kita Venegas Provider:?Carrie Lerma DPM :1960???Age:63 Y???Sex:Female D ate:08/03/2023 Address:[address] [facility], [place] Pcp:Abdulaziz Stewart MD Subjective: * Chief Complaints: [...] BS:124. * Examination: ???Ophthalmology Referral: ?DIABETES EYE EXAM?Diabetic Retinopathy Screening:?Yes ?Findings of Diabetic Eye Exam:?no retinopathy?Neurological: ?SENSORY:?Neurological exam demonstrates, reduced light touch sensation, [...] - L60.0? Plan: * Treatment: 2.?Tinea unguium?Procedure: 89176-ZEMLPTB NAIL, 6 OR MORE 3.?Ingrowing nail?Procedure: 31333-Biwqbcla Plate * Procedures:?Debride Nail 6-10:?Nail debridement?Nail debridement performed extensively to reduce/remove overall nail length and girth, subungual debris, and necrotic tissue, by manual and electrical means with use of a nail nipper and/or dremel, to more viable healthy nail plate or bed tissue 6-10. Silver nitrate used for any petechial bleeding as necessary. Patient chooses, no pharmaceutical tx (37424).?Keratoma Treatment:?Parring or Cutting of Benign Hyperkeratotic Lesion(s)?89019 ( >4 Lesions) - The Benign hyperkeratotic [...] Motrin was recommended for pain or discomfort (67556).? * Procedure Codes:?09919 DEBRI DE NAIL, 6 OR MORE, Modifiers: XS 59405 Avulsion Plate, Modifiers: T5 92514 TRIM SKIN LESIONS, OVER 4, Modifiers: XS * Follow Up:?2 Weeks * Images: * Sign off status: Completed true * Provider:?Carrie Lerma DPM Date:?2022 Generated for Martinez estrada/Jim/Rosalio on:?10/21/2024 04:43 PM EDT History and Physical Notes * HPI (History [...]
--- OUTSIDE RECORDS SUMMARY | 2024-10-21 16:44 | XMS_ITS ---
Author Organization [facility] Address [address] [place] [address] Care Team Providers Care Director Cpg Name Role Phone Abdulaziz Stewart MD Primary Care Provider Unavaila ble Black, Carrie Unavailable [phone] Allergies No Known Allergies REASON FOR VISIT [...] Ordered Date Performed Result Body Sit e 98971-NNFLNGD NAIL, 6 OR MORE 02/01/2024 N/A 44837-SHXV SKIN LESIONS, OVER 4 02/01/2024 N/A Encounters Encounter Location Date Provider Diagnosis [facility] [place] [address] [place] [address] 02/01/2024 Carrie Black Type 2 diabetes mellitus [...] 02/01/2024 Pending Test Test Name Order Date 43580-BRDNECT NAIL, 6 OR MORE 02/01/2024 74595-ALMK SKIN LESIONS, OVER 4 02/01/20 24 Next Appt Details Follow Up: prn, Reason: Provider Name:Carrie Lerma , 01/27/2025 03:00:00 PM, [address] [place], [address], Procedure Notes * Category Sub-Category Detail Notes [...] as necessary. Patient chooses, no pharmaceutical tx (56731) Keratoma Treatment Parring or Cutting o f Benign Hyperkeratotic Lesion(s) 97735 ( >4 Lesions) - The Benign hyperkeratotic lesions, as described above were pared, and/or cut utilizing a sterile #15 blade, tissue nippers, and/or dremel Progress Notes * Kita VENEGASeDOB:[birth year] (63 yo F)Acc No.[id number]:02/01/2024 Progress Note Patient:?Kita Venegas Provider:?Carrie LermaCELSO :1960???Age:63 Y???Sex:Female D ate:02/01/2024 Address:[address] [place], [place] [id number] Pcp:Abdulaziz Stewart MD Subjective: * Chief Complaints: [...] kg. * Examination: ???Ophthalmology Referral: ?DIABETES EYE EXAM?Diabetic Retinopathy Screening:?No ?Findings of Diabetic Eye Exam:?retinopathy?Neurological: ?SENSORY:?Neurological exam demonstrates, reduced light touch sensation, reduced sharp/dull pin prick discrimination , reduced vibration sensation, 5.07 monofilament test performed at plantar aspects of 5 varied sites per foot shows sensation,, absent, B/L.?Vascular: ?DORSALIS PEDIS PULSE:?2/4, B/L.?POSTERIOR TIBIAL PULSE:?2/, B/L.?Nails: ?NAILS are:?elongated, overgrown, dystrophic, greater than [...] management (4)? Plan: * Treatment: 2.?Tinea unguium?Procedure: 95860-KXFOOCE NAIL, 6 OR MORE 3.?Tinea pedis of [...] as necessary. Patient chooses, no pharmaceutical tx (84553).?Keratoma Treatment:?Parring or Cutting of Benign Hyperkeratotic Lesion(s)?83658 ( >4 Lesions) - The Benign hyperkeratotic lesions, as described above were pared, and/or cut utilizing a sterile #15 blade, tissue nippers, and/or dremel.? * Procedure Codes:?47093 DEBRI DE NAIL, 6 OR MORE, Modifiers: XS 72563 TRIM SKIN LESIONS, OVER 4, Modifiers: XS [...] Lerma DPM Date:?2023 Generated for Martinez estrada/Jim/Leaitting on:?10/21/2024 04:43 PM EDT History and Physical Notes * HPI (History of Present Illness) Category Sub-Category Detail Notes Category Not es Skin problems Nature: scaling , redness Location: B/L , Interspace(s)/ Between toe(s) Duration: several days Course: worse At Risk footcare Pt States Last PCP Visit: Date: Examination Category Sub-Category Detail Notes Category Not [...]
--- OUTSIDE RECORDS SUMMARY | 2024-10-21 16:44 | XMS_ITS | Patient Health Record ---
Author Organization [facility] Address [address] [place] [address] Care Team Providers Care Tube Puller Name Role Phone Abdulaziz Stewart MD Primary Care Provider Adam Chaudhary Unavailable [phone] Allergies No Known Allergies Reason For Referral [...] TWICE A DAY Oral for 90 Active Immunizations Vaccine Route Administration Date Status Comme nts Influenza Unknown 06/02/2021 Administered Social History Tobacco Use: Social History Observation Description Date Details (start date - stop date) Never Smoker NA - NA Tobacco Use/Smoking Question Answer Notes Patient is a nonsmoker Alcohol Screen Question Answer Notes Did you have a drink containing alcohol in the p ast year? No Points 0 Interpretation Negative Section Notes: Nonsmoker; no sig alcohol Problems Problem Type SNOMED Code ICD Code Onset Dates Problem Status W/U Status Risk Notes Problem 772321532 Encounter for screening for malignant neoplasm of colon (Z12.11) Active confirmed Problem 567841248015370 Preprocedural examination (Z01.818) Active confirmed Problem Diverticulosis of colon (679380544) Diverticulosis of colon (K57.30) Active confirmed Problem 935624473 long-term curren t use of anticoagulant (Z79.01) Active confirmed Plan Of Treatment Pending Test Test Name Order Date Pathology 12/10/2021 Future Test Test Name Order Date COLONOSCOPY 11/03/2021 Insurance Providers Payer Name Payer Address Payer Phone Subscriber Number Group Number Insured Name Patient Relationship to Insured Coverage Start Date Coverage End Date [facility] [address] [facility] [place] [place] [address] [id number] SAVANNA VENEGAS Self - patient is the insured Medical (General) History Medical History History ICD Code High cholesterol Afib Denies [place],CVA,Lung disease,renal disease NIDDM Surgical History Surgery Date(Month/Year) Open heart surgery for a PFO 2007 Ear tubes Tonsils
--- OUTSIDE RECORDS SUMMARY | 2024-10-21 16:44 | XMS_ITS | Patient Health Record ---
Author Organization [facility] Address [address] [facility] [place] [address] Care Team Providers Care Balance Wheel Screw Hole Driller Name Role Phone Abdulaziz Stewart MD Primary Care Provider Unavaila ble Black, Carrie Unavailable [phone] Allergies No Known Allergies Reason For Referral [...] Problem Acquired hammer toe of right foot (0932728730326074 ) Other hammer toe(s) (acquired), right foot (M20.41) Active confirmed Problem Acquired hammer toe of left foot (1432352164157384 ) Other hammer toe(s) (acquired), left foot (M20.42) Active confirmed Problem Localized, primary osteoarthritis of the ankle and/or foot (913269817) Primary osteoarthritis, right ankle and foot (M19.071) Active confirmed Problem Localized, primary osteoarthritis of the ankle and/or foot (855709561) Primary osteoarthritis, left ankle and foot (M19.072) Active confirmed Problem Polyneuropathy due to type 2 diabetes mellitus (418522003) Type 2 diabetes mellitus with diabetic polyneuropathy (E11.42) Active confirmed Problem 09012269 Essential hypertension (I10) Active confirmed Vital Signs Blood pressure diastolic 62 mm Hg 07/29/2024 Height 5ft3in in 07/29/2024 Blood pressure systolic 130 mm Hg 07/29/2024 Weight 245 lbs 07/29/2024 BMI 43.4 kg/m2 07/29/2024 Procedures Procedure Date Ordered Date Performed Result Body Sit e 82109-NFFQJYK NAIL, 6 OR MORE 02/01/2024 N/A 39864-RQNO SKIN LESIONS, OVER 4 02/01/2024 N/A Encounters [facility]counter [facility] [address] [facility] Carrie Black Type 2 diabetes mellitus with diabetic polyneuropathy E11.42 ; Tinea unguium B35.1 ; Ingrowing nail L60.0 and Tinea pedis of both feet B35.3 [facility] [address] 07/29/2024 Carrie Black Type 2 diabetes mellitus [...] Test Name Order Date Hemoglobin A1c 07/14/2015 09130-UFFRBNC NAIL, 6 OR MORE 02/01/2024 44365-OEVFILF NAIL, 6 OR MORE 07/25/2022 15204-MAETKQO NAIL, 6 OR MORE 08/03/2023 62530-LBXXPWK NAIL, 6 OR MORE 01/24/2022 15273-XBSWJYW NAIL, 6 OR MORE 01/30/2023 85386-WJABHTC NAIL, 6 OR MORE 11/04/2013 67555-BONKMGA NAIL, 6 OR MORE 02/06/2014 40628-GBSPNWB NAIL, 6 OR MORE 05/12/2014 87415-QWBTOUM NAIL, 6 OR MORE 08/25/2014 10718-QDCUNPZ NAIL, 6 OR MORE 12/15/2014 84934-DJOKFUP NAIL, 6 OR MORE 02/23/2015 23854-JEINAIO NAIL, 6 OR MORE 05/07/2015 55015-QIWMFLE NAIL, 6 OR MORE 08/03/2015 56534-ZAJPIGL NAIL, 6 OR MORE 11/02/2015 94947-MLBMIMU NAIL, 6 OR MORE 02/01/2016 57516-VFGYGPS NAIL, 6 OR MORE 05/09/2016 95041-BBYSZEF NAIL, 6 OR MORE 08/22/2016 40052-DMQCBSL NAIL, 6 OR MORE 11/21/2016 36971-ASJQCAD NAIL, 6 OR MORE 02/20/2017 60580-MAWYKWG NAIL, 6 OR MORE 05/29/2017 03068-AUIHYHK NAIL, 6 OR MORE 09/04/2017 96713-JDYIIJC NAIL, 6 OR MORE 12/04/2017 97705-DHXLMGQ NAIL, 6 OR MORE 03/12/2018 05641-AAGSJVJ NAIL, 6 OR MORE 06/11/2018 54456-IJDEYCM NAIL, 6 OR MORE 09/24/2018 16758-WCCGHSG NAIL, 6 OR MORE 12/24/2018 99051-WGUEORG NAIL, 6 OR MORE 03/25/2019 65989-RRJTEXF NAIL, 6 OR MORE 07/01/2019 97448-WQCLKJK NAIL, 6 OR MORE 10/07/2019 28536-JCZWQEW NAIL, 6 OR MORE 12/30/2019 93883-PAMGTKM NAIL, 6 OR MORE 04/13/2020 69502-FNNJNFP NAIL, 6 OR MORE 10/01/2020 39854-KDSBDQI NAIL, 6 OR MORE 01/04/2021 78479-RZPLVJL NAIL, 6 OR MORE 07/12/2021 90220-Meusyeje Plate 11/21/2016 05492-Ngdmeqes Plate 08/22/2016 03958-Iyxntioe Plate 05/07/2015 63441-Gkkdotkf Plate 02/23/2015 35183-Sahbxkfs Plate 05/12/2014 13448-Vsltgvxm Plate 12/15/2014 05618-Pjmvwpoi Plate 08/25/2014 94197-Lbafppgm Plate 01/30/2023 90597-Sliogycy Plate 08/03/2023 61943-Pvfkyzxc Plate 07/12/2021 69925-Zamrqfkb Plate 05/09/2016 10042-Hfycfmwu Plate Each Additional 02282-Vcpctlio Plate Each Additional 89613- Debride <25 sq cm 12/15/2014 69354- Debride <25 sq cm 08/25/2014 78259-RQFG SKIN LESIONS, OVER 4 02/24/20 15 28625-ZIDA SKIN LESIONS, OVER 4 12/16/19 15 66546-QJGK SKIN LESIONS, OVER 4 11/05/19 14 28038-JTIW SKIN LESIONS, OVER 4 08/25/19 15 31705-ORLY SKIN LESIONS, OVER 4 05/12/20 14 35762-VYSD SKIN LESIONS, OVER 4 02/07/20 14 86210-MLWH SKIN LESIONS, OVER 4 05/07/20 15 29501-WMPD SKIN LESIONS, OVER 4 08/03/20 15 49281-HUEV SKIN LESIONS, OVER 4 02/01/20 16 54419-USFU SKIN LESIONS, OVER 4 11/02/19 16 74914-YVYY SKIN LESIONS, OVER 4 08/22/19 17 80451-AVMP SKIN LESIONS, OVER 4 05/09/20 16 35287-PODX SKIN LESIONS, OVER 4 11/22/19 17 47102-MDFC SKIN LESIONS, OVER 4 02/21/20 17 99125-TDMY SKIN LESIONS, OVER 4 07/12/20 21 50339-WEVV SKIN LESIONS, OVER 4 01/05/20 21 32691-WZFO SKIN LESIONS, OVER 4 10/01/19 21 42524-NGJU SKIN LESIONS, OVER 4 04/13/20 20 34864-KLTW SKIN LESIONS, OVER 4 12/30/19 20 90450-WOKD SKIN LESIONS, OVER 4 10/07/19 20 23839-RJSD SKIN LESIONS, OVER 4 07/01/20 19 61553-FUWK SKIN LESIONS, OVER 4 03/25/20 19 07239-AMAJ SKIN LESIONS, OVER 4 12/25/19 19 37854-MCSU SKIN LESIONS, OVER 4 09/24/19 19 82740-LNGE SKIN LESIONS, OVER 4 06/11/20 18 83016-GXQV SKIN LESIONS, OVER 4 03/12/20 18 56491-NOWH SKIN LESIONS, OVER 4 12/05/19 18 27125-GKNJ SKIN LESIONS, OVER 4 09/04/19 18 76952-ZQNF SKIN LESIONS, OVER 4 05/29/20 17 77503-WMYX SKIN LESIONS, OVER 4 02/01/20 24 03507-TEAJ SKIN LESIONS, OVER 4 01/31/20 23 25319-IBEH SKIN LESIONS, OVER 4 01/25/20 50690-JSFR SKIN LESIONS, OVER 4 07/25/20 48229-RNAF SKIN LESIONS, OVER 4 08/03/20 Next Appt Details Provider Name:Carrie Lerma , 01/27/2025 03:00:00 PM, [address] [place], [address], Insurance Providers Payer Name Payer Address Payer Phone Subscriber Number Group Number Insured Name Patient Relationship to Insured Coverage Start Date Coverage End Date [employer] [address] [place] [address] [id number] Myla Dunn Self - patient is the insured Medical (General) History Medical History History ICD Code Diabetic Measles Mumps Chicken pox Atrial fibrillation Surgical History Surgery Date(Month/Year) heart surgery hole in heart 09/2007
--- OUTSIDE RECORDS SUMMARY | 2024-10-21 16:44 | XMS_ITS ---
Author Organization [facility] Address [address] [place] [address] Care Team Providers Care Detector Car Operator Name Role Phone Abdulaziz Stewart MD Primary Care Provider Unavaila ble Black, Carrie Unavailable [phone] Allergies No Known Allergies REASON FOR VISIT [...] Problem Status W/U Status Risk Notes Problem 84881081 Essential hypertension (I10) Active confirmed Vital Signs Height 5ft3in in 07/29/2024 Weight 245 lbs 07/29/2024 BMI 43.4 kg/m2 07/29/2024 Blood pressure systolic 130 mm Hg 07/29/20 24 Blood pressure diastolic 62 mm Hg 024 Encounters Encounter Location Date Provider Diagnosis [facility] [address] [address] 07/29/2024 Carrie Black Type 2 diabetes mellitus [...] Provider Name:Carrie Lerma , 01/27/2025 03:00:00 PM, [address] [place] [address], [address], Procedure Notes * Category Sub-Category Detail Notes [...] use of a nail nipper and/or dremel-type pulp grinder and blender, to a more viable healthy nail plate [...] to maintain effectiveness in symptomatic relief - 44599 Keratoma Treatment Parring or Cutting o f [...] instrumentation by the physician of record - 79957 Progress Notes * Kita VENEGASeDOB:[birth year] (64 yo F)Acc No.[id number]:07/29/2024 Progress Note Patient:?Kita VENEGAS Provider:?Carrie Lerma DPM :1960???Age:64 Y???Sex:Female D ate:07/29/2024 Address:[address] [place], [place] [address] Pcp:Abdulaziz Stewart MD Subjective: * Chief Complaints: [...] kg. * Examination: ???Ophthalmology Referral: ?DIABETES EYE EXAM?Procedure Performed:?Yes ?Date of Exam Performed?03/25/2024 ?Diabetic Retinopathy Screening:?No ?Findings of Diabetic Eye Exam:?no retinopathy, retinopathy?CQM Exceptions:: ?Hemoglobin A1c not performed?Reason:?No reason specified?General Examination: ?GENERAL APPEARANCE:?Reveals a pleasant, alert, well nourished, well- developed, well hydrated individual, who demonstrates proper attention to hygiene/body habitus, and is in no acute distress, Pt serves as own historian for office visit today.?ORIENTED:?person, place, and time.?FOOT EXAM:?Lower Extremity Neurological Exam performed:?Yes ?Footwear Evaluation?Footwear Evaluation performed:?Yes?Neurological: ?SENSORY:?Neurological exam demonstrates, reduced light touch sensation, [...] use of a nail nipper and/or dremel-type pulp grinder and blender, to a more viable healthy nail plate [...] to maintain effectiveness in symptomatic relief - 63045.?Keratoma Treatment:?Parring or Cutting of Benign Hyperkeratotic Lesion(s)?(-57) [...] instrumentation by the physician of record - 85428.? * Procedure Codes:?60196 DEBRI DE NAIL, 6 OR MORE, Modifiers: XS 63233 TRIM SKIN LESIONS, OVER 4, Modifiers: XS [...] Lerma DPM Date:?2023 Generated for Martinez estrada/Jim/Rosalio on:?10/21/2024 04:43 PM [...]
== END 2024-10-21 15:02 | disposition home or self-care (01) ==
LOC: HO.ACS 14:36
PROVIDERS: PCP Internal Medicine; Visit Provider Internal Medicine
DX: Z79.01 Long term (current) use of anticoagulants (principal)

== ENCOUNTER → 2024-10-21 14:36 | Outpatient (BNVA) | payer OTHER, SELFPAY | PROVIDERS: PCP Internal Medicine; Visit Provider Internal Medicine | DX: I48.20 Chronic atrial fibrillation, unspecified (principal); Z79.01 Long term (current) use of anticoagulants; Z51.81 Encounter for therapeutic drug level monitoring | CPT/HCPCS: 85610; 99211 ==

== ENCOUNTER 2024-11-08 14:19 | Outpatient (AMB) | payer OTHER, SELFPAY ==
[2024-11-08 14:37] LABS: Prothrombin Time Whole Bld POC 26.9 sec (11.1-13.5); ~PT, ~INR - Anti Coag Clinic 2.2 (0.9-1.1)
--- NOTE | 2024-11-08 14:39 | MHC.OFFVISCO ---
Intake Intake Visit Reasons: Anticoagulation Allergies Penicillins Allergy (Severe, Verified 11/08/24 14:26) Diarrhea enoxaparin Adverse Reaction (Intermediate, Verified 11/08/24 14:26) Hives, leg swelling Medication List - Last Reconciled 11/08/24 by Fernanda Sierra, RN cholecalciferol (vitamin D3) 25 mcg PO DAILY ciclopirox 0.77% topical diltiazem HCl CD 180 mg PO DAILY furosemide 20 mg PO DAILY metformin ER mg PO metoprolol succinate ER 25 mg PO BID potassium chloride ER 10 mEq PO DAILY simvastatin 10 mg PO BEDTIME warfarin 5 mg See Protocol PO DAILY warfarin See Protocol 7.5MG MWF/ 3.75MG X4DAYS; on odd numbered days Nursing Note INR: 2.2 in therapeutic range of 2-3 Medications and supplements reviewed No changes in health, diet, medications, or supplements, Denies any signs and symptoms of bleeding or bruising or clotting. Bleeding, bruising, clotting discussed Nutritional guidance given Dose: 5mg X 5 days and 7.5mg X 2 days (Mon & ) F/U INR: 4 weeks Patient verbalizes understanding of instructions given Anti-Coag Initial Assessment Social Hx Patient Tobacco Use Status: Never used Tobacco Coding Level of Care Code Est Patient Level 1 Diagnoses Current use of anticoagulant therapy Z79.01 Results AMB INR Fingerstick AMB INR Fingerstick 2.2 Last Edit by Fernanda Sierra, RN on 11/08/24 14:30 interface delay Assessment & Plan Assessment & Plan (1) Current use of anticoagulant therapy: Code(s): Z79.01 - residential (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
== END 2024-11-08 14:45 | disposition home or self-care (01) ==
LOC: HO.ACS 14:19
PROVIDERS: PCP Internal Medicine; Visit Provider Internal Medicine Medical Oncology
DX: Z79.01 Long term (current) use of anticoagulants (principal)

== ENCOUNTER → 2024-11-08 14:19 | Outpatient (BNVA) | payer OTHER, SELFPAY | PROVIDERS: PCP Internal Medicine; Visit Provider Internal Medicine Medical Oncology | DX: I48.20 Chronic atrial fibrillation, unspecified (principal); Z51.81 Encounter for therapeutic drug level monitoring; Z79.01 Long term (current) use of anticoagulants | CPT/HCPCS: 85610; 99211 ==

== ENCOUNTER 2024-12-06 10:39 | Outpatient (AMB) | payer OTHER, SELFPAY ==
--- NOTE | 2024-12-06 11:11 | MHC.OFFVISCO ---
Intake Intake Visit Reasons: Anticoagulation Allergies Penicillins Allergy (Severe, Verified 12/06/24 11:01) Diarrhea enoxaparin Adverse Reaction (Intermediate, Verified 12/06/24 11:01) Hives, leg swelling Medication List - Last Reconciled 12/06/24 by Melyssa Kimball RN cholecalciferol (vitamin D3) 25 mcg PO DAILY ciclopirox 0.77% topical diltiazem HCl CD 180 mg PO DAILY furosemide 20 mg PO DAILY metformin ER mg PO metoprolol succinate ER 25 mg PO BID potassium chloride ER 10 mEq PO DAILY simvastatin 10 mg PO BEDTIME warfarin 5 mg See Protocol PO DAILY warfarin See Protocol 7.5MG MWF/ 3.75MG X4DAYS; on odd numbered days Nursing Note INR: 2.7 in therapeutic range Medications and supplements reviewed No changes in health, diet, medications, or supplements, Denies any signs and symptoms of bleeding or bruising or clotting. Bleeding, bruising, clotting discussed Nutritional guidance given Dose: 7.5MG X 2 DAYS/ 5MG X 5 DAYS F/U INR: 1 MONTH Patient verbalizes understanding of instructions given Anti-Coag Initial Assessment Social Hx Patient Tobacco Use Status: Never used Tobacco Coding Level of Care Code Est Patient Level 1 Diagnoses Current use of anticoagulant therapy Z79.01 Results AMB INR Fingerstick AMB INR Fingerstick 2.7 Last Edit by Melyssa Kimball RN on 12/06/24 11:08 MANUAL ENTRY Assessment & Plan Assessment & Plan (1) Current use of anticoagulant therapy: Code(s): Z79.01 - [facility] (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
--- OUTSIDE RECORDS SUMMARY | 2024-12-06 11:18 | XMS_ITS | Patient Health Record ---
Author Organization [facility] Address [address] [facility] [place] [address] Care Team Providers Care Hand Etcher Helper Name Role Phone Abdulaziz Stewart MD Primary Care Provider Unavaila ble Black, Carrie Unavailable [phone] Allergies No Known Allergies Reason For Referral [...] Problem Acquired hammer toe of right foot (6196912427194079 ) Other hammer toe(s) (acquired), right foot (M20.41) Active confirmed Problem Acquired hammer toe of left foot (0947901079954790 ) Other hammer toe(s) (acquired), left foot (M20.42) Active confirmed Problem Localized, primary osteoarthritis of the ankle and/or foot (385296963) Primary osteoarthritis, right ankle and foot (M19.071) Active confirmed Problem Localized, primary osteoarthritis of the ankle and/or foot (589292363) Primary osteoarthritis, left ankle and foot (M19.072) Active confirmed Problem Polyneuropathy due to type 2 diabetes mellitus (186559138) Type 2 diabetes mellitus with diabetic polyneuropathy (E11.42) Active confirmed Problem 43903612 Essential hypertension (I10) Active confirmed Vital Signs Blood pressure diastolic 62 mm Hg 07/29/2024 Height 5ft3in in 07/29/2024 Blood pressure systolic 130 mm Hg 07/29/2024 Weight 245 lbs 07/29/2024 BMI 43.4 kg/m2 07/29/2024 Procedures Procedure Date Ordered Date Performed Result Body Sit e 86754-CHOZZEV NAIL, 6 OR MORE 02/01/2024 N/A 70104-JEKE SKIN LESIONS, OVER 4 02/01/2024 N/A Encounters Encounter [facility] Date [facility] [address] [facility] Carrie Black Type 2 diabetes mellitus with diabetic polyneuropathy E11.42 ; Tinea unguium B35.1 ; Ingrowing nail L60.0 and Tinea pedis of both feet B35.3 [facility] [address] 07/29/2024 Carrie Black Type 2 diabetes mellitus [...] Test Name Order Date Hemoglobin A1c 07/14/2015 39897-MIXTTCG NAIL, 6 OR MORE 07/01/2019 56342-UYNANBI NAIL, 6 OR MORE 12/04/2017 71673-VDPGHQF NAIL, 6 OR MORE 09/04/2017 04121-LPGCCID NAIL, 6 OR MORE 01/30/2023 80372-XCCSDYY NAIL, 6 OR MORE 08/03/2023 57709-ZGBTVNP NAIL, 6 OR MORE 02/01/2024 95580-KPZBVEB NAIL, 6 OR MORE 11/04/2013 18776-RUAKYEO NAIL, 6 OR MORE 02/06/2014 13851-NQVYCOT NAIL, 6 OR MORE 05/12/2014 46085-AMXNMSQ NAIL, 6 OR MORE 08/25/2014 40584-MWSDQMG NAIL, 6 OR MORE 12/15/2014 02192-LNEMSKX NAIL, 6 OR MORE 02/23/2015 74995-RESFKBL NAIL, 6 OR MORE 05/07/2015 00217-ZWIAIWB NAIL, 6 OR MORE 08/03/2015 43140-LPRYEFZ NAIL, 6 OR MORE 11/02/2015 20340-XQLHQIF NAIL, 6 OR MORE 02/01/2016 37157-EUGNTPM NAIL, 6 OR MORE 05/09/2016 01148-HKJTGVO NAIL, 6 OR MORE 08/22/2016 98893-OUXLMMU NAIL, 6 OR MORE 11/21/2016 70311-BURTOAJ NAIL, 6 OR MORE 02/20/2017 58076-PKDOMQN NAIL, 6 OR MORE 05/29/2017 42266-CXBKJXH NAIL, 6 OR MORE 03/12/2018 55847-VWKFEQH NAIL, 6 OR MORE 06/11/2018 44342-TUSOTME NAIL, 6 OR MORE 09/24/2018 27390-HSKJXVS NAIL, 6 OR MORE 12/24/2018 88682-QKLEHAE NAIL, 6 OR MORE 03/25/2019 07568-ZMUDGTR NAIL, 6 OR MORE 10/07/2019 75942-ULRQOOU NAIL, 6 OR MORE 12/30/2019 01607-TNVGTPM NAIL, 6 OR MORE 04/13/2020 64253-DBJGWRI NAIL, 6 OR MORE 10/01/2020 58576-ISBSMZA NAIL, 6 OR MORE 01/04/2021 71377-SAEOEMF NAIL, 6 OR MORE 07/12/2021 40932-VLTUGVH NAIL, 6 OR MORE 01/24/2022 84735-DWEJKVG NAIL, 6 OR MORE 07/25/2022 12140-Kenfvjfg Plate 07/12/2021 17009-Zdykkwmg Plate 11/21/2016 43718-Mbiataed Plate 08/22/2016 38011-Jfhidphn Plate 05/07/2015 74381-Lzahrfum Plate 02/23/2015 41008-Vvlumnxa Plate 05/12/2014 31299-Jdrxdslf Plate 12/15/2014 69392-Xcvvakiq Plate 08/25/2014 28663-Fpggdsqp Plate 05/09/2016 62620-Weqsyfqz Plate 01/30/2023 51230-Nczbgcqf Plate 08/03/2023 85310-Jqxobtzg Plate Each Additional 40748-Flzgljbl Plate Each Additional 27386- Debride <25 sq cm 12/15/2014 03267- Debride <25 sq cm 08/25/2014 18486-RCEL SKIN LESIONS, OVER 4 02/24/20 15 69195-ALKX SKIN LESIONS, OVER 4 12/16/19 15 11135-MWTJ SKIN LESIONS, OVER 4 11/05/19 14 29569-YLSK SKIN LESIONS, OVER 4 08/25/19 15 27274-VHEM SKIN LESIONS, OVER 4 05/12/20 14 42489-CIWZ SKIN LESIONS, OVER 4 02/07/20 14 13521-FJQB SKIN LESIONS, OVER 4 05/07/20 15 34969-LTXE SKIN LESIONS, OVER 4 08/03/20 15 40303-HTBS SKIN LESIONS, OVER 4 02/01/20 16 40465-BTKW SKIN LESIONS, OVER 4 11/02/19 16 16966-CLNM SKIN LESIONS, OVER 4 08/22/19 17 42282-KVXW SKIN LESIONS, OVER 4 05/09/20 16 63471-ATIP SKIN LESIONS, OVER 4 11/22/19 17 12672-FQTV SKIN LESIONS, OVER 4 02/21/20 17 95604-KCQF SKIN LESIONS, OVER 4 01/25/20 07545-DABK SKIN LESIONS, OVER 4 01/31/20 23 87168-OORP SKIN LESIONS, OVER 4 07/25/20 22 46985-VNZW SKIN LESIONS, OVER 4 07/12/20 21 00883-KJIA SKIN LESIONS, OVER 4 01/05/20 21 39924-GOMT SKIN LESIONS, OVER 4 10/01/19 21 71917-TZJH SKIN LESIONS, OVER 4 04/13/20 20 40581-WRZN SKIN LESIONS, OVER 4 12/30/19 20 82018-UBXL SKIN LESIONS, OVER 4 10/07/19 20 88535-RXMU SKIN LESIONS, OVER 4 03/25/20 19 37187-WKUX SKIN LESIONS, OVER 4 12/25/19 19 72528-QHLN SKIN LESIONS, OVER 4 09/24/19 19 65898-GADB SKIN LESIONS, OVER 4 06/11/20 18 64678-BUWB SKIN LESIONS, OVER 4 03/12/20 18 70325-NBAC SKIN LESIONS, OVER 4 05/29/20 17 48316-OVEJ SKIN LESIONS, OVER 4 08/03/20 23 21950-JTCF SKIN LESIONS, OVER 4 02/01/20 24 59341-CPDS SKIN LESIONS, OVER 4 09/04/19 18 16102-VWSF SKIN LESIONS, OVER 4 12/05/19 18 28648-IBCL SKIN LESIONS, OVER 4 07/01/20 Next Appt Details Provider Name:Carrie Lerma , 01/27/2025 03:00:00 PM, [address] [place], [address], Insurance Providers Payer Name Payer Address Payer Phone Subscriber Number Group Number Insured Name Patient Relationship to Insured Coverage Start Date Coverage End Date [employer] [address] [place] [address] [id number] Myla Dunn Self - patient is the insured Medical (General) History Medical History History ICD Code Diabetic Measles Mumps Chicken pox Atrial fibrillation Surgical History Surgery Date(Month/Year) heart surgery hole in heart 09/2007
--- OUTSIDE RECORDS SUMMARY | 2024-12-06 11:18 | XMS_ITS ---
Author Organization [facility] Address [address] [place] [address] Care Team Providers Care Publishing Editor Name Role Phone Abdulaziz Stewart MD Primary Care Provider Unavaila ble Black, Carrie Unavailable [phone] Allergies No Known Allergies REASON FOR VISIT [...] Ordered Date Performed Result Body Sit e 25114-CRTBZKB NAIL, 6 OR MORE 02/01/2024 N/A 97707-PWJG SKIN LESIONS, OVER 4 02/01/2024 N/A Encounters Encounter Location Date Provider Diagnosis [facility] [place] [address] [place] [address] 02/01/2024 Carrie Black Type 2 diabetes mellitus [...] 02/01/2024 Pending Test Test Name Order Date 73280-CXENEBP NAIL, 6 OR MORE 02/01/2024 38150-CKLD SKIN LESIONS, OVER 4 02/01/20 24 Next Appt Details Follow Up: prn, Reason: Provider Name:Carrie Lerma , 01/27/2025 03:00:00 PM, [address] [place], [address], Procedure Notes * Category Sub-Category Detail Notes [...] as necessary. Patient chooses, no pharmaceutical tx (31460) Keratoma Treatment Parring or Cutting o f Benign Hyperkeratotic Lesion(s) 45733 ( >4 Lesions) - The Benign hyperkeratotic lesions, as described above were pared, and/or cut utilizing a sterile #15 blade, tissue nippers, and/or dremel Progress Notes * Kita VENEGASeDOB:[birth year] (63 yo F)Acc No.[id number]:02/01/2024 Progress Note Patient:?Kita Venegas Provider:?Carrie LermaCELSO :1960???Age:63 Y???Sex:Female D ate:02/01/2024 Address:[address] [place], [place] [id number] Pcp:Abdulaziz Stewart MD Subjective: * Chief Complaints: [...] management (4)? Plan: * Treatment: 2.?Tinea unguium?Procedure: 47825-DDSDMDI NAIL, 6 OR MORE 3.?Tinea pedis of [...] as necessary. Patient chooses, no pharmaceutical tx (89263).?Keratoma Treatment:?Parring or Cutting of Benign Hyperkeratotic Lesion(s)?16545 ( >4 Lesions) - The Benign hyperkeratotic lesions, as described above were pared, and/or cut utilizing a sterile #15 blade, tissue nippers, and/or dremel.? * Procedure Codes:?71103 DEBRI DE NAIL, 6 OR MORE, Modifiers: XS 30680 TRIM SKIN LESIONS, OVER 4, Modifiers: XS [...] Lerma DPM Date:?2023 Generated for Martinez estrada/Jim/Leaitting on:?12/06/2024 11:18 AM EDT History and Physical Notes * HPI [...]
--- OUTSIDE RECORDS SUMMARY | 2024-12-06 11:18 | XMS_ITS ---
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] Provider Name:Carrie Lerma , 01/27/2025 03:00:00 PM, [address] [place] [address], [address], Procedure Notes * Category Sub-Category Detail Notes [...] use of a nail nipper and/or dremel-type profile grinder, to a more viable healthy nail [...] to maintain effectiveness in symptomatic relief - 74886 Keratoma Treatment Parring or Cutting o f [...] instrumentation by the physician of record - 31082 Progress Notes * Kita VENEGASeDOB:[birth year] (64 yo F)Acc No.[id number]:07/29/2024 Progress Note Patient:?Kita VENEGAS Provider:?Carrie Lerma DPM :1960???Age:64 Y???Sex:Female D ate:07/29/2024 Address:[address] [place], [place] [id number] Pcp:Abdulaziz Stewart MD Subjective: * Chief Complaints: [...] use of a nail nipper and/or dremel-type profile grinder, to a more viable healthy nail [...] to maintain effectiveness in symptomatic relief - 06204.?Keratoma Treatment:?Parring or Cutting of Benign Hyperkeratotic Lesion(s)?(-57) [...] instrumentation by the physician of record - 68443.? * Procedure Codes:?32798 DEBRI DE NAIL, 6 OR MORE, Modifiers: XS 58586 TRIM SKIN LESIONS, OVER 4, Modifiers: XS [...] Lerma DPM Date:?2023 Generated for Martinez estrada/Jim/Rosalio on:?12/06/2024 11:18 AM EDT History and Physical [...] B/L , approximately 80 percent LESS Orthopedic FOOTWEAR EVALUATION: worn, non-s upportive, shoe gear properties exacerbate patient's foot/toe deformity [...]
--- OUTSIDE RECORDS SUMMARY | 2024-12-06 11:18 | XMS_ITS ---
Author Organization [facility] Address [address] [place] [address] Care Team Providers Care Fraternity Adviser Name Role Phone Abdulaziz Stewart MD Primary Care Provider Unavaila ble Black, Carrie Unavailable [phone] Allergies No Known Allergies REASON FOR VISIT [...] Ordered Date Performed Result Body Sit e 02540-WOETREC NAIL, 6 OR MORE 08/03/2023 N/A 08098-Wwvqgjim Plate 08/03/2023 N/A 18295-NRCG SKIN LESIONS, OVER 4 08/03/2023 N/A Encounters Encounter Location Date Provider Diagnosis [facility] [place] [address] [place] [address] 08/03/2023 Carrie Black Type 2 diabetes mellitus [...] Treatment Pending Test Test Name Order Date 20876-FHXWVVA NAIL, 6 OR MORE 08/03/2023 05619-Kznqjryn Plate 08/03/2023 93225-LCXV SKIN LESIONS, OVER 4 08/03/20 23 Next Appt Details Follow Up: 2 Weeks, Reason: Provider Name:Carrie Lerma , 01/27/2025 03:00:00 PM, [address] [facility], [place], [address], Procedure Notes * Category Sub-Category Detail Notes [...] Motrin was recommended for pain or discomfort (95972) Anesthesia was deferred - NEURO SMITH: patient [...] as necessary. Patient chooses, no pharmaceutical tx (61425) Keratoma Treatment Parring or Cutting o f Benign Hyperkeratotic Lesion(s) 62165 ( >4 Lesions) - The Benign hyperkeratotic lesions, as described above were pared, and/or cut utilizing a sterile #15 blade, tissue nippers, and/or dremel Progress Notes * Jenna VENEGASOB:[birth year] (63 yo F)Acc No.[id number]:08/03/2023 Progress Note Patient:?Kita Venegas Provider:?Carrie Lerma DPM :1960???Age:63 Y???Sex:Female D ate:08/03/2023 Address:[address] [facility] Pcp:Abdulaziz Stewart MD Subjective: * Chief Complaints: [...] - L60.0? Plan: * Treatment: 2.?Tinea unguium?Procedure: 79440-QHHUHUR NAIL, 6 OR MORE 3.?Ingrowing nail?Procedure: 91634-Abarrjmw Plate * Procedures:?Debride Nail 6-10:?Nail debridement?Nail debridement performed extensively to reduce/remove overall nail length and girth, subungual debris, and necrotic tissue, by manual and electrical means with use of a nail nipper and/or dremel, to more viable healthy nail plate or bed tissue 6-10. Silver nitrate used for any petechial bleeding as necessary. Patient chooses, no pharmaceutical tx (21352).?Keratoma Treatment:?Parring or Cutting of Benign Hyperkeratotic Lesion(s)?39244 ( >4 Lesions) - The Benign hyperkeratotic [...] Motrin was recommended for pain or discomfort (64192).? * Procedure Codes:?28781 DEBRI DE NAIL, 6 OR MORE, Modifiers: XS 27175 Avulsion Plate, Modifiers: T5 57102 TRIM SKIN LESIONS, OVER 4, Modifiers: XS * Follow Up:?2 Weeks * Images: * Sign off status: Completed true * Provider:?Carrie Lerma DPM Date:?2022 Generated for Martinez estrada/Jim/Rosalio on:?12/06/2024 11:17 AM EDT History and Physical Notes * [...]
[2024-12-06 11:56] LABS: Prothrombin Time Whole Bld POC 32.2 sec (11.1-13.5); ~PT, ~INR - Anti Coag Clinic 2.7 (0.9-1.1)
== END 2024-12-06 11:14 | disposition home or self-care (01) ==
LOC: HO.ACS 10:39
PROVIDERS: PCP Physician Assistant; Visit Provider Internal Medicine Medical Oncology
DX: Z79.01 Long term (current) use of anticoagulants (principal)

== ENCOUNTER → 2024-12-06 10:39 | Outpatient (BNVA) | payer OTHER, SELFPAY | PROVIDERS: PCP Physician Assistant; Visit Provider Internal Medicine Medical Oncology | DX: I48.20 Chronic atrial fibrillation, unspecified (principal); Z51.81 Encounter for therapeutic drug level monitoring; Z79.01 Long term (current) use of anticoagulants | CPT/HCPCS: 85610; 99211 ==

== ENCOUNTER 2025-01-03 14:30 | Outpatient (AMB) | payer OTHER, SELFPAY ==
--- OUTSIDE RECORDS SUMMARY | 2025-01-03 14:32 | XMS_ITS ---
Author Organization [facility] Address [address] [place] [address] Care Team Providers Care Pre Sales Systems Engineer Name Role Phone Abdulaziz Stewart MD Primary Care Provider Unavaila ble Black, Carrie Unavailable [phone] Allergies No Known Allergies REASON FOR VISIT [...] Ordered Date Performed Result Body Sit e 05527-OIZDYTE NAIL, 6 OR MORE 08/03/2023 N/A 96072-Iqlkvzes Plate 08/03/2023 N/A 54838-GJBL SKIN LESIONS, OVER 4 08/03/2023 N/A Encounters Encounter Location Date Provider Diagnosis [facility] [place] [address] [place] [address] 08/03/2023 Carrie Black Type 2 diabetes mellitus [...] Treatment Pending Test Test Name Order Date 51818-MSESEQR NAIL, 6 OR MORE 08/03/2023 38540-Jbqhckia Plate 08/03/2023 78307-TFUT SKIN LESIONS, OVER 4 08/03/20 23 Next Appt Details Follow Up: 2 Weeks, Reason: Provider Name:Carrie Lerma , 01/27/2025 03:00:00 PM, [address] [facility], [place], [address], Procedure Notes * Category Sub-Category Detail Notes [...] Motrin was recommended for pain or discomfort (95182) Anesthesia was deferred - NEURO SMITH: patient [...] as necessary. Patient chooses, no pharmaceutical tx (49039) Keratoma Treatment Parring or Cutting o f Benign Hyperkeratotic Lesion(s) 91308 ( >4 Lesions) - The Benign hyperkeratotic lesions, as described above were pared, and/or cut utilizing a sterile #15 blade, tissue nippers, and/or dremel Progress Notes * Jenna VENEGASOB:[birth year] (63 yo F)Acc No.[id number]:08/03/2023 Progress Note Patient:?Kita Venegas Provider:?Carrie Lerma DPM :1960???Age:63 Y???Sex:Female D ate:08/03/2023 Address:[address] [facility] [place] Pcp:Abdulaziz Stewart MD Subjective: * Chief Complaints: [...] - L60.0? Plan: * Treatment: 2.?Tinea unguium?Procedure: 28967-IOJBZRV NAIL, 6 OR MORE 3.?Ingrowing nail?Procedure: 18733-Tpvfgxdl Plate * Procedures:?Debride Nail 6-10:?Nail debridement?Nail debridement performed extensively to reduce/remove overall nail length and girth, subungual debris, and necrotic tissue, by manual and electrical means with use of a nail nipper and/or dremel, to more viable healthy nail plate or bed tissue 6-10. Silver nitrate used for any petechial bleeding as necessary. Patient chooses, no pharmaceutical tx (13479).?Keratoma Treatment:?Parring or Cutting of Benign Hyperkeratotic Lesion(s)?84094 ( >4 Lesions) - The Benign hyperkeratotic [...] Motrin was recommended for pain or discomfort (09489).? * Procedure Codes:?84098 DEBRI DE NAIL, 6 OR MORE, Modifiers: XS 57648 Avulsion Plate, Modifiers: T5 70680 TRIM SKIN LESIONS, OVER 4, Modifiers: XS * Follow Up:?2 Weeks * Images: * Sign off status: Completed true * Provider:?Carrie Lerma DPM Date:?2022 Generated for Martinez estrada/Jim/Rosalio on:?01/03/2025 02:32 PM EDT History and Physical Notes * [...]
[2025-01-03 14:45] LABS: Prothrombin Time Whole Bld POC 32.5 sec (11.1-13.5); ~PT, ~INR - Anti Coag Clinic 2.7 (0.9-1.1)
--- NOTE | 2025-01-03 14:52 | MHC.OFFVISCO ---
Intake Intake Visit Reasons: Anticoagulation Allergies Penicillins Allergy (Severe, Verified 01/03/25 14:38) Diarrhea enoxaparin Adverse Reaction (Intermediate, Verified 01/03/25 14:38) Hives, leg swelling Medication List - Last Reconciled 01/03/25 by Melyssa Kimball RN cholecalciferol (vitamin D3) 25 mcg PO DAILY ciclopirox 0.77% topical diltiazem HCl CD 180 mg PO DAILY furosemide 20 mg PO DAILY metformin ER mg PO metoprolol succinate ER 25 mg PO BID potassium chloride ER 10 mEq PO DAILY simvastatin 10 mg PO BEDTIME warfarin 5 mg See Protocol PO DAILY warfarin See Protocol 7.5MG MWF/ 3.75MG X4DAYS; on odd numbered days Nursing Note INR: 2.7 in therapeutic range Medications and supplements reviewed No changes in health, diet, medications, or supplements, Denies any signs and symptoms of bleeding or bruising or clotting. Bleeding, bruising, clotting discussed Nutritional guidance given Dose: 7.5MG X 2 DAYS/ 5MG X 5 DAYS F/U INR: 1 MONTH Patient verbalizes understanding of instructions given Anti-Coag Initial Assessment Social Hx Patient Tobacco Use Status: Never used Tobacco Coding Level of Care Code Est Patient Level 1 Diagnoses Current use of anticoagulant therapy Z79.01 Results AMB INR Fingerstick AMB INR Fingerstick 2.7 Last Edit by Melyssa Kimball RN on 01/03/25 14:45 manual entry Assessment & Plan Assessment & Plan (1) Current use of anticoagulant therapy: Code(s): Z79.01 - detention (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
== END 2025-01-03 14:53 | disposition home or self-care (01) ==
LOC: HO.ACS 14:30
PROVIDERS: PCP Physician Assistant; Visit Provider Internal Medicine Medical Oncology
DX: Z79.01 Long term (current) use of anticoagulants (principal)

== ENCOUNTER → 2025-01-03 14:30 | Outpatient (BNVA) | payer OTHER, SELFPAY | PROVIDERS: PCP Physician Assistant; Visit Provider Internal Medicine Medical Oncology | DX: I48.20 Chronic atrial fibrillation, unspecified (principal); Z51.81 Encounter for therapeutic drug level monitoring; Z79.01 Long term (current) use of anticoagulants | CPT/HCPCS: 85610; 99211 ==

== ENCOUNTER 2025-01-07 14:31 | Outpatient (AMB) | payer OTHER, SELFPAY ==
--- NOTE | 2025-01-07 14:34 | MHC.PC.OV ---
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 Accompanied by: Self / Same As Patient Allergies Penicillins Allergy (Severe, Verified 01/07/25 14:34) Diarrhea enoxaparin Adverse Reaction (Intermediate, Verified 01/07/25 14:34) Hives, leg swelling Medication List - Last Reconciled 01/07/25 by WILDER Conde blood sugar diagnostic ([email or web address] Ultra Test strips) Check POC BID blood-glucose meter ([email or web address] Ultra2 Meter) Check POC BID cholecalciferol (vitamin D3) 25 mcg PO DAILY ciclopirox 0.77% topical diltiazem HCl CD 180 mg PO DAILY furosemide 20 mg PO DAILY lancets ([email or web address] UltraSoft 2 Lancet) Check POC BID metformin ER mg PO metoprolol succinate ER 25 mg PO BID potassium chloride ER 10 mEq PO DAILY simvastatin 10 mg PO BEDTIME warfarin 5 mg See Protocol PO DAILY warfarin See Protocol 7.5MG MWF/ 3.75MG X4DAYS; on odd numbered days HPI HPI Comments History of Present Illness Details 64-year-old female with history of chronic atrial fibrillation, hypertension, chronic HFpEF, hyperlipidemia, and class 2 obesity presents to the office today for management of chronic conditions and to establish care. Type 2 diabetes-not currently checking her sugars. Last hemoglobin A1c 8.5%. Reports compliance with metformin. She does report overall she has the following a diabetic diet, though does seem to be heavy with carbohydrates in the morning. Up-to-date with eye exams. Hypertension-blood pressure in the office 108/58. Compliant with metoprolol 25 mg ER twice daily, Lasix 20 mg, diltiazem 180 mg daily. Follows low-sodium diet Chronic atrial fibrillation-following with Dr. Valdivia. History of cardioversion. Has failed rhythm control. Rate controlled with metoprolol and diltiazem which she is compliant with. Compliant with Coumadin, last INR 2.7, therapeutic. No bleeding or easy bruisability. Chronic right-sided heart failure-denies any significant edema, dyspnea on exertion, orthopnea. No chest pains. Continues on Lasix 20 mg daily. Last echocardiogram 02/2023 showed preserved ejection fraction 55%, with moderately increased right ventricular cavity size and mild to moderately decreased right ventricular systolic function. Class 2 obesity-BMI 37.7, has been working on weight loss. She walks regularly on a daily basis. Reports following a healthy diet. Has lost 2 lb since last visit. Last mammogram-05/2024, negative for malignancy. Last colonoscopy-11/2021, tubular adenoma seen in the cecum without any high-grade dysplasia or carcinoma. Also traditional serrated adenoma of the rectum negative for high-grade dysplasia or carcinoma Last PAP smear-overdue ROS: General: No fevers, malaise, unintentional weight loss HEENT: No blurred vision, diplopia Cardiovascular: No chest pain, palpitations, or leg edema Respiratory: No shortness of breath, wheezing, cough Neuro: No headaches Skin: No rashes or lesions EXAM: Constitutional - Awake and Alert, No apparent distress Eyes - PERRLA, EOMI Cardiovascular - S1S2, irregularly irregular rhythm, rate controlled, 1+ ble edema Respiratory - Normal lung expansion, Normal respiratory effort, No respiratory distress, CTA bilaterally Extremities - no calf tenderness bilaterally, no swelling Skin - Warm/Dry Neurological - Alert & oriented x3 Psychological - Appropriate affect [facility] Medical History (Updated 08/19/24 @ 08:59 by Delfino Matt MD) History of cardioversion On anticoagulant therapy On beta kathrine at home Biatrial enlargement Chronic atrial fibrillation Heart failure, unspecified Diabetes HTN (hypertension) Morbid obesity Surgical History (Updated 12/05/24 @ 08:12 by Sun Rey) History of colonoscopy (~12/10/21) History of placement of ear tubes History of tonsillectomy Status post atrial septal defect repair Family History Father No problems noted. 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 1. Little interest or pleasure in doing things: not at all 2. Feeling down, depressed, or hopeless: not at all 3. Trouble falling or staying asleep, or sleeping too much: not at all 4. Feeling tired or having little energy: not at all 5. Poor appetite or overeating: not at all 6. Feeling bad about yourself - or that you are a failure or have let yourself or your family down: not at all 7. Trouble concentrating on things, such as reading the newspaper or watching television: not at all 8. Moving or speaking so slowly that other people could have noticed. Or the opposite - being so fidgety or restless that you have been moving around a lot more than usual: not at all 9. Thoughts that you would be better off or of hurting yourself in some way: not at all Total score: 0 Source: Developed by Drs. Adam Albrecht, Yasemin Cameron, Cecilio Lantigua and colleagues, with an educational christiano from [employer]. Thrive Questionnaire I am a: Patient What is your living situation today?: I have a steady place to live Within the past 12 months, did the food you bought not last and you didn't have the money to get more?: Never true Within the past 12 months, did you worry whether your food would run out before you got money to buy more?: Never true Do you have trouble paying for medicines?: No Do you have trouble getting transportation to medical appointments?: No Do you have trouble paying your heating and electricity bill?: No Do you have trouble taking care of your child, family member or friend?: No Do you have trouble with day-to-day activities such as bathing, preparing meals, shopping, managing finances, etc.?: No Are you currently unemployed and looking for a job?: No Are you interested in more education?: No Please select the resources that you would like help with: None THRIVE Score: 0 GASTON-7 AMB Questionnaire GASTON-7 Feeling nervous, anxious, or on edge: 0 = Not at all Not being able to stop or control worryin = Not at all Worrying too much about different things: 0 = Not at all Trouble relaxin = Not at all Being so restless that it is hard to sit still: 0 = Not at all Becoming easily annoyed or irritable: 0 = Not at all Feeling afraid as if something awful might happen: 0 = Not at all Total GASTON-7 score (0-4 normal; 5-9 mild; 10-14 moderate; 15-21 severe): 0 Source: Developed by Drs. Adam Albrecht, Yasemin Cameron, Cecilio Lantigua and colleagues, with an educational christiano from [employer]. Physical exam (Primary Care) Vital Signs: Last Vital Signs Temp 96.9 F 01/07/25 14:39 Pulse 68 01/07/25 14:39 Resp 18 01/07/25 14:39 BP 108/58 L 01/07/25 14:39 Pulse Ox 95 01/07/25 14:39 Oxygen Delivery Method Room Air 01/07/25 14:39 BMI result Body Mass Index 37.7 Tobacco/Smoking Status: Tobacco use Status Patient Tobacco Use Status Never used Tobacco 01/07/25 14:41 Coding Level of Care Code New Pt Level 4 (74354) Complex EM visit Add On G2211 Diagnoses HTN (hypertension) I10 Diabetes E11.9 Chronic atrial fibrillation I48.20 Heart failure, unspecified I50.9 Assessment & Plan Assessment & Plan (1) HTN (hypertension): Code(s): I10 - Essential (primary) hypertension Category: Medical Plan: Controlled with blood pressure 108/58. Continue metoprolol 25 mg ER twice daily, diltiazem 180 mg daily, furosemide. Low-sodium diet. (2) Diabetes: Code(s): E11.9 - Type 2 diabetes mellitus without complications Category: Medical Plan: Uncontrolled with last hemoglobin A1c 8.5%, updated hemoglobin A1c ordered for today. She will continue metformin, dose to be adjusted pending results of studies. She is counseled on diabetic diet. Glucometer and supplies ordered with recommendation to test twice daily including fasting glucose in the morning. Continue with annual eye and foot exams. (3) Chronic atrial fibrillation: Comment: Has failed rhythm control approach Code(s): I48.20 - Chronic atrial fibrillation, unspecified Category: Medical Plan: Rate controlled. History of cardioversion and failed rhythm control approach. Continue Coumadin for anticoagulation. Continue following with [facility], last INR 2.7, therapeutic. Continue diltiazem 180 mg daily and metoprolol 25 mg ER twice daily for rate control. Follow-up with Dr. Valdivia as scheduled. (4) Heart failure, unspecified: Code(s): I50.9 - Heart failure, unspecified Category: Medical Plan: Clinically euvolemic. Reviewed last echocardiogram, EF 55%. Continue Lasix 20 mg daily. Counseled on low-sodium diet and fluid restrictions. Recommend daily weights. Follow-up with Dr. Valdivia as scheduled. Plan Follow-up in 3 months. Labs to be completed prior to visit as well as today. Due for Pap smear. Colonoscopy and mammogram up-to-date. Follow-up with cardiology as scheduled. Continue following with the [facility]. Orders: Orders Complete Blood Count Auto Diff Today E11.9 - Type 2 diabetes mellitus without complications, I10 - Essential (primary) hypertension, I48.20 - Chronic atrial fibrillation, unspecified, I50.9 - Heart failure, unspecified Liver Panel Today E11.9 - Type 2 diabetes mellitus without complications, I10 - Essential (primary) hypertension, I48.20 - Chronic atrial fibrillation, unspecified, I50.9 - Heart failure, unspecified Basic Metabolic Panel 6 Months E11.9 - Type 2 diabetes mellitus without complications, I10 - Essential (primary) hypertension, I48.20 - Chronic atrial fibrillation, unspecified, I50.9 - Heart failure, unspecified, Z79.01 - snf (current) use of anticoagulants Lipid Panel 6 Months E11.9 - Type 2 diabetes mellitus without complications, I10 - Essential (primary) hypertension, I48.20 - Chronic atrial fibrillation, unspecified, I50.9 - Heart failure, unspecified, Z79.01 - snf (current) use of anticoagulants Basic Metabolic Panel Today E11.9 - Type 2 diabetes mellitus without complications, I10 - Essential (primary) hypertension, I48.20 - Chronic atrial fibrillation, unspecified, I50.9 - Heart failure, unspecified Hemoglobin A1c Today E11.9 - Type 2 diabetes mellitus without complications, I10 - Essential (primary) hypertension, I48.20 - Chronic atrial fibrillation, unspecified, I50.9 - Heart failure, unspecified Lipid Panel Today E11.9 - Type 2 diabetes mellitus without complications, I10 - Essential (primary) hypertension, I48.20 - Chronic atrial fibrillation, unspecified, I50.9 - Heart failure, unspecified Microalbumin, Random (w Creat) Today E11.9 - Type 2 diabetes mellitus without complications, I10 - Essential (primary) hypertension, I48.20 - Chronic atrial fibrillation, unspecified, I50.9 - Heart failure, unspecified Hemoglobin A1c 6 Months E11.9 - Type 2 diabetes mellitus without complications, I10 - Essential (primary) hypertension, I48.20 - Chronic atrial fibrillation, unspecified, I50.9 - Heart failure, unspecified, 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
--- OUTSIDE RECORDS SUMMARY | 2025-01-07 14:34 | XMS_ITS ---
Author Organization [facility] Address [address] [place] [address] Care Team Providers Care Automotive Parts Specialist Name Role Phone Abdulaziz Stewart MD Primary Care Provider Unavaila ble Black, Carrie Unavailable [phone] Allergies No Known Allergies REASON FOR VISIT [...] Ordered Date Performed Result Body Sit e 20743-YKHZYHQ NAIL, 6 OR MORE 08/03/2023 N/A 97422-Imtcotcf Plate 08/03/2023 N/A 98943-IICL SKIN LESIONS, OVER 4 08/03/2023 N/A Encounters Encounter Location Date Provider Diagnosis [facility] [place] [address] [place] [address] 08/03/2023 Carrie Black Type 2 diabetes mellitus [...] Treatment Pending Test Test Name Order Date 85721-IOGSZJL NAIL, 6 OR MORE 08/03/2023 28201-Mhydunel Plate 08/03/2023 11997-HEWF SKIN LESIONS, OVER 4 08/03/20 23 Next Appt Details Follow Up: 2 Weeks, Reason: Provider Name:Carrie Lerma , 01/27/2025 03:00:00 PM, [address] [facility], [place], [address], Procedure Notes * Category Sub-Category Detail Notes [...] Motrin was recommended for pain or discomfort (52694) Anesthesia was deferred - NEURO SMITH: patient [...] as necessary. Patient chooses, no pharmaceutical tx (29406) Keratoma Treatment Parring or Cutting o f Benign Hyperkeratotic Lesion(s) 05488 ( >4 Lesions) - The Benign hyperkeratotic lesions, as described above were pared, and/or cut utilizing a sterile #15 blade, tissue nippers, and/or dremel Progress Notes * Jenna VENEGASOB:[birth year] (63 yo F)Acc No.[id number]:08/03/2023 Progress Note Patient:?Kita Venegas Provider:?Carrie Lerma DPM :1960???Age:63 Y???Sex:Female D ate:08/03/2023 Address:[address] [facility] [place] Pcp:Abdulaziz Stewart MD Subjective: * Chief Complaints: [...] - L60.0? Plan: * Treatment: 2.?Tinea unguium?Procedure: 44151-SBDZZSE NAIL, 6 OR MORE 3.?Ingrowing nail?Procedure: 84573-Bgmtgnzb Plate * Procedures:?Debride Nail 6-10:?Nail debridement?Nail debridement performed extensively to reduce/remove overall nail length and girth, subungual debris, and necrotic tissue, by manual and electrical means with use of a nail nipper and/or dremel, to more viable healthy nail plate or bed tissue 6-10. Silver nitrate used for any petechial bleeding as necessary. Patient chooses, no pharmaceutical tx (66651).?Keratoma Treatment:?Parring or Cutting of Benign Hyperkeratotic Lesion(s)?06773 ( >4 Lesions) - The Benign hyperkeratotic [...] Motrin was recommended for pain or discomfort (18250).? * Procedure Codes:?01990 DEBRI DE NAIL, 6 OR MORE, Modifiers: XS 61400 Avulsion Plate, Modifiers: T5 46427 TRIM SKIN LESIONS, OVER 4, Modifiers: XS * Follow Up:?2 Weeks * Images: * Sign off status: Completed true * Provider:?Carrie Lerma DPM Date:?2022 Generated for Martinez estrada/Jim/Rosalio on:?01/07/2025 02:34 PM EDT History and Physical Notes * [...]
[2025-01-07 14:39] VITALS: BP 108/58; PULSE 68; RESP 18; TEMP 36.1; O2SAT 95; BMI 37.7
== END 2025-01-07 15:03 | disposition home or self-care (01) ==
LOC: HO.HMCHD 14:32
PROVIDERS: PCP Physician Assistant; Visit Provider Physician Assistant
DX: I10 Essential (primary) hypertension (principal); E11.9 Type 2 diabetes mellitus without complications; I48.20 Chronic atrial fibrillation, unspecified; I50.9 Heart failure, unspecified

== ENCOUNTER 2025-01-10 07:50 | Outpatient (REF) | payer OTHER, SELFPAY ==
[2025-01-10 08:16] LABS: MANUAL DIFF FLAG NO
[2025-01-10 09:04] LABS: Basophils Absolute Auto 0.1 X10*3/uL (0.0-0.2); Basophils Percent Auto 0.9 % (0-2); Eosinophils Absolute Auto 0.2 X10*3/uL (0.0-0.4); Eosinophils Percent Auto 4.3 % (0-4); Hematocrit 40.3 % (37.0-47.0); Hemoglobin 13.1 g/dl (12.0-16.0); Imm Gran Abs Auto 0.01 X10*3/uL (0.00-0.03); Imm Gran Pct Auto 0.2 % (0.0-0.4); Lymphocytes Absolute Auto 1.3 X10*3/uL (1.2-4.9); Lymphocytes Percent Auto 23.7 % (20-40); Mean Corpuscular HGB Conc 32.5 g/dl (31.0-35.0); Mean Corpuscular Hemoglobin 29.1 pg (27.0-33.0); Mean Corpuscular Volume 89.6 fL (80.0-98.0); Mean Platelet Volume 9.3 fL (9.4-12.3); Monocytes Absolute Auto 0.5 X10*3/uL (0.1-1.2); Monocytes Percent Auto 9.5 % (2-11); Neutrophils Absolute Auto 3.3 x10*3/uL (2.0-8.3); Neutrophils Percent Auto 61.4 % (45-73); Platelet Count 276 X10*3/uL (160-400); Red Cell Distribution Width 13.1 % (11.0-16.0); White Blood Count 5.4 X10*3/uL (4.8-10.8)
[2025-01-10 09:12] LABS: Estimated Average Glucose 206 mg/dL; Hemoglobin A1c % 8.8 % (<6.0)
[2025-01-10 09:40] LABS: Alanine Aminotransferase 14 U/L (0-31); Alkaline Phosphatase 62 U/L (39-117); Anion Gap 13 (12-20); Aspartate Amino Transferase 25 U/L (5-31); Bilirubin Direct 0.5 mg/dL (0.0-0.5); Bilirubin Total 1.2 mg/dL (0.0-1.0); Blood Urea Nitrogen 19 mg/dL (9-16); Calcium 9.4 mg/dL (8.4-10.2); Carbon Dioxide 24 mmol/L (22-29); Chloride 107 mmol/L (96-108); Cholesterol 115 mg/dL (<200); Estimated Glomerular Filt Rate > 60; Glucose Random 192 mg/dL (60-115); HDL Cholesterol 50 mg/dL (>40); LDL Cholesterol Calculated 57 mg/dL (<100); Potassium 4.2 mmol/L (3.3-5.1); Sodium 140 mmol/L (135-145); Triglycerides 44 mg/dL (<150)
[2025-01-10 10:02] LABS: Creatinine Urine 105.25 mg/dL; Microalbum/Creatinine Ratio Ur 10.4 ug/mg cr (<30)
== END 2025-01-10 07:51 | disposition home or self-care (01) ==
LOC: HO.LAB 07:50
PROVIDERS: PCP Physician Assistant; Visit Provider Physician Assistant
DX: I10 Essential (primary) hypertension (principal); E11.9 Type 2 diabetes mellitus without complications; I50.9 Heart failure, unspecified; I48.20 Chronic atrial fibrillation, unspecified
CPT/HCPCS: 36415; 80048; 80061; 80076; 82043; 82570; 83036; 85025

== ENCOUNTER 2025-01-31 14:36 | Outpatient (AMB) | payer OTHER, SELFPAY ==
--- OUTSIDE RECORDS SUMMARY | 2025-01-31 14:38 | XMS_ITS | Patient Health Record ---
Author Organization [facility] Address [address] [place] [address] Care Team Providers Care Solutions Engineer Name Role Phone Tomas Jaja Primary Care Provider Unavailabl e Black, Carrie Unavailable [phone] Allergies No Known Allergies Reason For Referral No Information Medications Medication SIG (Take, Route, Frequency, Duration) Notes Start Date End Date Status Ciclopirox 0.77 % 1 application to affected area Externally Twice a day to effected nails for 30 days Active Klor-Con 10 10 MEQ 1 tablet Orally Four times a day Active B Complex Orally Active Ciclopirox Olamine 0.77% external Apply to effected areas twice a day for 30 days 11/21/2016 Not-Taking Ciclopirox Olamine 0.77 % 1 application [...] a day for 30 days 02/06/2014 Not-Taking metFORMIN HCl ER (OSM) 500 MG 1 tablet with evening meal Orally Once a day X2 a day Active Extra-Depth Diabetic Shoes with 3 Pair Custom heat-molded multi-density innersoles . for 1 year . Dx:hammertoes and calloused lesions for . 02/23/2015 Not-Taking Vitamin D 1000 UNIT 1 tablet Orally Once a day Active Amiodarone HCl 100 MG 1 tablet Orally Once a day Not-Taking Extra Depth Orthopedic Shoes (1 Pair) with Customized Heat Molded Multidensity Innersoles (3 Pair) as directed Dx: NIDDM/Polyneuropathy (E11.42), Hammertoe Foot Deformity (M20.41,M20.42), Preulcerative Skin Lesion(s) (L85.1 Active Simvastatin 10 MG 1 tablet in the evening Orally Once a day Active Aspirin Adult Low Strength 81 MG 1 tablet Orally Once a day Not-Taking Immunizations Vaccine Route Administration Date Status Comme nts Influenza Unknown 06/29/2015 Administered Influenza Unknown 05/30/2016 Administered Influenza Unknown 06/18/2018 Administered Influenza Unknown 07/15/2019 Administered Influenza Unknown 07/14/2020 Administered Influenza Unknown 06/25/2021 Administered Influenza Unknown 07/14/2023 Administered Influenza Unknown 05/14/2024 Administered Pneumococcal Unknown 08/22/2016 Refused Social History [...] Problem Acquired hammer toe of right foot ([id number] ) Other hammer toe(s) (acquired), right foot (M20.41) Active confirmed Problem Acquired hammer toe of left foot ([id number] ) Other hammer toe(s) (acquired), left foot (M20.42) Active confirmed Problem Polyneuropathy due to type 2 diabetes mellitus (091053683) Type 2 diabetes mellitus with diabetic polyneuropathy (E11.42) Active confirmed Vital Signs Blood pressure diastolic 60 mm Hg 01/27/2025 Height 5ft3in in 01/27/2025 Blood pressure systolic 130 mm Hg 01/27/2025 Weight 245 lbs 01/27/2025 BMI 43.4 kg/m2 01/27/2025 Procedures Procedure Date Ordered Date Performed Result Body Sit e 20771-VBHCCKK NAIL, 6 OR MORE 02/01/2024 N/A 28249-HFQF SKIN LESIONS, OVER 4 02/01/2024 N/A 13526-MBEQIPN NAIL, 6 OR MORE 01/27/2025 N/A 91317-NLEM SKIN LESIONS, OVER 4 01/27/2025 N/A Encounters Encounter Location Date Provider Diagnosis [facility] [address] [address] 02/01/2024 Carrie Black Type 2 diabetes mellitus with diabetic polyneuropathy E11.42 ; Tinea unguium B35.1 ; Ingrowing nail L60.0 and Tinea pedis of both feet B35.[address] [facility] [address] 07/29/2024 Carrie Black Type 2 diabetes mellitus with diabetic polyneuropathy E11.42 ; Tinea unguium B35.1 ; Tinea pedis of both feet B35.3 ; Other hammer toe(s) (acquired), right foot M20.41 and Other hammer toe(s) (acquired), left foot M20.[address] [facility] [address] 01/27/2025 Carrie Black Type 2 diabetes mellitus with diabetic polyneuropathy E11.42 ; Tinea unguium B35.1 ; Other hammer toe(s) (acquired), right foot M20.41 and Other hammer toe(s) (acquired), left foot M20.42 [facility] [place] [address] [place] [address] 01/27/2025 Carrie Lerma Assessments Encounter Date Diagnosis (ICD Code) Assessment Notes Treatment Notes Treatment Clinical Notes Section Notes 02/01/2024 Type 2 diabetes mellitus with diabetic polyneuropathy (ICD-10 - E11.42) 07/29/2024 Type 2 diabetes mellitus with diabetic polyneuropathy (ICD-10 - E11.42) 07/29/2024 Tinea unguium (ICD-10 - B35.1) 01/27/2025 Type 2 diabetes mellitus with diabetic polyneuropathy (ICD-10 - E11.42) 01/27/2025 Tinea unguium (ICD-10 - B35.1) 07/29/2024 Tinea pedis of both feet (ICD-10 - B35.3) 01/27/2025 Other hammer toe(s) (acquired), right foot (ICD-10 - M20.41) Patient Educated with: DIABETIC FOOT CARE INSTRUCTIONS. pdf (DIABETIC FOOT CARE INSTRUCTIONS. pdf) 02/01/2024 Tinea unguium (ICD-10 - B35.1) 02/01/2024 Ingrowing nail (ICD-10 - L60.0) 01/27/2025 Other hammer toe(s) (acquired), left foot (ICD-10 - M20.42) 07/29/2024 Other hammer toe(s) (acquired), right foot (ICD-10 - M20.41) Patient Educated with: DIABETIC FOOT CARE INSTRUCTIONS. pdf (DIABETIC FOOT CARE INSTRUCTIONS. pdf) 07/29/2024 Other hammer toe(s) (acquired), left foot (ICD-10 - M20.42) 02/01/2024 Tinea pedis of both feet (ICD-10 - B35.3) Plan Of Treatment Pending Test Test Name Order Date Hemoglobin A1c 07/14/2015 60663-WXRGOVY NAIL, 6 OR MORE 01/24/2022 81570-KMACFBD NAIL, 6 OR MORE 01/30/2023 28349-RINGRML NAIL, 6 OR MORE 07/25/2022 01215-CLLMNXO NAIL, 6 OR MORE 08/03/2023 83840-WMFKAHG NAIL, 6 OR MORE 02/01/2024 36099-LTBWQCK NAIL, 6 OR MORE 01/27/2025 06874-JFJUJTZ NAIL, 6 OR MORE 11/04/2013 10880-SUCQYHI NAIL, 6 OR MORE 02/06/2014 04116-QZJDRDZ NAIL, 6 OR MORE 05/12/2014 79843-PAFDPUE NAIL, 6 OR MORE 08/25/2014 37471-ANRYJDM NAIL, 6 OR MORE 12/15/2014 39605-TTICSBK NAIL, 6 OR MORE 02/23/2015 17748-PVAMSAT NAIL, 6 OR MORE 05/07/2015 47393-GBWLLKG NAIL, 6 OR MORE 08/03/2015 01035-SFDOGWE NAIL, 6 OR MORE 11/02/2015 93810-LBPSJQE NAIL, 6 OR MORE 02/01/2016 02440-MKGYJDY NAIL, 6 OR MORE 05/09/2016 06125-KSAKQFC NAIL, 6 OR MORE 08/22/2016 74888-CEAKEZG NAIL, 6 OR MORE 11/21/2016 66059-JIVHAUS NAIL, 6 OR MORE 02/20/2017 03710-OKDUKWJ NAIL, 6 OR MORE 05/29/2017 29153-NYEUMRE NAIL, 6 OR MORE 09/04/2017 27721-OQFURUA NAIL, 6 OR MORE 12/04/2017 04992-VEZFVLX NAIL, 6 OR MORE 03/12/2018 73895-VJKHKTH NAIL, 6 OR MORE 06/11/2018 78614-NVSUSLZ NAIL, 6 OR MORE 09/24/2018 05934-EDMXHOZ NAIL, 6 OR MORE 12/24/2018 13153-EXCGGMK NAIL, 6 OR MORE 03/25/2019 09328-DPSTDYE NAIL, 6 OR MORE 07/01/2019 31846-FSRKJFG NAIL, 6 OR MORE 10/07/2019 21135-OPDWPCO NAIL, 6 OR MORE 12/30/2019 81019-AMIHVXZ NAIL, 6 OR MORE 04/13/2020 50962-LKURPVI NAIL, 6 OR MORE 10/01/2020 74195-HKTQMSY NAIL, 6 OR MORE 01/04/2021 56784-QETYXAW NAIL, 6 OR MORE 07/12/2021 47107-Yxohcrpw Plate 11/21/2016 49017-Wpvigpen Plate 08/22/2016 64589-Mfkmhwca Plate 05/07/2015 04280-Skkkflbl Plate 02/23/2015 13100-Afhvvrtf Plate 05/12/2014 04779-Qcgpmopg Plate 12/15/2014 00022-Lifbwfnt Plate 08/25/2014 01887-Neezcmfl Plate 05/09/2016 18921-Exsaagsm Plate 01/30/2023 13610-Bawbseyb Plate 08/03/2023 48396-Hutcypze Plate 07/12/2021 12600-Wzbiayhw Plate Each Additional 99606-Vjlndcsy Plate Each Additional 98926- Debride <25 sq cm 12/15/2014 09594- Debride <25 sq cm 08/25/2014 65435-GGON SKIN LESIONS, OVER 4 02/24/20 15 97282-WSFQ SKIN LESIONS, OVER 4 12/16/19 15 86474-OWNC SKIN LESIONS, OVER 4 11/05/19 14 65374-KTSW SKIN LESIONS, OVER 4 08/25/19 15 23330-RIDK SKIN LESIONS, OVER 4 05/12/20 14 05743-SFWQ SKIN LESIONS, OVER 4 02/07/20 14 76820-QZEI SKIN LESIONS, OVER 4 05/07/20 15 78831-IEKB SKIN LESIONS, OVER 4 08/03/20 15 95245-MGKO SKIN LESIONS, OVER 4 02/01/20 16 66343-HQBE SKIN LESIONS, OVER 4 11/02/19 16 74866-VZME SKIN LESIONS, OVER 4 08/22/19 17 85478-UABI SKIN LESIONS, OVER 4 05/09/20 16 51437-QPUS SKIN LESIONS, OVER 4 11/22/19 17 76897-VVMD SKIN LESIONS, OVER 4 02/21/20 17 64148-SCMO SKIN LESIONS, OVER 4 07/12/20 21 75623-WMQS SKIN LESIONS, OVER 4 01/05/20 21 27707-SWWA SKIN LESIONS, OVER 4 10/01/19 21 12167-FONY SKIN LESIONS, OVER 4 04/13/20 20 44419-NQBE SKIN LESIONS, OVER 4 12/30/19 20 40787-BJKI SKIN LESIONS, OVER 4 10/07/19 20 27477-YWKT SKIN LESIONS, OVER 4 07/01/20 19 18029-YIFO SKIN LESIONS, OVER 4 03/25/20 19 66428-ACYL SKIN LESIONS, OVER 4 12/25/19 19 51905-CLXB SKIN LESIONS, OVER 4 09/24/19 19 12601-HCWE SKIN LESIONS, OVER 4 06/11/20 18 94180-DDLJ SKIN LESIONS, OVER 4 03/12/20 18 48967-QDRT SKIN LESIONS, OVER 4 12/05/19 18 11900-IBMJ SKIN LESIONS, OVER 4 09/04/19 18 94735-AQCT SKIN LESIONS, OVER 4 05/29/20 17 33165-NQRE SKIN LESIONS, OVER 4 01/25/20 26881-ELXE SKIN LESIONS, OVER 4 07/25/20 61617-WPUO SKIN LESIONS, OVER 4 08/03/20 23 70794-CKQO SKIN LESIONS, OVER 4 01/28/20 25 00776-UUHY SKIN LESIONS, OVER 4 02/01/20 24 68752-ZHIL SKIN LESIONS, OVER 4 01/31/20 Next Appt Details Provider Name:Carrie Lerma , 07/21/2025 03:30:00 PM, [address] [place], [address], Insurance Providers Payer Name Payer Address Payer Phone Subscriber Number Group Number Insured Name Patient Relationship to Insured Coverage Start Date Coverage End Date [employer] [address] [place] [address] [id number] Myla Dunn Self - patient is the insured Medical (General) History Medical History History ICD Code Diabetic Measles Mumps Chicken pox Atrial fibrillation Surgical History Surgery Date(Month/Year) heart surgery hole in heart 09/2007
[2025-01-31 14:46] LABS: Prothrombin Time Whole Bld POC 30.1 sec (11.1-13.5); ~PT, ~INR - Anti Coag Clinic 2.5 (0.9-1.1)
--- NOTE | 2025-01-31 14:47 | MHC.OFFVISCO ---
Intake Intake Visit Reasons: Anticoagulation Allergies Penicillins Allergy (Severe, Verified 01/31/25 14:39) Diarrhea enoxaparin Adverse Reaction (Intermediate, Verified 01/31/25 14:39) Hives, leg swelling Medication List - Last Reconciled 01/31/25 by Fernanda Sierra, RN blood sugar diagnostic ([employer] SpineTouch Ultra Test strips) Check POC BID blood-glucose meter (OneTouch Ultra2 Meter) Check POC BID cholecalciferol (vitamin D3) 25 mcg PO DAILY ciclopirox 0.77% topical diltiazem HCl CD 180 mg PO DAILY furosemide 20 mg PO DAILY lancets ([employer] SpineTouch UltraSoft 2 Lancet) Check POC BID metformin ER mg PO metoprolol succinate ER 25 mg PO BID potassium chloride ER 10 mEq PO DAILY simvastatin 10 mg PO BEDTIME warfarin 5 mg See Protocol PO DAILY warfarin See Protocol 7.5MG MWF/ 3.75MG X4DAYS; on odd numbered days Nursing Note INR: 2.5 in therapeutic range of 2-3 Medications and supplements reviewed No changes in health, diet, medications, or supplements, Denies any signs and symptoms of bleeding or bruising or clotting. 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
== END 2025-01-31 14:53 | disposition home or self-care (01) ==
LOC: HO.ACS 14:36
PROVIDERS: PCP Physician Assistant; Visit Provider Internal Medicine Medical Oncology
DX: Z79.01 Long term (current) use of anticoagulants (principal)

== ENCOUNTER → 2025-01-31 14:36 | Outpatient (BNVA) | payer OTHER, SELFPAY | PROVIDERS: PCP Physician Assistant; Visit Provider Internal Medicine Medical Oncology | DX: I48.20 Chronic atrial fibrillation, unspecified (principal); Z51.81 Encounter for therapeutic drug level monitoring; Z79.01 Long term (current) use of anticoagulants | CPT/HCPCS: 85610; 99211 ==

== ENCOUNTER 2025-02-28 10:09 | Outpatient (AMB) | payer OTHER, SELFPAY ==
[2025-02-28 10:15] LABS: Prothrombin Time Whole Bld POC 31.3 sec (11.1-13.5); ~PT, ~INR - Anti Coag Clinic 2.6 (0.9-1.1)
--- NOTE | 2025-02-28 10:16 | MHC.OFFVISCO ---
Intake Intake Visit Reasons: Anticoagulation Allergies Penicillins Allergy (Severe, Verified 02/28/25 10:11) Diarrhea enoxaparin Adverse Reaction (Intermediate, Verified 02/28/25 10:11) Hives, leg swelling Medication List - Last Reconciled 02/28/25 by Fernanda Sierra, RN blood sugar diagnostic (Deal In CityTouch Ultra Test strips) Check POC BID blood-glucose meter (OneTouch Ultra2 Meter) Check POC BID cholecalciferol (vitamin D3) 25 mcg PO DAILY ciclopirox 0.77% topical diltiazem HCl CD 180 mg PO DAILY furosemide 20 mg PO DAILY lancets (Deal In CityTouch UltraSoft 2 Lancet) Check POC BID metformin ER 500 mg PO DAILY metoprolol succinate ER 25 mg PO BID potassium chloride ER 10 mEq PO DAILY simvastatin 10 mg PO BEDTIME warfarin See Protocol 7.5MG MWF/ 3.75MG X4DAYS; on odd numbered days warfarin 5 mg See Protocol PO DAILY Nursing Note INR: 2.6 in therapeutic range of 2-3 Medications and supplements reviewed No changes in health, diet, medications, or supplements, Denies any signs and symptoms of bleeding or bruising or clotting. Bleeding, bruising, clotting discussed Nutritional guidance given Dose: 5mg X 5 days and 7.5mg X 2 days F/U INR: 4 weeks Patient verbalizes understanding of instructions given Anti-Coag Initial Assessment Social Hx Patient Tobacco Use Status: Never used Tobacco Coding Level of Care Code Est Patient Level 1 Diagnoses Current use of anticoagulant therapy Z79.01 Assessment & Plan Assessment & Plan (1) Current use of anticoagulant therapy: Code(s): Z79.01 - USP (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
--- OUTSIDE RECORDS SUMMARY | 2025-02-28 10:29 | XMS_ITS | Patient Health Record ---
Author Organization [facility] Address [address] [place] [address] Care Team Providers Care Internet Cafe Manager Name Role Phone Pat (RETIRED) Abdulaziz GUERRERO Primary Care Provide r Unavailable Adam Morales Unavailable [phone] Allergies No Known Allergies Reason For Referral [...] Problem Status W/U Status Risk Notes Problem [id number] Encounter for screening for malignant neoplasm of colon (Z12.11) Active confirmed Problem [id number] Preprocedural examination (Z01.818) Active confirmed Problem Diverticulosis of colon (588684319) Diverticulosis of colon (K57.30) Active confirmed Problem [id number] group home curren t use of anticoagulant (Z79.01) Active confirmed Plan Of Treatment Pending Test Test Name Order Date Pathology 12/10/2021 Future Test Test Name Order Date COLONOSCOPY 11/03/2021 Insurance Providers Payer Name Payer Address Payer Phone Subscriber Number Group Number Insured Name Patient Relationship to Insured Coverage Start Date Coverage End Date [facility] [address] [place] [place] [place] [address] [id number] SAVANNA VENEGAS Self - patient is the insured Medical (General) History Medical History History ICD Code High cholesterol Afib Denies CO,CVA,Lung disease,renal disease NIDDM Surgical History Surgery Date(Month/Year) Open heart surgery for a PFO 2007 Ear tubes Tonsils
--- OUTSIDE RECORDS SUMMARY | 2025-02-28 10:29 | XMS_ITS | Patient Health Record ---
Author Organization [facility] Address [address] [place] [address] Care Team Providers Care District Manager Name Role Phone Jaja Marin Primary Care Provider Unavailabl e Black, Carrie Unavailable [phone] Allergies No Known Allergies Reason For Referral No Information Medications Medication SIG (Take, Route, Frequency, Duration) Notes Start Date End Date Status Ciclopirox 0.77 % 1 application to affected area Externally Twice a day to effected nails; Duration: 30 days Active Klor-Con 10 10 MEQ 1 tablet Orally Four times a day Active B Complex Orally Active Ciclopirox Olamine 0.77% external Apply to effected areas twice a day; Duration: 30 days 11/21/2016 Not-Taking Ciclopirox Olamine 0.77 % 1 application to affected area Externally Twice a day; Duration: 30 days 12/04/2017 Not-Taking Extra-Depth Diabetic Shoes with 3 Pair Custom heat-molded multi-density innersoles . for 1 year . 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 11/04/2013 Active Warfarin Sodium 5 MG 1 tablet Orally Two times a Week 7.5 Fridays only Active dilTIAZem HCl ER 180 MG Orally Once a day Active Furosemide 20 MG 1 tablet Orally Once a day Active Metoprolol Succinate ER 25 MG 1 tablet Orally Once a day Active Ciclopirox Olamine 0.77% external Apply to effected areas twice a day; Duration: 30 days 02/06/2014 Not-Taking metFORMIN HCl ER (OSM) 500 MG 1 tablet with evening meal Orally Once a day X2 a day Active Extra-Depth Diabetic Shoes with 3 Pair Custom heat-molded multi-density innersoles . for 1 year . Dx:hammertoes and calloused lesions; Duration: . 02/23/2015 Not-Taking Vitamin D 1000 UNIT [...] Problem Acquired hammer toe of right foot ([id number] ) Other hammer toe(s) (acquired), right foot (M20.41) Active confirmed Problem Acquired hammer toe of left foot (9820856110388811 ) Other hammer toe(s) (acquired), left foot (M20.42) Active confirmed Problem Polyneuropathy due to type 2 diabetes mellitus (289998305) Type 2 diabetes mellitus with diabetic polyneuropathy (E11.42) Active confirmed Vital Signs Blood pressure diastolic 60 mm Hg 01/27/2025 Height 5ft3in in 01/27/2025 Blood pressure systolic 130 mm Hg 01/27/2025 Weight 245 lbs 01/27/2025 BMI 43.4 kg/m2 01/27/2025 Procedures Procedure Date Ordered Date Performed Result Body Sit e 07696-MKLYMNB NAIL, 6 OR MORE 01/27/2025 N/A 23556-JOTR SKIN LESIONS, OVER 4 01/27/2025 N/A Encounters Encounter Location Date Provider Diagnosis [address] [address] 07/29/2024 Carrie Black Type 2 diabetes mellitus with diabetic polyneuropathy E11.42 ; Tinea unguium B35.1 ; Tinea pedis of both feet B35.3 ; Other hammer toe(s) (acquired), right foot M20.41 and Other hammer toe(s) (acquired), left foot M20.[address] [address] 01/27/2025 Carrie Black Type 2 diabetes mellitus with diabetic polyneuropathy E11.42 ; Tinea unguium B35.1 ; Other hammer toe(s) (acquired), right foot M20.41 and Other hammer toe(s) (acquired), left foot M20.[address] [address] 01/27/2025 Carrie Black Assessments Encounter Date Diagnosis (ICD Code) Assessment [...] INSTRUCTIONS. pdf (DIABETIC FOOT CARE INSTRUCTIONS. pdf) 01/27/2025 Other hammer toe(s) (acquired), left foot (ICD-10 - M20.42) 07/29/2024 Other hammer toe(s) (acquired), right foot (ICD-10 - M20.41) Patient Educated with: DIABETIC FOOT CARE INSTRUCTIONS. pdf (DIABETIC FOOT CARE INSTRUCTIONS. pdf) 07/29/2024 Other hammer toe(s) (acquired), left foot (ICD-10 - M20.42) Plan Of Treatment Pending Test Test Name Order Date Hemoglobin A1c 07/14/2015 65346-GUNWPEK NAIL, 6 OR MORE 01/24/2022 38462-IVSTJBN NAIL, 6 OR MORE 01/30/2023 93751-JFEKQFI NAIL, 6 OR MORE 07/25/2022 21948-YSOOOQG NAIL, 6 OR MORE 08/03/2023 29717-RXRLHSQ NAIL, 6 OR MORE 02/01/2024 47847-RWEINIO NAIL, 6 OR MORE 01/27/2025 94788-EFWBFNJ NAIL, 6 OR MORE 11/04/2013 30718-IGYUPIN NAIL, 6 OR MORE 02/06/2014 12850-CGOLLSD NAIL, 6 OR MORE 05/12/2014 36601-RTWUANI NAIL, 6 OR MORE 08/25/2014 43482-DHYUKBV NAIL, 6 OR MORE 12/15/2014 45266-YESAJPR NAIL, 6 OR MORE 02/23/2015 49496-BVWCHQJ NAIL, 6 OR MORE 05/07/2015 67318-AEIMXJH NAIL, 6 OR MORE 08/03/2015 78801-MZLIIKY NAIL, 6 OR MORE 11/02/2015 45853-MZPPWTO NAIL, 6 OR MORE 02/01/2016 79532-QXOJGTG NAIL, 6 OR MORE 05/09/2016 57868-GGERAPU NAIL, 6 OR MORE 08/22/2016 12753-QKVFIHB NAIL, 6 OR MORE 11/21/2016 36688-JKEWAZM NAIL, 6 OR MORE 02/20/2017 27951-BMZVLWC NAIL, 6 OR MORE 05/29/2017 21866-QUSZSDA NAIL, 6 OR MORE 09/04/2017 55304-NTFFTKP NAIL, 6 OR MORE 12/04/2017 51896-ZTEYTRB NAIL, 6 OR MORE 03/12/2018 04885-OETTEII NAIL, 6 OR MORE 06/11/2018 46216-GVJVNXG NAIL, 6 OR MORE 09/24/2018 37316-VWKNERO NAIL, 6 OR MORE 12/24/2018 47034-RVOQJRU NAIL, 6 OR MORE 03/25/2019 21559-GPKXGTF NAIL, 6 OR MORE 07/01/2019 30399-SJIYAET NAIL, 6 OR MORE 10/07/2019 82616-SADKNJT NAIL, 6 OR MORE 12/30/2019 09643-TZTFTZU NAIL, 6 OR MORE 04/13/2020 22182-TIBQNQU NAIL, 6 OR MORE 10/01/2020 90839-FHLVSSO NAIL, 6 OR MORE 01/04/2021 76133-CFAIFAZ NAIL, 6 OR MORE 07/12/2021 18416-Airpytnv Plate 11/21/2016 37860-Ghcdopin Plate 08/22/2016 31171-Hytmdwxg Plate 05/07/2015 23963-Ncwebfxl Plate 02/23/2015 20642-Wikttmtb Plate 05/12/2014 55468-Lbivzorh Plate 12/15/2014 28590-Tpivpoxt Plate 08/25/2014 75510-Xulfhtiq Plate 05/09/2016 63352-Lcfzmkkl Plate 01/30/2023 03832-Hklaupnb Plate 08/03/2023 03064-Dievxqgp Plate 07/12/2021 91449-Tumfzdxr Plate Each Additional 41177-Jpvghnom Plate Each Additional 88143- Debride <25 sq cm 12/15/2014 34634- Debride <25 sq cm 08/25/2014 47441-KBLZ SKIN LESIONS, OVER 4 02/24/20 15 50164-JJKN SKIN LESIONS, OVER 4 12/16/19 15 13814-DPDQ SKIN LESIONS, OVER 4 11/05/19 14 97943-DRFE SKIN LESIONS, OVER 4 08/25/19 15 53959-ZTBQ SKIN LESIONS, OVER 4 05/12/20 14 46739-NCKK SKIN LESIONS, OVER 4 02/07/20 14 51971-XSQK SKIN LESIONS, OVER 4 05/07/20 15 69316-PZEP SKIN LESIONS, OVER 4 08/03/20 15 90302-UAEP SKIN LESIONS, OVER 4 02/01/20 16 20366-NDEQ SKIN LESIONS, OVER 4 11/02/19 16 89748-LITC SKIN LESIONS, OVER 4 08/22/19 17 28895-JQIV SKIN LESIONS, OVER 4 05/09/20 16 02947-JVMO SKIN LESIONS, OVER 4 11/22/19 17 96967-PTGE SKIN LESIONS, OVER 4 02/21/20 17 45812-JRMB SKIN LESIONS, OVER 4 07/12/20 21 24656-ARRT SKIN LESIONS, OVER 4 01/05/20 21 97634-SAWS SKIN LESIONS, OVER 4 10/01/19 21 79171-EJAS SKIN LESIONS, OVER 4 04/13/20 20 81193-CQIH SKIN LESIONS, OVER 4 12/30/19 20 74080-GQFW SKIN LESIONS, OVER 4 10/07/19 20 51578-JUBX SKIN LESIONS, OVER 4 07/01/20 19 27915-MFPP SKIN LESIONS, OVER 4 03/25/20 19 91835-SLWC SKIN LESIONS, OVER 4 12/25/19 19 82185-KDDY SKIN LESIONS, OVER 4 09/24/19 19 64940-NNXF SKIN LESIONS, OVER 4 06/11/20 18 70937-OGHE SKIN LESIONS, OVER 4 03/12/20 18 41667-SENE SKIN LESIONS, OVER 4 12/05/19 18 86246-BLFR SKIN LESIONS, OVER 4 09/04/19 18 67457-AVHT SKIN LESIONS, OVER 4 05/29/20 17 93247-PTUN SKIN LESIONS, OVER 4 01/25/20 08135-CSEA SKIN LESIONS, OVER 4 07/25/20 17043-PNJI SKIN LESIONS, OVER 4 08/03/20 23 57791-ADRH SKIN LESIONS, OVER 4 01/28/20 25 28357-LTLR SKIN LESIONS, OVER 4 02/01/20 24 78801-KDFZ SKIN LESIONS, OVER 4 01/31/20 Next Appt Details Provider Name:Carrie Lerma , 07/21/2025 03:30:00 PM, [address] [place], [address], Insurance Providers Payer Name Payer Address Payer Phone Subscriber Number Group Number Insured Name Patient Relationship to Insured Coverage Start Date Coverage End Date [employer] [address] [place] [address] [id number] Myla Dunn Self - patient is the insured Medical (General) History Medical History History ICD Code Diabetic Measles Mumps Chicken pox Atrial fibrillation Surgical History Surgery Date(Month/Year) heart surgery hole in heart 09/2007
== END 2025-02-28 10:22 | disposition home or self-care (01) ==
LOC: HO.ACS 10:09
PROVIDERS: PCP Physician Assistant; Visit Provider Internal Medicine Medical Oncology
DX: Z79.01 Long term (current) use of anticoagulants (principal)

== ENCOUNTER → 2025-02-28 10:09 | Outpatient (BNVA) | payer OTHER, SELFPAY | PROVIDERS: PCP Physician Assistant; Visit Provider Internal Medicine Medical Oncology | DX: I48.20 Chronic atrial fibrillation, unspecified (principal); Z79.01 Long term (current) use of anticoagulants; Z51.81 Encounter for therapeutic drug level monitoring | CPT/HCPCS: 85610; 99211 ==

== ENCOUNTER 2025-03-18 19:20 | Emergency (ER) | payer OTHER, SELFPAY ==
--- NOTE | ~2025-03-18 | XR_ITS ---
CLINICAL HISTORY: pain, swelling s p fall, on coumadin Left knee four views Comparison: None provided Findings: No acute fracture or dislocation noted. No significant joint effusion identified. Chondrocalcinosis consistent with CPPD. Degenerative change with joint space loss. Prepatellar soft tissue edema noted. No soft tissue foreign body. Impression: CPPD with degenerative change Prepatellar soft tissue edema No acute bony abnormality This document has been electronically signed by: Garrett Candelario MD on 03/18/2025 20:36:36
[2025-03-18 20:02] LABS: MANUAL DIFF FLAG NO
[2025-03-18 20:03] LABS: Hematocrit 37.6 % (37.0-47.0); Hemoglobin 12.5 g/dl (12.0-16.0); Imm Gran Abs Auto 0.02 X10*3/uL (0.00-0.03); Imm Gran Pct Auto 0.3 % (0.0-0.4); Lymphocytes Absolute Auto 1.3 X10*3/uL (1.2-4.9); Mean Corpuscular HGB Conc 33.2 g/dl (31.0-35.0); Mean Corpuscular Hemoglobin 29.4 pg (27.0-33.0); Mean Corpuscular Volume 88.5 fL (80.0-98.0); NRBC Abs Auto 0.000 X10*3/uL (0.0-0.012); NRBC Pct Auto 0.0 /100WBC (0.0-0.2); Platelet Count 277 X10*3/uL (160-400); Red Blood Count 4.25 X10*6/uL (4.20-5.50); White Blood Count 6.0 X10*3/uL (4.8-10.8)
[2025-03-18 20:14] LABS: Anion Gap 14 (12-20); Blood Urea Nitrogen 12 mg/dL (9-16); Calcium 9.4 mg/dL (8.4-10.2); Carbon Dioxide 27 mmol/L (22-29); Chloride 102 mmol/L (96-108); Estimated Glomerular Filt Rate > 60; Potassium 4.3 mmol/L (3.3-5.1); Sodium 139 mmol/L (135-145)
[2025-03-18 20:20] VITALS: BP 110/69; PULSE 68; RESP 18; TEMP 36.6; O2SAT 95; BMI 36.9
--- NOTE | 2025-03-18 20:23 | ED.LOWEXIN ---
HPI - Extremity Injury (Lower) General Chief Complaint: General Medical Stated Complaint: L knee pain/swellling s/p fall 03/11 - on Coumadin Time Seen by Provider: 03/18/25 23:35 Source: patient Mode of arrival: ambulatory Limitations: no limitations History of Present Illness ED Provider: HPI Narrative: Patient apparently fell a week ago landed on her left knee had a superficial abrasion ambulatory without significant pain but for last 2 days has noticed increased redness around the abrasion area and swelling of the left leg patient is on Coumadin for history of paroxysmal AFib INR was 3.420 patient denied any significant swelling or knee pain no fever no chills Related Data Home Medications ?Medication ?Instructions ?Recorded ?Confirmed diltiazem HCl 180 mg 180 mg PO DAILY 07/21/20 02/28/25 capsule,extended release 24 hr potassium chloride 10 mEq 10 meq PO DAILY 07/21/20 02/28/25 tablet,extended release(part/cryst) simvastatin 10 mg tablet 10 mg PO BEDTIME 07/21/20 02/28/25 cholecalciferol (vitamin D3) 25 25 mcg PO DAILY 12/20/21 02/28/25 mcg (1,000 unit) capsule ciclopirox 0.77 % topical gel topical 08/23/24 02/28/25 Previous Rx's ?Medication ?Instructions ?Recorded blood-glucose meter (OneTouch #1 ea 01/07/25 Ultra2 Meter) lancets 30 gauge (OneTouch #200 ea 01/07/25 UltraSoft 2 Lancet) furosemide 20 mg tablet 20 mg PO DAILY #90 tabs 02/05/25 metformin 500 mg tablet,extended 500 mg PO DAILY #90 tabs 02/05/25 release 24 hr metoprolol succinate 25 mg 25 mg PO BID #180 tabs 02/05/25 tablet,extended release 24 hr warfarin 5 mg tablet 5 mg PO DAILY #90 tabs 02/05/25 warfarin 7.5 mg tablet See Rx Instructions .Route 02/05/25 .COMPLEX #90 tabs blood sugar diagnostic (OneTouch #100 ea 02/24/25 Ultra Test strips) cephalexin 500 mg capsule 500 mg PO QID 10 days #40 caps 03/19/25 doxycycline hyclate 100 mg tablet 100 mg PO BID #20 tabs 03/19/25 Allergies Allergy/AdvReac Type Severity Reaction Status Date / Time Penicillins Allergy Severe Diarrhea Verified 03/20/25 14:52 enoxaparin AdvReac Intermediate Hives, leg Verified 03/20/25 14:52 swelling Review of Systems Review of Systems: Yes all other systems are reviewed and are negative [facility] Past Medical History Medical History History of cardioversion On anticoagulant therapy On beta kathrine at home Biatrial enlargement Chronic atrial fibrillation Heart failure, unspecified Diabetes HTN (hypertension) Morbid obesity Surgical History History of colonoscopy (~12/10/21) History of placement of ear tubes History of tonsillectomy Status post atrial septal defect repair Family History Family History Father No problems noted. 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 Oriented X3. No acute distress. Eyes: no pallor or icterus ENT: Pharynx normal Oral Mucosa moist tympanic membrane intact no erythema, Neck: Normal inspection. Neck supple. CVS: Normal heart rate and rhythm. Pulses normal. Respiratory: No respiratory distress. Equal air entry bilateral, no wheezing/rales/rhonchi Abd: soft, not tender Skin: Skin warm and dry. r. Normal skin turgor. Extremities: Fullness and swelling of the left calf area, Franck s sign neg superficial abrasion with surrounding cellulitis of the prepatellar area no knee effusion good range of movement Neuro: Oriented X 3. Course Course Course Narrative: This is a Rapid Medical Examination (RME) performed by Uan Hoffmann PA-C in triage. Full HPI, ROS, assessment and treatment plan per primary provider in the Main ED. 65 yo female with history of afib on Coumadin, DM, CHF, morbid obesity who presents to the ER for evaluation of left knee pain and swelling s/p fall 1 onto the knee 1 week ago. developed right lower leg swelling, redness and pain yesterday. unknown last INR. has small area of eschar on the left knee with surrounding erythema. left lower leg is erythematous, warm, with pitting edema. Plan: XR knee, INR, labs Medications Administered Discontinued Medications Generic Name Dose Route Start Last Admin Trade Name Freq PRN Reason Stop Dose Admin Cefazolin Sodium 1 gm 03/18/25 23:57 03/19/25 00:09 Cefazolin Sodium 1 Gm Vial IVPUSH 03/18/25 23:58 1 gm ONCE ONE Administration Doxycycline Monohydrate 100 mg 03/18/25 23:57 03/19/25 00:09 Doxycycline Monohydrate 100 Mg Capsule PO 03/18/25 23:58 100 mg ONCE ONE Administration Medical Decision Making Medical Decision Making [facility] Narrative: Patient with knee cellulitis from the abrasion which happened 1 week ago will give her Ancef 2 g and p.o. dog sudden advised to follow with PCP or report to the ER in 2 days to recheck the wound patient's labs are stable INR 3.4 Lab Data [facility] Lab Attestation statement: I reviewed the patient's lab results. 03/18/25 19:52 03/18/25 19:52 Labs: Lab Results 03/18/25 Range/Units 19:52 WBC 6.0 (4.8-10.8) X10*3/uL RBC 4.25 (4.20-5.50) X10*6/uL Hgb 12.5 (12.0-16.0) g/dl Hct 37.6 (37.0-47.0) % MCV 88.5 (80.0-98.0) fL MCH 29.4 (27.0-33.0) pg MCHC 33.2 (31.0-35.0) g/dl RDW 12.6 (11.0-16.0) % Plt Count 277 (160-400) X10*3/uL MPV 9.0 L (9.4-12.3) fL Immature Gran % (Auto) 0.3 (0.0-0.4) % Neut % (Auto) 64.3 (45-73) % Lymph % (Auto) 22.5 (20-40) % [place] % (Auto) 9.2 (2-11) % Eos % (Auto) 2.9 (0-4) % Baso % (Auto) 0.8 (0-2) % Lymph # (Auto) 1.3 (1.2-4.9) X10*3/uL [place] # (Auto) 0.6 (0.1-1.2) X10*3/uL Eos # (Auto) 0.2 (0.0-0.4) X10*3/uL Baso # (Auto) 0.1 (0.0-0.2) X10*3/uL Abs Immat Gran (auto) 0.02 (0.00-0.03) X10*3/uL Absolute Neuts (auto) 3.8 (2.0-8.3) x10*3/uL Absolute Nucleated RBC 0.000 (0.0-0.012) X10*3/uL Nucleated RBC % (auto) 0.0 (0.0-0.2) /100WBC PT 38.5 H (10.9-12.4) SEC INR 3.4 H (0.9-1.1) Sodium 139 (135-145) mmol/L Potassium 4.3 (3.3-5.1) mmol/L Chloride 102 (96-108) mmol/L Carbon Dioxide 27 (22-29) mmol/L Anion Gap 14 (12-20) BUN 12 (9-16) mg/dL Creatinine 0.59 (0.5-1.4) mg/dL Estim Creat Clear Calc TNP Estimated GFR > 60 Random Glucose 227 H (60-115) mg/dL Calcium 9.4 (8.4-10.2) mg/dL Discharge Plan Discharge Clinical Impression: Cellulitis of left leg Patient Disposition: Home, Self-Care Instructions: Cellulitis (ED) Additional Instructions: Local care as advised Take antibiotic as prescribed Report to the ER if worsening of the redness or pain in the knee or high fever Recheck of the wound in 2 days Keep your left leg elevated Prescriptions: New cephalexin 500 mg capsule 500 mg PO QID 10 Days Qty: 40 0RF doxycycline hyclate 100 mg tablet 100 mg PO BID Qty: 20 0RF No Action furosemide 20 mg tablet 20 mg PO DAILY Qty: 90 1RF metformin 500 mg tablet extended release 24 hr 500 mg PO DAILY Qty: 90 1RF metoprolol succinate 25 mg tablet extended release 24 hr 25 mg PO BID Qty: 180 1RF warfarin 5 mg tablet 5 mg PO DAILY Qty: 90 0RF Protocol: Dose Management Condition: Monday (Week One) Dose/Route: 5 mg Instruction: 1 x 5 mg tablet Condition: Monday Dose/Route: 7.5 mg Instruction: 1 x 7.5 mg tablet Condition: Monday Dose/Route: 5 mg Instruction: 1 x 5 mg tablet Condition: Monday Dose/Route: 5 mg Instruction: 1 x 5 mg tablet Condition: Dose/Route: 7.5 mg Instruction: 1 x 7.5 mg tablet Condition: Monday Dose/Route: 5 mg Instruction: 1 x 5 mg tablet Condition: Monday Dose/Route: 5 mg Instruction: 1 x 5 mg tablet Condition: Monday (Week Two) Dose/Route: 5 mg Instruction: 1 x 5 mg tablet Condition: Monday Dose/Route: 7.5 mg Instruction: 1 x 7.5 mg tablet Condition: Monday Dose/Route: 5 mg Instruction: 1 x 5 mg tablet Condition: Monday Dose/Route: 5 mg Instruction: 1 x 5 mg tablet Condition: Dose/Route: 7.5 mg Instruction: 1 x 7.5 mg tablet Condition: Monday Dose/Route: 5 mg Instruction: 1 x 5 mg tablet Condition: Monday Dose/Route: 5 mg Instruction: 1 x 5 mg tablet Protocol Text: Adjustment Start Date: Monday02/28/25 INR Value: Pending INR Date: 02/28/25 Recheck Date: 03/28/25 warfarin 7.5 mg tablet See Rx Instructions .ROUTE .COMPLEX Qty: 90 0RF Protocol: Dose Management Condition: Monday (Week One) Dose/Route: 5 mg Instruction: 1 x 5 mg tablet Condition: Monday Dose/Route: 7.5 mg Instruction: 1 x 7.5 mg tablet Condition: Monday Dose/Route: 5 mg Instruction: 1 x 5 mg tablet Condition: Monday Dose/Route: 5 mg Instruction: 1 x 5 mg tablet Condition: Dose/Route: 7.5 mg Instruction: 1 x 7.5 mg tablet Condition: Monday Dose/Route: 5 mg Instruction: 1 x 5 mg tablet Condition: Monday Dose/Route: 5 mg Instruction: 1 x 5 mg tablet Condition: Monday (Week Two) Dose/Route: 5 mg Instruction: 1 x 5 mg tablet Condition: Monday Dose/Route: 7.5 mg Instruction: 1 x 7.5 mg tablet Condition: Monday Dose/Route: 5 mg Instruction: 1 x 5 mg tablet Condition: Monday Dose/Route: 5 mg Instruction: 1 x 5 mg tablet Condition: Dose/Route: 7.5 mg Instruction: 1 x 7.5 mg tablet Condition: Monday Dose/Route: 5 mg Instruction: 1 x 5 mg tablet Condition: Monday Dose/Route: 5 mg Instruction: 1 x 5 mg tablet Protocol Text: Adjustment Start Date: Monday02/28/25 INR Value: Pending INR Date: 02/28/25 Recheck Date: 03/28/25 Rx Instructions: 7.5MG MWF/ 3.75MG X4DAYS; on odd numbered days (DME) OneTouch Ultra Test Strip See Rx Instructions .Route Qty: 100 1RF Rx Instructions: Check POC BID diltiazem HCl 180 mg capsule,extended release 24hr 180 mg PO DAILY simvastatin 10 mg tablet 10 mg PO BEDTIME potassium chloride 10 mEq tablet,ER particles/crystals 10 meq PO DAILY cholecalciferol (vitamin D3) 25 mcg (1,000 unit) capsule 25 mcg PO DAILY ciclopirox 0.77 % gel topical (DME) blood-glucose meter [OneTouch Ultra2 Meter] Misc See Rx Instructions .Route Qty: 1 0RF Rx Instructions: Check POC BID (DME) lancets [OneTouch UltraSoft 2 Lancet] 30 gauge misc See Rx Instructions .Route Qty: 200 1RF Rx Instructions: Check POC BID Interventions: ED Discharge Assessment Last Done: 03/19/25 01:18 Discharge Date/Time: 03/19/25 01:20 Print Language: Belarusian
[2025-03-18 20:30] LABS: INTERNATIONAL NORM RATIO 3.4 (0.9-1.1); Prothrombin Time 38.5 SEC (10.9-12.4)
[2025-03-18 23:04] VITALS: BP 135/84; PULSE 64; RESP 18; TEMP 36.4; O2SAT 98
--- OUTSIDE RECORDS SUMMARY | 2025-03-18 23:42 | XMS_ITS ---
Author Name [facility] Organization [facility] Care Team Organization Name Specialty Phone Email Start Date End Da te [facility] oJvany Rodriguez Primary [facility] 10/23/20242024 [facility] 02/29/20242023
--- OUTSIDE RECORDS SUMMARY | 2025-03-18 23:42 | XMS_ITS | Patient Health Record ---
Author Organization [facility] Address [address] [facility] [place] [address] Care Team Providers Care Cracking Machine Operator Name Role Phone Jaja Marin Primary Care Provider Unavailabl e Black, Carrie Unavailable [phone] Allergies No Known Allergies Reason For Referral [...] Problem Acquired hammer toe of right foot (2658461972462826 ) Other hammer toe(s) (acquired), right foot (M20.41) Active confirmed Problem Acquired hammer toe of left foot (4452363222487231 ) Other hammer toe(s) (acquired), left foot (M20.42) Active confirmed Problem Polyneuropathy due to type 2 diabetes mellitus (755515152) Type 2 diabetes mellitus with diabetic polyneuropathy (E11.42) Active confirmed Vital Signs Blood pressure diastolic 60 mm Hg 01/27/2025 Height 5ft3in in 01/27/2025 Blood pressure systolic 130 mm Hg 01/27/2025 Weight 245 lbs 01/27/2025 BMI 43.4 kg/m2 01/27/2025 Procedures Procedure Date Ordered Date Performed Result Body Sit e 67664-QOKRLIL NAIL, 6 OR MORE 01/27/2025 N/A 46873-DUFV SKIN LESIONS, OVER 4 01/27/2025 N/A Encounters Encounter Location Date Provider Diagnosis [address] [address] 07/29/2024 Carrie Black Type 2 diabetes mellitus with diabetic polyneuropathy E11.42 ; Tinea unguium B35.1 ; Tinea pedis of both feet B35.3 ; Other hammer toe(s) (acquired), right foot M20.41 and Other hammer toe(s) (acquired), left foot M20.[address] [address] 01/27/2025 Carrie Black Type 2 diabetes mellitus with diabetic polyneuropathy E11.42 ; Tinea unguium B35.1 ; Other hammer toe(s) (acquired), right foot M20.41 and Other hammer toe(s) (acquired), left foot M20.[address] [address] 01/27/2025 Carrie Black Assessments Encounter Date Diagnosis [...] Test Name Order Date Hemoglobin A1c 07/14/2015 95280-UHFYMFH NAIL, 6 OR MORE 01/24/2022 02200-BJUHBMK NAIL, 6 OR MORE 01/30/2023 01762-KIFTQOG NAIL, 6 OR MORE 07/25/2022 85444-DJKQNPX NAIL, 6 OR MORE 08/03/2023 15149-VPPMAFA NAIL, 6 OR MORE 02/01/2024 76912-WXKYUOI NAIL, 6 OR MORE 01/27/2025 12467-GOQPZYR NAIL, 6 OR MORE 11/04/2013 09043-WBYDDEE NAIL, 6 OR MORE 02/06/2014 23030-GCIVCLJ NAIL, 6 OR MORE 05/12/2014 82533-FYJJABY NAIL, 6 OR MORE 08/25/2014 50426-JNLGSIE NAIL, 6 OR MORE 12/15/2014 96219-DLGKDCC NAIL, 6 OR MORE 02/23/2015 54291-YYDXCKZ NAIL, 6 OR MORE 05/07/2015 21309-YVQNBFA NAIL, 6 OR MORE 08/03/2015 09128-KHEHOPJ NAIL, 6 OR MORE 11/02/2015 60640-DUNAXMS NAIL, 6 OR MORE 02/01/2016 54735-ZFSIPDB NAIL, 6 OR MORE 05/09/2016 90564-RUZYCBH NAIL, 6 OR MORE 08/22/2016 02661-HBIDJLI NAIL, 6 OR MORE 11/21/2016 28955-RCMZQBV NAIL, 6 OR MORE 02/20/2017 88104-YMOMHRW NAIL, 6 OR MORE 05/29/2017 73194-HZSVTTT NAIL, 6 OR MORE 09/04/2017 01871-THRNKYY NAIL, 6 OR MORE 12/04/2017 11139-BFLSPVU NAIL, 6 OR MORE 03/12/2018 10658-EMZRRDU NAIL, 6 OR MORE 06/11/2018 39969-DBSCCXA NAIL, 6 OR MORE 09/24/2018 45258-DZYYXZO NAIL, 6 OR MORE 12/24/2018 09022-FKOHKJV NAIL, 6 OR MORE 03/25/2019 50404-FEPLGOA NAIL, 6 OR MORE 07/01/2019 05758-FAWZAFG NAIL, 6 OR MORE 10/07/2019 34821-CETUSTP NAIL, 6 OR MORE 12/30/2019 73663-PBKAFHT NAIL, 6 OR MORE 04/13/2020 19104-ODHSKRM NAIL, 6 OR MORE 10/01/2020 71034-LNYGLIA NAIL, 6 OR MORE 01/04/2021 09503-AEYFVQM NAIL, 6 OR MORE 07/12/2021 44043-Qneaxthm Plate 11/21/2016 45821-Jvhhvsff Plate 08/22/2016 45717-Avuiykhm Plate 05/07/2015 38657-Auqijgoy Plate 02/23/2015 73265-Rewftabd Plate 05/12/2014 19033-Xrhjkffd Plate 12/15/2014 92532-Npminzqf Plate 08/25/2014 26992-Wngqgpik Plate 05/09/2016 10375-Shoydnvh Plate 01/30/2023 09168-Ymozrolt Plate 08/03/2023 44298-Zhnwqrfx Plate 07/12/2021 60399-Mpeeamhq Plate Each Additional 04374-Vptlzvum Plate Each Additional 11708- Debride <25 sq cm 12/15/2014 71832- Debride <25 sq cm 08/25/2014 39838-XSDL SKIN LESIONS, OVER 4 02/24/20 15 03209-DVAD SKIN LESIONS, OVER 4 12/16/19 15 70823-UNFI SKIN LESIONS, OVER 4 11/05/19 14 85886-IOOJ SKIN LESIONS, OVER 4 08/25/19 15 28253-HRKC SKIN LESIONS, OVER 4 05/12/20 14 11242-RBLM SKIN LESIONS, OVER 4 02/07/20 14 85663-EDMZ SKIN LESIONS, OVER 4 05/07/20 15 37421-SDNK SKIN LESIONS, OVER 4 08/03/20 15 68085-JPIK SKIN LESIONS, OVER 4 02/01/20 16 41814-NONF SKIN LESIONS, OVER 4 11/02/19 16 79090-EWMT SKIN LESIONS, OVER 4 08/22/19 17 15023-UELL SKIN LESIONS, OVER 4 05/09/20 16 98076-KNAK SKIN LESIONS, OVER 4 11/22/19 17 93422-KXFV SKIN LESIONS, OVER 4 02/21/20 17 17499-YJLD SKIN LESIONS, OVER 4 07/12/20 21 56371-YTXI SKIN LESIONS, OVER 4 01/05/20 21 90654-XMCX SKIN LESIONS, OVER 4 10/01/19 21 93351-CARL SKIN LESIONS, OVER 4 04/13/20 20 57337-UWCM SKIN LESIONS, OVER 4 12/30/19 20 05989-HUHP SKIN LESIONS, OVER 4 10/07/19 20 41407-RFHX SKIN LESIONS, OVER 4 07/01/20 19 61888-FXUL SKIN LESIONS, OVER 4 03/25/20 19 77658-LAAH SKIN LESIONS, OVER 4 12/25/19 19 41572-KCSH SKIN LESIONS, OVER 4 09/24/19 19 62940-OSSP SKIN LESIONS, OVER 4 06/11/20 18 33875-DXKB SKIN LESIONS, OVER 4 03/12/20 18 61361-PWJB SKIN LESIONS, OVER 4 12/05/19 18 67770-WEQZ SKIN LESIONS, OVER 4 09/04/19 18 69520-LNTY SKIN LESIONS, OVER 4 05/29/20 17 98022-ZMEB SKIN LESIONS, OVER 4 01/25/20 98368-PREO SKIN LESIONS, OVER 4 07/25/20 95656-FXJG SKIN LESIONS, OVER 4 08/03/20 23 82014-VFJZ SKIN LESIONS, OVER 4 01/28/20 25 86163-RBPD SKIN LESIONS, OVER 4 02/01/20 24 60291-KVSH SKIN LESIONS, OVER 4 01/31/20 Next Appt Details Provider Name:Carrie Lerma , 07/21/2025 03:30:00 PM, [address] [place], [address], Insurance Providers Payer Name Payer Address Payer Phone Subscriber Number Group Number Insured Name Patient Relationship to Insured Coverage Start Date Coverage End Date A[employer] [address] [place] [address] [id number] Myla Dunn Self - patient is the insured Medical (General) History Medical History History ICD Code Diabetic Measles Mumps Chicken pox Atrial fibrillation Surgical History Surgery Date(Month/Year) heart surgery hole in heart 09/2007
--- OUTSIDE RECORDS SUMMARY | 2025-03-18 23:42 | XMS_ITS | Patient Health Record ---
Author Organization [facility] Address [address] [place] [address] Care Team Providers Care Senior Project Leader/Team Lead Name Role Phone Pat (RETIRED) Abdulaziz GUERRERO Primary Care Provide r Unavailable Adam Morales Unavailable [phone] Allergies No Known Allergies Reason For Referral [...] Problem Status W/U Status Risk Notes Problem 740992528 Encounter for screening for malignant neoplasm of colon (Z12.11) Active confirmed Problem 230508519435039 Preprocedural examination (Z01.818) Active confirmed Problem Diverticulosis of colon (277015467) Diverticulosis of colon (K57.30) Active confirmed Problem 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) Active confirmed Plan Of Treatment Pending Test Test Name Order Date Pathology 12/10/2021 Future Test Test Name Order Date COLONOSCOPY 11/03/2021 Insurance Providers Payer Name Payer Address Payer Phone Subscriber Number Group Number Insured Name Patient Relationship to Insured Coverage Start Date Coverage End Date [facility] [address] [place] [address] [id number] SAVANNA VENEGAS Self - patient is the insured Medical (General) History Medical History History ICD Code High cholesterol Afib Denies OR,CVA,Lung disease,renal disease NIDDM Surgical History Surgery Date(Month/Year) Open heart surgery for a PFO 2007 Ear tubes Tonsils
[2025-03-19 01:18] VITALS: BP 135/84; PULSE 64; RESP 18; TEMP 36.4; O2SAT 98
== END 2025-03-19 01:20 | disposition home or self-care (01) ==
PROVIDERS: Physician Assistant; Emergency Provider Internal Medicine; PCP Physician Assistant
DX: L03.116 Cellulitis of left lower limb (principal); M25.562 Pain in left knee; I48.0 Paroxysmal atrial fibrillation; Z79.01 Long term (current) use of anticoagulants
CPT/HCPCS: 36415; 73564; 80048; 85025; 85610; 96374; 99284; J0690

== ENCOUNTER → 2025-03-18 19:23 | Outpatient (BNV) | payer OTHER, SELFPAY | PROVIDERS: PCP Physician Assistant; Visit Provider Radiology Diagnostic Radiology | DX: M11.262 Other chondrocalcinosis, left knee (principal) | CPT/HCPCS: 73564 ==

== ENCOUNTER 2025-03-20 14:51 | Outpatient (AMB) | payer OTHER, SELFPAY ==
--- NOTE | 2025-03-20 14:52 | MHC.PC.OV ---
Vital Signs 03/20/25 14:54 03/20/25 14:56 Height 5 ft 5 in Weight 221 lb BMI 36.8 BP 114/56 L Blood Pressure Location Lt brachial Position Sitting Respiration 18 Pulse 63 Pulse Source Pulse Oximeter Temp 97.3 F Temp Source Temporal Artery Scan Pulse Oximetry (%) 98 Oxygen Delivery Method Room Air Intake Visit Reasons: 03/17 ED visit, f/U leg infected, left -fell a [facility] Director Of Strategic Sourcing Required: No Accompanied by: Daughter Allergies Penicillins Allergy (Severe, Verified 03/20/25 14:52) Diarrhea enoxaparin Adverse Reaction (Intermediate, Verified 03/20/25 14:52) Hives, leg swelling Tobacco use date assessed: 03/20/25 HPI HPI Comments History of Present Illness Details 64-year-old female with history of chronic atrial fibrillation on AC, hypertension, chronic HFpEF, hyperlipidemia, and class 2 obesity presents for ER follow up She fell on 03/17 landing on the left knee and lower leg. Developed cellulitis. ER attempted to adminster IV ancef however patient says they were unable to get an IV. She was placed on keflex QID and doxycycline BID and advised to follow up today. The left knee is still quite red, mildly fluctuant and has a 2cm eschar. No drainage. The left leg is bruised with cardozo down circumferential redness and mild fluctuance. She is compliant with the medications Type 2 diabetes-not currently checking her sugars. Last hemoglobin A1c 8.5%. On metformin Hypertension-blood pressure in the office 108/58. Compliant with metoprolol 25 mg ER twice daily, Lasix 20 mg, diltiazem 180 mg daily. Follows low-sodium diet Chronic atrial fibrillation-following with Dr. Valdivia. History of cardioversion. Has failed rhythm control. Rate controlled with metoprolol and diltiazem which she is compliant with. Compliant with Coumadin, last INR 2.7, therapeutic. No bleeding or easy bruisability. Chronic right-sided heart failure-denies any significant edema, dyspnea on exertion, orthopnea. No chest pains. Continues on Lasix 20 mg daily. Last echocardiogram 02/2023 showed preserved ejection fraction 55%, with moderately increased right ventricular cavity size and mild to moderately decreased right ventricular systolic function. Class 2 obesity-BMI 37.7, has been working on weight loss. She walks regularly on a daily basis. Reports following a healthy diet. Has lost 2 lb since last visit. Last mammogram-05/2024, negative for malignancy. Last colonoscopy-11/2021, tubular adenoma seen in the cecum without any high-grade dysplasia or carcinoma. Also traditional serrated adenoma of the rectum negative for high-grade dysplasia or carcinoma Last PAP smear-overdue ROS Denies fevers +headache PHYSICAL EXAM: see [facility] Medical History History of cardioversion On anticoagulant therapy On beta kathrine at home Biatrial enlargement Chronic atrial fibrillation Heart failure, unspecified Diabetes HTN (hypertension) Morbid obesity Surgical History History of colonoscopy (~12/10/21) History of placement of ear tubes History of tonsillectomy Status post atrial septal defect repair Family History Father No problems noted. 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 How often do you have a drink containing alcohol?: Never Total Score: 0 Physical exam (Primary Care) Vital Signs: Last Vital Signs Temp 97.3 F 03/20/25 14:56 Pulse 63 03/20/25 14:56 Resp 18 03/20/25 14:56 BP 114/56 L 03/20/25 14:56 Pulse Ox 98 03/20/25 14:56 Oxygen Delivery Method Room Air 03/20/25 14:56 BMI result Body Mass Index 36.8 Tobacco/Smoking Status: Tobacco use Status Tobacco use date assessed 03/20/25 03/20/25 14:58 Patient Tobacco Use Status Never used Tobacco 03/20/25 14:58 e-Cigarette/Vaping Use Never Used 03/20/25 14:58 Coding Level of Care Code Est Pt Level 4 (58767) Diagnoses Cellulitis of left lower extremity L03.116 Site of cellulitis: extremity Site of cellulitis of extremity: lower extremity Laterality: left Abscess L02.91 Assessment & Plan Assessment & Plan (1) Cellulitis: Code(s): L03.90 - Cellulitis, unspecified Category: Medical Qualifiers: Site of cellulitis: extremity Site of cellulitis of extremity: lower extremity Laterality: left Qualified Code(s): L03.116 - Cellulitis of left lower limb (2) Abscess: Code(s): L02.91 - Cutaneous abscess, unspecified Category: Medical Plan Left leg cellulitis, left knee cellulitis/abscess continue doxy, keflex. nurse visit for recheck monday-she will go to the ER in the meantime with worsening redness, swelling or fevers Referral to gen surgery for consideration of drainage of left knee Orders: Referrals General Surgery Referral L02.91 - Cutaneous abscess, unspecified
[2025-03-20 14:54] VITALS: BMI 36.8
--- OUTSIDE RECORDS SUMMARY | 2025-03-20 14:55 | XMS_ITS | Patient Health Record ---
Author Organization [facility] Address [address] [place] [address] Care Team Providers Care Solar Panel Installation Supervisor Name Role Phone Pat (RETIRED) Abdulaziz GUERRERO Primary Care Provide r Unavailable Adam Morales Unavailable [phone] Allergies No Known Allergies Reason For Referral [...] Problem Status W/U Status Risk Notes Problem 845136418 Encounter for screening for malignant neoplasm of colon (Z12.11) Active confirmed Problem 714320941668205 Preprocedural examination (Z01.818) Active confirmed Problem Diverticulosis of colon (289279060) Diverticulosis of colon (K57.30) Active confirmed Problem 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 (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.01) Active confirmed Plan Of Treatment Pending Test Test Name Order Date Pathology 12/10/2021 Future Test Test Name Order Date COLONOSCOPY 11/03/2021 Insurance Providers Payer Name Payer Address Payer Phone Subscriber Number Group Number Insured Name Patient Relationship to Insured Coverage Start Date Coverage End Date [facility] [address] [place] [address] [id number] SAVANNA VENEGAS Self - patient is the insured Medical (General) History Medical History History ICD Code High cholesterol Afib Denies [place],CVA,Lung disease,renal disease NIDDM Surgical History Surgery Date(Month/Year) Open heart surgery for a PFO 2007 Ear tubes Tonsils
--- OUTSIDE RECORDS SUMMARY | 2025-03-20 14:55 | XMS_ITS | Patient Health Record ---
Author Organization [facility] Address [address] [place] [address] Care Team Providers Care Front Desk Worker Name Role Phone Jaja Marin Primary Care Provider Unavailabl e Black, Carrie Unavailable [phone] Allergies No Known Allergies Reason For Referral [...] Problem Acquired hammer toe of right foot (2238010202671452 ) Other hammer toe(s) (acquired), right foot (M20.41) Active confirmed Problem Acquired hammer toe of left foot (7171591002403514 ) Other hammer toe(s) (acquired), left foot (M20.42) Active confirmed Problem Polyneuropathy due to type 2 diabetes mellitus (484223908) Type 2 diabetes mellitus with diabetic polyneuropathy (E11.42) Active confirmed Vital Signs Blood pressure diastolic 60 mm Hg 01/27/2025 Height 5ft3in in 01/27/2025 Blood pressure systolic 130 mm Hg 01/27/2025 Weight 245 lbs 01/27/2025 BMI 43.4 kg/m2 01/27/2025 Procedures Procedure Date Ordered Date Performed Result Body Sit e 15494-HJAVMVR NAIL, 6 OR MORE 01/27/2025 N/A 63162-TWZC SKIN LESIONS, OVER 4 01/27/2025 N/A Encounters Encounter Location Date Provider Diagnosis [address] [address] 07/29/2024 Carrie Black Type 2 diabetes mellitus with diabetic polyneuropathy E11.42 ; Tinea unguium B35.1 ; Tinea pedis of both feet B35.3 ; Other hammer toe(s) (acquired), right foot M20.41 and Other hammer toe(s) (acquired), left foot M20.[address] [address] 01/27/2025 Carrie Black Type 2 diabetes mellitus with diabetic polyneuropathy E11.42 ; Tinea unguium B35.1 ; Other hammer toe(s) (acquired), right foot M20.41 and Other hammer toe(s) (acquired), left foot M20.[address] [address] 01/27/2025 Carrie Black Assessments Encounter Date Diagnosis [...] Test Name Order Date Hemoglobin A1c 07/14/2015 64912-WMGRTYS NAIL, 6 OR MORE 01/24/2022 21090-EKVCQLO NAIL, 6 OR MORE 01/30/2023 08652-QDKCBZF NAIL, 6 OR MORE 07/25/2022 92784-DCZESTB NAIL, 6 OR MORE 08/03/2023 02477-XNZCCBT NAIL, 6 OR MORE 02/01/2024 94593-ELXCILP NAIL, 6 OR MORE 01/27/2025 55909-YUSHXJT NAIL, 6 OR MORE 11/04/2013 46506-IXFJPIH NAIL, 6 OR MORE 02/06/2014 00570-QSKFKYM NAIL, 6 OR MORE 05/12/2014 34117-ZQJLYDN NAIL, 6 OR MORE 08/25/2014 51256-QKNFPTY NAIL, 6 OR MORE 12/15/2014 81076-SWVTBMW NAIL, 6 OR MORE 02/23/2015 87358-KMTGVUT NAIL, 6 OR MORE 05/07/2015 37871-BEWPUTM NAIL, 6 OR MORE 08/03/2015 71431-CQNUQNI NAIL, 6 OR MORE 11/02/2015 79807-ZRHENBZ NAIL, 6 OR MORE 02/01/2016 27173-ZAYKNRH NAIL, 6 OR MORE 05/09/2016 32330-YVFMURN NAIL, 6 OR MORE 08/22/2016 13787-BIQNNJJ NAIL, 6 OR MORE 11/21/2016 03517-VFZNQIP NAIL, 6 OR MORE 02/20/2017 14050-LZTFZKT NAIL, 6 OR MORE 05/29/2017 78463-MLKVOHZ NAIL, 6 OR MORE 09/04/2017 94761-OBYWCJN NAIL, 6 OR MORE 12/04/2017 18827-JTWYRHF NAIL, 6 OR MORE 03/12/2018 26566-VAFBGSY NAIL, 6 OR MORE 06/11/2018 92888-WOKJMGR NAIL, 6 OR MORE 09/24/2018 72835-NHHFJXF NAIL, 6 OR MORE 12/24/2018 82378-LLPCHFJ NAIL, 6 OR MORE 03/25/2019 18339-PNEARBB NAIL, 6 OR MORE 07/01/2019 88055-MMUCYJM NAIL, 6 OR MORE 10/07/2019 24127-TPQBQBX NAIL, 6 OR MORE 12/30/2019 23897-JQTGUKN NAIL, 6 OR MORE 04/13/2020 35529-QKZEMGO NAIL, 6 OR MORE 10/01/2020 77631-MHVVSOW NAIL, 6 OR MORE 01/04/2021 00587-TOCLJYM NAIL, 6 OR MORE 07/12/2021 30674-Zwxqdpwa Plate 11/21/2016 05567-Ghvdunin Plate 08/22/2016 03191-Itunndhi Plate 05/07/2015 01524-Zzwmkudu Plate 02/23/2015 15545-Jdfbrkxk Plate 05/12/2014 94116-Amfotael Plate 12/15/2014 04560-Gtkkiyau Plate 08/25/2014 93588-Etvmzlin Plate 05/09/2016 53616-Oecibvjn Plate 01/30/2023 73974-Azinpogl Plate 08/03/2023 89507-Epkeyhcw Plate 07/12/2021 40709-Pllsbbpj Plate Each Additional 87559-Zdngidox Plate Each Additional 63868- Debride <25 sq cm 12/15/2014 44224- Debride <25 sq cm 08/25/2014 78856-YTLM SKIN LESIONS, OVER 4 02/24/20 15 29383-UJQG SKIN LESIONS, OVER 4 12/16/19 15 78735-ZXQW SKIN LESIONS, OVER 4 11/05/19 14 43692-MXYS SKIN LESIONS, OVER 4 08/25/19 15 82885-RMYY SKIN LESIONS, OVER 4 05/12/20 14 66675-VLPW SKIN LESIONS, OVER 4 02/07/20 14 78977-TVFN SKIN LESIONS, OVER 4 05/07/20 15 65210-GFSB SKIN LESIONS, OVER 4 08/03/20 15 90665-EAZA SKIN LESIONS, OVER 4 02/01/20 16 41476-KJYU SKIN LESIONS, OVER 4 11/02/19 16 62577-DXQF SKIN LESIONS, OVER 4 08/22/19 17 94477-THHD SKIN LESIONS, OVER 4 05/09/20 16 98130-MWKB SKIN LESIONS, OVER 4 11/22/19 17 60512-SERT SKIN LESIONS, OVER 4 02/21/20 17 94557-BESF SKIN LESIONS, OVER 4 07/12/20 21 67209-UQSC SKIN LESIONS, OVER 4 01/05/20 21 73436-RYKY SKIN LESIONS, OVER 4 10/01/19 21 05278-RJBZ SKIN LESIONS, OVER 4 04/13/20 20 43555-SBNH SKIN LESIONS, OVER 4 12/30/19 20 93583-SXOH SKIN LESIONS, OVER 4 10/07/19 20 85416-PFSQ SKIN LESIONS, OVER 4 07/01/20 19 07756-YIUJ SKIN LESIONS, OVER 4 03/25/20 19 40849-WREE SKIN LESIONS, OVER 4 12/25/19 19 58422-LJEH SKIN LESIONS, OVER 4 09/24/19 19 47953-OLVH SKIN LESIONS, OVER 4 06/11/20 18 72307-PFWJ SKIN LESIONS, OVER 4 03/12/20 18 90229-RKFJ SKIN LESIONS, OVER 4 12/05/19 18 44925-SCLZ SKIN LESIONS, OVER 4 09/04/19 18 36481-LXSA SKIN LESIONS, OVER 4 05/29/20 17 28679-YHUI SKIN LESIONS, OVER 4 01/25/20 46800-UCGF SKIN LESIONS, OVER 4 07/25/20 47010-ZHKT SKIN LESIONS, OVER 4 08/03/20 23 75076-MFXL SKIN LESIONS, OVER 4 01/28/20 25 78460-KEVC SKIN LESIONS, OVER 4 02/01/20 24 12051-EYNO SKIN LESIONS, OVER 4 01/31/20 Next Appt Details Provider Name:Carrie Lerma , 07/21/2025 03:30:00 PM, [address] [place], [address], Insurance Providers Payer Name Payer Address Payer Phone Subscriber Number Group Number Insured Name Patient Relationship to Insured Coverage Start Date Coverage End Date [employer] [address] [place] [address] [id number] Myla Dunn Self - patient is the insured Medical (General) History Medical History History ICD Code Diabetic Measles Mumps Chicken pox Atrial fibrillation Surgical History Surgery Date(Month/Year) heart surgery hole in heart 09/2007
[2025-03-20 14:56] VITALS: BP 114/56; PULSE 63; RESP 18; TEMP 36.3; O2SAT 98
== END 2025-03-20 16:24 | disposition home or self-care (01) ==
LOC: HO.HMCHD 14:51
PROVIDERS: PCP Physician Assistant; Visit Provider Internal Medicine
DX: L03.116 Cellulitis of left lower limb (principal); L02.91 Cutaneous abscess, unspecified

== ENCOUNTER 2025-03-28 10:12 | Outpatient (AMB) | payer OTHER, SELFPAY ==
--- OUTSIDE RECORDS SUMMARY | 2025-03-28 10:23 | XMS_ITS | Patient Health Record ---
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 Role Phone Jaja Marin Primary Care Provider Unavailabl e Black, Carrie Unavailable [phone] Allergies No Known Allergies Reason For Referral [...] Stewart No Eye exam Flu shot--04/2015 Dr Stewatr No Eye exam Flu shot--04/2015 Dr Stewart [...] Problem Acquired hammer toe of right foot (9952256260722191 ) Other hammer toe(s) (acquired), right foot (M20.41) Active confirmed Problem Acquired hammer toe of left foot ([id number] ) Other hammer toe(s) (acquired), left foot (M20.42) Active confirmed Problem Polyneuropathy due to type 2 diabetes mellitus (126005664) Type 2 diabetes mellitus with diabetic polyneuropathy (E11.42) Active confirmed Vital Signs Blood pressure diastolic 60 mm Hg 01/27/2025 Height 5ft3in in 01/27/2025 Blood pressure systolic 130 mm Hg 01/27/2025 Weight 245 lbs 01/27/2025 BMI 43.4 kg/m2 01/27/2025 Procedures Procedure Date Ordered Date Performed Result Body Sit e 27376-CLJSZVE NAIL, 6 OR MORE 01/27/2025 N/A 26190-VSJI SKIN LESIONS, OVER 4 01/27/2025 N/A Encounters Encounter Location Date Provider Diagnosis [address] [address] 07/29/2024 Carrie Black Type 2 diabetes mellitus with diabetic polyneuropathy E11.42 ; Tinea unguium B35.1 ; Tinea pedis of both feet B35.3 ; Other hammer toe(s) (acquired), right foot M20.41 and Other hammer toe(s) (acquired), left foot M20.[address] [address] 01/27/2025 Carrie Black Type 2 diabetes mellitus with diabetic polyneuropathy E11.42 ; Tinea unguium B35.1 ; Other hammer toe(s) (acquired), right foot M20.41 and Other hammer toe(s) (acquired), left foot M20.[address] [address] 01/27/2025 Carrie Black Assessments Encounter Date Diagnosis [...] Test Name Order Date Hemoglobin A1c 07/14/2015 87740-EXEFSOQ NAIL, 6 OR MORE 01/24/2022 43202-MVGFFFL NAIL, 6 OR MORE 01/30/2023 63793-FXVFKQW NAIL, 6 OR MORE 07/25/2022 30772-ZNDFIMU NAIL, 6 OR MORE 08/03/2023 02483-SNGITCP NAIL, 6 OR MORE 02/01/2024 06865-JPDUVRZ NAIL, 6 OR MORE 01/27/2025 88432-WFSNVKI NAIL, 6 OR MORE 11/04/2013 94742-UAMRVBO NAIL, 6 OR MORE 02/06/2014 28073-GARYEYQ NAIL, 6 OR MORE 05/12/2014 79063-CAFBDUF NAIL, 6 OR MORE 08/25/2014 14573-NENKTGG NAIL, 6 OR MORE 12/15/2014 51883-XLVHPIA NAIL, 6 OR MORE 02/23/2015 64517-PVBYJNG NAIL, 6 OR MORE 05/07/2015 12257-FOVUHNE NAIL, 6 OR MORE 08/03/2015 44930-LFVMKMC NAIL, 6 OR MORE 11/02/2015 34350-UPXTIZY NAIL, 6 OR MORE 02/01/2016 63680-XPHUSXX NAIL, 6 OR MORE 05/09/2016 29723-BUYSCUD NAIL, 6 OR MORE 08/22/2016 00219-WNSZGAY NAIL, 6 OR MORE 11/21/2016 48075-BHZBGHR NAIL, 6 OR MORE 02/20/2017 43976-PENTOSN NAIL, 6 OR MORE 05/29/2017 12003-HALTGOK NAIL, 6 OR MORE 09/04/2017 54484-IBZNYKV NAIL, 6 OR MORE 12/04/2017 18358-CHSIRYQ NAIL, 6 OR MORE 03/12/2018 91632-RFRQNKI NAIL, 6 OR MORE 06/11/2018 05355-IXJEPXM NAIL, 6 OR MORE 09/24/2018 20661-OTFGJQE NAIL, 6 OR MORE 12/24/2018 58186-ONEQJPN NAIL, 6 OR MORE 03/25/2019 61398-PRBEUDN NAIL, 6 OR MORE 07/01/2019 50150-DYFHMHZ NAIL, 6 OR MORE 10/07/2019 91227-DYMAFNY NAIL, 6 OR MORE 12/30/2019 29309-CVBLCRY NAIL, 6 OR MORE 04/13/2020 10723-VMLEYIR NAIL, 6 OR MORE 10/01/2020 17200-VPMBEUO NAIL, 6 OR MORE 01/04/2021 95392-XQNOYNV NAIL, 6 OR MORE 07/12/2021 84934-Yplyhwaa Plate 11/21/2016 95182-Vdlbfqpu Plate 08/22/2016 28530-Ccddnnba Plate 05/07/2015 30946-Jajrwbhg Plate 02/23/2015 46769-Vsioayzv Plate 05/12/2014 24588-Pipvdwka Plate 12/15/2014 35822-Pvznckmm Plate 08/25/2014 82043-Zgrbuucj Plate 05/09/2016 32240-Sdpcopdm Plate 01/30/2023 06596-Prlirhju Plate 08/03/2023 18694-Bcovwnoi Plate 07/12/2021 96147-Yrppawsa Plate Each Additional 02132-Jtyuowpz Plate Each Additional 54816- Debride <25 sq cm 12/15/2014 34994- Debride <25 sq cm 08/25/2014 61853-IZZK SKIN LESIONS, OVER 4 02/24/20 15 43798-IMZM SKIN LESIONS, OVER 4 12/16/19 15 83019-LSGA SKIN LESIONS, OVER 4 11/05/19 14 73409-HCXR SKIN LESIONS, OVER 4 08/25/19 15 81227-UJBH SKIN LESIONS, OVER 4 05/12/20 14 43792-PTEB SKIN LESIONS, OVER 4 02/07/20 14 49371-WNTX SKIN LESIONS, OVER 4 05/07/20 15 83229-YSXR SKIN LESIONS, OVER 4 08/03/20 15 96931-QUEA SKIN LESIONS, OVER 4 02/01/20 16 80124-QUYO SKIN LESIONS, OVER 4 11/02/19 16 38370-ZKSP SKIN LESIONS, OVER 4 08/22/19 17 30100-BCJV SKIN LESIONS, OVER 4 05/09/20 16 07859-JYDS SKIN LESIONS, OVER 4 11/22/19 17 01966-HKKQ SKIN LESIONS, OVER 4 02/21/20 17 92663-SILD SKIN LESIONS, OVER 4 07/12/20 21 02130-QCYN SKIN LESIONS, OVER 4 01/05/20 21 19217-QGYO SKIN LESIONS, OVER 4 10/01/19 21 48046-TGXC SKIN LESIONS, OVER 4 04/13/20 20 69502-BSMA SKIN LESIONS, OVER 4 12/30/19 20 39492-DADO SKIN LESIONS, OVER 4 10/07/19 20 85248-QKKR SKIN LESIONS, OVER 4 07/01/20 19 93784-MSIJ SKIN LESIONS, OVER 4 03/25/20 19 85652-COBL SKIN LESIONS, OVER 4 12/25/19 19 48118-KIOA SKIN LESIONS, OVER 4 09/24/19 19 11441-FMSI SKIN LESIONS, OVER 4 06/11/20 18 89705-XFGL SKIN LESIONS, OVER 4 03/12/20 18 59489-FTAM SKIN LESIONS, OVER 4 12/05/19 18 54745-MAYW SKIN LESIONS, OVER 4 09/04/19 18 33776-IOZM SKIN LESIONS, OVER 4 05/29/20 17 95612-RNXR SKIN LESIONS, OVER 4 01/25/20 04961-DMGM SKIN LESIONS, OVER 4 07/25/20 03286-HIRS SKIN LESIONS, OVER 4 08/03/20 23 39406-YHPF SKIN LESIONS, OVER 4 01/28/20 25 88861-DVOF SKIN LESIONS, OVER 4 02/01/20 24 15754-SEPA SKIN LESIONS, OVER 4 01/31/20 Next Appt Details Provider Name:Carrie Lerma , 07/21/2025 03:30:00 PM, [address] [place], [address], Insurance Providers Payer Name Payer Address Payer Phone Subscriber Number Group Number Insured Name Patient Relationship to Insured Coverage Start Date Coverage End Date [employer] [address] [place] [address] [id number] Myla Dunn Self - patient is the insured Medical (General) History Medical History History ICD Code Diabetic Measles Mumps Chicken pox Atrial fibrillation Surgical History Surgery Date(Month/Year) heart surgery hole in heart 09/2007
--- OUTSIDE RECORDS SUMMARY | 2025-03-28 10:23 | XMS_ITS | Patient Health Record ---
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 Phone Pat (RETIRED) Abdulaziz GUERRERO Primary Care Provide r Unavailable Adam Morales Unavailable [phone] Allergies No Known Allergies Reason For Referral [...] Problem Status W/U Status Risk Notes Problem [id number] Encounter for screening for malignant neoplasm of colon (Z12.11) Active confirmed Problem [id number] Preprocedural examination (Z01.818) Active confirmed Problem Diverticulosis of colon (561041871) Diverticulosis of colon (K57.30) Active confirmed Problem 160761425 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 use of anticoagulant (Z79.01) Active confirmed Plan Of Treatment Pending Test Test Name Order Date Pathology 12/10/2021 Future Test Test Name Order Date COLONOSCOPY 11/03/2021 Insurance Providers Payer Name Payer Address Payer Phone Subscriber Number Group Number Insured Name Patient Relationship to Insured Coverage Start Date Coverage End Date [facility] [address] [place] [phone] [id number] SAVANNA VENEGAS Self - patient is the insured Medical (General) History Medical History History ICD Code High cholesterol Afib Denies [place],CVA,Lung disease,renal disease NIDDM Surgical History Surgery Date(Month/Year) Open heart surgery for a PFO 2007 Ear tubes Tonsils
[2025-03-28 10:33] LABS: Prothrombin Time Whole Bld POC 42.9 sec (11.1-13.5); ~PT, ~INR - Anti Coag Clinic 3.6 (0.9-1.1)
--- NOTE | 2025-03-28 11:43 | MHC.OFFVISCO ---
Intake Intake Visit Reasons: Anticoagulation Allergies Penicillins Allergy (Severe, Verified 03/28/25 10:25) Diarrhea enoxaparin Adverse Reaction (Intermediate, Verified 03/28/25 10:25) Hives, leg swelling Medication List - Last Reconciled 03/28/25 by Hannah Richardson RN blood sugar diagnostic (Invariumuch Ultra Test strips) Check POC BID blood-glucose meter (BaileyuTouch Ultra2 Meter) Check POC BID cephalexin 500 mg PO QID 10 days cholecalciferol (vitamin D3) 25 mcg PO DAILY ciclopirox 0.77% topical diltiazem HCl CD 180 mg PO DAILY doxycycline hyclate 100 mg PO BID furosemide 20 mg PO DAILY lancets (BaileyuTouch UltraSoft 2 Lancet) Check POC BID metformin ER 500 mg PO DAILY metoprolol succinate ER 25 mg PO BID potassium chloride ER 10 mEq PO DAILY simvastatin 10 mg PO BEDTIME warfarin See Protocol 7.5MG MWF/ 3.75MG X4DAYS; on odd numbered days warfarin 5 mg See Protocol PO DAILY Nursing Note PT.REMAINS ON AMOXICILLIN AND KEFLEX FOR CELLULITIS (L) LEG X 1 WEEK. PT.AND DAUGHTER STATE THAT THERE IS SOME NOTED IMPROVEMNT, BUT LEG REMAINS RED,SWOLLEN AND WARM TO TOUCH(NOT HOT) SHE IS AFEBRILE. PT.HAS APPT.WITH [facility] [place] IN FOLLOW-UP. PT.TO STOP AT SURGEON'S OFFICE AFTER ACS TODAY FOR QUICK EVAL.OF AREA. ADV.SEEK CARE AT URGENT CARE IF NEC.OVER THE NEXT FEW DAYS. WILL HOLD WARFARIN TODAY THEN RESUME USUAL DOSE AND FOLLOW-UP IN 1 WEEK. GOOD UNDERSTANDING OF DOSING INSTR. 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
== END 2025-03-28 11:49 | disposition home or self-care (01) ==
LOC: HO.ACS 10:12
PROVIDERS: PCP Physician Assistant Medical; Visit Provider Internal Medicine Medical Oncology
DX: Z79.01 Long term (current) use of anticoagulants (principal)

== ENCOUNTER → 2025-03-28 10:12 | Outpatient (BNVA) | payer OTHER, SELFPAY | PROVIDERS: PCP Physician Assistant Medical; Visit Provider Internal Medicine Medical Oncology | DX: Z79.01 Long term (current) use of anticoagulants (principal) | CPT/HCPCS: 85610; 99211 ==

== ENCOUNTER 2025-03-28 17:49 | Inpatient (IN) | payer OTHER, SELFPAY ==
--- NOTE | ~2025-03-28 | CT_ITS ---
CLINICAL HISTORY: swelling, redness, pain, recent trauma CT left knee with contrast Comparison: None provided Findings: No acute fracture or dislocation identified. 0.4 x 1.5 cm fluid collection anteromedial to patella. Differential includes hematoma, seroma and/or abscess. Circumferential subcutaneous edema below the knee. Chondrocalcinosis consistent with CPPD. Degenerative change with joint space loss. This is greatest in medial compartment. Minimal nonspecific joint effusion noted. Impression: Anteromedial subcutaneous fluid collection at patella Question hematoma, seroma and/or abscess Nonspecific circumferential edema below the knee CPPD with degenerative change and trace joint effusion No acute bony abnormality This document has been electronically signed by: Garrett Candelario MD on 03/28/2025 22:41:55
[2025-03-28 18:26] VITALS: BP 126/64; PULSE 65; RESP 18; TEMP 36.6; O2SAT 98; BMI 38.2
--- NOTE | 2025-03-28 18:34 | ED.WOUNDLAC ---
HPI - Wound/Laceration General Chief Complaint: Wound/Laceration Stated Complaint: leg wound, antibiotics not working Time Seen by Provider: 03/28/25 20:19 Source: patient, family and old records reviewed Mode of arrival: ambulatory Limitations: no limitations History of Present Illness ED Provider: TANVIR HPI narrative: 65 yo female with PMH of afib on coumadin, HTN, DM, CHF seen here 03/18/25 for L knee cellulitis after a fall and scab to patella area of the knee she was started on oral cephalexin and doxy but the left leg is still swollen and painful it seems more red now on the lower leg and does not seem to be getting better. Knee xray was negative. She has no fevers or chills. She is not very good at elevating the leg. Onset (ago): day(s) () Extremity Location: left: knee Place: home Patient tetanus UTD: Yes Context: accidental Associated symptoms: pain and other (rash/swelling) Treatments prior to arrival: other Related Data Home Medications ?Medication ?Instructions ?Recorded ?Confirmed diltiazem HCl 180 mg 180 mg PO DAILY 07/21/20 02/28/25 capsule,extended release 24 hr potassium chloride 10 mEq 10 meq PO DAILY 07/21/20 02/28/25 tablet,extended release(part/cryst) simvastatin 10 mg tablet 10 mg PO BEDTIME 07/21/20 02/28/25 cholecalciferol (vitamin D3) 25 25 mcg PO DAILY 12/20/21 02/28/25 mcg (1,000 unit) capsule ciclopirox 0.77 % topical gel topical 08/23/24 02/28/25 Previous Rx's ?Medication ?Instructions ?Recorded blood-glucose meter (OneTouch #1 ea 01/07/25 Ultra2 Meter) lancets 30 gauge (OneTouch #200 ea 01/07/25 UltraSoft 2 Lancet) furosemide 20 mg tablet 20 mg PO DAILY #90 tabs 02/05/25 metformin 500 mg tablet,extended 500 mg PO DAILY #90 tabs 02/05/25 release 24 hr metoprolol succinate 25 mg 25 mg PO BID #180 tabs 02/05/25 tablet,extended release 24 hr warfarin 5 mg tablet 5 mg PO DAILY #90 tabs 02/05/25 warfarin 7.5 mg tablet See Rx Instructions .Route 02/05/25 .COMPLEX #90 tabs blood sugar diagnostic (OneTouch #100 ea 02/24/25 Ultra Test strips) cephalexin 500 mg capsule 500 mg PO QID 10 days #40 caps 03/19/25 doxycycline hyclate 100 mg tablet 100 mg PO BID #20 tabs 03/19/25 Allergies Allergy/AdvReac Type Severity Reaction Status Date / Time Penicillins Allergy Severe Diarrhea Verified 03/28/25 18:32 enoxaparin AdvReac Intermediate Hives, leg Verified 03/28/25 18:32 swelling Review of Systems Review of Systems: Constitutional : No Fever, No Chills ENT/Mouth : No sore throat, No Rhinorrhea Eyes: No Eye Pain, No Swelling, No Redness Cardiovascular : No Chest Pain, No SOB Respiratory : No Cough, No Sputum Gastrointestinal : No Nausea, No Vomiting, No Diarrhea, No abdominal Pain Genitourinary : No Dysuria, No Hematuria Musculoskeletal :pos joint pain, No Myalgias, No Joint Swelling Skin : pos Skin Lesions, positive skin rash Neuro : No Weakness, No Numbness, No Headache All other systems reviewed and are negative [facility] Past Medical History Attestation statement: The following information was validated with the patient. Source: old records reviewed Medical History History of cardioversion On anticoagulant therapy On beta kathrine at home Biatrial enlargement Chronic atrial fibrillation Heart failure, unspecified Diabetes HTN (hypertension) Morbid obesity Surgical History History of colonoscopy (~12/10/21) History of placement of ear tubes History of tonsillectomy Status post atrial septal defect repair Family History Family History Father No problems noted. 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 Oriented X3. No acute distress. Eyes: Pupils equal, round and reactive to light. ENT: Pharynx normal. Neck: Normal inspection. Neck supple. CVS: Normal heart rate and rhythm. Pulses normal. Respiratory: No respiratory distress. Breath sounds normal. Abdomen: Soft and nontender. Skin: Skin warm and dry. Normal skin color. Normal skin turgor. Extremities: L leg 1+ pitting edema, compartments are soft and compressible, NV intact, SILT intact, has scabbed eschar prepatellar but no drainage, there is redness that streaks down the leg. No fluctuance on exam and she can range the joint. It is swollen around the joint and slightly taught so abscess might be hard to exclude Neuro: Oriented X 3. No motor deficit. No sensory deficit. 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 Defer additional HPI, ROS and PE to primary provider. This is a 65-year-old female who has a history of AFib and is on Coumadin, hypertension, diabetes who had a fall last week with a left knee wound. She subsequently developed cellulitis and was seen here on March 18 and was discharged with doxycycline. She followed up outpatient with her primary care doctor who is concern for continue cellulitis and need for IV antibiotics. On exam patient has a wound over the left anterior knee with surrounding erythema. The left calf and lower extremity has erythema, warmth and swelling when compared to the right lower extremity. I will order lab Vitals are stable Patient may need IV antibiotics and admission Medications Administered Discontinued Medications Generic Name Dose Route Start Last Admin Trade Name Freq PRN Reason Stop Dose Admin Cefepime HCl 2 gm in 50 mls @ 100 mls/hr 03/28/25 20:47 03/28/25 21:45 Maxipime IV 03/28/25 21:16 100 mls/hr ONCE ONE Administration Vancomycin HCl 2,000 mg in 500 mls @ 250 mls/hr 03/28/25 20:47 03/28/25 22:15 Vancomycin/Ns IV 03/28/25 22:46 250 mls/hr ONCE ONE Administration Iohexol 100 ml 03/28/25 21:28 03/28/25 21:28 Iohexol 350 Mg/Ml 100 Ml Infus..Btl IV 03/28/25 21:29 100 ml ONCE ONE Administration Medical Decision Making Medical Decision Making [facility] Narrative: 65 yo female with PMH of afib on coumadin, HTN, DM, CHF seen here 03/18/25 for L knee cellulitis now worsening redness and swelling - it appears she likely has infected bursa that has extended and has spread. She is on coumadin and INR is therapeutic even on last visit doubt DVT. Will obtain CT scan and start IV abx. She can flex and ext knee doubt septic joint. Differential Diagnosis Differential Diagnoses: The differential diagnosis associated with the presentation includes cellulitis, infected prepatellar bursitis Admission/Observation Consideration of admission/observation: Escalation of care including admission/observation considered admit for IV abx Consult Healthcare Provider Management of the patient was discussed with: Hospitalist (will admit) Lab Data [facility] Lab Attestation statement: I reviewed the patient's lab results. 03/28/25 18:39 03/28/25 18:39 Labs: Lab Results 03/28/25 03/28/25 03/28/25 Range/Units 18:39 20:30 21:15 WBC 6.2 (4.8-10.8) X10*3/uL RBC 4.21 (4.20-5.50) X10*6/uL Hgb 12.7 (12.0-16.0) g/dl Hct 37.1 (37.0-47.0) % MCV 88.1 (80.0-98.0) fL MCH 30.2 (27.0-33.0) pg MCHC 34.2 (31.0-35.0) g/dl RDW 12.9 (11.0-16.0) % Plt Count 299 (160-400) X10*3/uL MPV 8.7 L (9.4-12.3) fL Immature Gran % (Auto) 0.3 (0.0-0.4) % Neut % (Auto) 61.8 (45-73) % Lymph % (Auto) 24.2 (20-40) % [place] % (Auto) 9.9 (2-11) % Eos % (Auto) 3.2 (0-4) % Baso % (Auto) 0.6 (0-2) % Lymph # (Auto) 1.5 (1.2-4.9) X10*3/uL [place] # (Auto) 0.6 (0.1-1.2) X10*3/uL Eos # (Auto) 0.2 (0.0-0.4) X10*3/uL Baso # (Auto) 0.0 (0.0-0.2) X10*3/uL Abs Immat Gran (auto) 0.02 (0.00-0.03) X10*3/uL Absolute Neuts (auto) 3.8 (2.0-8.3) x10*3/uL Absolute Nucleated RBC 0.000 (0.0-0.012) X10*3/uL Nucleated RBC % (auto) 0.0 (0.0-0.2) /100WBC PT 39.5 H (10.9-12.4) SEC INR 3.4 H (0.9-1.1) Sodium 138 (135-145) mmol/L Potassium 4.2 (3.3-5.1) mmol/L Chloride 106 (96-108) mmol/L Carbon Dioxide 24 (22-29) mmol/L Anion Gap 12 (12-20) BUN 14 (9-16) mg/dL Creatinine 0.64 (0.5-1.4) mg/dL Estim Creat Clear Calc 102.6 Estimated GFR > 60 Random Glucose 218 H (60-115) mg/dL Lactic Acid 1.0 (0.5-2.0) mmol/L Calcium 9.7 (8.4-10.2) mg/dL Total Bilirubin 0.7 (0.0-1.0) mg/dL Direct Bilirubin 0.3 (0.0-0.5) mg/dL AST 20 (5-31) U/L ALT 12 (0-31) U/L Alkaline Phosphatase 80 (39-117) U/L Total Protein 7.4 (6.5-8.0) g/dL Albumin 4.2 (3.5-5.0) g/dL Urine Color Yellow Urine Appearance Clear Urine pH 5.5 (5.0-9.0) Ur Specific [place] 1.010 (1.005-1.025) Urine Protein Negative (Neg-Trace) mg/dL Urine Glucose (UA) Negative (Negative) mg/dL Urine Ketones Negative (Negative) mg/dL Urine Blood Negative (Negative) Urine Nitrite Negative (Negative) Ur Leukocyte Esterase Moderate (2+) H (Negative) Urine RBC 0-2 (0-2) /HPF Urine WBC 6-10 H (0-5) /HPF Ur Squamous Epith Cells 0-2 (0-2) /HPF Urine Bacteria None Seen (None Seen) Hyaline Casts 0-2 (0-2) /LPF Independent Interpretation I performed an independent interpretation of an: CT Scan (?abscess or infected bursa) Radiology Impression Discussion of test interpretation with radiology: I have reviewed the radiologist's reading. Independent Historian Clinical information obtained from an independent historian. History obtained from or confirmed by: Other (family) External Record Review External record reviewed: Outpatient record Discharge Plan Discharge Clinical Impression: Cellulitis Infected prepatellar bursa Qualifiers: Laterality: left Qualified Code(s): M71.162 - Other infective bursitis, left knee Patient Disposition: Admitted As Inpatient Print Language: Uzbek
[2025-03-28 18:42] LABS: MANUAL DIFF FLAG NO
[2025-03-28 18:44] LABS: Hematocrit 37.1 % (37.0-47.0); Hemoglobin 12.7 g/dl (12.0-16.0); Imm Gran Abs Auto 0.02 X10*3/uL (0.00-0.03); Imm Gran Pct Auto 0.3 % (0.0-0.4); Lymphocytes Absolute Auto 1.5 X10*3/uL (1.2-4.9); Mean Corpuscular HGB Conc 34.2 g/dl (31.0-35.0); Mean Corpuscular Hemoglobin 30.2 pg (27.0-33.0); Mean Corpuscular Volume 88.1 fL (80.0-98.0); NRBC Abs Auto 0.000 X10*3/uL (0.0-0.012); NRBC Pct Auto 0.0 /100WBC (0.0-0.2); Platelet Count 299 X10*3/uL (160-400); Red Blood Count 4.21 X10*6/uL (4.20-5.50); White Blood Count 6.2 X10*3/uL (4.8-10.8)
[2025-03-28 18:59] LABS: Alanine Aminotransferase 12 U/L (0-31); Albumin Level 4.2 g/dL (3.5-5.0); Alkaline Phosphatase 80 U/L (39-117); Anion Gap 12 (12-20); Aspartate Amino Transferase 20 U/L (5-31); Blood Urea Nitrogen 14 mg/dL (9-16); Calcium 9.7 mg/dL (8.4-10.2); Carbon Dioxide 24 mmol/L (22-29); Chloride 106 mmol/L (96-108); Creatinine Clr Calc Pharmacy 102.6; Estimated Glomerular Filt Rate > 60; Potassium 4.2 mmol/L (3.3-5.1); Sodium 138 mmol/L (135-145); Total Protein 7.4 g/dL (6.5-8.0)
[2025-03-28 20:23] VITALS: BP 156/76; PULSE 68; RESP 18; O2SAT 94
[2025-03-28 20:35] LABS: Appearance Urine Clear; Glucose Urine UA Negative (Negative); PH 5.5 (5.0-9.0); Specific Gravity - Urine 1.010 (1.005-1.025); UMIC TRIGGER UACC YES
[2025-03-28 20:37] LABS: UACC Culture Trigger YES
[2025-03-28] MEDS: iohexoL 350 MG/ML 100 ML INFUS..BTL IV (21:28)
[2025-03-28 21:45] LABS: INTERNATIONAL NORM RATIO 3.4 (0.9-1.1); Prothrombin Time 39.5 SEC (10.9-12.4)
[2025-03-28] MEDS: cefEPime HCl/D5W 2 GM/50 ML PIGGYBACK IV (21:45)
[2025-03-28] MEDS: vancomycin/NS 2,000 MG/500 ML PLAST..BAG 250 MG IV (22:15)
[2025-03-28 22:17] VITALS: BP 152/80; PULSE 65; RESP 18; TEMP 36.5; O2SAT 97
--- NOTE | 2025-03-29 01:14 | PM.IMHP ---
History of Present Illness Date of Service: 03/28/25 Attending physician on admission: [place] Chief Complaint: Left knee pain and swelling Myla Joya is a 65 years old woman with past medical history significant for type 2 diabetes on metformin, AFib status post cardioversion on warfarin and essential hypertension presents to the emergency department complaining of left knee worsening wound, swelling redness and pain after sustaining a fall landing on her left knee on March 18. At that time she was evaluated in the ED are received a course of ceftriaxone and doxycycline. She noted that her leg is now swollen. Denied fever, chills, nausea or vomiting. She did not report any acute gastrointestinal or or cardiopulmonary symptoms. She reported mild dysuria. In the ED, she was found to have stable vital signs. CBC is normal. There is no lactic acidosis. There is no electrolyte imbalances. Renal function and LFTs are normal. Urinalysis showed moderate leukocyte esterase and WBCs 6-10. Left knee CT scan with contrast showed anteromedial subcutaneous fluid collection at the patella, question hematoma, seroma and/or abscess, nonspecific circumferential edema [id number], CPPD with degenerative change and trace joint effusion. ED tx: Cefepime 2 g IV, vancomycin 2 g IV Review of Systems Review of Systems: All 12 systems were reviewed and normal except as noted in HPI. [facility] Medical History History of cardioversion On anticoagulant therapy On beta kathrine at home Biatrial enlargement Chronic atrial fibrillation Heart failure, unspecified Diabetes HTN (hypertension) Morbid obesity Family History Father No problems noted. 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 Meds Allergies Allergy/AdvReac Type Severity Reaction Status Date / Time Penicillins Allergy Severe Diarrhea Verified 03/28/25 18:32 enoxaparin AdvReac Intermediate Hives, leg Verified 03/28/25 18:32 swelling Home Medications ?Medication ?Instructions ?Recorded ?Confirmed ?Last Taken ?Type diltiazem HCl 180 mg 180 mg PO DAILY 07/21/20 02/28/25 Unknown History capsule,extended release 24 hr potassium chloride 10 mEq 10 meq PO DAILY 07/21/20 02/28/25 Unknown History tablet,extended release(part/cryst) simvastatin 10 mg tablet 10 mg PO BEDTIME 07/21/20 02/28/25 Unknown History cholecalciferol (vitamin D3) 25 25 mcg PO DAILY 12/20/21 02/28/25 Unknown History mcg (1,000 unit) capsule ciclopirox 0.77 % topical gel topical 08/23/24 02/28/25 Unknown History Physical Exam Vital Signs and Narrative: Vital Signs: Last Vital Signs Temp 97.7 F 03/28/25 22:17 Pulse 65 03/28/25 22:17 Resp 18 03/28/25 22:17 BP 152/80 H 03/28/25 22:17 Pulse Ox 97 03/28/25 22:17 O2 Del Method Room Air 03/28/25 22:17 BMI result Body Mass Index 38.2 Constitutional - Awake and Alert, No apparent distress HEENT - PER, EOMI Heart - RRR, no murmurs Lungs - Normal lung expansion, Normal respiratory effort, No respiratory distress, CTA bilaterally Abdomen - NT / ND; +BS; No rebound or guarding Extremities - LLE: There is a round ulcerated lesion (approx. 2 cm) in the anterior aspect of the knee covered by black eschar with surrounding erythema and well-defined indurated borders. (+) fluctuation without discharges. Musculoskeletal - Normal inspection, normal ROM Skin - Warm/Dry Neurological - Alert & oriented x3. Moving all extremities spontaneously. Psychological - Appropriate affect Results Labs 03/28/25 18:39 03/28/25 18:39 Labs: Laboratory Results - last 24 hr 03/28/25 03/28/25 03/28/25 18:39 20:30 21:15 MCV 88.1 MCH 30.2 MCHC 34.2 RDW 12.9 Plt Count 299 MPV 8.7 L Immature Gran % (Auto) 0.3 Neut % (Auto) 61.8 Lymph % (Auto) 24.2 [place] % (Auto) 9.9 Eos % (Auto) 3.2 Baso % (Auto) 0.6 Lymph # (Auto) 1.5 [place] # (Auto) 0.6 Eos # (Auto) 0.2 Baso # (Auto) 0.0 Abs Immat Gran (auto) 0.02 Absolute Neuts (auto) 3.8 Absolute Nucleated RBC 0.000 Nucleated RBC % (auto) 0.0 PT 39.5 H INR 3.4 H Anion Gap 12 Estim Creat Clear Calc 102.6 Estimated GFR > 60 Random Glucose 218 H Lactic Acid 1.0 Calcium 9.7 Total Bilirubin 0.7 Direct Bilirubin 0.3 AST 20 ALT 12 Alkaline Phosphatase 80 Total Protein 7.4 Albumin 4.2 Urine Color Yellow Urine Appearance Clear Urine pH 5.5 Ur Specific [place] 1.010 Urine Protein Negative Urine Glucose (UA) Negative Urine Ketones Negative Urine Blood Negative Urine Nitrite Negative Ur Leukocyte Esterase Moderate (2+) H Urine RBC 0-2 Urine WBC 6-10 H Ur Squamous Epith Cells 0-2 Urine Bacteria None Seen Hyaline Casts 0-2 Assessment and Plan (1) Infection of left knee: Status: Acute (2) Abscess of left knee: Status: Acute Plan Myla Joya is a 65 y/o woman presents with: Left knee/patella anteromedial subcutaneous abscess and cellulitis. No septic arthritis. Continue empiric IV antibiotic therapy with vancomycin and cefepime. Blood cultures obtained -will follow results. Type 2 diabetes mellitus. Metformin on hold (recently received IV contrast). BG checks before meals at bedtime. Insulin sliding scale. Diabetic diet. Chronic atrial fibrillation. Continue metoprolol and diltiazem. Warfarin on hold due to supratherapeutic INR. Essential hypertension. Continue metoprolol and diltiazem. Supratherapeutic INR, secondary to warfarin. Warfarin on hold. Continue to monitor INR. Obesity class 2. BMI 38.3 kg/m2. Weight loss. HFpEF. No acute symptoms. Clear lungs. Continue furosemide per home dose. med rec pending Code status: Full DVT prophylaxis: On warfarin Patient will need hospitalization for at least 2 midnights for left knee infection treatment with IV antibiotic therapy and evaluation by surgeons. Quality Stroke Does the patient have a stroke diagnosis?: No VTE Prior VTE?: No VTE Risk Level:: Medical - moderate - high VTE Device Contraindication: Treatment Not Indicated VTE Drug Contraindication: N/A - Med Ordered
[2025-03-29 02:01] VITALS: BP 155/75; PULSE 60; RESP 18; TEMP 36; O2SAT 96
[2025-03-29 02:02] VITALS: BMI 38.1
[2025-03-29 06:28] LABS: MANUAL DIFF FLAG NO
[2025-03-29 06:30] LABS: Hematocrit 37.1 % (37.0-47.0); Hemoglobin 12.3 g/dl (12.0-16.0); Imm Gran Abs Auto 0.01 X10*3/uL (0.00-0.03); Imm Gran Pct Auto 0.2 % (0.0-0.4); Lymphocytes Absolute Auto 1.3 X10*3/uL (1.2-4.9); Mean Corpuscular HGB Conc 33.2 g/dl (31.0-35.0); Mean Corpuscular Hemoglobin 29.2 pg (27.0-33.0); Mean Corpuscular Volume 88.1 fL (80.0-98.0); NRBC Abs Auto 0.000 X10*3/uL (0.0-0.012); NRBC Pct Auto 0.0 /100WBC (0.0-0.2); Platelet Count 272 X10*3/uL (160-400); Red Blood Count 4.21 X10*6/uL (4.20-5.50); White Blood Count 6.3 X10*3/uL (4.8-10.8)
[2025-03-29 06:54] LABS: Anion Gap 19 (12-20); Blood Urea Nitrogen 10 mg/dL (9-16); Calcium 9.0 mg/dL (8.4-10.2); Carbon Dioxide 25 mmol/L (22-29); Chloride 101 mmol/L (96-108); Creatinine Clr Calc Pharmacy 119.2; Estimated Glomerular Filt Rate > 60; INTERNATIONAL NORM RATIO 3.2 (0.9-1.1); Potassium 3.7 mmol/L (3.3-5.1); Prothrombin Time 36.3 SEC (10.9-12.4); Sodium 141 mmol/L (135-145)
[2025-03-29 07:00] VITALS: BP 139/70; PULSE 66; RESP 16; TEMP 36.7; O2SAT 94
[2025-03-29 07:16] LABS: Glucose, Whole Blood 155 mg/dL (60-115)
[2025-03-29] MEDS: cefEPime HCl/D5W 2 GM/50 ML PIGGYBACK IV ×2 (07:48→20:38)
--- NOTE | 2025-03-29 08:34 | PHA.MEDREC ---
Pharmacy Consult ? Medication Reconciliation Pharmacy has completed the medication reconciliation. Spoke to pt and used claims history to confirm home meds. She is almost done with 10 day course of antibiotics. Both cephalexin and doxycycline had 1 full day of treatment remaining. She also notes that she is on 2 different strengths of warfarin and typically takes 7.5 mg on Monday and , and 5 mg on other days of the week. She does state that yesterday (03/28/25) she went to the coumadin clinic and her inr was 3.6 and she was instructed to hold her normal dose so she did not take any warfarin since her 7.5 mg on 03/27/25.
[2025-03-29] MEDS: 0.9 % Sodium Chloride Flush 3 ML SYRINGE IVFLUSH ×2 (09:04→20:31)
[2025-03-29] MEDS: Metoprolol Succinate ER 25 MG TAB.ER.24H PO ×2 (09:28→20:31)
[2025-03-29] MEDS: Potassium Chloride ER 10 MEQ TABLET.ER PO (09:28)
--- NOTE | 2025-03-29 10:15 | PM.EVENT ---
Event Note Date of Service: 03/29/25 Event Note: 65-year-old female with history of uncontrolled type 2 diabetes, atrial fibrillation s/p cardioversion on Coumadin, hypertension admitted for left knee/patella anteromedial subcutaneous abscess and cellulitis. Given uncontrolled type 2 diabetes was initiated on IV vancomycin and cefepime. No suspicion for septic arthritis however Orthopedic surgery was consulted. Denies pain, has been ambulatory. No fevers or drainage. Has full range of motion and feels erythema has improved. Type 2 diabetes POC glucose, diabetic diet Metformin on hold due to CT contrast Sliding scale insulin Chronic atrial fibrillation Continue Coumadin, monitor INR daily. INR supratherapeutic today, hold dose Continue metoprolol and diltiazem Hypertension Continue metoprolol diltiazem Heart failure preserved ejection fraction Clinically euvolemic Continue furosemide DVT prophylaxis-Coumadin Full code Time Spent With Patient Time: Total time managing care of this patient today ____ minutes.
[2025-03-29 11:07] LABS: Glucose, Whole Blood 195 mg/dL (60-115)
--- NOTE | 2025-03-29 11:36 | PHA.PROG ---
Admission Date/Time: March 28, 2025 22:55 Indication: Abscess & Cellulitis Weight in k.7 kg Adjusted body weight in K.1 kg [place] body weight in K.7 kg Obesity Dosing Indication % IBW: 184% Serum Creatinine - Last 168 Hours 03/28/25 03/29/25 18:39 06:15 Creatinine 0.64 0.55 Estimated CrCl and GFR - Last 168 Hours 03/28/25 03/29/25 18:39 06:15 Estim Creat Clear Calc 102.6 119.2 Estimated GFR > 60 > 60 Vancomycin Loading Dose: 2000 mg Current Vancomycin Dosing Regimen: 1500 mg Q12H Date and Time for next Vancomycin Level to be drawn: 03/30 @ 0930 Pharmacist Comments on Vancomycin Plan: Patient receive an adequate load dose in the ER on 03/28 @ 2215 Maintenance dose vancomycin 1500 mg Q12H scheduled to start 03/29 @ 1000. Predicted AUC 552 with a trough of 16.9 Patient is obese will %IBW > 130% therefore careful monitor require due vancomycin's high volume of distribution Trough to be drawn prior to 4th dose Pharmacy will monitor renal fucntion daily Suzi Magaña, Meg Vancomycin dosing will take advantage of [employer] as a clinical decision support tool that uses Bayesian modeling to calculate individual patient's pharmacokinetic parameters and forecast the patient's drug concentration time course with the target goal AUC 24 range of 400 - 600 mg/L/hr.
--- NOTE | 2025-03-29 14:31 | MHC.CM.PN ---
PT REPORTS SHE LIVES WITH HER DAUGHTER AND SON-IN-LAW SHE IS INDEPENDENT WITH CARE, HAS NO DME AND NO SERVICES DECLINES A HCP PCP: MICHAEL CONROY DCP: HOME NO SERVICES VIA PRIVATE TRANSPORT
[2025-03-29 15:21] VITALS: BP 139/75; PULSE 67; RESP 18; TEMP 37; O2SAT 95
[2025-03-29 16:19] LABS: Glucose, Whole Blood 146 mg/dL (60-115)
[2025-03-29 19:37] VITALS: BP 121/59; PULSE 72; RESP 18; TEMP 36.9; O2SAT 94
[2025-03-29 20:15] LABS: Glucose, Whole Blood 202 mg/dL (60-115)
[2025-03-29] MEDS: dilTIAZem HCL CD 180 MG CAP.ER.24H PO (20:30)
[2025-03-30 02:23] VITALS: BP 130/67; PULSE 74; RESP 17; TEMP 36.9; O2SAT 92
[2025-03-30 06:25] LABS: INTERNATIONAL NORM RATIO 2.2 (0.9-1.1); Prothrombin Time 25.7 SEC (10.9-12.4)
[2025-03-30 06:35] LABS: Creatinine Clr Calc Pharmacy 113.1; Estimated Glomerular Filt Rate > 60
[2025-03-30 07:03] VITALS: BP 147/83; PULSE 67; RESP 16; TEMP 36.7; O2SAT 96
[2025-03-30 07:10] LABS: Glucose, Whole Blood 156 mg/dL (60-115)
[2025-03-30] MEDS: Potassium Chloride ER 10 MEQ TABLET.ER PO (07:24)
[2025-03-30] MEDS: Metoprolol Succinate ER 25 MG TAB.ER.24H PO ×2 (07:24→21:01)
--- NOTE | 2025-03-30 08:53 | PM.CNOR ---
History of Present Illness HPI Consult date: 03/30/25 Chief complaint: left knee abcess Narrative: Ms. Dunn 65-year-old female with history of uncontrolled type 2 diabetes, atrial fibrillation s/p cardioversion on Coumadin, hypertension admitted for left knee/patella anteromedial subcutaneous abscess and cellulitis. Given uncontrolled type 2 diabetes was initiated on IV vancomycin and cefepime. No suspicion for septic arthritis however Orthopedic surgery was consulted. Denies pain, has been ambulatory. No fevers or drainage. Has full range of motion and feels erythema has improved. Review of Systems Review of Systems: Yes all other systems are reviewed and are negative [facility] Past Medical History Medical History History of cardioversion On anticoagulant therapy On beta kathrine at home Biatrial enlargement Chronic atrial fibrillation Heart failure, unspecified Diabetes HTN (hypertension) Morbid obesity Family History Family History Father No problems noted. 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 Meds Allergies Allergy/AdvReac Type Severity Reaction Status Date / Time Penicillins Allergy Severe Diarrhea Verified 03/28/25 18:32 enoxaparin AdvReac Intermediate Hives, leg Verified 03/28/25 18:32 swelling Active Medications: Current Medications Acetaminophen (Acetaminophen 325 Mg Tablet) 975 mg PO Q6H PRN PRN Reason: Pain, Mild 1-3,fever,headache Atorvastatin Calcium (Atorvastatin Calcium 10 Mg Tablet) 10 mg PO BEDTIME [facility] Last Admin: 03/29/25 20:31 Dose: 10 mg Calcium Carbonate (Calcium Carbonate 750 Mg Tab.Chew) 750 mg PO Q4H PRN PRN Reason: Heartburn Dextrose (Dextrose 50 % 25 Gm/50 Ml Syringe) 25 gm IVPUSH Q15M PRN; Protocol PRN Reason: per Hypoglycemia Standing Ord. Diltiazem HCl (Diltiazem Hcl Cd 180 Mg Cap.Er.24h) [address] [facility]; Protocol Last Admin: 03/29/25 20:30 Dose: 180 mg Furosemide (Furosemide 20 Mg Tablet) 20 mg PO DAILY@1200 [facility]; Protocol Last Admin: 03/29/25 12:05 Dose: 20 mg Glucose (Glucose Gel 15 Gm Gel..Gram.) 15 gm PO Q15M PRN; Protocol PRN Reason: per Hypoglycemia Standing Ord. Cefepime HCl (Maxipime) 2 gm in 50 mls @ 100 mls/hr IV Q12H [facility] Last Infusion: 03/29/25 21:11 Dose: Infused Vancomycin HCl 1,500 mg/ (Sodium Chloride) 500 mls @ 333.333 mls/hr IV Q12H [facility] Last Infusion: 03/29/25 22:53 Dose: Infused Insulin Human Lispro (Insulin Lispro 100 Unit/Ml 3 Ml Vial) [address] [facility]; Protocol Last Admin: 03/30/25 07:25 Dose: 2 unit Magnesium Hydroxide (Milk Of Magnesia 30 Ml Oral.Susp) 30 ml PO DAILY PRN PRN Reason: Constipation Melatonin (Melatonin 3 Mg Tablet) 6 mg PO BEDTIME PRN PRN Reason: Insomnia Metoprolol Succinate (Metoprolol Succinate Er 25 Mg Tab.Er.24h) [address] [facility]; Protocol Last Admin: 03/30/25 07:24 Dose: 25 mg Pharmacy Consult (Consult Rx Vancomycin Dosing) 1 each MISCELLANE DAILY PRN PRN Reason: Consult order Potassium Chloride (Potassium Chloride Er 10 Meq Tablet.Er) [address] [facility] Last Admin: 03/30/25 07:24 Dose: 10 meq Sodium Chloride (0.9 % Sodium Chloride Flush 3 Ml Syringe) [facility] Last Admin: 03/30/25 07:31 Dose: Not Given Vitamin D (Cholecalciferol (Vitamin D3) 25 Mcg Tablet) [address] [facility] Last Admin: 03/30/25 07:24 Dose: 25 mcg Warfarin Sodium (Warfarin Sodium 5 Mg Tablet) 5 mg PO SUTUWEFRSA@1800 [facility] Warfarin Sodium (Warfarin Sodium 7.5 Mg Tablet) mg PO MOTH@1800 [facility] Home Medications ?Medication ?Instructions ?Recorded ?Confirmed ?Last Taken ?Type diltiazem HCl 180 mg 180 mg PO BEDTIME 07/21/20 03/29/25 03/28/25 History capsule,extended release 24 hr potassium chloride 10 mEq 10 meq PO DAILY 07/21/20 03/29/25 03/28/25 History tablet,extended release(part/cryst) simvastatin 10 mg tablet 10 mg PO BEDTIME 07/21/20 03/29/25 03/27/25 History cholecalciferol (vitamin D3) 25 25 mcg PO DAILY 12/20/21 03/29/25 03/28/25 History mcg (1,000 unit) capsule ciclopirox 0.77 % topical gel 1 appl topical BID 08/23/24 03/29/25 03/28/25 History furosemide 20 mg tablet 20 mg PO DAILY@1200 03/29/25 03/29/25 03/28/25 History metformin 500 mg tablet,extended 500 mg PO BID@0900,1200 03/29/25 03/29/25 03/28/25 History release 24 hr warfarin 5 mg tablet 5 mg PO SUTUWEFRSA@1800 03/29/25 03/29/25 03/26/25 History warfarin 7.5 mg tablet 7.5 mg PO MOTH@1800 03/29/25 03/29/25 03/27/25 History Physical Exam Vital Signs: Vital Signs: Last Vital Signs Temp 98.0 F 03/30/25 07:03 Pulse 67 03/30/25 07:03 Resp 16 03/30/25 07:03 BP 147/83 H 03/30/25 07:03 Pulse Ox 96 03/30/25 07:03 O2 Del Method Room Air 03/30/25 07:03 BMI result Body Mass Index 38.1 Const: General: cooperative, healthy appearing and no acute distress Resp: Effort & Inspection: normal respiratory effort and able to speak in complete sentences Extrem: Other: Left knee quarter sized area of eschar tissue on the anterior aspect of the knee surrounded by erythematous tissue. No active drainage. Able to perform flexion and extension of the knee. No evidence of infected joint. Psych: Appearance: grossly normal Mental Status: mental status grossly normal Attitude: cooperative Results Labs 03/29/25 06:15 03/30/25 05:45 Labs: Abnormal lab results 03/29/25 03/29/25 03/29/25 Range/Units 11:03 16:15 20:11 PT (10.9-12.4) SEC INR (0.9-1.1) POC Glucose 195 H 146 H 202 H (60-115) mg/dL 03/30/25 03/30/25 Range/Units 05:45 07:06 PT 25.7 H D (10.9-12.4) SEC INR 2.2 H (0.9-1.1) POC Glucose 156 H (60-115) mg/dL H & H 03/28/25 03/29/25 Range/Units 18:39 06:15 Hgb 12.7 12.3 (12.0-16.0) g/dl Hct 37.1 37.1 (37.0-47.0) % Coagulation 03/28/25 03/29/25 03/30/25 Range/Units 21:15 06:15 05:45 INR 3.4 H 3.2 H 2.2 H (0.9-1.1) All other labs normal. Assessment and Plan (1) Current use of anticoagulant therapy: Status: Acute (2) Cellulitis: Status: Acute Plan Continue IV abx per medicine Encourage gentle ROM No surgical intervention at this time CT scan left knee Impression: Anteromedial subcutaneous fluid collection at patella Question hematoma, seroma and/or abscess Nonspecific circumferential edema below the knee CPPD with degenerative change and trace joint effusion No acute bony abnormality Procedures Date of Service Date of Service: 03/30/25
[2025-03-30] MEDS: cefEPime HCl/D5W 2 GM/50 ML PIGGYBACK IV ×2 (09:12→21:07)
[2025-03-30 11:23] LABS: Glucose, Whole Blood 180 mg/dL (60-115)
[2025-03-30 15:32] VITALS: BP 110/59; PULSE 70; RESP 18; TEMP 36.7; O2SAT 95
[2025-03-30 16:17] LABS: Glucose, Whole Blood 162 mg/dL (60-115)
[2025-03-30] MEDS: 0.9 % Sodium Chloride Flush 3 ML SYRINGE IVFLUSH ×2 (16:35→21:02)
--- NOTE | 2025-03-30 17:36 | HO.PM.IMPN ---
Subjective Subjective Date of Service: 03/30/25 Interval History: Erythema and swelling of left leg improving No significant events overnight Overall feels well Seen by ortho who do not feel any surgical intervention necessary at this time Review of Systems Review of Systems: Yes all other systems are reviewed and are negative Physical Exam Exam: Exam: General: AOx3, no acute distress Resp: CTA bilaterally CVS: S1, S2, RRR GI: +BS, NT, no distention Skin: Warm, dry Neuro: Cranial nerves II-XII grossly intact bilaterally. Motor grossly intact bilaterally Extremities: Ulcerated lesion with surrounding erythema, mild induration without fluctuance. Small area of surrounding erythema and swelling around left knee. As pictured below. Psych: Appropriate affect Vital Signs: Vital Signs: Last Vital Signs Temp 98.0 F 03/30/25 15:32 Pulse 70 03/30/25 15:32 Resp 18 03/30/25 15:32 BP 110/59 L 03/30/25 15:32 Pulse Ox 95 03/30/25 15:32 O2 Del Method Room Air 03/30/25 15:32 BMI result Body Mass Index 38.1 Objective Data Active Medications Acetaminophen (Acetaminophen 325 Mg Tablet) 975 mg PO Q6H PRN PRN Reason: Pain, Mild 1-3,fever,headache Atorvastatin Calcium (Atorvastatin Calcium 10 Mg Tablet) 10 mg PO BEDTIME [facility] Last Admin: 03/29/25 20:31 Dose: 10 mg Documented By: CHAVEZ Calcium Carbonate (Calcium Carbonate 750 Mg Tab.Chew) 750 mg PO Q4H PRN PRN Reason: Heartburn Dextrose (Dextrose 50 % 25 Gm/50 Ml Syringe) 25 gm IVPUSH Q15M PRN; Protocol PRN Reason: per Hypoglycemia Standing Ord. Diltiazem HCl (Diltiazem Hcl Cd 180 Mg Cap.Er.24h) 180 mg PO BEDTIME [facility]; Protocol Last Admin: 03/29/25 20:30 Dose: 180 mg Documented By: CHAVEZ Furosemide (Furosemide 20 Mg Tablet) 20 mg PO DAILY@1200 [facility]; Protocol Last Admin: 03/30/25 11:31 Dose: 20 mg Documented By: VIRGEN Glucose (Glucose Gel 15 Gm Gel..Gram.) 15 gm PO Q15M PRN; Protocol PRN Reason: per Hypoglycemia Standing Ord. Cefepime HCl (Maxipime) 2 gm in 50 mls @ 100 mls/hr IV Q12H [facility] Last Infusion: 03/30/25 09:53 Dose: Infused Documented By: VIRGEN Vancomycin HCl 1,250 mg/ (Sodium Chloride) 250 mls @ 166.667 mls/hr IV Q12H [facility] Last Infusion: 03/30/25 13:46 Dose: Infused Documented By: VIRGEN Insulin Human Lispro (Insulin Lispro 100 Unit/Ml 3 Ml Vial) 0 unit SUBCUT QIDACHS [facility]; Protocol Last Admin: 03/30/25 16:35 Dose: 2 unit Documented By: VIRGEN Magnesium Hydroxide (Milk Of Magnesia 30 Ml Oral.Susp) 30 ml PO DAILY PRN PRN Reason: Constipation Melatonin (Melatonin 3 Mg Tablet) 6 mg PO BEDTIME PRN PRN Reason: Insomnia Metoprolol Succinate (Metoprolol Succinate Er 25 Mg Tab.Er.24h) 25 mg PO BID [facility]; Protocol Last Admin: 03/30/25 07:24 Dose: 25 mg Documented By: VIRGEN Pharmacy Consult (Consult Rx Vancomycin Dosing) 1 each MISCELLANE DAILY PRN PRN Reason: Consult order Potassium Chloride (Potassium Chloride Er 10 Meq Tablet.Er) 10 meq PO DAILY [facility] Last Admin: 03/30/25 07:24 Dose: 10 meq Documented By: VIRGEN Sodium Chloride (0.9 % Sodium Chloride Flush 3 Ml Syringe) 3 ml IVFLUSH QSHIFT [facility] Last Admin: 03/30/25 16:35 Dose: 3 ml Documented By: VIRGEN Vitamin D (Cholecalciferol (Vitamin D3) 25 Mcg Tablet) 25 mcg PO DAILY [facility] Last Admin: 03/30/25 07:24 Dose: 25 mcg Documented By: VIRGEN Warfarin Sodium (Warfarin Sodium 5 Mg Tablet) 5 mg PO DAILY@1800 [facility] Last Admin: 03/30/25 17:31 Dose: 5 mg Documented By: VIRGEN Labs 03/29/25 06:15 03/30/25 05:45 Labs: Laboratory Results - last 24 hr 03/29/25 03/30/25 03/30/25 20:11 05:45 07:06 PT 25.7 H D INR 2.2 H Estim Creat Clear Calc 113.1 Estimated GFR > 60 POC Glucose 202 H 156 H Vancomycin Trough 03/30/25 03/30/25 03/30/25 09:35 11:18 16:13 PT INR Estim Creat Clear Calc Estimated GFR POC Glucose 180 H 162 H Vancomycin Trough 16.5 Microbiology Microbiology Results: Microbiology 03/28/25 20:40 Urine Culture - Final Urine clean catch - Clean Catch Midstream 03/28/25 21:15 Blood Culture - Preliminary Blood - Venous No growth after 24 hours. 03/28/25 21:15 Blood Culture - Preliminary Blood - Venous No growth after 24 hours. Assessment and Plan (1) Infection of left knee: Status: Acute Plan 65-year-old female with history of uncontrolled type 2 diabetes, atrial fibrillation s/p cardioversion on Coumadin, hypertension admitted for left knee/patella anteromedial subcutaneous abscess and cellulitis. Given uncontrolled type 2 diabetes was initiated on IV vancomycin and cefepime. No suspicion for septic arthritis however Orthopedic surgery was consulted. Denies pain, has been ambulatory. No fevers or drainage. Has full range of motion and feels erythema has improved. Left knee/patella anteromedial subcutaneous abscess and cellulitis No septic arthritis Continue empiric IV antibiotic therapy with vancomycin and cefepime Orthopedics consulted who feel no surgical intervention indicated at this time; continue IV antibiotics and encouraged gentle ROM Follow blood cultures Type 2 diabetes POC glucose, diabetic diet Metformin on hold due to CT contrast Sliding scale insulin Chronic atrial fibrillation Continue Coumadin, monitor INR daily. INR supratherapeutic today, hold dose Continue metoprolol and diltiazem Hypertension Continue metoprolol diltiazem Heart failure preserved ejection fraction Clinically euvolemic Continue furosemide DVT prophylaxis-Coumadin Full code Pt requires continued hospitalization for administration of IV antibiotics. Quality Stroke Does the patient have a stroke diagnosis?: No VTE Prior VTE?: No VTE Risk Level:: Medical - moderate - high VTE Device Contraindication: Treatment Not Indicated VTE Drug Contraindication: N/A - Med Ordered
[2025-03-30 20:00] VITALS: BP 129/80; PULSE 65; RESP 17; TEMP 36.2; O2SAT 95
[2025-03-30 20:30] LABS: Glucose, Whole Blood 197 mg/dL (60-115)
[2025-03-30] MEDS: dilTIAZem HCL CD 180 MG CAP.ER.24H PO (21:00)
[2025-03-31 03:04] VITALS: BP 142/75; PULSE 62; RESP 16; TEMP 36; O2SAT 95
[2025-03-31 06:41] LABS: INTERNATIONAL NORM RATIO 1.8 (0.9-1.1); Prothrombin Time 20.1 SEC (10.9-12.4)
[2025-03-31 06:59] VITALS: BP 147/72; PULSE 66; RESP 16; TEMP 36.4; O2SAT 93
[2025-03-31 07:13] LABS: Glucose, Whole Blood 171 mg/dL (60-115)
[2025-03-31] MEDS: Metoprolol Succinate ER 25 MG TAB.ER.24H PO (07:55)
[2025-03-31] MEDS: 0.9 % Sodium Chloride Flush 3 ML SYRINGE IVFLUSH (07:56)
[2025-03-31] MEDS: Potassium Chloride ER 10 MEQ TABLET.ER PO (07:56)
[2025-03-31] MEDS: cefEPime HCl/D5W 2 GM/50 ML PIGGYBACK IV (07:56)
[2025-03-31 09:25] LABS: Creatinine Clr Calc Pharmacy 121.4; Estimated Glomerular Filt Rate > 60
--- NOTE | 2025-03-31 10:06 | HE.PHANOTE ---
re: vanco Trough returned at 16.9. Renal function stable. Will continue current regimen. Predicted AUC of 504 and trough 15.7. Next trough 04/01 @2100.
[2025-03-31 11:11] LABS: Glucose, Whole Blood 247 mg/dL (60-115)
--- NOTE | 2025-03-31 11:23 | MHC.CM.PN ---
Patient medically cleared for dc home self care. Daughter to transport. RN aware.
[2025-03-31 11:48] VITALS: BP 133/71
[2025-03-31 12:44] VITALS: BP 134/80; PULSE 66; RESP 16; TEMP 36.7; O2SAT 93
--- NOTE | 2025-03-31 13:23 | PC.NURSE ---
Pt extensively educated on risks of Coumadin and doxy interactions. MD Boone aware, states medication combination is safe, and pt is educated that f/u with Coumadin clinic is necessary. Education printed off and given to patient with review of signs and symptoms of elevated INR Pt and daughter state they understand DC instructions.
--- NOTE | 2025-03-31 14:37 | P.DS_ITS ---
DS: Providers Provider Date of Service: 03/28/25 Date of admission: 03/28/25 22:55 Date of discharge: 03/31/25 Primary care physician: WILDER Conde Consults: 03/29/25 01:40 Consult to Orthopedics Routine Consulting Provider: [facility] Reason for consultation: Left knee abscess, infected wound Has provider been notified: No 03/29/25 07:21 Consult to Wound Care Routine Reason for consultation: left knee abscess/wound Attending physician on discharge: Asaf Boone DS: Diagnosis Discharge Diagnosis (1) Infection of left knee: Status: Acute DS: Summary Hospital Course Hospital Course: 65-year-old female with history of uncontrolled type 2 diabetes, atrial fibrillation s/p cardioversion on Coumadin, hypertension admitted for left knee/patella anteromedial subcutaneous abscess and cellulitis. Given uncontrolled type 2 diabetes was initiated on IV vancomycin and cefepime. No suspicion for septic arthritis however Orthopedic surgery was consulted. Denies pain, has been ambulatory. No fevers or drainage. Has full range of motion and feels erythema has improved. Orthopedics consulted who feel no surgical intervention indicated at this time; continue IV antibiotics and encouraged gentle ROM The patient was transitioned to doxycycline BID 100mg for 10 days for management of uncomplicated nonpurulent cellulitis. Status at Discharge Functional status at discharge: independent ambulation Overall status at discharge: patient is back to baseline Time Attestation Total time managing care of this patient today: 35 mintues. Discharge Coordination Time (in mins): 15 Quality: Safe Use of Opioids Does Pt have an Active Cancer Diagnosis on the Problem List?: No Quality: Stroke Does the patient have a stroke diagnosis?: No Physical Exam Exam: Exam: General: A&O x3, oriented to time place person and siutaion, comfortable, no pain Cardiac: S1, S2 auscultated with no S3/4, no MRG. Well perfused. Respiratory: Normal breath sounds auscultated throughout all lung zones, without wheezing, rales. Normal rate. GI/ : No abdominal pain on palpation, no masses or distentions. MSK: Normal ambulation without pain at bony prominences or musculature Neurological: Normal neurological examination on overview, without obvious CN II-XII abnormalities. Vital Signs: Vital Signs: Last Vital Signs Temp 98.0 F 03/31/25 12:44 Pulse 66 03/31/25 12:44 Resp 16 03/31/25 12:44 BP 134/80 03/31/25 12:44 Pulse Ox 93 03/31/25 12:44 O2 Del Method Room Air 03/31/25 12:44 BMI result Body Mass Index 38.1 DS: Data Data Completed and Pending Labs on day of discharge: Laboratory Results - last 24 hr 03/30/25 03/30/25 03/31/25 16:13 20:19 06:20 Hold Purple Top SEE NOTE PT 20.1 H D INR 1.8 H Creatinine Estim Creat Clear Calc Estimated GFR POC Glucose 162 H 197 H Vancomycin Trough 03/31/25 03/31/25 03/31/25 07:00 09:02 11:05 Hold Purple Top PT INR Creatinine 0.54 Estim Creat Clear Calc 121.4 Estimated GFR > 60 POC Glucose 171 H 247 H Vancomycin Trough 16.9 Preliminary micro results at discharge 03/28/25 21:15 Blood Culture - Preliminary Blood - Venous No growth after 48 hours. 03/28/25 21:15 Blood Culture - Preliminary Blood - Venous No growth after 48 hours. Discharge Plan Discharge Anticipated Discharge Date/Time: 03/31/25 12:22 Patient Disposition: Home, Self-Care Discharge Diagnosis: prepatellar cellulitis Left Referrals: Jaja Marin PA [Primary Care Provider, Hospitalist] - 1 Week Discharge Medications: New silver sulfadiazine 1 % cream 1 appl topical BID 10 Days Qty: 50 0RF Rx Instructions: apply a 1.5 mm thickness Continued metoprolol succinate 25 mg tablet extended release 24 hr 25 mg PO BID Qty: 180 1RF (DME) OneTouch Ultra Test Strip See Rx Instructions .Route Qty: 100 1RF Rx Instructions: Check POC BID warfarin 7.5 mg tablet 7.5 mg PO MOTH@1800 Protocol: Dose Management Condition: Monday (Week One) Dose/Route: 5 mg Instruction: 1 x 5 mg tablet Condition: Monday Dose/Route: 7.5 mg Instruction: 1 x 7.5 mg tablet Condition: Monday Dose/Route: 5 mg Instruction: 1 x 5 mg tablet Condition: Monday Dose/Route: 5 mg Instruction: 1 x 5 mg tablet Condition: Dose/Route: 7.5 mg Instruction: 1 x 7.5 mg tablet Condition: Monday Dose/Route: 0 mg Instruction: 0 tablets Condition: Monday Dose/Route: 5 mg Instruction: 1 x 5 mg tablet Condition: Monday () Dose/Route: 5 mg Instruction: 1 x 5 mg tablet Condition: Monday Dose/Route: 7.5 mg Instruction: 1 x 7.5 mg tablet Condition: Monday Dose/Route: 5 mg Instruction: 1 x 5 mg tablet Condition: Monday Dose/Route: 5 mg Instruction: 1 x 5 mg tablet Condition: Dose/Route: 7.5 mg Instruction: 1 x 7.5 mg tablet Condition: Monday Dose/Route: 5 mg Instruction: 1 x 5 mg tablet Condition: Monday Dose/Route: 5 mg Instruction: 1 x 5 mg tablet Protocol Text: Adjustment Start Date: Monday03/28/25 INR Value: 3.6 INR Date: 03/28/25 Recheck Date: 04/04/25 warfarin 5 mg tablet 5 mg PO KATIEUWEFREJIA@1800 Protocol: Dose Management Condition: Monday ( One) Dose/Route: 5 mg Instruction: 1 x 5 mg tablet Condition: Monday Dose/Route: 7.5 mg Instruction: 1 x 7.5 mg tablet Condition: Monday Dose/Route: 5 mg Instruction: 1 x 5 mg tablet Condition: Monday Dose/Route: 5 mg Instruction: 1 x 5 mg tablet Condition: Dose/Route: 7.5 mg Instruction: 1 x 7.5 mg tablet Condition: Monday Dose/Route: 0 mg Instruction: 0 tablets Condition: Monday Dose/Route: 5 mg Instruction: 1 x 5 mg tablet Condition: Monday () Dose/Route: 5 mg Instruction: 1 x 5 mg tablet Condition: Monday Dose/Route: 7.5 mg Instruction: 1 x 7.5 mg tablet Condition: Monday Dose/Route: 5 mg Instruction: 1 x 5 mg tablet Condition: Monday Dose/Route: 5 mg Instruction: 1 x 5 mg tablet Condition: Dose/Route: 7.5 mg Instruction: 1 x 7.5 mg tablet Condition: Monday Dose/Route: 5 mg Instruction: 1 x 5 mg tablet Condition: Monday Dose/Route: 5 mg Instruction: 1 x 5 mg tablet Protocol Text: Adjustment Start Date: Monday03/28/25 INR Value: 3.6 INR Date: 03/28/25 Recheck Date: 04/04/25 furosemide 20 mg tablet 20 mg PO DAILY@1200 metformin 500 mg tablet extended release 24 hr 500 mg PO BID@0900,1200 doxycycline hyclate 100 mg tablet 100 mg PO BID Qty: 20 0RF Rx Instructions: 10 DAY COURSE TO BE COMPLETED 03/29/25 diltiazem HCl 180 mg capsule,extended release 24hr 180 mg PO BEDTIME simvastatin 10 mg tablet 10 mg PO BEDTIME potassium chloride 10 mEq tablet,ER particles/crystals 10 meq PO DAILY cholecalciferol (vitamin D3) 25 mcg (1,000 unit) capsule 25 mcg PO DAILY ciclopirox 0.77 % gel 1 appl topical BID (DME) blood-glucose meter [PreventlyTouch Ultra2 Meter] Misc See Rx Instructions .Route Qty: 1 0RF Rx Instructions: Check POC BID (DME) lancets [OneTouch UltraSoft 2 Lancet] 30 gauge misc See Rx Instructions .Route Qty: 200 1RF Rx Instructions: Check POC BID Discontinued cephalexin 500 mg capsule 500 mg PO QID 10 Days Qty: 40 0RF Rx Instructions: 10 DAY COURSE TO BE COMPLETED 03/29/25 Discharge Orders: Discharge Order (Routine); Ordered 03/31/25 Ordered By: Asaf Boone Diet: Advance to usual diet Activity on Discharge: As tolerated Stand Alone Forms: Patient Portal Discharge page Print Language: Luxembourgish Care Plan Goals: - Continue antibiotic regimen as prescribed - If experiencing symptoms of GERD/ heartburn, can use over the counter pantoprazole 20mg once a day - Follow up with PCP - Follow up with Endocrinology outpatient Health Concerns: Type II DM Prepatellar cellulitis Plan of Treatment: As above Assessment: Overall stable and back to clinical baseline Patient Instructions: Silver Sulfadiazine (On the skin), Doxycycline (By mouth), Warfarin (By mouth), Elevated INR (GEN) Discharge Date/Time: 03/31/25 13:25
== END 2025-03-31 13:25 | disposition home or self-care (01) | DRG 603 ==
LOC: HO.ED 22:49 → HO.EDOVER 22:58 → HO.S3 03-29 01:13
PROVIDERS: Nurse Practitioner Family; Student in an Organized Health Care Education/Training Program; Admitting Provider Internal Medicine; Emergency Provider Emergency Medicine; PCP Physician Assistant; Visit Provider Hospitalist
DX: L02.416 Cutaneous abscess of left lower limb (principal); I48.20 Chronic atrial fibrillation, unspecified; I50.32 Chronic diastolic (congestive) heart failure; L03.116 Cellulitis of left lower limb; I11.0 Hypertensive heart disease with heart failure; E66.812 Obesity, class 2; Z71.3 Dietary counseling and surveillance; Z68.38 Body mass index [BMI] 38.0-38.9, adult; R79.1 Abnormal coagulation profile; Z79.84 Long term (current) use of oral hypoglycemic drugs; Z79.01 Long term (current) use of anticoagulants; Z79.899 Other long term (current) drug therapy
CPT/HCPCS: 36415; 73701; 80048; 80076; 80202; 81001; 82565; 82947; 83605; 85025; 85610; 86140; 87040; 87086; 99285; J0692; J3373; J3374; Q9967

== ENCOUNTER → 2025-03-28 20:46 | Outpatient (BNV) | payer OTHER, SELFPAY | PROVIDERS: Admitting Provider Internal Medicine; Emergency Provider Emergency Medicine; PCP Physician Assistant; Visit Provider Radiology Diagnostic Radiology | DX: M11.262 Other chondrocalcinosis, left knee (principal) | CPT/HCPCS: 73701 ==

== ENCOUNTER → 2025-03-28 22:55 | Outpatient (BNV) | payer OTHER, SELFPAY | PROVIDERS: Admitting Provider Internal Medicine; Emergency Provider Emergency Medicine; PCP Physician Assistant; Visit Provider Physician Assistant | DX: L03.116 Cellulitis of left lower limb (principal); Z79.01 Long term (current) use of anticoagulants; E11.69 Type 2 diabetes mellitus with other specified complication | CPT/HCPCS: 99222 ==

== ENCOUNTER → 2025-03-28 22:55 | Outpatient (BNV) | payer OTHER, SELFPAY | PROVIDERS: Admitting Provider Internal Medicine; Emergency Provider Emergency Medicine; PCP Physician Assistant; Visit Provider Internal Medicine | DX: M00.9 Pyogenic arthritis, unspecified (principal); L02.416 Cutaneous abscess of left lower limb | CPT/HCPCS: 99223; 99233; 99499 ==

== ENCOUNTER 2025-04-04 14:42 | Outpatient (AMB) | payer OTHER, SELFPAY ==
--- OUTSIDE RECORDS SUMMARY | 2025-04-04 14:44 | XMS_ITS | Patient Health Record ---
Author Organization [facility] [place] Address [address] [place] [address] Care Team Providers Care Avionics Test Technician Name Role Phone Jaja Marin Primary Care Provider Unavailabl e Black, Carrie Unavailable [phone] Allergies No Known Allergies Reason For Referral [...] Problem Acquired hammer toe of right foot (7755831159091893 ) Other hammer toe(s) (acquired), right foot (M20.41) Active confirmed Problem Other hammer toe(s) (acquired), left foot (M20.42) Active confirmed Problem Polyneuropathy due to type 2 diabetes mellitus (875134474) Type 2 diabetes mellitus with diabetic polyneuropathy (E11.42) Active confirmed Vital Signs Blood pressure diastolic 60 mm Hg 01/27/2025 Height 5ft3in in 01/27/2025 Blood pressure systolic 130 mm Hg 01/27/2025 Weight 245 lbs 01/27/2025 BMI 43.4 kg/m2 01/27/2025 Procedures Procedure Date Ordered Date Performed Result Body Sit e 14024-NZZLHHH NAIL, 6 OR MORE 01/27/2025 N/A 63852-PWDX SKIN LESIONS, OVER 4 01/27/2025 N/A Encounters Encounter Location Date Provider Diagnosis [address] [address] 07/29/2024 Carrie Lerma Type 2 diabetes mellitus with diabetic polyneuropathy E11.42 ; Tinea unguium B35.1 ; Tinea pedis of both feet B35.3 ; Other hammer toe(s) (acquired), right foot M20.41 and Other hammer toe(s) (acquired), left foot M20.[address] [facility] [address] 01/27/2025 Carrie Lerma Type 2 diabetes mellitus with diabetic polyneuropathy E11.42 ; Tinea unguium B35.1 ; Other hammer toe(s) (acquired), right foot M20.41 and Other hammer toe(s) (acquired), left foot M20.[address] [address] 01/27/2025 Carrie Lerma Assessments Encounter Date Diagnosis [...] Test Name Order Date Hemoglobin A1c 07/14/2015 05833-YHRXOFO NAIL, 6 OR MORE 01/24/2022 62889-ZEALPRN NAIL, 6 OR MORE 01/30/2023 85622-TAJEFJL NAIL, 6 OR MORE 07/25/2022 70930-JFHDIXI NAIL, 6 OR MORE 08/03/2023 56870-XDDNLXP NAIL, 6 OR MORE 02/01/2024 19690-ZACVAZT NAIL, 6 OR MORE 01/27/2025 65720-OJLRLXI NAIL, 6 OR MORE 11/04/2013 71549-EARKHBG NAIL, 6 OR MORE 02/06/2014 44161-MIEAELA NAIL, 6 OR MORE 05/12/2014 10709-WQMIKHZ NAIL, 6 OR MORE 08/25/2014 48306-QHSRMQA NAIL, 6 OR MORE 12/15/2014 36230-IRMLVJX NAIL, 6 OR MORE 02/23/2015 27897-GNQPRRG NAIL, 6 OR MORE 05/07/2015 99681-JCWBLZF NAIL, 6 OR MORE 08/03/2015 29604-MGRVMOA NAIL, 6 OR MORE 11/02/2015 61927-POAVBXJ NAIL, 6 OR MORE 02/01/2016 86297-HREQQTG NAIL, 6 OR MORE 05/09/2016 65840-NSLJDHM NAIL, 6 OR MORE 08/22/2016 11316-FLHFAXK NAIL, 6 OR MORE 11/21/2016 90083-XRRTHNJ NAIL, 6 OR MORE 02/20/2017 24164-KXMHETE NAIL, 6 OR MORE 05/29/2017 45736-KHXBVLQ NAIL, 6 OR MORE 09/04/2017 06522-FOLUFJJ NAIL, 6 OR MORE 12/04/2017 82519-SLWUYPO NAIL, 6 OR MORE 03/12/2018 57651-FTQEGWW NAIL, 6 OR MORE 06/11/2018 53548-IULDLZB NAIL, 6 OR MORE 09/24/2018 42058-EJFGSPR NAIL, 6 OR MORE 12/24/2018 57713-PVMFVWJ NAIL, 6 OR MORE 03/25/2019 79626-SAWCQMS NAIL, 6 OR MORE 07/01/2019 70814-ROQOHJP NAIL, 6 OR MORE 10/07/2019 60545-MENVKCK NAIL, 6 OR MORE 12/30/2019 26405-GLIJYQN NAIL, 6 OR MORE 04/13/2020 75882-EVEFFAP NAIL, 6 OR MORE 10/01/2020 32083-ROMBUNN NAIL, 6 OR MORE 01/04/2021 29870-LLFZYDJ NAIL, 6 OR MORE 07/12/2021 05061-Skftslzf Plate 11/21/2016 92339-Vhkavbmq Plate 08/22/2016 38610-Bpghfcod Plate 05/07/2015 48522-Taccqxwd Plate 02/23/2015 52051-Qblgvqee Plate 05/12/2014 75799-Zuiilpby Plate 12/15/2014 98808-Ynfxtwgf Plate 08/25/2014 75852-Cyuyopmk Plate 05/09/2016 50361-Uhwouekl Plate 01/30/2023 73705-Divztwzk Plate 08/03/2023 95417-Vpespnlu Plate 07/12/2021 20197-Ipdrxzic Plate Each Additional 02069-Bgcmwpid Plate Each Additional 84489- Debride <25 sq cm 12/15/2014 93811- Debride <25 sq cm 08/25/2014 46864-XCZW SKIN LESIONS, OVER 4 02/24/20 15 53371-MYSW SKIN LESIONS, OVER 4 12/16/19 15 09770-NZGF SKIN LESIONS, OVER 4 11/05/19 14 52713-INQV SKIN LESIONS, OVER 4 08/25/19 15 48275-OUBB SKIN LESIONS, OVER 4 05/12/20 14 32280-LVTC SKIN LESIONS, OVER 4 02/07/20 14 64017-XCGX SKIN LESIONS, OVER 4 05/07/20 15 37832-QSTE SKIN LESIONS, OVER 4 08/03/20 15 96422-FVDH SKIN LESIONS, OVER 4 02/01/20 16 54351-ZIBL SKIN LESIONS, OVER 4 11/02/19 16 95689-ZMOG SKIN LESIONS, OVER 4 08/22/19 17 83422-SMPM SKIN LESIONS, OVER 4 05/09/20 16 86265-PYCQ SKIN LESIONS, OVER 4 11/22/19 17 24444-MHGE SKIN LESIONS, OVER 4 02/21/20 17 69004-HFNE SKIN LESIONS, OVER 4 07/12/20 21 86836-GILB SKIN LESIONS, OVER 4 01/05/20 21 89184-EGBQ SKIN LESIONS, OVER 4 10/01/19 21 01513-VWTP SKIN LESIONS, OVER 4 04/13/20 20 59827-YDBW SKIN LESIONS, OVER 4 12/30/19 20 53948-RQCV SKIN LESIONS, OVER 4 10/07/19 20 03053-JXCL SKIN LESIONS, OVER 4 07/01/20 19 73039-OKBQ SKIN LESIONS, OVER 4 03/25/20 19 28490-DETU SKIN LESIONS, OVER 4 12/25/19 19 51830-OSVV SKIN LESIONS, OVER 4 09/24/19 19 33454-SMYP SKIN LESIONS, OVER 4 06/11/20 18 00046-ZKUT SKIN LESIONS, OVER 4 03/12/20 18 67857-TEUD SKIN LESIONS, OVER 4 12/05/19 18 58059-TZQD SKIN LESIONS, OVER 4 09/04/19 18 52000-PMDU SKIN LESIONS, OVER 4 05/29/20 17 97982-TPUB SKIN LESIONS, OVER 4 01/25/20 22 74156-WTQG SKIN LESIONS, OVER 4 07/25/20 69393-CMFU SKIN LESIONS, OVER 4 08/03/20 23 16640-TJJB SKIN LESIONS, OVER 4 01/28/20 25 49608-HKEX SKIN LESIONS, OVER 4 02/01/20 24 45906-SMOM SKIN LESIONS, OVER 4 01/31/20 23 Next Appt Details Provider Name:Carrie Lerma , 07/21/2025 03:30:00 PM, [address], [place], [address], Insurance Providers Payer Name Payer Address Payer Phone Subscriber Number Group Number Insured Name Patient Relationship to Insured Coverage Start Date Coverage End Date [employer] [address] [place] [address] [id number] Myla Dunn Self - patient is the insured Medical (General) History Medical History History ICD Code Diabetic Measles Mumps Chicken pox Atrial fibrillation Surgical History Surgery Date(Month/Year) heart surgery hole in heart 09/2007
--- OUTSIDE RECORDS SUMMARY | 2025-04-04 14:44 | XMS_ITS | Patient Health Record ---
Author Organization [facility] Address [address] [place] [address] Care Team Providers Care Compliance Administrator Name Role Phone Pat (RETIRED) Abdulaziz GUERRERO Primary Care Provide r Unavailable Adam Morales Unavailable [phone] Allergies No Known Allergies Reason For Referral [...] Problem Status W/U Status Risk Notes Problem [id number] Encounter for screening for malignant neoplasm of colon (Z12.11) Active confirmed Problem [id number] Preprocedural examination (Z01.818) Active confirmed Problem Diverticulosis of colon (787849947) Diverticulosis of colon (K57.30) Active confirmed Problem 417941808 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 (Z79.01) Active confirmed Plan Of Treatment Pending Test Test Name Order Date Pathology 12/10/2021 Future Test Test Name Order Date COLONOSCOPY 11/03/2021 Insurance Providers Payer Name Payer Address Payer Phone Subscriber Number Group Number Insured Name Patient Relationship to Insured Coverage Start Date Coverage End Date [facility] [address] [place] [address] [phone] [id number] SAVANNA VENEGAS Self - patient is the insured Medical (General) History Medical History History ICD Code High cholesterol Afib Denies HI,CVA,Lung disease,renal disease NIDDM Surgical History Surgery Date(Month/Year) Open heart surgery for a PFO 2007 Ear tubes Tonsils
[2025-04-04 14:59] LABS: Prothrombin Time Whole Bld POC 16.8 sec (11.1-13.5); ~PT, ~INR - Anti Coag Clinic 1.4 (0.9-1.1)
--- NOTE | 2025-04-04 15:26 | MHC.OFFVISCO ---
Intake Intake Visit Reasons: Anticoagulation Allergies Penicillins Allergy (Severe, Verified 04/04/25 14:54) Diarrhea enoxaparin Adverse Reaction (Intermediate, Verified 04/04/25 14:54) Hives, leg swelling Medication List - Last Reconciled 04/04/25 by Melyssa Kimball RN blood sugar diagnostic (Clearstream.TVuch Ultra Test strips) Check POC BID blood-glucose meter (OneTouch Ultra2 Meter) Check POC BID cholecalciferol (vitamin D3) 25 mcg PO DAILY ciclopirox 0.77% 1 appl topical BID diltiazem HCl CD 180 mg PO BEDTIME doxycycline hyclate 100 mg PO BID furosemide 20 mg PO DAILY@1200 lancets (iConnectivityTouch UltraSoft 2 Lancet) Check POC BID metformin ER 500 mg PO BID@0900,1200 metoprolol succinate ER 25 mg PO BID potassium chloride ER 10 mEq PO DAILY silver sulfadiazine 1% 1 appl topical BID 10 days simvastatin 10 mg PO BEDTIME warfarin 5 mg See Protocol PO SUTUWEFRSA@1800 warfarin 7.5 mg See Protocol PO MOTH@1800 Nursing Note INR 1.4 out of therapeutic range - infection may be lowering INR or diet Medications and supplements reviewed Patient status: pt on antbx oral and topical for leg wound infection Medications or supplements: doxycyline and mendez sulfadine - antbx can have delayed onset Diet: same Denies any signs and symptoms of bleeding or clotting or unusual bruising Bleeding, bruising, clotting discussed Nutritional guidance given: avoid greens today and tomorrow Dose: 10mg today 5mg sat sun and recheck Monday F/U INR Date : 04/07/25 ?? Patient verbalizing understanding of instructions given. Msg sent to PCP Anti-Coag Initial Assessment Social Hx Patient Tobacco Use Status: Never used Tobacco alcohol intake: never Alcohol intake frequency: does not drink Coding Level of Care Code Est Patient Level 1 Diagnoses Current use of anticoagulant therapy Z79.01 Assessment & Plan Assessment & Plan (1) Current use of anticoagulant therapy: Code(s): Z79.01 - microfilm processor (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
== END 2025-04-04 15:30 | disposition home or self-care (01) ==
LOC: HO.ACS 14:42
PROVIDERS: PCP Physician Assistant; Visit Provider Internal Medicine Medical Oncology
DX: Z79.01 Long term (current) use of anticoagulants (principal)

== ENCOUNTER → 2025-04-04 14:42 | Outpatient (BNVA) | payer OTHER, SELFPAY | PROVIDERS: PCP Physician Assistant; Visit Provider Internal Medicine Medical Oncology | DX: I48.20 Chronic atrial fibrillation, unspecified (principal); Z79.01 Long term (current) use of anticoagulants; Z51.81 Encounter for therapeutic drug level monitoring | CPT/HCPCS: 85610; 99211 ==

== ENCOUNTER 2025-04-07 14:43 | Outpatient (AMB) | payer OTHER, SELFPAY ==
--- NOTE | 2025-04-07 09:34 | MHC.PC.OV ---
Vital Signs 04/07/25 14:54 Height 5 ft 4 in Weight 215 lb BMI 36.9 BP 136/80 Blood Pressure Location Lt brachial Position Sitting Pulse 78 Pulse Source Pulse Oximeter Temp 97.3 F Temp Source Temporal Artery Scan Pulse Oximetry (%) 97 Oxygen Delivery Method Room Air Intake Visit Reasons: 3 month f/u Crematory Attendant Required: No Accompanied by: Self / Same As Patient Allergies Penicillins Allergy (Severe, Verified 04/07/25 09:34) Diarrhea enoxaparin Adverse Reaction (Intermediate, Verified 04/07/25 09:34) Hives, leg swelling Medication List - Last Reconciled 04/07/25 by WILDER Nicolas blood sugar diagnostic (Wiperuch Ultra Test strips) Check POC BID blood-glucose meter (Wiperuch Ultra2 Meter) Check POC BID cholecalciferol (vitamin D3) 25 mcg PO DAILY ciclopirox 0.77% 1 appl topical BID diltiazem HCl CD 180 mg PO BEDTIME doxycycline hyclate 100 mg PO BID furosemide 20 mg PO DAILY@1200 lancets (Wiperuch UltraSoft 2 Lancet) Check POC BID metformin ER 500 mg PO BID@0900,1200 metoprolol succinate ER 25 mg PO BID potassium chloride ER 10 mEq PO DAILY silver sulfadiazine 1% 1 appl topical BID 10 days simvastatin 10 mg PO BEDTIME warfarin 7.5 mg See Protocol PO MOTH@1800 warfarin 5 mg See Protocol PO SUTUWEFRSA@1800 Tobacco use date assessed: 03/20/25 Fall risk assessment: No Falls in past year Last assessed Fall Risk: 04/07/25 Dental Screening Dental Screen Date: 04/07/25 Did you have a dental visit in the last 12 months?: Yes Did you have a dental problem in the last 6 months where you did not have access to dental care?: No HPI HPI Comments History of Present Illness Details 65 year old female with Chronic AFib on Warfarin, DM, CHF, HTN, low vitamin D, Obesity and knee pain here for follow up. She is followed by Coumadin clinic for warfarin. She did not want to change to DOAC due to concern about side effects. She is on Metformin 500mg BID. Her last A1C was done 01/10 at 8.8%. She states her last eye exam was in November. She is followed by Cardiology and has an appointment in a few weeks. She is taking Vitamin D. She has not have a level in about a year. She was seen in the ER on 03/18 and 03/28 for cellulitis of left knee. She had an abrasion that became infected. She is still on Doxycycline and Silvadene. She has been contacted by GI to schedule her next colonoscopy. The last was 12/03. She has been contacted by Radiology to schedule her mammogram which is due in May. Patient states she has refills on all of her medications. [facility] Medical History History of cardioversion On anticoagulant therapy On beta kathrine at home Biatrial enlargement Chronic atrial fibrillation Heart failure, unspecified Diabetes HTN (hypertension) Morbid obesity Surgical History History of colonoscopy (~12/10/21) History of placement of ear tubes History of tonsillectomy Status post atrial septal defect repair Family History Father No problems noted. 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 1. Little interest or pleasure in doing things: not at all 2. Feeling down, depressed, or hopeless: not at all 3. Trouble falling or staying asleep, or sleeping too much: not at all 4. Feeling tired or having little energy: not at all 5. Poor appetite or overeating: not at all 6. Feeling bad about yourself - or that you are a failure or have let yourself or your family down: not at all 7. Trouble concentrating on things, such as reading the newspaper or watching television: not at all 8. Moving or speaking so slowly that other people could have noticed. Or the opposite - being so fidgety or restless that you have been moving around a lot more than usual: not at all 9. Thoughts that you would be better off or of hurting yourself in some way: not at all Total score: 0 Source: Developed by Drs. Adam Albrecht, Cecilio Aviles and colleagues, with an educational christiano from [employer]. Thrive Questionnaire Date Thrive assessed: 04/07/25 I am a: Patient Within the past 12 months, did the food you bought not last and you didn't have the money to get more?: Never true Within the past 12 months, did you worry whether your food would run out before you got money to buy more?: Never true Do you have trouble paying for medicines?: No Do you have trouble getting transportation to medical appointments?: No Do you have trouble paying your heating and electricity bill?: No Do you have trouble taking care of your child, family member or friend?: No Do you have trouble with day-to-day activities such as bathing, preparing meals, shopping, managing finances, etc.?: No Are you currently unemployed and looking for a job?: No Are you interested in more education?: No THRIVE Score: 0 AUDIT C Alcohol Use Questionnaire (AUDIT-C) 1. How often do you have a drink containing alcohol?: Never 3. How often do you have six or more drinks on one occasion?: Never Total Score: 0 GASTON-7 AMB Questionnaire GASTON-7 Date GASTON - 7 assessed: 04/07/25 Feeling nervous, anxious, or on edge: 0 = Not at all Not being able to stop or control worryin = Not at all Worrying too much about different things: 0 = Not at all Trouble relaxin = Not at all Being so restless that it is hard to sit still: 0 = Not at all Becoming easily annoyed or irritable: 0 = Not at all Feeling afraid as if something awful might happen: 0 = Not at all Total GASTON-7 score (0-4 normal; 5-9 mild; 10-14 moderate; 15-21 severe): 0 Source: Developed by Drs. Adam Albrecht, Cecilio Aviles and colleagues, with an educational christiano from [employer]. Review of Systems Const Details: CONSTITUTIONAL Negative HEAD/NECK Negative EAR/NOSE/MOUTH/THROAT Negative RESPIRATORY Negative CARDIOVASCULAR Negative GASTROINTESTINAL Negative MUSCULOSKELETAL Cellulitis of left knee NEUROLOGICAL Negative PSYCHIATRIC Negative Physical exam (Primary Care) Vital Signs: Last Vital Signs Temp 97.3 F 04/07/25 14:54 Pulse 78 04/07/25 14:54 BP 136/80 04/07/25 14:54 Pulse Ox 97 04/07/25 14:54 Oxygen Delivery Method Room Air 04/07/25 14:54 BMI result Body Mass Index 36.9 GENERAL Well developed, obese, in no apparent distress HEENT Head-Normocephalic Eyes- PERRLA, EOMI, Conjuctiva clear, lids WNL Neck- Supple, No lymphadenopathy, thyroid WNL RESPIRATORY Normal I:E, Clear to auscultation CARDIOVASCULAR Regular rate, No murmurs or rubs SKIN Healing abrasion left knee, no surrounding erythema, no drainage NEUROLOGICAL Gait normal PSYCHIATRIC Oriented to person, place and time Mood and affect WNL Appearance WNL Speech WNL Thought processes WNL Tobacco/Smoking Status: Tobacco use Status Tobacco use date assessed 03/20/25 04/07/25 09:34 Patient Tobacco Use Status Never used Tobacco 04/07/25 09:34 e-Cigarette/Vaping Use Never Used 04/07/25 09:34 PHQ-9: PHQ-9 Score PHQ-9: Total score 0 04/07/25 15:01 Thrive Assessment: Date of Thrive Assessment Date Thrive assessed 04/07/25 04/07/25 15:01 Coding Level of Care Code Established Pt Tele Est Pt Level 4 (01994) Patient Type Established Diagnoses Diabetes E11.9 HTN (hypertension) I10 Heart failure, unspecified I50.9 Chronic atrial fibrillation I48.20 Current use of anticoagulant therapy Z79.01 Morbid obesity E66.01 Low vitamin D level R79.89 Cellulitis of left lower extremity L03.116 Site of cellulitis: extremity Site of cellulitis of extremity: lower extremity Laterality: left Time Spent (min) 35 Comment Time spent on chart review, history and physical as well as orders. Assessment & Plan Assessment & Plan (1) Diabetes: Code(s): E11.9 - Type 2 diabetes mellitus without complications Category: Medical Plan: Will recheck A1C. Patient to continue Metformin. Reviewed diet and exercise. Follow up in 3 months (2) HTN (hypertension): Code(s): I10 - Essential (primary) hypertension Category: Medical Plan: BP today was 136/80. Patient will continue current medications. Will monitor. Patient will follow up in 3 months. (3) Heart failure, unspecified: Code(s): I50.9 - Heart failure, unspecified Category: Medical Plan: Patient has follow up with Cardiology in a few weeks. (4) Chronic atrial fibrillation: Comment: Has failed rhythm control approach Code(s): I48.20 - Chronic atrial fibrillation, unspecified Category: Medical Plan: Patient is followed by Cardiology and Coumadin Clinic. (5) Current use of anticoagulant therapy: Code(s): Z79.01 - skilled nursing (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 Plan: Patient is on Warfarin and followed by Coumadin Clinic (6) Morbid obesity: Code(s): E66.01 - Morbid (severe) obesity due to excess calories Category: Medical Plan: BMI today was 36.9. Discussed the health risks of obesity with the patient. Reviewed benefits of even moderate weight loss with the patient. Patient will gradually try and increase exercise to 30-40 min 5-7 times per week. We discussed the patient adding more fruits and vegetables to their diet. Will monitor weight and follow up in 3 months. (7) Low vitamin D level: Code(s): R79.89 - Other specified abnormal findings of blood chemistry Category: Medical Plan: Will check Vitamin D Level. Continue Vitamin D3. (8) Cellulitis: Code(s): L03.90 - Cellulitis, unspecified Category: Medical Qualifiers: Site of cellulitis: extremity Site of cellulitis of extremity: lower extremity Laterality: left Qualified Code(s): L03.116 - Cellulitis of left lower limb Plan: Patient is on Doxycycline and Silvadene. Knee is healing well. Patient to follow up as needed if symptoms persist or worsen. Orders: Orders Hemoglobin A1c Today E11.9 - Type 2 diabetes mellitus without complications, R79.89 - Other specified abnormal findings of blood chemistry Vitamin B12 Today R79.89 - Other specified abnormal findings of blood chemistry
[2025-04-07 14:54] VITALS: BP 136/80; PULSE 78; TEMP 36.3; O2SAT 97; BMI 36.9
--- OUTSIDE RECORDS SUMMARY | 2025-04-07 16:27 | XMS_ITS | Patient Health Record ---
Author Organization [facility] [place] Address [address] [place] [address] Care Team Providers Care Cleaner Laboratory Equipment Name Role Phone Jaja Marin Primary Care Provider Unavailabl e Black, Carrie Unavailable [phone] Allergies No Known Allergies Reason For Referral [...] Problem Acquired hammer toe of right foot (4009930675586140 ) Other hammer toe(s) (acquired), right foot (M20.41) Active confirmed Problem Acquired hammer toe of left foot (0303339701469258 ) Other hammer toe(s) (acquired), left foot (M20.42) Active confirmed Problem Polyneuropathy due to type 2 diabetes mellitus (885681521) Type 2 diabetes mellitus with diabetic polyneuropathy (E11.42) Active confirmed Vital Signs Blood pressure diastolic 60 mm Hg 01/27/2025 Height 5ft3in in 01/27/2025 Blood pressure systolic 130 mm Hg 01/27/2025 Weight 245 lbs 01/27/2025 BMI 43.4 kg/m2 01/27/2025 Procedures Procedure Date Ordered Date Performed Result Body Sit e 43341-UAOXGCX NAIL, 6 OR MORE 01/27/2025 N/A 91887-WUPY SKIN LESIONS, OVER 4 01/27/2025 N/A Encounters Encounter Location Date Provider Diagnosis [address] [address] 07/29/2024 Carrie Black Type 2 diabetes mellitus with diabetic polyneuropathy E11.42 ; Tinea unguium B35.1 ; Tinea pedis of both feet B35.3 ; Other hammer toe(s) (acquired), right foot M20.41 and Other hammer toe(s) (acquired), left foot M20.[address] [address] 01/27/2025 Carrie Black Type 2 diabetes mellitus with diabetic polyneuropathy E11.42 ; Tinea unguium B35.1 ; Other hammer toe(s) (acquired), right foot M20.41 and Other hammer toe(s) (acquired), left foot M20.[address] [address] 01/27/2025 Carrie Black Assessments Encounter Date Diagnosis [...] Test Name Order Date Hemoglobin A1c 07/14/2015 91316-IFOKYGO NAIL, 6 OR MORE 01/24/2022 37314-FQIEKIE NAIL, 6 OR MORE 01/30/2023 75479-FIIVTVT NAIL, 6 OR MORE 07/25/2022 09597-WDDFDGP NAIL, 6 OR MORE 08/03/2023 18854-TMDMYUW NAIL, 6 OR MORE 02/01/2024 00996-YZNLABU NAIL, 6 OR MORE 01/27/2025 11397-VXMCKNR NAIL, 6 OR MORE 11/04/2013 51565-RJUAGZM NAIL, 6 OR MORE 02/06/2014 02026-LKUZFCP NAIL, 6 OR MORE 05/12/2014 26318-UCHWFAT NAIL, 6 OR MORE 08/25/2014 77550-KNXDTEI NAIL, 6 OR MORE 12/15/2014 82170-CXKAXHL NAIL, 6 OR MORE 02/23/2015 08370-UCPRQFF NAIL, 6 OR MORE 05/07/2015 36827-YWHMSFC NAIL, 6 OR MORE 08/03/2015 51394-PKYHEBB NAIL, 6 OR MORE 11/02/2015 49257-YLLOJLN NAIL, 6 OR MORE 02/01/2016 06949-HPSKPNS NAIL, 6 OR MORE 05/09/2016 47473-EJOPXUM NAIL, 6 OR MORE 08/22/2016 12420-JUVOSRY NAIL, 6 OR MORE 11/21/2016 46923-YIHLCDF NAIL, 6 OR MORE 02/20/2017 63029-OJINJOA NAIL, 6 OR MORE 05/29/2017 60580-XGXSNCE NAIL, 6 OR MORE 09/04/2017 90833-MYMZQOJ NAIL, 6 OR MORE 12/04/2017 07203-GUUGZOT NAIL, 6 OR MORE 03/12/2018 18542-KFGEQFB NAIL, 6 OR MORE 06/11/2018 19292-FRDQCHX NAIL, 6 OR MORE 09/24/2018 93428-VVIPJTF NAIL, 6 OR MORE 12/24/2018 10954-NYOGFWM NAIL, 6 OR MORE 03/25/2019 72870-QNCDHFP NAIL, 6 OR MORE 07/01/2019 99527-INGFFDN NAIL, 6 OR MORE 10/07/2019 22847-STBNGNZ NAIL, 6 OR MORE 12/30/2019 49208-KZKBKDQ NAIL, 6 OR MORE 04/13/2020 24277-EEYOUTF NAIL, 6 OR MORE 10/01/2020 65019-XNDIXDD NAIL, 6 OR MORE 01/04/2021 48278-KVJBLRT NAIL, 6 OR MORE 07/12/2021 42720-Kpqvyrnu Plate 11/21/2016 85031-Ygsbketi Plate 08/22/2016 63586-Ibtuhlvx Plate 05/07/2015 77039-Voowjjrf Plate 02/23/2015 84977-Uochijng Plate 05/12/2014 77411-Begfdusa Plate 12/15/2014 45771-Zejazwxt Plate 08/25/2014 86902-Voeyruvi Plate 05/09/2016 30028-Nyrqezki Plate 01/30/2023 52200-Jffgkysw Plate 08/03/2023 03021-Ydkyokrc Plate 07/12/2021 30873-Gmibhfho Plate Each Additional 48902-Ecdbfyul Plate Each Additional 17175- Debride <25 sq cm 12/15/2014 03208- Debride <25 sq cm 08/25/2014 80962-PDIB SKIN LESIONS, OVER 4 02/24/20 15 36816-XVAN SKIN LESIONS, OVER 4 12/16/19 15 55855-WFGF SKIN LESIONS, OVER 4 11/05/19 14 17636-ASXQ SKIN LESIONS, OVER 4 08/25/19 15 49389-UTIF SKIN LESIONS, OVER 4 05/12/20 14 13347-ZBJP SKIN LESIONS, OVER 4 02/07/20 14 62999-GTNV SKIN LESIONS, OVER 4 05/07/20 15 82819-ZSWO SKIN LESIONS, OVER 4 08/03/20 15 69980-WFIM SKIN LESIONS, OVER 4 02/01/20 16 91514-MHQD SKIN LESIONS, OVER 4 11/02/19 16 19870-CXBA SKIN LESIONS, OVER 4 08/22/19 17 04680-ATIZ SKIN LESIONS, OVER 4 05/09/20 16 61315-GSVO SKIN LESIONS, OVER 4 11/22/19 17 82380-JANB SKIN LESIONS, OVER 4 02/21/20 17 02249-HIYT SKIN LESIONS, OVER 4 07/12/20 21 38364-YKCD SKIN LESIONS, OVER 4 01/05/20 21 77999-GYAW SKIN LESIONS, OVER 4 10/01/19 21 58082-SSLJ SKIN LESIONS, OVER 4 04/13/20 20 45155-TBFF SKIN LESIONS, OVER 4 12/30/19 20 73374-RKIG SKIN LESIONS, OVER 4 10/07/19 20 66346-POID SKIN LESIONS, OVER 4 07/01/20 19 01995-DLPW SKIN LESIONS, OVER 4 03/25/20 19 08386-IJXF SKIN LESIONS, OVER 4 12/25/19 19 51696-UAWW SKIN LESIONS, OVER 4 09/24/19 19 35079-IDUX SKIN LESIONS, OVER 4 06/11/20 18 62971-NSVT SKIN LESIONS, OVER 4 03/12/20 18 52196-FNWN SKIN LESIONS, OVER 4 12/05/19 18 31828-BRNA SKIN LESIONS, OVER 4 09/04/19 18 28830-UUOA SKIN LESIONS, OVER 4 05/29/20 17 02475-UDXY SKIN LESIONS, OVER 4 01/25/20 49225-YOFG SKIN LESIONS, OVER 4 07/25/20 05496-MTRQ SKIN LESIONS, OVER 4 08/03/20 23 97966-NFQK SKIN LESIONS, OVER 4 01/28/20 25 50314-HCRH SKIN LESIONS, OVER 4 02/01/20 24 42193-CFMQ SKIN LESIONS, OVER 4 01/31/20 Next Appt Details Provider Name:Carrie Lerma , 07/21/2025 03:30:00 PM, [address] [place], [address], Insurance Providers Payer Name Payer Address Payer Phone Subscriber Number Group Number Insured Name Patient Relationship to Insured Coverage Start Date Coverage End Date [employer] [address] [place] [address] [id number] Myla Dunn Self - patient is the insured Medical (General) History Medical History History ICD Code Diabetic Measles Mumps Chicken pox Atrial fibrillation Surgical History Surgery Date(Month/Year) heart surgery hole in heart 09/2007
--- OUTSIDE RECORDS SUMMARY | 2025-04-07 16:28 | XMS_ITS | Patient Health Record ---
Author Organization [facility] Address [address] [place] [address] Care Team Providers Care Non Destructive Testing Supervisor Name Role Phone Pat (RETIRED) Abdulaziz GUERRERO Primary Care Provide r Unavailable Adam Morales Unavailable [phone] Allergies No Known Allergies Reason For Referral [...] Problem Status W/U Status Risk Notes Problem [id number] Encounter for screening for malignant neoplasm of colon (Z12.11) Active confirmed Problem 861313754047770 Preprocedural examination (Z01.818) Active confirmed Problem Diverticulosis of colon (287928113) Diverticulosis of colon (K57.30) Active confirmed Problem 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 t use of anticoagulant (Z79.01) Active confirmed Plan Of Treatment Pending Test Test Name Order Date Pathology 12/10/2021 Future Test Test Name Order Date COLONOSCOPY 11/03/2021 Insurance Providers Payer Name Payer Address Payer Phone Subscriber Number Group Number Insured Name Patient Relationship to Insured Coverage Start Date Coverage End Date [facility] [address] [place] [address] [phone] [id number] SAVANNA VENEGAS Self - patient is the insured Medical (General) History Medical History History ICD Code High cholesterol Afib Denies AR,CVA,Lung disease,renal disease NIDDM Surgical History Surgery Date(Month/Year) Open heart surgery for a PFO 2007 Ear tubes Tonsils
== END 2025-04-07 15:49 | disposition home or self-care (01) ==
LOC: HO.HMCHD 14:46
PROVIDERS: PCP Physician Assistant Medical; Visit Provider Physician Assistant Medical
DX: E11.9 Type 2 diabetes mellitus without complications (principal); I11.0 Hypertensive heart disease with heart failure; I48.20 Chronic atrial fibrillation, unspecified; E66.01 Morbid (severe) obesity due to excess calories; Z79.01 Long term (current) use of anticoagulants; R79.89 Other specified abnormal findings of blood chemistry; L03.116 Cellulitis of left lower limb

== ENCOUNTER → 2025-04-07 14:43 | Outpatient (BNVA) | payer OTHER, SELFPAY | PROVIDERS: PCP Physician Assistant Medical; Visit Provider Physician Assistant Medical | DX: Z79.01 Long term (current) use of anticoagulants (principal) | CPT/HCPCS: 85610; 99212 ==

== ENCOUNTER 2025-04-07 15:51 | Outpatient (AMB) | payer OTHER, SELFPAY ==
[2025-04-07 16:01] LABS: Prothrombin Time Whole Bld POC 24.1 sec (11.1-13.5); ~PT, ~INR - Anti Coag Clinic 2.0 (0.9-1.1)
--- NOTE | 2025-04-07 16:13 | MHC.OFFVISCO ---
Intake Intake Visit Reasons: Anticoagulation Allergies Penicillins Allergy (Severe, Verified 04/07/25 09:34) Diarrhea enoxaparin Adverse Reaction (Intermediate, Verified 04/07/25 09:34) Hives, leg swelling Medication List - Last Reconciled 04/07/25 by Fernanda Sierra, RN blood sugar diagnostic (SenstoreTouch Ultra Test strips) Check POC BID blood-glucose meter (OneTouch Ultra2 Meter) Check POC BID cholecalciferol (vitamin D3) 25 mcg PO DAILY ciclopirox 0.77% 1 appl topical BID diltiazem HCl CD 180 mg PO BEDTIME doxycycline hyclate 100 mg PO BID furosemide 20 mg PO DAILY@1200 lancets (SenstoreTouch UltraSoft 2 Lancet) Check POC BID metformin ER 500 mg PO BID@0900,1200 metoprolol succinate ER 25 mg PO BID potassium chloride ER 10 mEq PO DAILY silver sulfadiazine 1% 1 appl topical BID 10 days simvastatin 10 mg PO BEDTIME warfarin 7.5 mg See Protocol PO MOTH@1800 warfarin 5 mg See Protocol PO SUTUWEFRSA@1800 Nursing Note INR: 2.0 in therapeutic range of 2-3 S/P admit to hosp for abcess right knee 03/28/25-03/31/25. D/C'd on PO Doxycycline. Knee is healing. Wound closed, no drainage. Pt states it is less swollen and redness has gone down. Medications and supplements reviewed No changes in diet, medications, or supplements, Denies any signs and symptoms of bleeding or bruising or clotting. Bleeding, bruising, clotting discussed Nutritional guidance given to avoid greens X 2 days Dose: 5mg X 5 days and 7.5mg X 2 days (Mon & ) F/U INR: 1 week Patient verbalizes understanding of instructions with read back given Anti-Coag Initial Assessment Social Hx Patient Tobacco Use Status: Never used Tobacco alcohol intake: never Alcohol intake frequency: does not drink Coding Level of Care Code Est Patient Level 2 Diagnoses Current use of anticoagulant therapy Z79.01 Time Spent (min) 25 Comment S/P hospitalization and labile INR, on antibiotics, diet discussed, instructions given Assessment & Plan Assessment & Plan (1) Current use of anticoagulant therapy: Code(s): 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
== END 2025-04-07 16:19 | disposition home or self-care (01) ==
LOC: HO.ACS 15:51
PROVIDERS: PCP Physician Assistant Medical; Visit Provider Internal Medicine Medical Oncology
DX: Z79.01 Long term (current) use of anticoagulants (principal)

== ENCOUNTER 2025-04-16 14:21 | Outpatient (AMB) | payer OTHER, SELFPAY ==
--- NOTE | 2025-04-16 14:46 | MHC.OFFVISCO ---
Intake Intake Visit Reasons: Anticoagulation Allergies Penicillins Allergy (Severe, Verified 04/16/25 14:40) Diarrhea enoxaparin Adverse Reaction (Intermediate, Verified 04/16/25 14:40) Hives, leg swelling Medication List - Last Reconciled 04/16/25 by Michelle Boyce RN blood sugar diagnostic (Taskmituch Ultra Test strips) Check POC BID blood-glucose meter (OneTouch Ultra2 Meter) Check POC BID cholecalciferol (vitamin D3) 25 mcg PO DAILY ciclopirox 0.77% 1 appl topical BID diltiazem HCl CD 180 mg PO BEDTIME furosemide 20 mg PO DAILY@1200 lancets (OneTouch UltraSoft 2 Lancet) Check POC BID metformin ER 500 mg PO BID@0900,1200 metoprolol succinate ER 25 mg PO BID potassium chloride ER 10 mEq PO DAILY silver sulfadiazine 1% 1 appl topical BID 10 days simvastatin 10 mg PO BEDTIME warfarin 7.5 mg See Protocol PO MOTH@1800 warfarin 5 mg See Protocol PO SUTUWEFRSA@1800 Nursing Note INR: 2.6- in therapeutic range of 2-3 Medications and supplements reviewed- on new eye drops- ofloxacin 0.3% qid, has f/u appt at eye md on monday04/18/25 No changes in health, diet, medications, or supplements, Denies any signs and symptoms of bleeding or bruising or clotting. 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
[2025-04-16 14:47] LABS: Prothrombin Time Whole Bld POC 31.0 sec (11.1-13.5); ~PT, ~INR - Anti Coag Clinic 2.6 (0.9-1.1)
--- OUTSIDE RECORDS SUMMARY | 2025-04-16 16:38 | XMS_ITS | Patient Health Record ---
Author Organization [facility] Address [address] [place] [address] Care Team Providers Care Centerless Grinder Set Up Operator Name Role Phone Pat (RETIRED) Abdulaziz GUERRERO Primary Care Provide r Unavailable Adam Morales Unavailable [phone] Allergies No Known Allergies Reason For Referral [...] Problem Status W/U Status Risk Notes Problem 671013854 Encounter for screening for malignant neoplasm of colon (Z12.11) Active confirmed Problem 661514520448131 Preprocedural examination (Z01.818) Active confirmed Problem Diverticulosis of colon (009237974) Diverticulosis of colon (K57.30) Active confirmed Problem 695833819 [facility] curren t use of anticoagulant (Z79.01) Active confirmed Plan Of Treatment Pending Test Test Name Order Date Pathology 12/10/2021 Future Test Test Name Order Date COLONOSCOPY 11/03/2021 Insurance Providers Payer Name Payer Address Payer Phone Subscriber Number Group Number Insured Name Patient Relationship to Insured Coverage Start Date Coverage End Date [facility] [address] [facility] [place] [address] [phone] [id number] SAVANNA VENEGAS Self - patient is the insured Medical (General) History Medical History History ICD Code High cholesterol Afib Denies CT,CVA,Lung disease,renal disease NIDDM Surgical History Surgery Date(Month/Year) Open heart surgery for a PFO 2007 Ear tubes Tonsils
--- OUTSIDE RECORDS SUMMARY | 2025-04-16 16:38 | XMS_ITS | Patient Health Record ---
Author Organization [facility] jeramie Becker[facility] Address [address] [facility] [place] [address] Care Team Providers Care Solution Developer Name Role Phone Jaja Marin Primary Care Provider Unavailabl e Black, Carrie Unavailable [phone] Allergies No Known Allergies Reason For Referral [...] Problem Acquired hammer toe of right foot ([id number] ) Other hammer toe(s) (acquired), right foot (M20.41) Active confirmed Problem Acquired hammer toe of left foot ([id number] ) Other hammer toe(s) (acquired), left foot (M20.42) Active confirmed Problem Polyneuropathy due to type 2 diabetes mellitus (324897098) Type 2 diabetes mellitus with diabetic polyneuropathy (E11.42) Active confirmed Vital Signs Blood pressure diastolic 60 mm Hg 01/27/2025 Height 5ft3in in 01/27/2025 Blood pressure systolic 130 mm Hg 01/27/2025 Weight 245 lbs 01/27/2025 BMI 43.4 kg/m2 01/27/2025 Procedures Procedure Date Ordered Date Performed Result Body Sit e 26469-RERWWJW NAIL, 6 OR MORE 01/27/2025 N/A 59116-SMDK SKIN LESIONS, OVER 4 01/27/2025 N/A Encounters Encounter Location Date Provider Diagnosis [address] [address] 07/29/2024 Carrie Black Type 2 diabetes mellitus with diabetic polyneuropathy E11.42 ; Tinea unguium B35.1 ; Tinea pedis of both feet B35.3 ; Other hammer toe(s) (acquired), right foot M20.41 and Other hammer toe(s) (acquired), left foot M20.[address] [address] 01/27/2025 Carrie Black Type 2 diabetes mellitus with diabetic polyneuropathy E11.42 ; Tinea unguium B35.1 ; Other hammer toe(s) (acquired), right foot M20.41 and Other hammer toe(s) (acquired), left foot M20.[address] [address] 01/27/2025 Carrie Black Assessments Encounter Date Diagnosis [...] Test Name Order Date Hemoglobin A1c 07/14/2015 00671-BVEVNAT NAIL, 6 OR MORE 01/24/2022 87704-DDQGDYH NAIL, 6 OR MORE 01/30/2023 59847-KUIEPVD NAIL, 6 OR MORE 07/25/2022 40231-GBSUOVD NAIL, 6 OR MORE 08/03/2023 66295-JZMPGRD NAIL, 6 OR MORE 02/01/2024 24498-OYCPFSU NAIL, 6 OR MORE 01/27/2025 27704-AGLGKNS NAIL, 6 OR MORE 11/04/2013 41643-QMFROII NAIL, 6 OR MORE 02/06/2014 74226-OPWJXWL NAIL, 6 OR MORE 05/12/2014 17373-CDGUIVX NAIL, 6 OR MORE 08/25/2014 60881-CPPOBGJ NAIL, 6 OR MORE 12/15/2014 18630-PNDVXMC NAIL, 6 OR MORE 02/23/2015 40877-YPOQBAH NAIL, 6 OR MORE 05/07/2015 04473-FPYDRQK NAIL, 6 OR MORE 08/03/2015 56039-KTXKYFX NAIL, 6 OR MORE 11/02/2015 16382-NWQKURU NAIL, 6 OR MORE 02/01/2016 45419-HCUWUNT NAIL, 6 OR MORE 05/09/2016 90382-BBVJKMW NAIL, 6 OR MORE 08/22/2016 55479-ZQSLSHX NAIL, 6 OR MORE 11/21/2016 06697-FAFLAKQ NAIL, 6 OR MORE 02/20/2017 80763-MHCHKFK NAIL, 6 OR MORE 05/29/2017 61150-CQQCYHB NAIL, 6 OR MORE 09/04/2017 60161-EECKOJI NAIL, 6 OR MORE 12/04/2017 50740-RFGVBDY NAIL, 6 OR MORE 03/12/2018 58527-CIBWHAB NAIL, 6 OR MORE 06/11/2018 28621-KXZGGLY NAIL, 6 OR MORE 09/24/2018 13419-TCYUDZY NAIL, 6 OR MORE 12/24/2018 88453-PFBPCFH NAIL, 6 OR MORE 03/25/2019 85166-TSERAGX NAIL, 6 OR MORE 07/01/2019 97385-BMUQXMG NAIL, 6 OR MORE 10/07/2019 53623-YRQXTDQ NAIL, 6 OR MORE 12/30/2019 32928-FKIYTYQ NAIL, 6 OR MORE 04/13/2020 92045-YKEBEYH NAIL, 6 OR MORE 10/01/2020 41612-TSIFFMG NAIL, 6 OR MORE 01/04/2021 97508-KRNKUCK NAIL, 6 OR MORE 07/12/2021 33449-Yupqmkiy Plate 11/21/2016 37656-Supnasyz Plate 08/22/2016 17101-Ebljhaza Plate 05/07/2015 76061-Zgceiont Plate 02/23/2015 47972-Tkhxmhtz Plate 05/12/2014 19434-Qkdubanb Plate 12/15/2014 75271-Xxtmlqgk Plate 08/25/2014 46936-Tviitotq Plate 05/09/2016 82082-Kutoiotq Plate 01/30/2023 76015-Gufixpiz Plate 08/03/2023 76395-Rzecwzrz Plate 07/12/2021 63977-Dwzcsrnu Plate Each Additional 05599-Eaxgieeg Plate Each Additional 20803- Debride <25 sq cm 12/15/2014 15639- Debride <25 sq cm 08/25/2014 18948-DPIE SKIN LESIONS, OVER 4 02/24/20 15 75415-ZVQS SKIN LESIONS, OVER 4 12/16/19 15 20775-SUGE SKIN LESIONS, OVER 4 11/05/19 14 96178-JKRN SKIN LESIONS, OVER 4 08/25/19 15 09868-OUEX SKIN LESIONS, OVER 4 05/12/20 14 40922-UJUP SKIN LESIONS, OVER 4 02/07/20 14 21072-ZOPJ SKIN LESIONS, OVER 4 05/07/20 15 31429-CDIF SKIN LESIONS, OVER 4 08/03/20 15 61096-XFMC SKIN LESIONS, OVER 4 02/01/20 16 54974-DAMT SKIN LESIONS, OVER 4 11/02/19 16 05249-ZSGK SKIN LESIONS, OVER 4 08/22/19 17 18403-QZVI SKIN LESIONS, OVER 4 05/09/20 16 53296-DGFX SKIN LESIONS, OVER 4 11/22/19 17 98984-OADW SKIN LESIONS, OVER 4 02/21/20 17 28911-JCOS SKIN LESIONS, OVER 4 07/12/20 21 43728-INCF SKIN LESIONS, OVER 4 01/05/20 21 70051-YFIL SKIN LESIONS, OVER 4 10/01/19 21 29031-UQXH SKIN LESIONS, OVER 4 04/13/20 20 93142-FGGV SKIN LESIONS, OVER 4 12/30/19 20 79416-RTPV SKIN LESIONS, OVER 4 10/07/19 20 95546-ULKT SKIN LESIONS, OVER 4 07/01/20 19 55214-WBGV SKIN LESIONS, OVER 4 03/25/20 19 50691-EOTP SKIN LESIONS, OVER 4 12/25/19 19 19309-BCPU SKIN LESIONS, OVER 4 09/24/19 19 76098-XYPK SKIN LESIONS, OVER 4 06/11/20 18 12664-TUNO SKIN LESIONS, OVER 4 03/12/20 18 66177-JUUT SKIN LESIONS, OVER 4 12/05/19 18 01571-DJKP SKIN LESIONS, OVER 4 09/04/19 18 09145-VUMQ SKIN LESIONS, OVER 4 05/29/20 17 91175-YXGX SKIN LESIONS, OVER 4 01/25/20 47203-KROY SKIN LESIONS, OVER 4 07/25/20 88287-DGRN SKIN LESIONS, OVER 4 08/03/20 23 07210-GVAH SKIN LESIONS, OVER 4 01/28/20 25 51296-VTTL SKIN LESIONS, OVER 4 02/01/20 24 89457-KDTD SKIN LESIONS, OVER 4 01/31/20 Next Appt Details Provider Name:Carrie Lerma , 07/21/2025 03:30:00 PM, [address] [place], [address], Insurance Providers Payer Name Payer Address Payer Phone Subscriber Number Group Number Insured Name Patient Relationship to Insured Coverage Start Date Coverage End Date Aet[employer] [address] [place] [address] [id number] 1 Myla Dunn Self - patient is the insured Medical (General) History Medical History History ICD Code Diabetic Measles Mumps Chicken pox Atrial fibrillation Surgical History Surgery Date(Month/Year) heart surgery hole in heart 09/2007
== END 2025-04-16 15:07 | disposition home or self-care (01) ==
LOC: HO.ACS 14:21
PROVIDERS: PCP Physician Assistant Medical; Visit Provider Internal Medicine Medical Oncology
DX: Z79.01 Long term (current) use of anticoagulants (principal)

== ENCOUNTER → 2025-04-16 14:21 | Outpatient (BNVA) | payer OTHER, SELFPAY | PROVIDERS: PCP Physician Assistant Medical; Visit Provider Internal Medicine Medical Oncology | DX: Z79.01 Long term (current) use of anticoagulants (principal) | CPT/HCPCS: 85610; 99211 ==

== ENCOUNTER 2025-05-02 14:32 | Outpatient (AMB) | payer OTHER, SELFPAY ==
[2025-05-02 14:37] LABS: Prothrombin Time Whole Bld POC 33.9 sec (11.1-13.5); ~PT, ~INR - Anti Coag Clinic 2.8 (0.9-1.1)
--- NOTE | 2025-05-02 14:41 | MHC.OFFVISCO ---
Intake Intake Visit Reasons: Anticoagulation Allergies Penicillins Allergy (Severe, Verified 05/02/25 14:33) Diarrhea enoxaparin Adverse Reaction (Intermediate, Verified 05/02/25 14:33) Hives, leg swelling Medication List - Last Reconciled 05/02/25 by Fernanda Sierra, RN blood sugar diagnostic (iBid2SaveTouch Ultra Test strips) Check POC BID blood-glucose meter (OneTouch Ultra2 Meter) Check POC BID cholecalciferol (vitamin D3) 25 mcg PO DAILY ciclopirox 0.77% 1 appl topical BID diltiazem HCl CD 180 mg PO BEDTIME furosemide 20 mg PO DAILY@1200 lancets (OneTouch UltraSoft 2 Lancet) Check POC BID metformin ER 500 mg PO BID@0900,1200 metoprolol succinate ER 25 mg PO BID ofloxacin 0.3% 1 drp ophthalmic (eye) QID potassium chloride ER 10 mEq PO DAILY silver sulfadiazine 1% 1 appl topical BID 10 days simvastatin 10 mg PO BEDTIME warfarin 7.5 mg See Protocol PO MOTH@1800 warfarin 5 mg See Protocol PO SUTUWEFRSA@1800 Nursing Note INR: 2.8 in therapeutic range of 2-3 Medications and supplements reviewed No changes in health, diet, medications, or supplements, Denies any signs and symptoms of bleeding or bruising or clotting. Bleeding, bruising, clotting discussed Nutritional guidance given Dose: 5mg X 5 days and 7.5mg X 2 days (Mon & Th) F/U INR: 4 weeks Patient verbalizes understanding of instructions given Anti-Coag Initial Assessment Social Hx Patient Tobacco Use Status: Never used Tobacco alcohol intake: never Alcohol intake frequency: does not drink Coding Level of Care Code Est Patient Level 1 Diagnoses Current use of anticoagulant therapy Z79.01 Assessment & Plan Assessment & Plan (1) Current use of anticoagulant therapy: Code(s): Z79.01 - assisted (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
== END 2025-05-02 14:55 | disposition home or self-care (01) ==
LOC: HO.ACS 14:32
PROVIDERS: PCP Physician Assistant Medical; Visit Provider Internal Medicine Medical Oncology
DX: Z79.01 Long term (current) use of anticoagulants (principal)

== ENCOUNTER → 2025-05-02 14:32 | Outpatient (BNVA) | payer OTHER, SELFPAY | PROVIDERS: PCP Physician Assistant Medical; Visit Provider Internal Medicine Medical Oncology | DX: I48.20 Chronic atrial fibrillation, unspecified (principal); Z79.01 Long term (current) use of anticoagulants; Z51.81 Encounter for therapeutic drug level monitoring | CPT/HCPCS: 85610; 99211 ==

== ENCOUNTER 2025-05-29 14:35 | Outpatient (AMB) | payer OTHER, SELFPAY ==
--- NOTE | 2025-05-29 14:43 | A.OFFVIS_ITS ---
Vital Signs 05/29/25 14:44 Height 5 ft 4 in Weight 213 lb 13.574 oz BMI 36.7 BP 120/80 Blood Pressure Location Lt brachial Position Sitting Pulse 80 Intake Visit Reasons: 1 yr follow up Intake Note: 1 year follow-up with ekg hearts feeling good Rail Transportation Tabeler Required: No Allergies Penicillins Allergy (Severe, Verified 05/02/25 14:33) Diarrhea enoxaparin Adverse Reaction (Intermediate, Verified 05/02/25 14:33) Hives, leg swelling Medication List - Last Reconciled 05/29/25 by Geremias Valdivia MD blood sugar diagnostic (Transervuch Ultra Test strips) Check POC BID blood-glucose meter (Transervuch Ultra2 Meter) Check POC BID cholecalciferol (vitamin D3) 25 mcg PO DAILY ciclopirox 0.77% 1 appl topical BID diltiazem HCl CD 180 mg PO BEDTIME furosemide 20 mg PO DAILY@1200 lancets (VisualaseTouch UltraSoft 2 Lancet) Check POC BID metformin ER 500 mg PO BID 90 days metoprolol succinate ER 25 mg PO BID potassium chloride ER 10 mEq PO DAILY silver sulfadiazine 1% 1 appl topical BID 10 days simvastatin 10 mg PO BEDTIME warfarin 7.5 mg See Protocol PO MOTH@1800 warfarin 5 mg See Protocol PO SUTUWEFRSA@1800 HPI Comments Details: Myla comes for follow-up. She has not had any active significant. Denies any worsening heart failure symptoms. He has no orthopnea, PND, leg edema. Remains functional and active in his full-time job. Denies any prolonged palpitation irregular heartbeat. No lightheadedness, syncope. No bleeding issues or neurologic events. Follows with [facility]. Scheduled for ultrasound of the heart in near future. Coco's recently admitted with left knee abscess [facility] Medical History Low vitamin D level History of cardioversion On anticoagulant therapy On beta kathrine at home Biatrial enlargement Chronic atrial fibrillation Heart failure, unspecified Diabetes HTN (hypertension) Morbid obesity Surgical History History of colonoscopy (~12/10/21) History of placement of ear tubes History of tonsillectomy Status post atrial septal defect repair Family History Father No problems noted. 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 Cognitive needs: No Hearing needs: No Vision needs: Yes (rx glasses) Review of Systems Const Denies chills, Denies fatigue, Denies fever(s), Denies frequent falls, Denies weakness, Denies weight gain and Denies weight loss ENT Denies dizziness Card Denies chest pain, Denies leg edema, Denies lightheadedness, Denies palpitations, Denies dyspnea, Denies dyspnea on exertion, Denies orthopnea and Denies other (loss of consciousness) Resp Denies cough, Denies dyspnea and Denies dyspnea on exertion GI Denies hematochezia and Denies change in stool character Musc Denies abnormal gait, Denies muscle weakness, Denies numbness, Denies radiating pain into limb and Denies tingling Neuro Denies abnormal gait, Denies dizziness, Denies frequent falls, Denies numbness, Denies tingling and Denies weakness Endo Denies fatigue and Denies palpitations Physical Exam Vital Signs: Last Vital Signs Pulse 80 05/29/25 14:44 BP 120/80 05/29/25 14:44 BMI result Body Mass Index 36.7 Const General: cooperative, comfortable, no acute distress, alert and awake Nutritional Appearance: obese Orientation/consciousness: patient oriented x3 Limitations: no limitations HEENT Head: Yes raccoon eyes Neck Neck: Yes trachea midline, Yes supple and Yes no JVD Resp Effort & Inspection: normal respiratory effort Auscultation: clear to auscultation bilaterally Cardio Jugular venous distension: no JVD Rhythm: abnormal rhythm irregularly irregular Heart sounds: S1 normal heart sound present and S2 normal heart sound present GI Inspection: Yes obesity Auscultation: normal bowel sounds Skin General skin exam: no rashes or lesions noted Neuro General: patient oriented x3 and no focal motor deficits Extrem General: Yes no clubbing, cyanosis or edema Psych Appearance: grossly normal Office Procedures EKG Details: EKG shows atrial fibrillation nonspecific T-wave changes 45151-Xegfdeqlkkplxoviu, Complete Assessment & Plan Assessment & Plan (1) Status post atrial septal defect repair: Comment: 2007 initially underwent surgical repair for secundum ASD for biventricular failure, this failed. Subsequently patient underwent percutaneous closure with significantly improved heart failure syndrome. Last echocardiogram showed normal biventricular systolic function and size. Code(s): Z87.74 - Personal history of (corrected) congenital malformations of heart and circulatory system Category: Surgical Plan: Status post atrial septal defect initially surgical repair which failed and subsequently underwent a percutaneous closure with significantly improved symptoms with persistent atrial fibrillation and heart failure syndrome. However he is clinically doing well. Follow-up echocardiogram in the near future. Currently on warfarin therapy. (2) Chronic atrial fibrillation: Comment: Has failed rhythm control approach Code(s): I48.20 - Chronic atrial fibrillation, unspecified Category: Medical Plan: Chronic rate control atrial fibrillation with structural heart disease, continue full oral anticoagulation snf. She prefers warfarin therapy as she has been on it for a long time. Continue the same. Being followed by [facility]. Maintain target INR between 2 and 3. Continue dual rate control therapy with metoprolol and Cardizem therapy with adequate rate control at this point in time. Avoidance of stimulants was discussed. Unlikely to pursue rhythm control approach given snf atrial fibrillation with significant structural cardiac abnormality. (3) Heart failure, unspecified: Code(s): I50.9 - Heart failure, unspecified Category: Medical Plan: Heart failure syndrome predominantly right heart failure syndrome with significant RV enlargement. But also contributed by atrial fibrillation. Clinically euvolemic well compensated on low-dose diuretic therapy. Continue the same. Daily weight monitoring avoidance salt loading was discussed. Additional diuretics as need be. Continue aggressive blood pressure control which is currently well optimized. Encouraged to participate in aggressive lifestyle modification with weight loss as well as regular physical activity. Follow up in the clinic in 1 year's time, sooner PRN. Thank you for allowing me to partake in her care Coding Level of Care Code Est Pt Level 4 (91827) Complex EM visit Add On G2211 Diagnoses Status post atrial septal defect repair Z87.74 Chronic atrial fibrillation I48.20 Heart failure, unspecified I50.9 CPT Codes EKG - CPT: 24478-Nksavtsdbfwrcxmsd, Complete ([id number])
[2025-05-29 14:44] VITALS: BP 120/80; PULSE 80; BMI 36.7
--- OUTSIDE RECORDS SUMMARY | 2025-05-29 18:27 | XMS_ITS | Patient Health Record ---
Author Organization [facility] Becker[facility] Address [address] [facility] [place] [address] Care Team Providers Care Production Grader Name Role Phone Jaja Marin Primary Care Provider Unavailabl e Black, Carrie Unavailable [phone] Allergies No Known Allergies Reason For Referral [...] Problem Acquired hammer toe of right foot (9312837184146996 ) Other hammer toe(s) (acquired), right foot (M20.41) Active confirmed Problem Acquired hammer toe of left foot (8531666964985738 ) Other hammer toe(s) (acquired), left foot (M20.42) Active confirmed Problem Polyneuropathy due to type 2 diabetes mellitus (638444063) Type 2 diabetes mellitus with diabetic polyneuropathy (E11.42) Active confirmed Vital Signs Blood pressure diastolic 60 mm Hg 01/27/2025 Height 5ft3in in 01/27/2025 Blood pressure systolic 130 mm Hg 01/27/2025 Weight 245 lbs 01/27/2025 BMI 43.4 kg/m2 01/27/2025 Procedures Procedure Date Ordered Date Performed Result Body Sit e 93558-OLBKBFD NAIL, 6 OR MORE 01/27/2025 N/A 54249-BUCM SKIN LESIONS, OVER 4 01/27/2025 N/A Encounters Encounter Location Date Provider Diagnosis [address] [address] 07/29/2024 Carrie Black Type 2 diabetes mellitus with diabetic polyneuropathy E11.42 ; Tinea unguium B35.1 ; Tinea pedis of both feet B35.3 ; Other hammer toe(s) (acquired), right foot M20.41 and Other hammer toe(s) (acquired), left foot M20.[address] [address] 01/27/2025 Carrie Black Type 2 diabetes mellitus with diabetic polyneuropathy E11.42 ; Tinea unguium B35.1 ; Other hammer toe(s) (acquired), right foot M20.41 and Other hammer toe(s) (acquired), left foot M20.[address] [address] 01/27/2025 Carrie Black Assessments Encounter Date Diagnosis [...] Test Name Order Date Hemoglobin A1c 07/14/2015 08763-BZHXNWP NAIL, 6 OR MORE 01/24/2022 88203-WEFQRQP NAIL, 6 OR MORE 01/30/2023 76121-QFTIJSY NAIL, 6 OR MORE 07/25/2022 77069-RKXYPNN NAIL, 6 OR MORE 08/03/2023 99664-IOMDTCQ NAIL, 6 OR MORE 02/01/2024 20243-WTVROZE NAIL, 6 OR MORE 01/27/2025 60422-LCNNRDJ NAIL, 6 OR MORE 11/04/2013 05854-VJQEGCC NAIL, 6 OR MORE 02/06/2014 10560-LUIXKLT NAIL, 6 OR MORE 05/12/2014 54292-CTZYEZA NAIL, 6 OR MORE 08/25/2014 20990-WXPEIGI NAIL, 6 OR MORE 12/15/2014 09257-ZVKNKWZ NAIL, 6 OR MORE 02/23/2015 42572-MHVFXRK NAIL, 6 OR MORE 05/07/2015 77110-OEMCTKN NAIL, 6 OR MORE 08/03/2015 15669-RLRQECK NAIL, 6 OR MORE 11/02/2015 29256-XGSIMSP NAIL, 6 OR MORE 02/01/2016 71767-UCENENV NAIL, 6 OR MORE 05/09/2016 75401-NDEVQDM NAIL, 6 OR MORE 08/22/2016 22845-EJGIIPV NAIL, 6 OR MORE 11/21/2016 39354-GNWMGCY NAIL, 6 OR MORE 02/20/2017 38343-JBZOITS NAIL, 6 OR MORE 05/29/2017 77642-POQDJFF NAIL, 6 OR MORE 09/04/2017 84380-ELMBOAN NAIL, 6 OR MORE 12/04/2017 17795-VKXNXWO NAIL, 6 OR MORE 03/12/2018 32174-JXHLDSI NAIL, 6 OR MORE 06/11/2018 91328-FVOCYDP NAIL, 6 OR MORE 09/24/2018 80599-TBHIZFG NAIL, 6 OR MORE 12/24/2018 57517-GRIPDLI NAIL, 6 OR MORE 03/25/2019 46646-LAQUIPX NAIL, 6 OR MORE 07/01/2019 36882-YVNAGDM NAIL, 6 OR MORE 10/07/2019 79319-CUITMCB NAIL, 6 OR MORE 12/30/2019 59158-XSAAEYF NAIL, 6 OR MORE 04/13/2020 07415-SBOUWEU NAIL, 6 OR MORE 10/01/2020 30680-SOUSDCX NAIL, 6 OR MORE 01/04/2021 97225-MTASUDP NAIL, 6 OR MORE 07/12/2021 83881-Gpbfulnc Plate 11/21/2016 52256-Bbiqwhms Plate 08/22/2016 31035-Urwhcwju Plate 05/07/2015 45355-Nwjezhwg Plate 02/23/2015 22104-Wgwfpgpj Plate 05/12/2014 08170-Cvnubjkd Plate 12/15/2014 40461-Bmgaigev Plate 08/25/2014 01556-Zuwkemzj Plate 05/09/2016 66111-Eywnyjjb Plate 01/30/2023 99350-Bpptxeca Plate 08/03/2023 60245-Dyzaceur Plate 07/12/2021 43227-Rgkohvcj Plate Each Additional 77951-Mzryylnq Plate Each Additional 68837- Debride <25 sq cm 12/15/2014 75442- Debride <25 sq cm 08/25/2014 49673-PMNH SKIN LESIONS, OVER 4 02/24/20 15 30199-RSPR SKIN LESIONS, OVER 4 12/16/19 15 38646-SLUM SKIN LESIONS, OVER 4 11/05/19 14 58565-BBSV SKIN LESIONS, OVER 4 08/25/19 15 37586-EHZK SKIN LESIONS, OVER 4 05/12/20 14 97963-NQTR SKIN LESIONS, OVER 4 02/07/20 14 29322-URMT SKIN LESIONS, OVER 4 05/07/20 15 98324-KVVW SKIN LESIONS, OVER 4 08/03/20 15 34563-PIFY SKIN LESIONS, OVER 4 02/01/20 16 58097-TSIL SKIN LESIONS, OVER 4 11/02/19 16 61521-AEZS SKIN LESIONS, OVER 4 08/22/19 17 29765-DWLG SKIN LESIONS, OVER 4 05/09/20 16 36065-CXWT SKIN LESIONS, OVER 4 11/22/19 17 88037-KWOX SKIN LESIONS, OVER 4 02/21/20 17 99635-ZIHD SKIN LESIONS, OVER 4 07/12/20 21 66999-QGLZ SKIN LESIONS, OVER 4 01/05/20 21 63337-DBJD SKIN LESIONS, OVER 4 10/01/19 21 13629-LUEA SKIN LESIONS, OVER 4 04/13/20 20 76279-QRYD SKIN LESIONS, OVER 4 12/30/19 20 15440-IBKQ SKIN LESIONS, OVER 4 10/07/19 20 28570-SMWS SKIN LESIONS, OVER 4 07/01/20 19 37097-JNDP SKIN LESIONS, OVER 4 03/25/20 19 33244-OLYJ SKIN LESIONS, OVER 4 12/25/19 19 58212-TJND SKIN LESIONS, OVER 4 09/24/19 19 03940-OGPS SKIN LESIONS, OVER 4 06/11/20 18 25995-PZNU SKIN LESIONS, OVER 4 03/12/20 18 94758-NVXF SKIN LESIONS, OVER 4 12/05/19 18 62452-TTBB SKIN LESIONS, OVER 4 09/04/19 18 51450-VHJE SKIN LESIONS, OVER 4 05/29/20 17 40482-JBKZ SKIN LESIONS, OVER 4 01/25/20 39565-YPSQ SKIN LESIONS, OVER 4 07/25/20 73955-VZQL SKIN LESIONS, OVER 4 08/03/20 23 55784-FIWP SKIN LESIONS, OVER 4 01/28/20 25 08648-VAEG SKIN LESIONS, OVER 4 02/01/20 24 92920-GJDH SKIN LESIONS, OVER 4 01/31/20 Next Appt Details Provider Name:Carrie Lerma , 07/21/2025 03:30:00 PM, [address] [place], [address], Insurance Providers Payer Name Payer Address Payer Phone Subscriber Number Group Number Insured Name Patient Relationship to Insured Coverage Start Date Coverage End Date A[employer] [address] [place] [address] [id number] Myla Dunn Self - patient is the insured Medical (General) History Medical History History ICD Code Diabetic Measles Mumps Chicken pox Atrial fibrillation Surgical History Surgery Date(Month/Year) heart surgery hole in heart 09/2007
--- OUTSIDE RECORDS SUMMARY | 2025-05-29 18:27 | XMS_ITS | Patient Health Record ---
Author Organization [facility] Address [address] [place] [address] Care Team Providers Care Pattern Keeper Name Role Phone Pat (RETIRED) Abdulaziz GUERRERO Primary Care Provide r Unavailable MoralesAdam Unavailable [phone] Allergies No Known Allergies Reason For Referral No Information Medications Medication SIG (Take, Route, Frequency, Duration) Notes Start Date End Date Status Simvastatin 10 MG Oral; Duration: 90 Active Warfarin Sodium 5 MG Oral; Duration: 90 Active dilTIAZem HCl ER Coated Beads 180 MG TAKE ONE CAPSULE BY MOUTH DAILY Oral; Duration: 90 Active Furosemide 20 MG Oral; Duration: 90 Active Klor-Con M10 10 MEQ Oral; Duration: 90 Active Vitamin D 1000 UNIT 1 tablet Orally Once a day; Duration: 30 day(s) 11/03/2021 Active metFORMIN HCl ER 500 MG TAKE 1 TABLET BY MOUTH EVERY DAY Oral; Duration: 90 Active Metoprolol Succinate ER 25 MG TAKE 1 TABLET BY MOUTH TWICE A DAY Oral; Duration: 90 Active Immunizations Vaccine Route Administration Date [...] Problem Status W/U Status Risk Notes Problem Screening for malignant neoplasm of colon (214278874) Encounter for screening for malignant neoplasm of colon (Z12.11) Active confirmed Problem Preprocedural examination (132986171702169) Preprocedural examination (Z01.818) Active confirmed Problem Diverticulosis of colon (816184943) Diverticulosis of colon (K57.30) Active confirmed Problem Long-term current use of anticoagulant (074090494) jail current use of anticoagulant (Z79.01) Active confirmed Plan Of Treatment Pending Test Test Name Order Date Pathology 12/10/2021 Future Test Test Name Order Date COLONOSCOPY 11/03/2021 Insurance Providers Payer Name Payer Address Payer Phone Subscriber Number Group Number Insured Name Patient Relationship to Insured Coverage Start Date Coverage End Date [facility] [address] [place] [phone] [id number] SAVANNA VENEGAS Self - patient is the insured Medical (General) History Medical History History ICD Code High cholesterol Afib Denies GA,CVA,Lung disease,renal disease NIDDM Surgical History Surgery Date(Month/Year) Open heart surgery for a PFO 2007 Ear tubes Tonsils
== END 2025-05-29 15:02 | disposition home or self-care (01) ==
LOC: HO.HCS 14:36
PROVIDERS: PCP Internal Medicine; Visit Provider Internal Medicine Cardiovascular Disease
DX: Z87.74 Personal history of (corrected) congenital malformations of heart and circulatory system (principal); I48.20 Chronic atrial fibrillation, unspecified; I50.9 Heart failure, unspecified
CPT/HCPCS: 93010; 99214; G2211

== ENCOUNTER → 2025-05-29 14:35 | Outpatient (BNVA) | payer OTHER, SELFPAY | PROVIDERS: PCP Internal Medicine; Visit Provider Internal Medicine Cardiovascular Disease | DX: I48.20 Chronic atrial fibrillation, unspecified (principal); I11.0 Hypertensive heart disease with heart failure; I50.9 Heart failure, unspecified; Z87.74 Personal history of (corrected) congenital malformations of heart and circulatory system; Z79.01 Long term (current) use of anticoagulants | CPT/HCPCS: 93005 ==

== ENCOUNTER 2025-05-30 14:46 | Outpatient (AMB) | payer OTHER, SELFPAY ==
[2025-05-30 14:52] LABS: Prothrombin Time Whole Bld POC 23.9 sec (11.1-13.5); ~PT, ~INR - Anti Coag Clinic 2.0 (0.9-1.1)
--- NOTE | 2025-05-30 15:00 | MHC.OFFVISCO ---
Intake Intake Visit Reasons: Anticoagulation Allergies Penicillins Allergy (Severe, Verified 05/30/25 14:49) Diarrhea enoxaparin Adverse Reaction (Intermediate, Verified 05/30/25 14:49) Hives, leg swelling Medication List - Last Reconciled 05/30/25 by Fernanda Sierra, RN blood sugar diagnostic (Peach LabsTouch Ultra Test strips) Check POC BID blood-glucose meter (OneTouch Ultra2 Meter) Check POC BID cholecalciferol (vitamin D3) 25 mcg PO DAILY ciclopirox 0.77% 1 appl topical BID diltiazem HCl CD 180 mg PO BEDTIME furosemide 20 mg PO DAILY@1200 lancets (OneTouch UltraSoft 2 Lancet) Check POC BID metformin ER 500 mg PO BID 90 days metoprolol succinate ER 25 mg PO BID potassium chloride ER 10 mEq PO DAILY silver sulfadiazine 1% 1 appl topical BID 10 days simvastatin 10 mg PO BEDTIME warfarin 7.5 mg See Protocol PO MOTH@1800 warfarin 5 mg See Protocol PO SUTUWEFRSA@1800 Nursing Note INR: 2.0 in therapeutic range of 2-3 Pt fell and has a wound on knee that is healing Medications and supplements reviewed No changes in diet, medications, or supplements, Denies any signs and symptoms of bleeding or bruising or clotting. Bleeding, bruising, clotting discussed Nutritional guidance given to avoid greens today Dose: increase today's dose to 7.5mg (5mg) then 5mg X 5 days and 7.5mg X 2 days (Mon & Thurs) F/U INR: 4 weeks Patient verbalizes understanding of instructions given Anti-Coag Initial Assessment Social Hx Patient Tobacco Use Status: Never used Tobacco alcohol intake: never Alcohol intake frequency: does not drink Coding Level of Care Code Est Patient Level 1 Diagnoses Current use of anticoagulant therapy Z79.01 Assessment & Plan Assessment & Plan (1) Current use of anticoagulant therapy: Code(s): Z79.01 - 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
--- OUTSIDE RECORDS SUMMARY | 2025-05-30 17:19 | XMS_ITS | Patient Health Record ---
Author Organization [facility] Address [address] [place] [address] Care Team Providers Care Sole Leather Cutting Machine Operator Name Role Phone Jaja Marin Primary Care Provider Unavailabl e Black, Carrie Unavailable [phone] Allergies No Known Allergies Reason For Referral [...] Problem Acquired hammer toe of right foot (2833212026650856 ) Other hammer toe(s) (acquired), right foot (M20.41) Active confirmed Problem Acquired hammer toe of left foot (9190327749816313 ) Other hammer toe(s) (acquired), left foot (M20.42) Active confirmed Problem Polyneuropathy due to type 2 diabetes mellitus (555448025) Type 2 diabetes mellitus with diabetic polyneuropathy (E11.42) Active confirmed Vital Signs Blood pressure diastolic 60 mm Hg 01/27/2025 Height 5ft3in in 01/27/2025 Blood pressure systolic 130 mm Hg 01/27/2025 Weight 245 lbs 01/27/2025 BMI 43.4 kg/m2 01/27/2025 Procedures Procedure Date Ordered Date Performed Result Body Sit e 27683-BGIOYGB NAIL, 6 OR MORE 01/27/2025 N/A 60886-EUGS SKIN LESIONS, OVER 4 01/27/2025 N/A Encounters Encounter Location Date Provider Diagnosis [address] [address] 07/29/2024 Carrie Black Type 2 diabetes mellitus with diabetic polyneuropathy E11.42 ; Tinea unguium B35.1 ; Tinea pedis of both feet B35.3 ; Other hammer toe(s) (acquired), right foot M20.41 and Other hammer toe(s) (acquired), left foot M20.[address] [address] 01/27/2025 Carrie Black Type 2 diabetes mellitus with diabetic polyneuropathy E11.42 ; Tinea unguium B35.1 ; Other hammer toe(s) (acquired), right foot M20.41 and Other hammer toe(s) (acquired), left foot M20.[address] [address] 01/27/2025 Carrie Black Assessments Encounter Date Diagnosis [...] Test Name Order Date Hemoglobin A1c 07/14/2015 09518-SQRFMQF NAIL, 6 OR MORE 01/24/2022 46349-PSVCFJD NAIL, 6 OR MORE 01/30/2023 30144-OZDGWWX NAIL, 6 OR MORE 07/25/2022 10416-EHFBIET NAIL, 6 OR MORE 08/03/2023 85137-XWECQHE NAIL, 6 OR MORE 02/01/2024 07628-SVGIVRK NAIL, 6 OR MORE 01/27/2025 52895-PBRULXU NAIL, 6 OR MORE 11/04/2013 93522-PXUZRDV NAIL, 6 OR MORE 02/06/2014 78663-UQTERVA NAIL, 6 OR MORE 05/12/2014 28359-PSKWDBT NAIL, 6 OR MORE 08/25/2014 56701-MOIBBQE NAIL, 6 OR MORE 12/15/2014 07124-KQERKHU NAIL, 6 OR MORE 02/23/2015 67639-EZSRJZR NAIL, 6 OR MORE 05/07/2015 19385-LRMBDWS NAIL, 6 OR MORE 08/03/2015 28923-WULMVHK NAIL, 6 OR MORE 11/02/2015 54457-KZGPMKB NAIL, 6 OR MORE 02/01/2016 55460-ODKDSCF NAIL, 6 OR MORE 05/09/2016 25911-PUZYPNH NAIL, 6 OR MORE 08/22/2016 02106-NEMRFMQ NAIL, 6 OR MORE 11/21/2016 62782-XIEIISC NAIL, 6 OR MORE 02/20/2017 96850-TTEHQOU NAIL, 6 OR MORE 05/29/2017 66961-AZAXCIR NAIL, 6 OR MORE 09/04/2017 95027-IQXWWFW NAIL, 6 OR MORE 12/04/2017 48134-RKIGABQ NAIL, 6 OR MORE 03/12/2018 17045-BSYNIEC NAIL, 6 OR MORE 06/11/2018 12475-NBAPGYH NAIL, 6 OR MORE 09/24/2018 58274-IQFUHND NAIL, 6 OR MORE 12/24/2018 61361-BPODQXE NAIL, 6 OR MORE 03/25/2019 07142-AFHXDMW NAIL, 6 OR MORE 07/01/2019 58145-AYHITWH NAIL, 6 OR MORE 10/07/2019 71916-DBAOBGO NAIL, 6 OR MORE 12/30/2019 29176-FNRSPBF NAIL, 6 OR MORE 04/13/2020 87494-TAGWOKH NAIL, 6 OR MORE 10/01/2020 91795-LSZTWYV NAIL, 6 OR MORE 01/04/2021 30062-IMGQQZE NAIL, 6 OR MORE 07/12/2021 70031-Gdhykwhg Plate 11/21/2016 75703-Vskrxnxp Plate 08/22/2016 23656-Tneboynp Plate 05/07/2015 56681-Clpaqmuv Plate 02/23/2015 35327-Zuegvxhc Plate 05/12/2014 49681-Ckkajmcz Plate 12/15/2014 48749-Nmkjtbql Plate 08/25/2014 53142-Dbcdkkgw Plate 05/09/2016 26426-Teuwthkn Plate 01/30/2023 62360-Kkvarfhu Plate 08/03/2023 38246-Bnodoeff Plate 07/12/2021 39530-Ptgcutxn Plate Each Additional 57377-Qvmipzhg Plate Each Additional 11864- Debride <25 sq cm 12/15/2014 50690- Debride <25 sq cm 08/25/2014 61800-ZVQJ SKIN LESIONS, OVER 4 02/24/20 15 59752-TRJA SKIN LESIONS, OVER 4 12/16/19 15 67045-WWVQ SKIN LESIONS, OVER 4 11/05/19 14 40147-CCLJ SKIN LESIONS, OVER 4 08/25/19 15 13368-PPKO SKIN LESIONS, OVER 4 05/12/20 14 94156-IXYY SKIN LESIONS, OVER 4 02/07/20 14 66290-NECR SKIN LESIONS, OVER 4 05/07/20 15 64846-ZGYK SKIN LESIONS, OVER 4 08/03/20 15 29658-QHTA SKIN LESIONS, OVER 4 02/01/20 16 70156-RQTR SKIN LESIONS, OVER 4 11/02/19 16 06409-NYAN SKIN LESIONS, OVER 4 08/22/19 17 95374-OZWK SKIN LESIONS, OVER 4 05/09/20 16 70122-GIYM SKIN LESIONS, OVER 4 11/22/19 17 77349-QXZU SKIN LESIONS, OVER 4 02/21/20 17 04237-CUNO SKIN LESIONS, OVER 4 07/12/20 21 94921-YHDQ SKIN LESIONS, OVER 4 01/05/20 21 99731-TZIU SKIN LESIONS, OVER 4 10/01/19 21 92608-SDQV SKIN LESIONS, OVER 4 04/13/20 20 25505-WIBL SKIN LESIONS, OVER 4 12/30/19 20 15893-SBAK SKIN LESIONS, OVER 4 10/07/19 20 87728-DMGF SKIN LESIONS, OVER 4 07/01/20 19 00115-TWVT SKIN LESIONS, OVER 4 03/25/20 19 55399-WWUR SKIN LESIONS, OVER 4 12/25/19 19 68501-MGJA SKIN LESIONS, OVER 4 09/24/19 19 32693-WCXZ SKIN LESIONS, OVER 4 06/11/20 18 16615-BPFL SKIN LESIONS, OVER 4 03/12/20 18 00635-UAJA SKIN LESIONS, OVER 4 12/05/19 18 51289-TCAS SKIN LESIONS, OVER 4 09/04/19 18 00612-LBOD SKIN LESIONS, OVER 4 05/29/20 17 71621-MCMU SKIN LESIONS, OVER 4 01/25/20 89332-WZNB SKIN LESIONS, OVER 4 07/25/20 62849-LMLV SKIN LESIONS, OVER 4 08/03/20 23 21964-VLSL SKIN LESIONS, OVER 4 01/28/20 25 74168-ELYZ SKIN LESIONS, OVER 4 02/01/20 24 60824-QECT SKIN LESIONS, OVER 4 01/31/20 Next Appt Details Provider Name:Carrie Lerma , 07/21/2025 03:30:00 PM, [address] [place], [address], Insurance Providers Payer Name Payer Address Payer Phone Subscriber Number Group Number Insured Name Patient Relationship to Insured Coverage Start Date Coverage End Date Aet[employer] [address] [place] [address] [id number] 1 Myla Dunn Self - patient is the insured Medical (General) History Medical History History ICD Code Diabetic Measles Mumps Chicken pox Atrial fibrillation Surgical History Surgery Date(Month/Year) heart surgery hole in heart 09/2007
--- OUTSIDE RECORDS SUMMARY | 2025-05-30 17:19 | XMS_ITS | Patient Health Record ---
Author Organization [facility] Address [address] [place] [address] Care Team Providers Care Multiskill Operator Name Role Phone Pat (RETIRED) Abdulaziz GUERRERO Primary Care Provide r Unavailable MoralesAdam Unavailable [phone] Allergies No Known Allergies Reason For Referral [...] Problem Screening for malignant neoplasm of colon (679735708) Encounter for screening for malignant neoplasm of colon (Z12.11) Active confirmed Problem Preprocedural examination (822552409958459) Preprocedural examination (Z01.818) Active confirmed Problem Diverticulosis of colon (428769209) Diverticulosis of colon (K57.30) Active confirmed Problem Long-term current use of anticoagulant (752946407) long-term current use of anticoagulant (Z79.01) Active confirmed Plan Of Treatment Pending Test Test Name Order Date Pathology 12/10/2021 Future Test Test Name Order Date COLONOSCOPY 11/03/2021 Insurance Providers Payer Name Payer Address Payer Phone Subscriber Number Group Number Insured Name Patient Relationship to Insured Coverage Start Date Coverage End Date [facility] [address] [place] [phone] [id number] SAVANNA VENEGAS Self - patient is the insured Medical (General) History Medical History History ICD Code High cholesterol Afib Denies [place],CVA,Lung disease,renal disease NIDDM Surgical History Surgery Date(Month/Year) Open heart surgery for a PFO 2007 Ear tubes Tonsils
== END 2025-05-30 15:04 | disposition home or self-care (01) ==
LOC: HO.ACS 14:46
PROVIDERS: PCP Internal Medicine; Visit Provider Internal Medicine Medical Oncology
DX: Z79.01 Long term (current) use of anticoagulants (principal)

== ENCOUNTER → 2025-05-30 14:46 | Outpatient (BNVA) | payer OTHER, SELFPAY | PROVIDERS: PCP Internal Medicine; Visit Provider Internal Medicine Medical Oncology | DX: I48.20 Chronic atrial fibrillation, unspecified (principal); Z79.01 Long term (current) use of anticoagulants; Z51.81 Encounter for therapeutic drug level monitoring | CPT/HCPCS: 85610; 99211 ==

== ENCOUNTER 2025-05-31 07:50 | Outpatient (REF) | payer OTHER, SELFPAY ==
--- NOTE | ~2025-05-31 | MM_ITS ---
EXAMINATION: MM SCREENING DIGITAL BREAST TOMOSYNTHESIS, BILATERAL CLINICAL INFORMATION: Screening. Asymptomatic. COMPARISON: Mammography: Comparison is made with available priors TECHNIQUE: Digital breast mammography with tomosynthesis is performed in both the craniocaudal and mediolateral oblique views along with computer-aided detection (CAD). FINDINGS: There are scattered areas of fibroglandular density. There are no significant masses, abnormal calcifications, or other abnormalities. MM/MM tomosynthesis screening BI IMPRESSION: No mammographic evidence of malignancy. ASSESSMENT: BI-RADS Category 1: Negative RECOMMENDATION: Routine annual mammography screening. 1 year F/U This examination should not preclude the clinical evaluation of a suspicious palpable abnormality. This patient's information was entered into a reminder system with a target due date for their next mammogram. Electronically signed by: Carisa Burks DO 06/03/2025 09:43 AM EDT
--- OUTSIDE RECORDS SUMMARY | 2025-05-31 07:53 | XMS_ITS | Patient Health Record ---
Author Organization [facility] Address [address] [facility] [place] [address] Care Team Providers Care General Passenger Agent Name Role Phone Jaja Marin Primary Care Provider Unavailabl e Black, Carrie Unavailable [phone] Allergies No Known Allergies Reason For Referral [...] Problem Acquired hammer toe of right foot (6223472481022741 ) Other hammer toe(s) (acquired), right foot (M20.41) Active confirmed Problem Acquired hammer toe of left foot (5808271599717367 ) Other hammer toe(s) (acquired), left foot (M20.42) Active confirmed Problem Polyneuropathy due to type 2 diabetes mellitus (244268412) Type 2 diabetes mellitus with diabetic polyneuropathy (E11.42) Active confirmed Vital Signs Blood pressure diastolic 60 mm Hg 01/27/2025 Height 5ft3in in 01/27/2025 Blood pressure systolic 130 mm Hg 01/27/2025 Weight 245 lbs 01/27/2025 BMI 43.4 kg/m2 01/27/2025 Procedures Procedure Date Ordered Date Performed Result Body Sit e 81501-WMQZXCE NAIL, 6 OR MORE 01/27/2025 N/A 58481-DQIO SKIN LESIONS, OVER 4 01/27/2025 N/A Encounters Encounter Location Date Provider Diagnosis [address] [address] 07/29/2024 Carrie Black Type 2 diabetes mellitus with diabetic polyneuropathy E11.42 ; Tinea unguium B35.1 ; Tinea pedis of both feet B35.3 ; Other hammer toe(s) (acquired), right foot M20.41 and Other hammer toe(s) (acquired), left foot M20.[address] [address] 01/27/2025 Carrie Black Type 2 diabetes mellitus with diabetic polyneuropathy E11.42 ; Tinea unguium B35.1 ; Other hammer toe(s) (acquired), right foot M20.41 and Other hammer toe(s) (acquired), left foot M20.[address] [address] 01/27/2025 Carrie Black Assessments Encounter Date Diagnosis [...] Test Name Order Date Hemoglobin A1c 07/14/2015 10745-OVHTGAU NAIL, 6 OR MORE 01/24/2022 28370-RHAVIPX NAIL, 6 OR MORE 01/30/2023 94470-JUZYZKB NAIL, 6 OR MORE 07/25/2022 33086-KCQJCKD NAIL, 6 OR MORE 08/03/2023 56885-TQNAJGO NAIL, 6 OR MORE 02/01/2024 46634-IVORVYA NAIL, 6 OR MORE 01/27/2025 52070-NEMENPY NAIL, 6 OR MORE 11/04/2013 79776-ZCGFLQU NAIL, 6 OR MORE 02/06/2014 26223-NCZSGHH NAIL, 6 OR MORE 05/12/2014 62027-UFOZZXQ NAIL, 6 OR MORE 08/25/2014 23941-HZNEZXW NAIL, 6 OR MORE 12/15/2014 15029-RAQMSUJ NAIL, 6 OR MORE 02/23/2015 05741-GPUWJWC NAIL, 6 OR MORE 05/07/2015 10090-OYEXFHD NAIL, 6 OR MORE 08/03/2015 02653-JXCLVDT NAIL, 6 OR MORE 11/02/2015 12251-KOTMUWU NAIL, 6 OR MORE 02/01/2016 28227-GPMVLRT NAIL, 6 OR MORE 05/09/2016 54561-HLHBROY NAIL, 6 OR MORE 08/22/2016 59074-SPMSTWO NAIL, 6 OR MORE 11/21/2016 09837-UWUSKDQ NAIL, 6 OR MORE 02/20/2017 93083-SBCHBPM NAIL, 6 OR MORE 05/29/2017 63190-HMDDBFU NAIL, 6 OR MORE 09/04/2017 41751-AJKGPTJ NAIL, 6 OR MORE 12/04/2017 03712-VSDAHHY NAIL, 6 OR MORE 03/12/2018 86587-FGXWFEC NAIL, 6 OR MORE 06/11/2018 68335-VDVUKIH NAIL, 6 OR MORE 09/24/2018 48030-VAWOQQT NAIL, 6 OR MORE 12/24/2018 71570-EMDSTWD NAIL, 6 OR MORE 03/25/2019 12636-JNYRSOW NAIL, 6 OR MORE 07/01/2019 20962-AFXHQWK NAIL, 6 OR MORE 10/07/2019 93668-JYPNFMC NAIL, 6 OR MORE 12/30/2019 10278-BFGTMWI NAIL, 6 OR MORE 04/13/2020 08178-MUBFGWJ NAIL, 6 OR MORE 10/01/2020 14438-HOPBPXS NAIL, 6 OR MORE 01/04/2021 88558-LOJPEQO NAIL, 6 OR MORE 07/12/2021 52734-Iwuaotvn Plate 11/21/2016 64319-Itjqdflo Plate 08/22/2016 86667-Vmltyuld Plate 05/07/2015 22147-Smwlontr Plate 02/23/2015 68723-Siitzxcg Plate 05/12/2014 63863-Lzbkwvxx Plate 12/15/2014 22294-Gvkokkhi Plate 08/25/2014 73115-Wtlzhzme Plate 05/09/2016 46537-Pccjgkej Plate 01/30/2023 36569-Dhmhtyep Plate 08/03/2023 75522-Jzhsrucj Plate 07/12/2021 89803-Vdqzbbuv Plate Each Additional 30067-Olwzfspi Plate Each Additional 71360- Debride <25 sq cm 12/15/2014 19846- Debride <25 sq cm 08/25/2014 60192-VJZJ SKIN LESIONS, OVER 4 02/24/20 15 20139-FSQS SKIN LESIONS, OVER 4 12/16/19 15 99419-HJQC SKIN LESIONS, OVER 4 11/05/19 14 28120-LATA SKIN LESIONS, OVER 4 08/25/19 15 24354-YSSC SKIN LESIONS, OVER 4 05/12/20 14 96158-TCRV SKIN LESIONS, OVER 4 02/07/20 14 94325-OQLR SKIN LESIONS, OVER 4 05/07/20 15 39160-LKRJ SKIN LESIONS, OVER 4 08/03/20 15 35676-TIRP SKIN LESIONS, OVER 4 02/01/20 16 55083-QXOX SKIN LESIONS, OVER 4 11/02/19 16 28342-GBTG SKIN LESIONS, OVER 4 08/22/19 17 86008-FKIZ SKIN LESIONS, OVER 4 05/09/20 16 02748-IIPS SKIN LESIONS, OVER 4 11/22/19 17 87968-OZFX SKIN LESIONS, OVER 4 02/21/20 17 59702-SRFI SKIN LESIONS, OVER 4 07/12/20 21 96926-VTXP SKIN LESIONS, OVER 4 01/05/20 21 67113-OCQA SKIN LESIONS, OVER 4 10/01/19 21 86982-NKIJ SKIN LESIONS, OVER 4 04/13/20 20 42684-BJFG SKIN LESIONS, OVER 4 12/30/19 20 99392-ZBEH SKIN LESIONS, OVER 4 10/07/19 20 62740-SJDC SKIN LESIONS, OVER 4 07/01/20 19 11806-HEKN SKIN LESIONS, OVER 4 03/25/20 19 38363-LDXD SKIN LESIONS, OVER 4 12/25/19 19 05319-SZZT SKIN LESIONS, OVER 4 09/24/19 19 65819-SXDA SKIN LESIONS, OVER 4 06/11/20 18 15887-AFTR SKIN LESIONS, OVER 4 03/12/20 18 96022-DZAN SKIN LESIONS, OVER 4 12/05/19 18 58540-DIWT SKIN LESIONS, OVER 4 09/04/19 18 35771-OTAU SKIN LESIONS, OVER 4 05/29/20 17 23194-PLPM SKIN LESIONS, OVER 4 01/25/20 74028-AZNZ SKIN LESIONS, OVER 4 07/25/20 61745-CSNB SKIN LESIONS, OVER 4 08/03/20 23 22528-PBKF SKIN LESIONS, OVER 4 01/28/20 25 68639-OOUG SKIN LESIONS, OVER 4 02/01/20 24 81719-VNBG SKIN LESIONS, OVER 4 01/31/20 Next Appt Details Provider Name:Carrie Lerma , 07/21/2025 03:30:00 PM, [address] [place], [address], Insurance Providers Payer Name Payer Address Payer Phone Subscriber Number Group Number Insured Name Patient Relationship to Insured Coverage Start Date Coverage End Date Aet[employer] [address] [place] [address] [id number] 1 Myla Dunn Self - patient is the insured Medical (General) History Medical History History ICD Code Diabetic Measles Mumps Chicken pox Atrial fibrillation Surgical History Surgery Date(Month/Year) heart surgery hole in heart 09/2007
--- OUTSIDE RECORDS SUMMARY | 2025-05-31 07:54 | XMS_ITS | Patient Health Record ---
Author Organization [facility] Address [address] [place] [address] Care Team Providers Care Broom Worker Name Role Phone Pat (RETIRED) Abdulaziz GUERRERO Primary Care Provide r Unavailable MoralesAdam Unavailable [phone] Allergies No Known Allergies Reason For Referral [...] Problem Screening for malignant neoplasm of colon (832194786) Encounter for screening for malignant neoplasm of colon (Z12.11) Active confirmed Problem Preprocedural examination (065889494781479) Preprocedural examination (Z01.818) Active confirmed Problem Diverticulosis of colon (569478126) Diverticulosis of colon (K57.30) Active confirmed Problem Long-term current use of anticoagulant (489864319) intermediate current use of anticoagulant (Z79.01) Active confirmed Plan Of Treatment Pending Test Test Name Order Date Pathology 12/10/2021 Future Test Test Name Order Date COLONOSCOPY 11/03/2021 Insurance Providers Payer Name Payer Address Payer Phone Subscriber Number Group Number Insured Name Patient Relationship to Insured Coverage Start Date Coverage End Date [facility] [address] [facility] [place] [phone] [id number] ASVANNA VENEGAS Self - patient is the insured Medical (General) History Medical History History ICD Code High cholesterol Afib Denies [place],CVA,Lung disease,renal disease NIDDM Surgical History Surgery Date(Month/Year) Open heart surgery for a PFO 2007 Ear tubes Tonsils
== END 2025-05-31 07:51 | disposition home or self-care (01) ==
LOC: HO.MAMMO 07:50
PROVIDERS: PCP Physician Assistant; Visit Provider Physician Assistant
DX: Z12.31 Encounter for screening mammogram for malignant neoplasm of breast (principal)
CPT/HCPCS: 77063; 77067

== ENCOUNTER → 2025-05-31 07:55 | Outpatient (BNV) | payer OTHER, SELFPAY | PROVIDERS: PCP Physician Assistant; Visit Provider Internal Medicine | DX: Z12.31 Encounter for screening mammogram for malignant neoplasm of breast (principal) | CPT/HCPCS: 77063; 77067 ==

== ENCOUNTER → 2025-06-10 07:59 | Outpatient (REF) | payer OTHER, SELFPAY ==
--- NOTE | 2025-06-10 08:02 | CA_ITS ---
Transthoracic Echocardiogram Patient (Last, First, Middle): Myla Farrell H Gender: F Date of : 1960 Age: 65 Procedure Date: 06/10/2025 Procedure Type: Transthoracic Echocardiogram Location: OP Height: 162.56 cm Weight: 96.62 kg BSA: 2.01 m2 Heart Rate: bpm BP: 120 / 80 mmHg Repair Weaver: CHARBEL Referring MD: Geremias Valdivia MD Symptoms: Z87.74 - Personal history of (corrected) congenital malformations of hea... Study Quality: Fair, contrast ECG Rhythm: Atrial Fibrillation Conclusions: - The left ventricular systolic function is normal. The calculated ejection fraction is 59% by biplane method. - The left atrium is severely dilated. - There is mild to moderate tricuspid valve regurgitation. - Mild pulmonary hypertension is present. Findings Procedure Information Contrast agent, definity, is being given per protocol without apparent complications. Left Ventricle Normal left ventricular cavity size. There is mildly increased left ventricular wall thickness. The left ventricular systolic function is normal. The calculated ejection fraction is 59% by biplane method. There is no evidence of regional wall motion abnormalities. Diastolic function is indeterminate on the basis of available data. Right Ventricle Mildly increased right ventricular cavity size. There is moderately decreased right ventricular systolic function. Atria The left atrium is severely dilated. The right atrium is moderately dilated. Possibly atrial septal closure device. Aortic Valve There is a normal trileaflet aortic valve. There is no aortic valve stenosis. There is no aortic valve regurgitation. Mitral Valve There is mild mitral annular calcification. There is trace mitral valve regurgitation. There is no mitral valve stenosis. Pulmonic Valve The pulmonic valve is likely normal. Tricuspid Valve There is mild to moderate tricuspid valve regurgitation. Mild pulmonary hypertension is present. Great Vessels The asc aorta is normal in size. Venous The inferior vena cava is normal in size and collapses less than 50% with inspiration. Pericardium/Pleural There is no evidence of pericardial effusion. Prior Study Comparison No significant change compared to prior study dated: 03/02/2023. Measurements 2D Linear Measurements IVSd: 1.13 0.6-0.9/0.6-1.0 cm LVIDd: 4.50 3.9-5.3/4.2-5.9 cm LVIDd Index: 2.24 2.4-3.2/2.2-3.1 cm/m2 LVIDs: 2.66 2.0-3.6 cm LVPWd: 1.19 0.7-1.1 cm LA Diam: 4.30 2.7-3.8/3.0-4.0 cm LAIDs Index: 2.14 1.5-2.3 cm/m2 LV Mass: 235.13 67-162/88-224 g LV Mass Index: 116.98 43-95/49-115 g/m2 LVOT Diam: 1.90 3.0+(-)1.3 cm 2D Systolic Function EF 4C: 58.00 >55% EF 2C: 59.10 >55% EF BiP: 58.90 >55% Mitral Valve MV Pk E: 1.56 MV Decel Time: 149.00 E'Lateral: 12.40 E'Medial: 3.81 E/E' Med: 40.90 E/E' Lat: 12.60 PHT: 44.00 MVA PHT: 5.00 Decel Parke: 10.45 Aortic Valve AoV Pk Liam: 1.48 AoV Mn Liam: 1.03 AoV VTI: 0.38 AoV Pk Grad: 9.00 Aov Mn Grad: 5.00 RL Cont.VTI: 1.89 LVOT LVOT Pk Liam: 1.03 LVOT Mn Liam: 0.67 LVOT VTI: 0.25 LVOT Pk Grad: 4.00 LVOT Mn Grad: 2.00 LVOT Diam: 1.90 LVOT Area: 2.84 Diastolic Function MV Pk E: 1.56 E'Medial: 3.81 E/E' Med: 40.90 E' Laterial: 12.40 E/E' Lat: 12.60 Right Ventricle TAPSE (mm): 13.40 TVS' Liam: 8.04 Tricuspid Valve TR Pk Liam: 2.80 TR Pk Grad: 31.00 RA Press: 8.00 RVSP: 39.00 Great Vessels Aorta Sinus of Valsalva: 3.02 2.0-3.[address] Ridge: 1.94 1.7-3.4 cm Ao Asc: 3.50 2.1-3.4 cm Updated in Other Vendor System with Status of Final Carlos Nava MD electronically signed on 06/11/2025 4:22:30 PM with status of Final
--- OUTSIDE RECORDS SUMMARY | 2025-06-10 08:05 | XMS_ITS | Patient Health Record ---
Author Organization [facility] Address [address] [place] [address] Care Team Providers Care Technician Semiconductor Development Name Role Phone Pat (RETIRED) Abdulaziz GUERRERO Primary Care Provide r Unavailable MoralesAdam Unavailable [phone] Allergies No Known Allergies Reason For Referral [...] Problem Screening for malignant neoplasm of colon (949649032) Encounter for screening for malignant neoplasm of colon (Z12.11) Active confirmed Problem Preprocedural examination (212317273163380) Preprocedural examination (Z01.818) Active confirmed Problem Diverticulosis of colon (147676270) Diverticulosis of colon (K57.30) Active confirmed Problem Long-term current use of anticoagulant (468063042) care home current use of anticoagulant (Z79.01) Active confirmed Plan Of Treatment Pending Test Test Name Order Date Pathology 12/10/2021 Future Test Test Name Order Date COLONOSCOPY 11/03/2021 Insurance Providers Payer Name Payer Address Payer Phone Subscriber Number Group Number Insured Name Patient Relationship to Insured Coverage Start Date Coverage End Date [facility] [address] [place] [phone] [id number] SAVANNA VENEGAS Self - patient is the insured Medical (General) History Medical History History ICD Code High cholesterol Afib Denies [place],CVA,Lung disease,renal disease NIDDM Surgical History Surgery Date(Month/Year) Open heart surgery for a PFO 2007 Ear tubes Tonsils
--- OUTSIDE RECORDS SUMMARY | 2025-06-10 08:05 | XMS_ITS | Patient Health Record ---
Author Organization [facility] Address [address] [facility] [place] [address] Care Team Providers Care Direct Marketing Executive Name Role Phone Jaja Marin Primary Care Provider Unavailabl e Black, Carrie Unavailable [phone] Allergies No Known Allergies Reason For Referral [...] Unknown 07/14/2023 Administered Influenza Unknown 05/14/2024 Administered Social History Tobacco Use: Social History [...] Stewart No Eye exam Flu shot--04/2015 Dr Setwart No Eye exam Flu shot--04/2015 Dr Stewart No Eye exam Flu shot--04/2015 Dr Stewart No Eye exam Flu shot--04/2015 Dr Stewart No Eye exam Problems Problem Type SNOMED Code ICD Code Onset Dates Problem Status W/U Status Risk Notes Problem Acquired hammer toe of right foot (3113870143730732 ) Other hammer toe(s) (acquired), right foot (M20.41) Active confirmed Problem Acquired hammer toe of left foot (3645954572186264 ) Other hammer toe(s) (acquired), left foot (M20.42) Active confirmed Problem Polyneuropathy due to type 2 diabetes mellitus (341682158) Type 2 diabetes mellitus with diabetic polyneuropathy (E11.42) Active confirmed Vital Signs Blood pressure diastolic 60 mm Hg 01/27/2025 Height 5ft3in in 01/27/2025 Blood pressure systolic 130 mm Hg 01/27/2025 Weight 245 lbs 01/27/2025 BMI 43.4 kg/m2 01/27/2025 Procedures Procedure Date Ordered Date Performed Result Body Sit e 48175-AEKGBED NAIL, 6 OR MORE 01/27/2025 N/A 04535-AIQS SKIN LESIONS, OVER 4 01/27/2025 N/A Encounters Encounter Location Date Provider Diagnosis [address] [address] 07/29/2024 Carrie Black Type 2 diabetes mellitus with diabetic polyneuropathy E11.42 ; Tinea unguium B35.1 ; Tinea pedis of both feet B35.3 ; Other hammer toe(s) (acquired), right foot M20.41 and Other hammer toe(s) (acquired), left foot M20.[address] [address] 01/27/2025 Carrie Black Type 2 diabetes mellitus with diabetic polyneuropathy E11.42 ; Tinea unguium B35.1 ; Other hammer toe(s) (acquired), right foot M20.41 and Other hammer toe(s) (acquired), left foot M20.[address] [address] 01/27/2025 Carrie Black Assessments Encounter Date Diagnosis [...] Test Name Order Date Hemoglobin A1c 07/14/2015 75869-MCPSCYA NAIL, 6 OR MORE 01/24/2022 64840-NZXEPMY NAIL, 6 OR MORE 01/30/2023 71254-NAUZVEE NAIL, 6 OR MORE 07/25/2022 46507-WOQQXXS NAIL, 6 OR MORE 08/03/2023 77396-BWENZGC NAIL, 6 OR MORE 02/01/2024 46011-WXJQYJE NAIL, 6 OR MORE 01/27/2025 93743-ZRZMQZR NAIL, 6 OR MORE 11/04/2013 00557-XJFWUPV NAIL, 6 OR MORE 02/06/2014 32611-TGLAHVA NAIL, 6 OR MORE 05/12/2014 51665-RRJPWCN NAIL, 6 OR MORE 08/25/2014 64474-ITZDIOF NAIL, 6 OR MORE 12/15/2014 41739-ELHRHGL NAIL, 6 OR MORE 02/23/2015 85509-XKMVHBG NAIL, 6 OR MORE 05/07/2015 64271-RFGMJHH NAIL, 6 OR MORE 08/03/2015 98570-BWHXPAR NAIL, 6 OR MORE 11/02/2015 08194-MIXHSTG NAIL, 6 OR MORE 02/01/2016 96158-VNUBGUY NAIL, 6 OR MORE 05/09/2016 97061-CVVTXGJ NAIL, 6 OR MORE 08/22/2016 97792-EDMLCJH NAIL, 6 OR MORE 11/21/2016 04897-DGYGLGX NAIL, 6 OR MORE 02/20/2017 52329-RSEKJRM NAIL, 6 OR MORE 05/29/2017 40685-YUXDASG NAIL, 6 OR MORE 09/04/2017 34206-KJNZDIE NAIL, 6 OR MORE 12/04/2017 13577-KDGHAHJ NAIL, 6 OR MORE 03/12/2018 28936-FAMIXYE NAIL, 6 OR MORE 06/11/2018 31622-BFHIFXA NAIL, 6 OR MORE 09/24/2018 28774-FLTNSLR NAIL, 6 OR MORE 12/24/2018 78781-CRZZKPM NAIL, 6 OR MORE 03/25/2019 29609-MYPNPVV NAIL, 6 OR MORE 07/01/2019 71350-PQLEYJO NAIL, 6 OR MORE 10/07/2019 05099-FIIKDUR NAIL, 6 OR MORE 12/30/2019 86119-TQYGMKG NAIL, 6 OR MORE 04/13/2020 32781-YJDYXCC NAIL, 6 OR MORE 10/01/2020 07850-ECTSDWC NAIL, 6 OR MORE 01/04/2021 29038-WLYOIQI NAIL, 6 OR MORE 07/12/2021 03252-Tpinkkkz Plate 11/21/2016 56110-Ysrdmgax Plate 08/22/2016 02245-Rqrripad Plate 05/07/2015 25802-Clfcdzpa Plate 02/23/2015 57011-Suvkpigm Plate 05/12/2014 81092-Klssrfvl Plate 12/15/2014 37955-Svbssaei Plate 08/25/2014 95720-Ldxdjwae Plate 05/09/2016 62800-Osoiseqe Plate 01/30/2023 11482-Sppuluaf Plate 08/03/2023 95769-Xhpypfak Plate 07/12/2021 61146-Sujangtc Plate Each Additional 11121-Qvlnqpdf Plate Each Additional 35691- Debride <25 sq cm 12/15/2014 47579- Debride <25 sq cm 08/25/2014 58797-TGVH SKIN LESIONS, OVER 4 02/24/20 15 26929-ZNJU SKIN LESIONS, OVER 4 12/16/19 15 93039-SHWQ SKIN LESIONS, OVER 4 11/05/19 14 02460-YLGG SKIN LESIONS, OVER 4 08/25/19 15 33546-QHKY SKIN LESIONS, OVER 4 05/12/20 14 85940-ZABM SKIN LESIONS, OVER 4 02/07/20 14 70571-WIGM SKIN LESIONS, OVER 4 05/07/20 15 11097-VKLO SKIN LESIONS, OVER 4 08/03/20 15 62168-QZDL SKIN LESIONS, OVER 4 02/01/20 16 19490-XQCX SKIN LESIONS, OVER 4 11/02/19 16 55612-YBJH SKIN LESIONS, OVER 4 08/22/19 17 85099-ZAAW SKIN LESIONS, OVER 4 05/09/20 16 71088-SYSB SKIN LESIONS, OVER 4 11/22/19 17 97959-LLRW SKIN LESIONS, OVER 4 02/21/20 17 61422-FVPQ SKIN LESIONS, OVER 4 07/12/20 21 27936-POLW SKIN LESIONS, OVER 4 01/05/20 21 93989-BKYG SKIN LESIONS, OVER 4 10/01/19 21 63167-HDRI SKIN LESIONS, OVER 4 04/13/20 20 62182-UKER SKIN LESIONS, OVER 4 12/30/19 20 94696-HZEQ SKIN LESIONS, OVER 4 10/07/19 20 88111-PUDN SKIN LESIONS, OVER 4 07/01/20 19 22656-OLYE SKIN LESIONS, OVER 4 03/25/20 19 04470-WMXH SKIN LESIONS, OVER 4 12/25/19 19 64247-MBJL SKIN LESIONS, OVER 4 09/24/19 19 14046-WJSJ SKIN LESIONS, OVER 4 06/11/20 18 11807-HBFF SKIN LESIONS, OVER 4 03/12/20 18 07928-WDUB SKIN LESIONS, OVER 4 12/05/19 18 34189-YSPT SKIN LESIONS, OVER 4 09/04/19 18 69381-HAMN SKIN LESIONS, OVER 4 05/29/20 17 70544-ELEA SKIN LESIONS, OVER 4 01/25/20 09435-UIEN SKIN LESIONS, OVER 4 07/25/20 35909-KXRR SKIN LESIONS, OVER 4 08/03/20 23 40948-ZRJG SKIN LESIONS, OVER 4 01/28/20 25 13740-NCIQ SKIN LESIONS, OVER 4 02/01/20 24 51926-JOBK SKIN LESIONS, OVER 4 01/31/20 Next Appt Details Provider Name:Carrie Lerma , 07/21/2025 03:30:00 PM, [address] [place], [address], Insurance Providers Payer Name Payer Address Payer Phone Subscriber Number Group Number Insured Name Patient Relationship to Insured Coverage Start Date Coverage End Date [employer] [address] [place] [address] [id number] Myla Dunn Self - patient is the insured Medical (General) History Medical History History ICD Code Diabetic Measles Mumps Chicken pox Atrial fibrillation Surgical History Surgery Date(Month/Year) heart surgery hole in heart 09/2007
--- OUTSIDE RECORDS SUMMARY | 2025-06-10 08:05 | XMS_ITS ---
Author Organization Unknown ENCOUNTERS Encounter Performer Location Date Diagnosis Diagnosis Status Inpatient [facility] [address] [place] [address] [id number] [place] Emergency [facility] [address] [place] [address] [id number] AIP Pre Admit [facility] [address] [place] [address] [id number] Emergency [facility] [address] [place] [address] [id number] CATHRYN Pre Admit [facility] [address] [place] [address] [id number] Emergency [facility] [address] [place] [address] [id number] CATHR[place] Pre Admit [facility] [address] [place] [address] [id number] Pre Admit [facility] [address] [place] [address] [id number] Outpatient [facility] [address] [place] [address] [id number] CAT[place] Emergency [facility] [address] [place] [address] [id number] CATHRYN *Note: Encounters from your own facility or health system may be excluded. Allergies, Adverse Reactions, Alerts Allergen Type Severity Identification Date enoxaparin drug allergy 3 [id number] Penicillins drug allergy 4 [id number] Medications Name Date Quantity Days Supplied GPI Number
== END ==
LOC: HO.CARD 07:59
PROVIDERS: PCP Physician Assistant; Visit Provider Internal Medicine Cardiovascular Disease
DX: Z87.74 Personal history of (corrected) congenital malformations of heart and circulatory system (principal); I48.20 Chronic atrial fibrillation, unspecified; I50.9 Heart failure, unspecified
CPT/HCPCS: 93306; Q9957

== ENCOUNTER → 2025-06-10 08:02 | Outpatient (BNV) | payer OTHER, SELFPAY | PROVIDERS: PCP Physician Assistant; Visit Provider Internal Medicine | DX: I51.7 Cardiomegaly (principal); I27.20 Pulmonary hypertension, unspecified; I36.1 Nonrheumatic tricuspid (valve) insufficiency; Z87.74 Personal history of (corrected) congenital malformations of heart and circulatory system | CPT/HCPCS: 93306 ==

== ENCOUNTER 2025-06-14 08:11 | Outpatient (REF) | payer OTHER, SELFPAY ==
--- OUTSIDE RECORDS SUMMARY | 2025-06-14 08:14 | XMS_ITS | Patient Health Record ---
Author Organization [facility] Address [address] [facility] [place] [address] Care Team Providers Care Outside Property Agent Name Role Phone Jaja Marin Primary Care Provider Unavailabl e Black, Carrie Unavailable [phone] Allergies No Known Allergies Reason For Referral [...] Problem Acquired hammer toe of right foot (6830251075427182 ) Other hammer toe(s) (acquired), right foot (M20.41) Active confirmed Problem Acquired hammer toe of left foot (7020521989336265 ) Other hammer toe(s) (acquired), left foot (M20.42) Active confirmed Problem Polyneuropathy due to type 2 diabetes mellitus (080895642) Type 2 diabetes mellitus with diabetic polyneuropathy (E11.42) Active confirmed Vital Signs Blood pressure diastolic 60 mm Hg 01/27/2025 Height 5ft3in in 01/27/2025 Blood pressure systolic 130 mm Hg 01/27/2025 Weight 245 lbs 01/27/2025 BMI 43.4 kg/m2 01/27/2025 Procedures Procedure Date Ordered Date Performed Result Body Sit e 68835-ISFMXQD NAIL, 6 OR MORE 01/27/2025 N/A 99107-GFVQ SKIN LESIONS, OVER 4 01/27/2025 N/A Encounters Encounter Location Date Provider Diagnosis [address] [address] 07/29/2024 Carrie Black Type 2 diabetes mellitus with diabetic polyneuropathy E11.42 ; Tinea unguium B35.1 ; Tinea pedis of both feet B35.3 ; Other hammer toe(s) (acquired), right foot M20.41 and Other hammer toe(s) (acquired), left foot M20.[address] [address] 01/27/2025 Carrie Black Type 2 diabetes mellitus with diabetic polyneuropathy E11.42 ; Tinea unguium B35.1 ; Other hammer toe(s) (acquired), right foot M20.41 and Other hammer toe(s) (acquired), left foot M20.[address] [address] 01/27/2025 Carrie Black Assessments Encounter Date Diagnosis [...] Test Name Order Date Hemoglobin A1c 07/14/2015 76301-JUDZZKZ NAIL, 6 OR MORE 01/24/2022 90886-FMBLSJV NAIL, 6 OR MORE 01/30/2023 29810-AAMTDYZ NAIL, 6 OR MORE 07/25/2022 55948-NDNRGNL NAIL, 6 OR MORE 08/03/2023 75657-EHOMYNF NAIL, 6 OR MORE 02/01/2024 12891-LICZNUH NAIL, 6 OR MORE 01/27/2025 71389-HGEVTKU NAIL, 6 OR MORE 11/04/2013 75367-IAHSVET NAIL, 6 OR MORE 02/06/2014 23695-AMVZDZY NAIL, 6 OR MORE 05/12/2014 03099-UAJASSJ NAIL, 6 OR MORE 08/25/2014 02677-POFUETJ NAIL, 6 OR MORE 12/15/2014 76089-KICEFBS NAIL, 6 OR MORE 02/23/2015 06473-VLSYZPO NAIL, 6 OR MORE 05/07/2015 55734-UAWFBHT NAIL, 6 OR MORE 08/03/2015 00763-JBKVVYL NAIL, 6 OR MORE 11/02/2015 37312-OWRIGHU NAIL, 6 OR MORE 02/01/2016 30182-UQFCYOD NAIL, 6 OR MORE 05/09/2016 02358-FNKWOVB NAIL, 6 OR MORE 08/22/2016 60222-IGSGLTT NAIL, 6 OR MORE 11/21/2016 36250-WIYPOWI NAIL, 6 OR MORE 02/20/2017 59453-APJRIAZ NAIL, 6 OR MORE 05/29/2017 64468-ATNEPVA NAIL, 6 OR MORE 09/04/2017 88505-SILTHKE NAIL, 6 OR MORE 12/04/2017 46744-KQKUYYU NAIL, 6 OR MORE 03/12/2018 46673-TUGOPWR NAIL, 6 OR MORE 06/11/2018 36710-KMNSYDS NAIL, 6 OR MORE 09/24/2018 73534-LTPDQLD NAIL, 6 OR MORE 12/24/2018 79972-MFAFTVT NAIL, 6 OR MORE 03/25/2019 73168-AUBXHHU NAIL, 6 OR MORE 07/01/2019 68551-YJLPTCQ NAIL, 6 OR MORE 10/07/2019 13126-JPWAERG NAIL, 6 OR MORE 12/30/2019 83111-CXSXEZT NAIL, 6 OR MORE 04/13/2020 72843-ZXTNYTW NAIL, 6 OR MORE 10/01/2020 01560-GRYKYJG NAIL, 6 OR MORE 01/04/2021 24873-BCHEWHA NAIL, 6 OR MORE 07/12/2021 76388-Czzgydwa Plate 11/21/2016 03588-Rahexmuw Plate 08/22/2016 85131-Uoirwbih Plate 05/07/2015 83477-Dendpryt Plate 02/23/2015 05315-Gjimacbo Plate 05/12/2014 29994-Wqrctdcc Plate 12/15/2014 70566-Kkxutmbc Plate 08/25/2014 25281-Vloddnbc Plate 05/09/2016 20208-Dpmpzpnu Plate 01/30/2023 74589-Mmgnsssx Plate 08/03/2023 12352-Nnagqwvi Plate 07/12/2021 01471-Fneksymh Plate Each Additional 72137-Qjdficbi Plate Each Additional 39742- Debride <25 sq cm 12/15/2014 84468- Debride <25 sq cm 08/25/2014 48350-ZUFB SKIN LESIONS, OVER 4 02/24/20 15 90424-HERX SKIN LESIONS, OVER 4 12/16/19 15 81516-LKOV SKIN LESIONS, OVER 4 11/05/19 14 60334-NGSU SKIN LESIONS, OVER 4 08/25/19 15 13900-NHHP SKIN LESIONS, OVER 4 05/12/20 14 82295-ZPMS SKIN LESIONS, OVER 4 02/07/20 14 36863-QFHI SKIN LESIONS, OVER 4 05/07/20 15 50042-DORI SKIN LESIONS, OVER 4 08/03/20 15 63998-LMPZ SKIN LESIONS, OVER 4 02/01/20 16 73317-AFDS SKIN LESIONS, OVER 4 11/02/19 16 34796-BSVZ SKIN LESIONS, OVER 4 08/22/19 17 63192-NJII SKIN LESIONS, OVER 4 05/09/20 16 79380-STCR SKIN LESIONS, OVER 4 11/22/19 17 29585-FMUB SKIN LESIONS, OVER 4 02/21/20 17 26368-KCUS SKIN LESIONS, OVER 4 07/12/20 21 09489-GGRC SKIN LESIONS, OVER 4 01/05/20 21 52022-HXKD SKIN LESIONS, OVER 4 10/01/19 21 53544-TJPA SKIN LESIONS, OVER 4 04/13/20 20 35646-DEZW SKIN LESIONS, OVER 4 12/30/19 20 83178-EJKZ SKIN LESIONS, OVER 4 10/07/19 20 82816-JJPZ SKIN LESIONS, OVER 4 07/01/20 19 72139-IYYR SKIN LESIONS, OVER 4 03/25/20 19 54042-XYLV SKIN LESIONS, OVER 4 12/25/19 19 13343-TYSO SKIN LESIONS, OVER 4 09/24/19 19 01964-WVJF SKIN LESIONS, OVER 4 06/11/20 18 71059-DTAH SKIN LESIONS, OVER 4 03/12/20 18 02548-ZQDE SKIN LESIONS, OVER 4 12/05/19 18 20530-MQIZ SKIN LESIONS, OVER 4 09/04/19 18 18889-HXXL SKIN LESIONS, OVER 4 05/29/20 17 78282-YRYK SKIN LESIONS, OVER 4 01/25/20 20052-HXYX SKIN LESIONS, OVER 4 07/25/20 91474-QQVU SKIN LESIONS, OVER 4 08/03/20 23 66503-KWYM SKIN LESIONS, OVER 4 01/28/20 25 57214-JZUX SKIN LESIONS, OVER 4 02/01/20 24 67945-SUOI SKIN LESIONS, OVER 4 01/31/20 Next Appt Details Provider Name:Carrie Lerma , 07/21/2025 03:30:00 PM, [address] [place], [address], Insurance Providers Payer Name Payer Address Payer Phone Subscriber Number Group Number Insured Name Patient Relationship to Insured Coverage Start Date Coverage End Date [employer] [address] [place] [address] [id number] Myla Dunn Self - patient is the insured Medical (General) History Medical History History ICD Code Diabetic Measles Mumps Chicken pox Atrial fibrillation Surgical History Surgery Date(Month/Year) heart surgery hole in heart 09/2007
--- OUTSIDE RECORDS SUMMARY | 2025-06-14 08:15 | XMS_ITS | Patient Health Record ---
Author Organization [facility] Address [address] [place] [address] Care Team Providers Care Palliative Care Nurse Name Role Phone Pat (RETIRED) Abdulaziz GUERRERO Primary Care Provide r Unavailable MoralesAdam Unavailable [phone] Allergies No Known Allergies Reason For Referral [...] Problem Screening for malignant neoplasm of colon (198447582) Encounter for screening for malignant neoplasm of colon (Z12.11) Active confirmed Problem Preprocedural examination (655941773753918) Preprocedural examination (Z01.818) Active confirmed Problem Diverticulosis of colon (558400940) Diverticulosis of colon (K57.30) Active confirmed Problem Long-term current use of anticoagulant (526450548) longterm current use of anticoagulant (Z79.01) Active confirmed Plan Of Treatment Pending Test Test Name Order Date Pathology 12/10/2021 Future Test Test Name Order Date COLONOSCOPY 11/03/2021 Insurance Providers Payer Name Payer Address Payer Phone Subscriber Number Group Number Insured Name Patient Relationship to Insured Coverage Start Date Coverage End Date [facility] [address] [facility] [place] [phone] [id number] SAVANNA VENEGAS Self - patient is the insured Medical (General) History Medical History History ICD Code High cholesterol Afib Denies [place],CVA,Lung disease,renal disease NIDDM Surgical History Surgery Date(Month/Year) Open heart surgery for a PFO 2007 Ear tubes Tonsils
[2025-06-14 08:20] LABS: MANUAL DIFF FLAG NO
[2025-06-14 08:35] LABS: Hematocrit 41.4 % (37.0-47.0); Hemoglobin 13.5 g/dl (12.0-16.0); Imm Gran Abs Auto 0.02 X10*3/uL (0.00-0.03); Imm Gran Pct Auto 0.3 % (0.0-0.4); Lymphocytes Absolute Auto 1.4 X10*3/uL (1.2-4.9); Mean Corpuscular HGB Conc 32.6 g/dl (31.0-35.0); Mean Corpuscular Hemoglobin 29.2 pg (27.0-33.0); Mean Corpuscular Volume 89.4 fL (80.0-98.0); NRBC Abs Auto 0.000 X10*3/uL (0.0-0.012); NRBC Pct Auto 0.0 /100WBC (0.0-0.2); Platelet Count 300 X10*3/uL (160-400); Red Blood Count 4.63 X10*6/uL (4.20-5.50); White Blood Count 7.9 X10*3/uL (4.8-10.8)
[2025-06-14 09:00] LABS: Anion Gap 11 (12-20); Blood Urea Nitrogen 17 mg/dL (9-16); Calcium 9.3 mg/dL (8.4-10.2); Carbon Dioxide 27 mmol/L (22-29); Chloride 105 mmol/L (96-108); Cholesterol 127 mg/dL (<200); Estimated Glomerular Filt Rate > 60; HDL Cholesterol 55 mg/dL (>40); Potassium 4.4 mmol/L (3.3-5.1); Sodium 139 mmol/L (135-145); Triglycerides 57 mg/dL (<150)
== END 2025-06-14 08:12 | disposition home or self-care (01) ==
LOC: HO.LAB 08:11
PROVIDERS: PCP Physician Assistant; Visit Provider Physician Assistant
DX: I11.0 Hypertensive heart disease with heart failure (principal); I50.9 Heart failure, unspecified; I48.20 Chronic atrial fibrillation, unspecified; E11.9 Type 2 diabetes mellitus without complications; Z79.01 Long term (current) use of anticoagulants
CPT/HCPCS: 36415; 80048; 80061; 83036; 85025

== ENCOUNTER 2025-06-25 14:53 | Outpatient (AMB) | payer OTHER, SELFPAY ==
[2025-06-25 14:47] VITALS: BP 127/65; PULSE 82; TEMP 36.6; O2SAT 95; BMI 36.9
--- NOTE | 2025-06-25 14:47 | MHC.PC.OV ---
Vital Signs 06/25/25 14:47 Height 5 ft 4 in Weight 215 lb BMI 36.9 BP 127/65 Blood Pressure Location Rt brachial Position Sitting Pulse 82 Pulse Source Pulse Oximeter Temp 97.8 F Temp Source Temporal Artery Scan Pulse Oximetry (%) 95 Oxygen Delivery Method Room Air Intake Visit Reasons: 3 Month F/U - see comments Inspector Tester Sorter Required: No Accompanied by: Self / Same As Patient Allergies Penicillins Allergy (Severe, Verified 06/25/25 15:07) Diarrhea enoxaparin Adverse Reaction (Intermediate, Verified 06/25/25 15:07) Hives, leg swelling Medication List - Last Reconciled 06/25/25 by WILDER Nicolas blood sugar diagnostic ([employer] Ultra Test strips) Check POC BID blood-glucose meter ([employer] Ultra2 Meter) Check POC BID cholecalciferol (vitamin D3) 25 mcg PO DAILY ciclopirox 0.77% 1 appl topical BID diltiazem HCl CD 180 mg PO BEDTIME furosemide 20 mg PO DAILY 90 days lancets ([employer] UltraSoft 2 Lancet) Check POC BID metformin ER 500 mg PO BID 90 days metoprolol succinate ER 25 mg PO BID potassium chloride ER 10 mEq PO DAILY silver sulfadiazine 1% 1 appl topical BID 10 days simvastatin 10 mg PO BEDTIME sitagliptin phosphate (Januvia) 50 mg PO DAILY warfarin 7.5 mg See Protocol PO MOTH@1800 warfarin 5 mg See Protocol PO SUTUWEFRSA@1800 Tobacco use date assessed: 06/25/25 Fall risk assessment: No Falls in past year Last assessed Fall Risk: 06/25/25 Dental Screening Dental Screen Date: 06/25/25 Did you have a dental visit in the last 12 months?: Yes Did you have a dental problem in the last 6 months where you did not have access to dental care?: No HPI HPI Comments History of Present Illness Details The patient is a 65-year-old female with Chronic AFib on Warfarin, DM, CHF, HTN, low vitamin D, Obesity and knee pain presenting for a follow-up visit for management of chronic conditions and review of recent lab results. The patient's recent hemoglobin A1c was 8.4%, indicating uncontrolled diabetes. She has been taking metformin 500 mg twice daily for approximately two to three years and recalls experiencing side effects, including diarrhea, when she initially started the medication. The patient is on chronic anticoagulation with warfarin, taking 7.5 mg on Mondays and and 5 mg on other days, with monthly blood monitoring. She reports some days having significant leg edema. She recently saw her electronics research engineer and had a normal echocardiogram. A prior leg infection, for which she was prescribed antibiotics, is still in the process of healing. Her electronics research engineer advised her to keep it covered to prevent irritation from clothing. She also sustained a finger injury in March, which is slowly healing. Patient's BP today was 127/65. She had a Mammogram in May. Medical History: - Type 2 diabetes mellitus - Condition requiring chronic anticoagulation - Leg cellulitis, healing - Finger injury - Hypertension - Hyperlipidemia Patient was informed and verbally consented to the use of an ambient scribe for clinic note documentation during this visit. [facility] Medical History (Updated 06/25/25 @ 17:46 by WILDER Nicolas) Biatrial enlargement Chronic atrial fibrillation Diabetes Heart failure, unspecified History of cardioversion HTN (hypertension) Low vitamin D level Morbid obesity Obesity (BMI 35.0-39.9 without comorbidity) On anticoagulant therapy On beta kathrine at home Surgical History History of colonoscopy (~12/10/21) History of placement of ear tubes History of tonsillectomy Status post atrial septal defect repair Family History (Updated 06/25/25 @ 15:09 by Jodee Brooks MA) Father No problems noted. 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 1. Little interest or pleasure in doing things: not at all 2. Feeling down, depressed, or hopeless: not at all 3. Trouble falling or staying asleep, or sleeping too much: not at all 4. Feeling tired or having little energy: not at all 5. Poor appetite or overeating: not at all 6. Feeling bad about yourself - or that you are a failure or have let yourself or your family down: not at all 7. Trouble concentrating on things, such as reading the newspaper or watching television: not at all 8. Moving or speaking so slowly that other people could have noticed. Or the opposite - being so fidgety or restless that you have been moving around a lot more than usual: not at all 9. Thoughts that you would be better off or of hurting yourself in some way: not at all Total score: 0 Depression Screening Interpretation: Negative Depression Screening Done: Yes Source: Developed by Drs. Adam Albrecht, Yasemin Cameron, Cecilio Lantigua and colleagues, with an educational christiano from [employer]. Thrive Questionnaire Date Thrive assessed: 06/25/25 I am a: Patient Within the past 12 months, did the food you bought not last and you didn't have the money to get more?: Never true Within the past 12 months, did you worry whether your food would run out before you got money to buy more?: Never true Do you have trouble paying for medicines?: No Do you have trouble getting transportation to medical appointments?: No Do you have trouble paying your heating and electricity bill?: No Do you have trouble taking care of your child, family member or friend?: No Do you have trouble with day-to-day activities such as bathing, preparing meals, shopping, managing finances, etc.?: No Are you currently unemployed and looking for a job?: No Are you interested in more education?: No THRIVE Score: 0 AUDIT C Alcohol Use Questionnaire (AUDIT-C) 1. How often do you have a drink containing alcohol?: Never 3. How often do you have six or more drinks on one occasion?: Never Total Score: 0 GASTON-7 AMB Questionnaire GASTON-7 Date GASTON - 7 assessed: 06/25/25 Feeling nervous, anxious, or on edge: 0 = Not at all Not being able to stop or control worryin = Not at all Worrying too much about different things: 0 = Not at all Trouble relaxin = Not at all Being so restless that it is hard to sit still: 0 = Not at all Becoming easily annoyed or irritable: 0 = Not at all Feeling afraid as if something awful might happen: 0 = Not at all Total GASTON-7 score (0-4 normal; 5-9 mild; 10-14 moderate; 15-21 severe): 0 Source: Developed by Drs. Adam Albrecht, Yasemin Cameron, Cecilio Lantigua and colleagues, with an educational christiano from [employer]. Review of Systems Narrative - Cardiovascular: Reports intermittent lower extremity edema. - Integumentary: Reports a healing wound on her leg and a healing finger injury. - Otherwise, denies other issues. Physical exam (Primary Care) Vital Signs: Last Vital Signs Temp 97.8 F 06/25/25 14:47 Pulse 82 06/25/25 14:47 BP 127/65 06/25/25 14:47 Pulse Ox 95 06/25/25 14:47 Oxygen Delivery Method Room Air 06/25/25 14:47 BMI result Body Mass Index 36.9 GENERAL Well developed, obese, in no apparent distress HEENT Head-Normocephalic Eyes- PERRLA, EOMI, Conjuctiva clear, lids WNL Neck- Supple, No lymphadenopathy, thyroid WNL RESPIRATORY Normal I:E, Clear to auscultation CARDIOVASCULAR Regular rate, No murmurs or rubs SKIN abrasion left knee- healed, no sign of infection NEUROLOGICAL Gait normal PSYCHIATRIC Oriented to person, place and time Mood and affect WNL Appearance WNL Speech WNL Thought processes WNL Tobacco/Smoking Status: Tobacco use Status Tobacco use date assessed 06/25/25 06/25/25 14:53 Patient Tobacco Use Status Never used Tobacco 06/25/25 14:53 e-Cigarette/Vaping Use Never Used 06/25/25 14:53 PHQ-9: PHQ-9 Score PHQ-9: Total score 0 06/25/25 15:09 Depression Screening Interpretation: Negative Thrive Assessment: Date of Thrive Assessment Date Thrive assessed 06/25/25 06/25/25 14:53 Results Reviewed Results Reviewed: - Labs: Hemoglobin A1c is 8.4%. - Imaging: A recent echocardiogram was normal. - Mammogram was Birad 1 Coding Level of Care Code Established Pt Est Pt Level 4 (32403) Patient Type Established Diagnoses Type 2 diabetes mellitus without complication, without long-term current use of insulin E11.9 Diabetes mellitus type: type 2 Diabetes mellitus detention insulin use: without moth exterminator use Diabetes mellitus complication status: without complication Primary hypertension I10 Hypertension type: primary hypertension Chronic atrial fibrillation I48.20 Obesity (BMI 35.0-39.9 without comorbidity) E66.9 Time Spent (min) 30 Comment Time spent on lab review, H&P, patient education and orders. Assessment & Plan Assessment & Plan (1) Diabetes: Comment: A1C was 8.4% Code(s): E11.9 - Type 2 diabetes mellitus without complications Category: Medical Qualifiers: Diabetes mellitus type: type 2 Diabetes mellitus detention insulin use: without detention use Diabetes mellitus complication status: without complication Qualified Code(s): E11.9 - Type 2 diabetes mellitus without complications Plan: The patient's recent HbA1c of 8.4% indicates that her diabetes is not adequately controlled on her current regimen of metformin 500 mg twice daily. Increasing the metformin dose was discussed as an option, but the patient wished to avoid this due to a history of gastrointestinal side effects. To improve glycemic control and reduce the risk of diabetic complications, a second agent will be added. Start Januvia 50 mg once daily. A prescription for Januvia will be sent to [facility]. The patient will follow up in 3 months for reassessment and repeat lab work. (2) HTN (hypertension): Comment: BP today was 127/65 Code(s): I10 - Essential (primary) hypertension Category: Medical Qualifiers: Hypertension type: primary hypertension Qualified Code(s): I10 - Essential (primary) hypertension Plan: Controlled on Diltiazem, Furosemide, and Metoprolol. Patient will continue current medications. Will monitor. Patient will follow up in 3 months. (3) Chronic atrial fibrillation: Comment: Has failed rhythm control approach Code(s): I48.20 - Chronic atrial fibrillation, unspecified Category: Medical Plan: The patient is on a stable dose of warfarin with monthly INR monitoring. She reports that her dose was recently increased slightly as her levels were borderline low. Continue current warfarin regimen and monthly monitoring. (4) Obesity (BMI 35.0-39.9 without comorbidity): Comment: BMI today was 36.9 Code(s): E66.9 - Obesity, unspecified Category: Medical Plan: Patient has maintained the same weight. Diet and exercise were reviewed. Plan I reviewed the patient's recent lab work with her, specifically noting that her hemoglobin A1c was 8.4%. I explained that this level is higher than our goal and that elevated blood sugar increases her risk for diabetes-related complications, such as vision changes and kidney problems. We discussed two options: increasing her current metformin dose or adding a second medication. The patient expressed a preference to avoid increasing the metformin due to a history of side effects. We agreed to add a new medication, Januvia, to help lower her blood sugar. I am starting her on the lowest available dose of 50 mg once daily, and I will send the prescription to her preferred pharmacy, [facility]. I instructed her to schedule a follow-up appointment in three months, at which time we will check her blood work again to assess her response to the new medication. Medications: New sitagliptin phosphate (Januvia) 50 mg PO DAILY 90 tabs 0RF for diabetes Patient Instructions: - Start taking the new medication, Januvia 50 mg, once a day for your diabetes. - A prescription has been sent to your [facility] pharmacy. - Continue all your other current medications as prescribed. - Keep the healing wound on your leg covered with a bandage during the day to prevent it from rubbing against your pants. - Schedule a follow-up appointment in 3 months to check on your progress with the new medication and for new blood work.
--- OUTSIDE RECORDS SUMMARY | 2025-06-25 18:16 | XMS_ITS | Patient Health Record ---
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 Control Crane Operator Name Role Phone Pat (RETIRED) Abdulaziz GUERRERO Primary Care Provide r Unavailable MoralesAdam Unavailable [phone] Allergies No Known Allergies Reason For Referral [...] Problem Screening for malignant neoplasm of colon (934738222) Encounter for screening for malignant neoplasm of colon (Z12.11) Active confirmed Problem Preprocedural examination (657190499998243) Preprocedural examination (Z01.818) Active confirmed Problem Diverticulosis of colon (488013451) Diverticulosis of colon (K57.30) Active confirmed Problem Long-term current use of anticoagulant (500302097) ocean transportation intermediary current use of anticoagulant (Z79.01) Active confirmed Plan Of Treatment Pending Test Test Name Order Date Pathology 12/10/2021 Future Test Test Name Order Date COLONOSCOPY 11/03/2021 Insurance Providers Payer Name Payer Address Payer Phone Subscriber Number Group Number Insured Name Patient Relationship to Insured Coverage Start Date Coverage End Date [facility] [address] [place] [phone] [id number] SAVANNA VENEGAS Self - patient is the insured Medical (General) History Medical History History ICD Code High cholesterol Afib Denies NE,CVA,Lung disease,renal disease NIDDM Surgical History Surgery Date(Month/Year) Open heart surgery for a PFO 2007 Ear tubes Tonsils
--- OUTSIDE RECORDS SUMMARY | 2025-06-25 18:16 | XMS_ITS | Patient Health Record ---
Author Organization [facility] Address [address] [place] [address] Care Team Providers Care Aerospace Control And Warning Systems Name Role Phone Jaja Marin Primary Care Provider Unavailabl e Black, Carrie Unavailable [phone] Allergies No Known Allergies Reason For Referral [...] Problem Acquired hammer toe of right foot (6186383938190856 ) Other hammer toe(s) (acquired), right foot (M20.41) Active confirmed Problem Acquired hammer toe of left foot (4829509943534193 ) Other hammer toe(s) (acquired), left foot (M20.42) Active confirmed Problem Polyneuropathy due to type 2 diabetes mellitus (816249694) Type 2 diabetes mellitus with diabetic polyneuropathy (E11.42) Active confirmed Vital Signs Blood pressure diastolic 60 mm Hg 01/27/2025 Height 5ft3in in 01/27/2025 Blood pressure systolic 130 mm Hg 01/27/2025 Weight 245 lbs 01/27/2025 BMI 43.4 kg/m2 01/27/2025 Procedures Procedure Date Ordered Date Performed Result Body Sit e 36627-GIBMVMJ NAIL, 6 OR MORE 01/27/2025 N/A 48161-YGDZ SKIN LESIONS, OVER 4 01/27/2025 N/A Encounters Encounter Location Date Provider Diagnosis [address] [address] 07/29/2024 Carrie Black Type 2 diabetes mellitus with diabetic polyneuropathy E11.42 ; Tinea unguium B35.1 ; Tinea pedis of both feet B35.3 ; Other hammer toe(s) (acquired), right foot M20.41 and Other hammer toe(s) (acquired), left foot M20.[address] [address] 01/27/2025 Carrie Black Type 2 diabetes mellitus with diabetic polyneuropathy E11.42 ; Tinea unguium B35.1 ; Other hammer toe(s) (acquired), right foot M20.41 and Other hammer toe(s) (acquired), left foot M20.[address] [address] 01/27/2025 Carrie Black Assessments Encounter Date Diagnosis [...] Test Name Order Date Hemoglobin A1c 07/14/2015 06440-WLKLWHK NAIL, 6 OR MORE 01/24/2022 04964-DDQWNPE NAIL, 6 OR MORE 01/30/2023 43493-RABWQYP NAIL, 6 OR MORE 07/25/2022 32245-GPYFAZR NAIL, 6 OR MORE 08/03/2023 88859-BQWWREJ NAIL, 6 OR MORE 02/01/2024 63201-SXOQVSE NAIL, 6 OR MORE 01/27/2025 44108-AZQVCLZ NAIL, 6 OR MORE 11/04/2013 29771-BVTPOAT NAIL, 6 OR MORE 02/06/2014 83027-AWCRCKF NAIL, 6 OR MORE 05/12/2014 94794-JUYLAHF NAIL, 6 OR MORE 08/25/2014 61178-YNNFRVK NAIL, 6 OR MORE 12/15/2014 02915-SPCKVZE NAIL, 6 OR MORE 02/23/2015 25764-UVIZSIJ NAIL, 6 OR MORE 05/07/2015 00094-RYYDSMC NAIL, 6 OR MORE 08/03/2015 12990-RNLZGSJ NAIL, 6 OR MORE 11/02/2015 08530-TMGKSFQ NAIL, 6 OR MORE 02/01/2016 67136-NDWJUPM NAIL, 6 OR MORE 05/09/2016 68370-YWEKGAS NAIL, 6 OR MORE 08/22/2016 08478-PTRBBGO NAIL, 6 OR MORE 11/21/2016 61545-GOZYRMO NAIL, 6 OR MORE 02/20/2017 60686-TTTHKPV NAIL, 6 OR MORE 05/29/2017 06185-YEJQELP NAIL, 6 OR MORE 09/04/2017 94793-LHMDXCX NAIL, 6 OR MORE 12/04/2017 98338-BAXVQAD NAIL, 6 OR MORE 03/12/2018 44821-IENEAAF NAIL, 6 OR MORE 06/11/2018 52799-COAQGQC NAIL, 6 OR MORE 09/24/2018 81884-QDLYEGT NAIL, 6 OR MORE 12/24/2018 24454-LYSZQPA NAIL, 6 OR MORE 03/25/2019 71906-DNIGJYT NAIL, 6 OR MORE 07/01/2019 36747-KKRSADV NAIL, 6 OR MORE 10/07/2019 11501-CKWUJQS NAIL, 6 OR MORE 12/30/2019 61289-DMHGEFC NAIL, 6 OR MORE 04/13/2020 24240-HXYPODS NAIL, 6 OR MORE 10/01/2020 94893-OATJVDR NAIL, 6 OR MORE 01/04/2021 46561-IRFRAEX NAIL, 6 OR MORE 07/12/2021 26750-Gdpgsbdp Plate 11/21/2016 47986-Ttasqyiw Plate 08/22/2016 67957-Tgujmjpv Plate 05/07/2015 09625-Nclssooc Plate 02/23/2015 70378-Xekzjvpw Plate 05/12/2014 01698-Eaurbrwj Plate 12/15/2014 91123-Pgrqnkre Plate 08/25/2014 31435-Tfenekxn Plate 05/09/2016 03955-Vzwxuuji Plate 01/30/2023 18125-Jycubcuy Plate 08/03/2023 77809-Nwrsbxmb Plate 07/12/2021 87059-Nofnyhjs Plate Each Additional 22767-Pzvwoaqv Plate Each Additional 30552- Debride <25 sq cm 12/15/2014 19929- Debride <25 sq cm 08/25/2014 00793-JNJC SKIN LESIONS, OVER 4 02/24/20 15 49538-VQVQ SKIN LESIONS, OVER 4 12/16/19 15 73512-VKQR SKIN LESIONS, OVER 4 11/05/19 14 39686-JODC SKIN LESIONS, OVER 4 08/25/19 15 62196-ILLT SKIN LESIONS, OVER 4 05/12/20 14 62432-BOLR SKIN LESIONS, OVER 4 02/07/20 14 70923-KJSW SKIN LESIONS, OVER 4 05/07/20 15 65977-XFJT SKIN LESIONS, OVER 4 08/03/20 15 87270-QSDC SKIN LESIONS, OVER 4 02/01/20 16 72006-CBMZ SKIN LESIONS, OVER 4 11/02/19 16 69270-ANHP SKIN LESIONS, OVER 4 08/22/19 17 43171-LVMB SKIN LESIONS, OVER 4 05/09/20 16 61816-OASE SKIN LESIONS, OVER 4 11/22/19 17 92560-BXZM SKIN LESIONS, OVER 4 02/21/20 17 82841-IMUC SKIN LESIONS, OVER 4 07/12/20 21 02841-RQFV SKIN LESIONS, OVER 4 01/05/20 21 20818-KFSU SKIN LESIONS, OVER 4 10/01/19 21 20105-IGBH SKIN LESIONS, OVER 4 04/13/20 20 46332-CEGQ SKIN LESIONS, OVER 4 12/30/19 20 49371-JMOI SKIN LESIONS, OVER 4 10/07/19 20 94492-CJFN SKIN LESIONS, OVER 4 07/01/20 19 53059-UOLU SKIN LESIONS, OVER 4 03/25/20 19 03508-EYNT SKIN LESIONS, OVER 4 12/25/19 19 41253-GMGJ SKIN LESIONS, OVER 4 09/24/19 19 12273-SZKY SKIN LESIONS, OVER 4 06/11/20 18 81373-TYFM SKIN LESIONS, OVER 4 03/12/20 18 61496-VSLM SKIN LESIONS, OVER 4 12/05/19 18 55733-RXAY SKIN LESIONS, OVER 4 09/04/19 18 91365-XQQC SKIN LESIONS, OVER 4 05/29/20 17 82901-DYTD SKIN LESIONS, OVER 4 01/25/20 76829-KHHQ SKIN LESIONS, OVER 4 07/25/20 77937-CAPX SKIN LESIONS, OVER 4 08/03/20 23 24848-ODMO SKIN LESIONS, OVER 4 01/28/20 25 55268-UZAV SKIN LESIONS, OVER 4 02/01/20 24 05994-DJPG SKIN LESIONS, OVER 4 01/31/20 Next Appt Details Provider Name:Carrie Lerma , 07/21/2025 03:30:00 PM, [address] [place], [address], Insurance Providers Payer Name Payer Address Payer Phone Subscriber Number Group Number Insured Name Patient Relationship to Insured Coverage Start Date Coverage End Date [employer] [address] [place] [address] [id number] Myla Dunn Self - patient is the insured Medical (General) History Medical History History ICD Code Diabetic Measles Mumps Chicken pox Atrial fibrillation Surgical History Surgery Date(Month/Year) heart surgery hole in heart 09/2007
== END 2025-06-25 15:26 | disposition home or self-care (01) ==
LOC: HO.HMCHD 14:53
PROVIDERS: PCP Physician Assistant Medical; Visit Provider Physician Assistant Medical
DX: E11.9 Type 2 diabetes mellitus without complications (principal); I10 Essential (primary) hypertension; I48.20 Chronic atrial fibrillation, unspecified; E66.9 Obesity, unspecified

== ENCOUNTER 2025-06-27 14:30 | Outpatient (AMB) | payer OTHER, SELFPAY ==
[2025-06-27 14:43] LABS: Prothrombin Time Whole Bld POC 29.4 sec (11.1-13.5); ~PT, ~INR - Anti Coag Clinic 2.5 (0.9-1.1)
--- NOTE | 2025-06-27 14:46 | MHC.OFFVISCO ---
Intake Intake Visit Reasons: Anticoagulation Allergies Penicillins Allergy (Severe, Verified 06/27/25 14:37) Diarrhea enoxaparin Adverse Reaction (Intermediate, Verified 06/27/25 14:37) Hives, leg swelling Medication List - Last Reconciled 06/27/25 by Fernanda Sierra RN blood sugar diagnostic ([employer]Touch Ultra Test strips) Check POC BID blood-glucose meter ([employer]Touch Ultra2 Meter) Check POC BID cholecalciferol (vitamin D3) 25 mcg PO DAILY ciclopirox 0.77% 1 appl topical BID diltiazem HCl CD 180 mg PO BEDTIME furosemide 20 mg PO DAILY 90 days lancets ([employer] UltraSoft 2 Lancet) Check POC BID metformin ER 500 mg PO BID 90 days metoprolol succinate ER 25 mg PO BID potassium chloride ER 10 mEq PO DAILY saxagliptin 2.5 mg PO DAILY silver sulfadiazine 1% 1 appl topical BID 10 days simvastatin 10 mg PO BEDTIME warfarin 7.5 mg See Protocol PO MOTH@1800 warfarin 5 mg See Protocol PO SUTUWEFRSA@1800 Nursing Note INR: 2.5 in therapeutic range 2-3 Medications and supplements reviewed No changes in health, diet, medications, or supplements, Denies any signs and symptoms of bleeding or bruising or clotting. Bleeding, bruising, clotting discussed Nutritional guidance given Dose: 5mg X 5 days and 7.5mg X 2 days (Mon/Thurs) F/U INR: 4 weeks Patient verbalizes understanding of instructions given Anti-Coag Initial Assessment Social Hx Patient Tobacco Use Status: Never used Tobacco alcohol intake: never Alcohol intake frequency: does not drink Coding Level of Care Code Est Patient Level 1 Diagnoses Current use of anticoagulant therapy Z79.01 Results AMB INR Fingerstick AMB INR Fingerstick 2.5 Last Edit by Fernanda Sierra RN on 06/27/25 14:42 interface delay Assessment & Plan Assessment & Plan (1) Current use of anticoagulant therapy: Code(s): Z79.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
--- OUTSIDE RECORDS SUMMARY | 2025-06-27 21:34 | XMS_ITS | Patient Health Record ---
Author Organization [facility] Address [address] [place] [address] Care Team Providers Care Library Sales Consultant Name Role Phone Jaja Marin Primary Care Provider Unavailabl e Black, Carrie Unavailable [phone] Allergies No Known Allergies Reason For Referral [...] Problem Acquired hammer toe of right foot ([id number] ) Other hammer toe(s) (acquired), right foot (M20.41) Active confirmed Problem Acquired hammer toe of left foot ([id number] ) Other hammer toe(s) (acquired), left foot (M20.42) Active confirmed Problem Polyneuropathy due to type 2 diabetes mellitus (540203758) Type 2 diabetes mellitus with diabetic polyneuropathy (E11.42) Active confirmed Vital Signs Blood pressure diastolic 60 mm Hg 01/27/2025 Height 5ft3in in 01/27/2025 Blood pressure systolic 130 mm Hg 01/27/2025 Weight 245 lbs 01/27/2025 BMI 43.4 kg/m2 01/27/2025 Procedures Procedure Date Ordered Date Performed Result Body Sit e 90724-RKLGNQD NAIL, 6 OR MORE 01/27/2025 N/A 14349-QLNB SKIN LESIONS, OVER 4 01/27/2025 N/A Encounters Encounter Location Date Provider Diagnosis [address] [address] 07/29/2024 Carrie Black Type 2 diabetes mellitus with diabetic polyneuropathy E11.42 ; Tinea unguium B35.1 ; Tinea pedis of both feet B35.3 ; Other hammer toe(s) (acquired), right foot M20.41 and Other hammer toe(s) (acquired), left foot M20.[address] [address] 01/27/2025 Carrie Black Type 2 diabetes mellitus with diabetic polyneuropathy E11.42 ; Tinea unguium B35.1 ; Other hammer toe(s) (acquired), right foot M20.41 and Other hammer toe(s) (acquired), left foot M20.[address] [address] 01/27/2025 Carrie Black Assessments Encounter Date Diagnosis [...] Test Name Order Date Hemoglobin A1c 07/14/2015 28339-SKRGMWZ NAIL, 6 OR MORE 01/24/2022 74374-POSELOH NAIL, 6 OR MORE 01/30/2023 05834-QTXGYSW NAIL, 6 OR MORE 07/25/2022 94646-SBBCSZP NAIL, 6 OR MORE 08/03/2023 96402-UPAKXFZ NAIL, 6 OR MORE 02/01/2024 59510-PWYVXTX NAIL, 6 OR MORE 01/27/2025 88103-FPURJBP NAIL, 6 OR MORE 11/04/2013 86294-QPNJRIW NAIL, 6 OR MORE 02/06/2014 83646-FYVRFJO NAIL, 6 OR MORE 05/12/2014 24550-CSWOWTZ NAIL, 6 OR MORE 08/25/2014 04264-ZRHBBQB NAIL, 6 OR MORE 12/15/2014 45870-VBNNFMI NAIL, 6 OR MORE 02/23/2015 15181-XYIYCEI NAIL, 6 OR MORE 05/07/2015 74500-VRMSQKV NAIL, 6 OR MORE 08/03/2015 20268-OBJOLBI NAIL, 6 OR MORE 11/02/2015 23382-QNYVJZG NAIL, 6 OR MORE 02/01/2016 71697-RLQFUII NAIL, 6 OR MORE 05/09/2016 03462-LMUPRTM NAIL, 6 OR MORE 08/22/2016 88579-AQBSKHN NAIL, 6 OR MORE 11/21/2016 18790-VCJEMOI NAIL, 6 OR MORE 02/20/2017 61807-PPHIJOZ NAIL, 6 OR MORE 05/29/2017 45615-HYAUIIW NAIL, 6 OR MORE 09/04/2017 34833-XOPTZOM NAIL, 6 OR MORE 12/04/2017 39433-UTVEMCH NAIL, 6 OR MORE 03/12/2018 42596-QCYJEIJ NAIL, 6 OR MORE 06/11/2018 86371-RVUYRRI NAIL, 6 OR MORE 09/24/2018 50714-BOWKGKE NAIL, 6 OR MORE 12/24/2018 00092-TNQIRNA NAIL, 6 OR MORE 03/25/2019 10259-EKQFRLN NAIL, 6 OR MORE 07/01/2019 96608-ODIGWPW NAIL, 6 OR MORE 10/07/2019 73003-OQUQCFQ NAIL, 6 OR MORE 12/30/2019 04277-RMJVFZI NAIL, 6 OR MORE 04/13/2020 58000-UIIUMIX NAIL, 6 OR MORE 10/01/2020 68356-QMBCPPG NAIL, 6 OR MORE 01/04/2021 84846-CZEPDZP NAIL, 6 OR MORE 07/12/2021 23992-Vteqybdq Plate 11/21/2016 92179-Fdxquzxa Plate 08/22/2016 31031-Nlwyqkue Plate 05/07/2015 36971-Lhfmvvtd Plate 02/23/2015 19802-Jrqiqgtk Plate 05/12/2014 50517-Kaevxjbb Plate 12/15/2014 81787-Rwbjecpe Plate 08/25/2014 86458-Bbumjsqf Plate 05/09/2016 60670-Tpctxjfm Plate 01/30/2023 17702-Utczqbug Plate 08/03/2023 53687-Jfbarnff Plate 07/12/2021 56916-Rjqhnahb Plate Each Additional 66390-Peyzxivv Plate Each Additional 48264- Debride <25 sq cm 12/15/2014 49011- Debride <25 sq cm 08/25/2014 11410-GNEW SKIN LESIONS, OVER 4 02/24/20 15 13168-SOBJ SKIN LESIONS, OVER 4 12/16/19 15 17386-PMDW SKIN LESIONS, OVER 4 11/05/19 14 57596-HEZQ SKIN LESIONS, OVER 4 08/25/19 15 16746-YXPS SKIN LESIONS, OVER 4 05/12/20 14 24774-LVKK SKIN LESIONS, OVER 4 02/07/20 14 34530-EFQL SKIN LESIONS, OVER 4 05/07/20 15 51608-TBCR SKIN LESIONS, OVER 4 08/03/20 15 99760-QNSL SKIN LESIONS, OVER 4 02/01/20 16 35469-PQEJ SKIN LESIONS, OVER 4 11/02/19 16 30545-RRDZ SKIN LESIONS, OVER 4 08/22/19 17 49734-HBLM SKIN LESIONS, OVER 4 05/09/20 16 25429-MCAU SKIN LESIONS, OVER 4 11/22/19 17 27555-HFUJ SKIN LESIONS, OVER 4 02/21/20 17 52121-NMMI SKIN LESIONS, OVER 4 07/12/20 21 91173-QSYB SKIN LESIONS, OVER 4 01/05/20 21 21181-GKQU SKIN LESIONS, OVER 4 10/01/19 21 38056-KCWO SKIN LESIONS, OVER 4 04/13/20 20 93603-MWSV SKIN LESIONS, OVER 4 12/30/19 20 94088-MVSQ SKIN LESIONS, OVER 4 10/07/19 20 95537-YNMS SKIN LESIONS, OVER 4 07/01/20 19 94601-JKOR SKIN LESIONS, OVER 4 03/25/20 19 89650-JNRW SKIN LESIONS, OVER 4 12/25/19 19 28659-ADEQ SKIN LESIONS, OVER 4 09/24/19 19 94621-ORVY SKIN LESIONS, OVER 4 06/11/20 18 30779-GTCF SKIN LESIONS, OVER 4 03/12/20 18 43293-GEVI SKIN LESIONS, OVER 4 12/05/19 18 91529-FCWH SKIN LESIONS, OVER 4 09/04/19 18 31126-DXLW SKIN LESIONS, OVER 4 05/29/20 17 72972-GUSR SKIN LESIONS, OVER 4 01/25/20 72027-FPML SKIN LESIONS, OVER 4 07/25/20 78226-YYRK SKIN LESIONS, OVER 4 08/03/20 23 70935-ZPAH SKIN LESIONS, OVER 4 01/28/20 25 85696-FSFL SKIN LESIONS, OVER 4 02/01/20 24 77933-LKMK SKIN LESIONS, OVER 4 01/31/20 Next Appt Details Provider Name:Carrie Lerma , 07/21/2025 03:30:00 PM, [address] [place], [address], Insurance Providers Payer Name Payer Address Payer Phone Subscriber Number Group Number Insured Name Patient Relationship to Insured Coverage Start Date Coverage End Date [employer] [address] [place] [address] [id number] Myla Dunn Self - patient is the insured Medical (General) History Medical History History ICD Code Diabetic Measles Mumps Chicken pox Atrial fibrillation Surgical History Surgery Date(Month/Year) heart surgery hole in heart 09/2007
== END 2025-06-27 14:48 | disposition home or self-care (01) ==
LOC: HO.ACS 14:30
PROVIDERS: PCP Physician Assistant Medical; Visit Provider Internal Medicine Medical Oncology
DX: Z79.01 Long term (current) use of anticoagulants (principal)

== ENCOUNTER → 2025-06-27 14:30 | Outpatient (BNVA) | payer OTHER, SELFPAY | PROVIDERS: PCP Physician Assistant Medical; Visit Provider Internal Medicine Medical Oncology | DX: Z79.01 Long term (current) use of anticoagulants (principal) | CPT/HCPCS: 85610; 99211 ==

== ENCOUNTER 2025-07-25 15:05 | Outpatient (AMB) | payer OTHER, SELFPAY ==
--- OUTSIDE RECORDS SUMMARY | 2025-07-21 10:30 | XMS_ITS ---
Author Organization [facility] [place] Address [address] [place] [address] Care Team Providers Care Network Operations Specialist Name Role Phone Jaja Marin Primary Care Provider Unavailabl e Black, Carrie Unavailable [phone] Allergies No Known Allergies REASON FOR VISIT At Risk Footcare Medications Medication SIG (Take, Route, Frequency, Duration) Notes Start Date End Date Status metFORMIN HCl ER (OSM) 500 MG 1 tablet with evening meal Orally Once a day X2 a day Active Amiodarone HCl 100 MG 1 tablet Orally Once a day Not-Taking Ciclopirox 0.77 % 1 application to affected area Externally Twice a day to effected nails; Duration: 30 days Active B Complex Orally Active Klor-Con 10 10 MEQ 1 tablet Orally Four times a day Active Extra-Depth Diabetic Shoes with 3 Pair Custom heat-molded multi-density innersoles . for 1 year . Dx:hammertoes and calloused lesions; Duration: . 02/23/2015 Not-Taking Ciclopirox Olamine 0.77% external Apply to effected areas twice a day; Duration: 30 days 02/06/2014 Not-Taking Aspirin Adult Low Strength 81 MG 1 tablet Orally Once a day Not-Taking Ciclopirox Olamine 0.77% external Apply to effected areas twice a day; Duration: 30 days 11/21/2016 Not-Taking Ciclopirox Olamine 0.77 % 1 application to affected area Externally Twice a day; Duration: 30 days 12/04/2017 Not-Taking Extra Depth Orthopedic Shoes (1 Pair) with Customized Heat Molded Multidensity Innersoles (3 Pair) as directed Dx: NIDDM/Polyneuropathy (E11.42), Hammertoe Foot Deformity (M20.41,M20.42), Preulcerative Skin Lesion(s) (L85.1 Active Warfarin Sodium 5 MG 1 tablet Orally Two times a Week 7.5 Fridays only Active Extra-Depth Diabetic Shoes with 3 Pair Custom heat-molded multi-density innersoles . for 1 year . Dx:NIDDM/NEURO and preulcerative lesions,hammertoes; Duration: . 11/04/2013 Active Furosemide 20 MG 1 tablet Orally Once a day Active dilTIAZem HCl ER 180 MG Orally Once a day Active Metoprolol Succinate ER 25 MG 1 tablet Orally Once a day Active Simvastatin 10 MG 1 tablet in the evening Orally Once a day Active Vitamin D 1000 UNIT 1 tablet Orally Once a day Active Social History Tobacco Use: Social History Observation Description Date Details (start date - stop date) Never Smoker NA - NA Tobacco Use/Smoking Question Answer Notes Are you a: nonsmoker Additional Findings: Tobacco Non-User Current no n-smoker Tobacco use other than smoking: Question Answer Notes Are you an other tobacco user? No Tobacco Control (Standard) Question Answer Notes Tobacco use: Nonsmoker Additional Findings: Tobacco non-user Current no nsmoker AUDIT-C (Standard) Question Answer Notes Did you have a drink containing alcohol in the p ast year? No Points 0 Interpretation Negative Vital Signs Height 5ft3in in 07/21/2025 Weight 245 lbs 07/21/2025 BMI 43.4 kg/m2 07/21/2025 Blood pressure systolic 128 mm Hg 07/21/20 25 Blood pressure diastolic 65 mm Hg 025 Procedures Procedure Date Ordered Date Performed Result Body Sit e 09459-RLCDERQ NAIL, 6 OR MORE 07/21/2025 N/A 87118-LGJO SKIN LESIONS, OVER 4 07/21/2025 N/A Encounters Encounter Location Date Provider Diagnosis [facility] [address] [place] [address] 07/21/2025 Carrie Black Type 2 diabetes mellitus with diabetic polyneuropathy E11.42 and Tinea unguium B35.1 Assessments Encounter Date Diagnosis (ICD Code) Assessment Notes Treatment Notes Treatment Clinical Notes Section Notes 07/21/2025 Type 2 diabetes mellitus with diabetic polyneuropathy (ICD-10 - E11.42) 07/21/2025 Tinea unguium (ICD-10 - B35.1) 07/21/2025 Other Plan Of Treatment Pending Test Test Name Order Date 88340-INRDKXP NAIL, 6 OR MORE 07/21/2025 53326-LYRL SKIN LESIONS, OVER 4 07/21/20 25 Next Appt Details Follow Up: 6 Months, Reason: Provider Name:Carrie Lerma , 01/19/2026 03:00:00 PM, [address] [place] [address], [phone], Procedure Notes * Category Sub-Category Detail Notes Debride Nail 6-10 Nail debridement Due to the cl inical pathology outlined in the exam findings, performance of this nail treatment is medically necessary as its management by an unskilled/untrained nonprofessional would put this patients foot and overall health at risk. Therefore, debridement to affected nail(s), as described in exam (T5, T6, T7, T8, T9, , TA, T1, T3 ), was performed exclusively by the physician of record to reduce/remove overall nail length, girth, thickness, subungual debris, and necrotic tissue, by manual and/or electrical means through the use of a nail nipper and/or dremel-type gear grinder, to a more viable healthy nail [...] to maintain effectiveness in symptomatic relief - 40113 Keratoma Treatment Parring or Cutting o f [...] instrumentation by the physician of record - 24319 Progress Notes * Jenna VENEGASOB:[birth year] (65 yo F)Acc No.[id number]:07/21/2025 Progress Note Patient: Myla URIBE Provider: Al Lerma DPM :1960 A ge:65 Y S ex:Female Date:07/21/2025 Address:[address] [place], [place] [id number] Pcp:Jaja Marin Subjective: * Chief Complaints: * A t Risk Footcare * HPI: A t Risk footcare: Pt States Last PCP Visit: D ate 0 01/08/2025 * ROS: G eneral/Constitutional: Nausea d enies. V omiting d enies. H violette Thirst d enies. L oss appetite d enies. C hills d enies. F atigue d enies.?Fever d enies. N ight Sweats d enies. U nexplained weight loss d enies. U nexplained weight gain d enies. H EENTM: Dentures d enies. D izziness d enies. G lasses/contacts a dmits. R etinopathy d enies. B lurred/double vision d enies. T MJ?denies. D ischarge/drainage d enies. I mplants d enies. S ore throat d enies. D ental implants d enies. H varsha of hearing d enies. D ifficulty chewing/swallowing/speaking d enies. N ose bleeds d enies. S ore mouth d enies. ? R espiratory: On Oxygen d enies. P neumonia/pleurisy d enies.?Bronchitis d enies. E mphysema d enies. C oughing d enies. C ough blood?denies. S hortness of breath d enies. W heezing d enies. C ardiovascular: Pacemaker d enies. M INSTRUMENT TECH d enies. W PW d enies. C HF d enies. H eart attack d enies. S eptal defect d enies. R apid beat d enies. C hest pain d enies. A trial Fib. d enies. M urmur/Palpitations d enies. G astrointestinal: Hemorrhoids d enies. S tomach/Abdominal pain d enies. D ark blood stool d enies. I rritable bowel d enies. C onstipation d enies. D iarrhea d enies. H ematology: Swelling a dmits. C lots d enies. V aricose Veins d enies. B ruising d enies. B leeding problem d enies. G enitourinary: Blood urine d enies. F requent/Painfu/urination/bladder control d enies. K idney stones d enies. I nfection (UTI) d enies. N ephropathy d enies. s ex trans dis (STD) d enies. P rostate d enies. M usculoskeletal: Hammertoes d enies. B unions d enies. B ack Pain d enies. M uscle Cramps/ Resting d enies. M uscle cramps / walking d enies.?Generalized aches and pains a dmits. W eakness d enies. I nteg.: Henry d enies. S cars d enies. C orns/calluses?denies. I ngrown nails a dmits. P ainful nails d enies. O pen Sores d enies. R ashes d enies. N eurologic: Difficulty sleeping d enies. B rain disorder d enies. N umbness a dmits. B alance trouble d enies. C onfusion d enies. F ainting/blackouts d enies. T ingling a dmits. T remors d enies. * Medical History: * Surgical History: h eart surgery hole in heart 09/2007 * Hospitalization/Major Diagno stic Procedure: D enies Past Hospitalization * Family History: M other: , foot problems, diagnosed with Diabetic - NIDDM. F ather: , diagnosed with Other malignant neoplasm of unspecified site. D eryn(s): alive. S iblings: stroke, foot problems, diabetes. * Social History: T obacco Use: T obacco Use/Smoking A re you a: n onsmoker A dditional Findings: Tobacco Non-User C urrent non-smoker Tobacco use other than smoking A re you an other tobacco user? N o Tobacco Control (Standard) T obacco use: N onsmoker A dditional Findings: Tobacco non-user C urrent nonsmoker D rugs/Alcohol: D rugs H ave you used drugs other than those for medical reasons in the past 12 months? N o M iscellaneous: C affeine: yes, frequency: , 1 cup a day. Children: yes. Exercise: yes, walking. Marital status: single. 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 D rug/Alcohol: A MEGAN-C (Standard) D id you have a drink containing alcohol in the past year? N o P oints 0 I nterpretation N egative * Medications: T akingCiclopirox 0.77 % Gel 1 application to affected area Externally Twice a day to effected nails B Complex Tablet Orally Klor-Con 10 10 MEQ [...] Week , Notes to Pharmacist: 7.5 Fridays onlyExtra-Depth Diabetic Shoes with 3 Pair Custom heat-molded multi-density innersoles . . for 1 year . Dx:NIDDM/NEURO and preulcerative lesions,hammertoes Furosemide 20 MG Tablet 1 tablet Orally Once a day dilTIAZem HCl ER 180 MG Capsule Extended Release 24 Hour Orally Once a day Extra Depth Orthopedic Shoes (1 Pair) with Customized Heat Molded Multidensity Innersoles (3 Pair) as directed Dx: NIDDM/Polyneuropathy (E11.42), Hammertoe Foot Deformity (M20.41,M20.42), Preulcerative Skin Lesion(s) (L85.1 Taking Ciclopirox 0.77 % Gel 1 application [...] 24 Hour Orally Once a day Taking Extra Depth Orthopedic Shoes (1 Pair) with Customized Heat Molded Multidensity Innersoles (3 Pair) as directed Dx: NIDDM/Polyneuropathy (E11.42), Hammertoe Foot Deformity (M20.41,M20.42), Preulcerative Skin Lesion(s) (L85.1 Not-Taking/PRNCiclopirox Olamine 0.77% Cream external Apply to [...] reviewed and reconciled with the patient * Allergies: N .K.D.A.yes[Allergies Verified] Objective: * Vitals: H t:5ft3in, Wt:245, BMI:43.4, Shoe size:10, BP:128/65mm Hg, BS:147, Ht-cm: 160.02 cm, Wt-k.13 kg. * P ast Orders: L ab:HEMOGLOBIN A1C (GLYCOHEMOGLOBIN) (Order Date - 05/16/2025) (Collection Date & Time - 07/21/2025 03:42 PM) Value Reference Range HEMOGLOBIN A1C % (HH) 7.0 * Examination: O phthalmology Referral: DIABETES EYE EXAM P rocedure Performed: Y es D ate of Exam Performed 0 03/25/2024 D iabetic Retinopathy Screening: N o F indings of Diabetic Eye Exam: n o retinopathy, retinopathy G eneral Examination: GENERAL APPEARANCE: R eveals a pleasant, alert, well nourished, well-developed, well hydrated individual, who demonstrates proper attention to hygiene/body habitus, and is in no acute distress, Pt serves as own historian for office visit today. ORIENTED: p erson, place, and time. N eurological: SENSORY: N eurological exam demonstrates inability for patient to distinguish sharp/dull pin prick discrimination, reduced, light touch sensation, reduced, vibration sensation,reduced, proprioception identification, in a stocking fashion, B/L. Test with 5.07 [place] monofilament performed at plantar aspects of 5 varied sites per foot shows sensation absent in at least 2 locations, B/L. V ascular: DORSALIS PEDIS PULSE: 2 /4, B/L. POSTERIOR TIBIAL PULSE: 2 /4, B/L. CAPILLARY REFILL: , instantaneous, all digits B/L. TEMPERATURE GRADIENT: w ithin normal limits. ? N ails: NAILS are: e longated, overgrown, dystrophic, greater than 3mm thick, discolored and friable with crumbly malodorous subungual debris, with dull to no pain on palpation due to neuropathy,, T5, T6, T7, T8, T9, TA, T1, T3,. D ermatologic: SKIN FINDINGS: S kin exam reveals Keratotic lesion(s) located at,, ,SUB MTH (s),1,B/L,Plantar, Midfoot,B/L,SUB MTH (s),2,3, , . Assessment: * Assessment: 1. T ype 2 diabetes mellitus with diabetic polyneuropathy - E11.42 (Primary) 2 . T inea unguium - B35.1 Plan: * Treatment: 2. T inea unguium P rocedure: 20165-IAIAUHH NAIL, 6 OR MORE * Procedures: D ebride Nail 6-10: Nail debridement D ue to the clinical pathology outlined in the exam findings, performance of this nail treatment is medically necessary as its management by an unskilled/untrained nonprofessional would put this patients foot and overall health at risk. Therefore, debridement to affected nail(s), as described in exam (T5, T6, T7, T8, T9, , TA, T1, T3 ), was performed exclusively by the physician of record to reduce/remove overall nail length, girth, thickness, subungual debris, and necrotic tissue, by manual and/or electrical means through the use of a nail nipper and/or dremel-type gear grinder, to a more viable healthy nail [...] to maintain effectiveness in symptomatic relief - 60198. K eratoma Treatment: Parring or Cutting of Benign Hyperkeratotic Lesion(s) ( -57) More than 4 Lesions - Due to [...] in the exam ( ,SUB MTH (s),1,B/L,Plantar, M idfoot,B/L,SUB MTH (s),2,3, ) , were pared, and/or cut utilizing a sterile 15 blade, tissue nippers, and/or power dremel instrumentation by the physician of record - 19801. * Procedure Codes: 1 1721 DEBRIDE NAIL, 6 OR MORE, Modifiers: XS 40148 TRIM SKIN LESIONS, OVER 4, Modifiers: XS * Follow Up: 6 Months * Images: * Sign off status: Completed true * Provider: Al Lerma DPM Date: 09/21/2024 Generated for Martinez estrada/Jim/Rosalio on: 09/25/2024 08:05 PM EST History and Physical Notes * HPI (History of Present Illness) Category Sub-Category Detail Notes Category Not es At Risk footcare Pt States Last PCP Visit: Date:: 01/09/20 25 Examination Category Sub-Category Detail Notes Category Not es Neurological SENSORY: Neurological exa m demonstrates inability for patient to distinguish sharp/dull pin prick discrimination, reduced, light touch sensation, reduced, vibration sensation,reduced, proprioception identification, in a stocking fashion, B/L. Test with 5.07 [place] monofilament performed at plantar aspects of 5 varied sites per foot shows sensation absent in at least 2 locations, B/L Dermatologic SKIN FINDINGS: Skin exam reveal s Keratotic lesion(s) located at,, ,SUB MTH (s),1,B/L,Plantar, Midfoot,B/L,SUB MTH (s),2,3, , Vascular DORSALIS PEDIS PULSE: 2/4, B/L CAPILLARY REFILL: , instantaneous, all digits B/L TEMPERATURE GRADIENT: within normal limi ts POSTERIOR TIBIAL PULSE: 2/4, B/L General Examination GENERAL APPEARANCE: Reveals a pleasant, alert, well nourished, well-developed, well hydrated individual, who demonstrates proper attention to hygiene/body habitus, and is in no acute distress, Pt serves as own historian for office visit today ORIENTED: person, place, and t espinoza Ophthalmology Referral DIABETES EYE EXAM Procedure Perform ed:: Yes Date of Exam Performed: 03/25/2024 Diabetic Retinopathy Screening:: No Findings of Diabetic Eye Exam:: no retin opathy, retinopathy Nails NAILS are: elongated, overg rown, dystrophic, greater than 3mm thick, discolored and friable with crumbly malodorous subungual debris, with dull to no pain on palpation due to neuropathy,, T5, T6, T7, T8, T9, TA, T1, T3,
--- NOTE | 2025-07-25 15:14 | MHC.OFFVISCO ---
Intake Intake Visit Reasons: Anticoagulation Allergies Penicillins Allergy (Severe, Verified 07/25/25 15:08) Diarrhea enoxaparin Adverse Reaction (Intermediate, Verified 07/25/25 15:08) Hives, leg swelling Medication List - Last Reconciled 07/25/25 by Fernanda Sierra, RN blood sugar diagnostic (OneTouch Ultra Test strips) Check POC BID blood-glucose meter (OneTouch Ultra2 Meter) Check POC BID cholecalciferol (vitamin D3) 25 mcg PO DAILY ciclopirox 0.77% 1 appl topical BID diltiazem HCl CD 180 mg PO BEDTIME furosemide 20 mg PO DAILY 90 days lancets (OneTouch UltraSoft 2 Lancet) Check POC BID metformin ER 500 mg PO BID 90 days metoprolol succinate ER 25 mg PO BID potassium chloride ER 10 mEq PO DAILY saxagliptin 2.5 mg PO DAILY silver sulfadiazine 1% 1 appl topical BID 10 days simvastatin 10 mg PO BEDTIME warfarin 7.5 mg See Protocol PO MOTH@1800 warfarin 5 mg See Protocol PO SUTUWEFRSA@1800 Nursing Note INR: 2.2 in therapeutic range of 2-3 Medications and supplements reviewed No changes in health, diet, medications, or supplements, Denies any signs and symptoms of bleeding or bruising or clotting. Bleeding, bruising, clotting discussed Nutritional guidance given avoid greens X 2 days Dose: 5mg X 5 days and 7.5mg X 2 days (Mon & Th) F/U INR: 4 weeks Patient verbalizes understanding of instructions given Anti-Coag Initial Assessment Social Hx Patient Tobacco Use Status: Never used Tobacco alcohol intake: never Alcohol intake frequency: does not drink Coding Level of Care Code Est Patient Level 1 Diagnoses Current use of anticoagulant therapy Z79.01 Assessment & Plan Assessment & Plan (1) Current use of anticoagulant therapy: Code(s): Z79.01 - termination clerk (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
[2025-07-25 15:15] LABS: Prothrombin Time Whole Bld POC 26.9 sec (11.1-13.5); ~PT, ~INR - Anti Coag Clinic 2.2 (0.9-1.1)
--- OUTSIDE RECORDS SUMMARY | 2025-07-25 20:05 | XMS_ITS | Patient Health Record ---
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 Role Phone Marin, Jaja Primary Care Provider Unavailabl e Black, Carrie Unavailable [phone] Allergies No Known Allergies Results Component Value Reference Range Notes HEMOGLOBIN A1C (GLYCOHEMOGLO BIN) Reviewed date:07/21/2025 03:42:39 PM Interpretation: Performing Lab: Notes/Report: HEMOGLOBIN A1C % (HH) 7.0 Reason For Referral No Information Medications Medication SIG (Take, Route, Frequency, Duration) Notes Start Date End Date Status metFORMIN HCl ER (OSM) 500 MG 1 tablet with evening meal Orally Once a day X2 a day Active Extra-Depth Diabetic Shoes with 3 Pair Custom heat-molded multi-density innersoles . for 1 year . Dx:hammertoes and calloused lesions; Duration: . 02/23/2015 Not-Taking Metoprolol Succinate ER 25 MG 1 tablet Orally Once a day Active Ciclopirox Olamine 0.77% external Apply to effected areas twice a day; Duration: 30 days 02/06/2014 Not-Taking Simvastatin 10 MG 1 tablet in the evening Orally Once a day Active Aspirin Adult Low Strength 81 MG 1 tablet Orally Once a day Not-Taking Vitamin D 1000 UNIT 1 tablet Orally Once a day Active Amiodarone HCl 100 MG 1 tablet Orally Once a day Not-Taking Ciclopirox 0.77 % 1 application to affected area Externally Twice a day to effected nails; Duration: 30 days Active B Complex Orally Active Ciclopirox Olamine 0.77% external Apply to effected areas twice a day; Duration: 30 days 11/21/2016 Not-Taking Klor-Con 10 10 MEQ 1 tablet Orally Four times a day Active Ciclopirox Olamine 0.77 % [...] 180 MG Orally Once a day Active Immunizations Vaccine Route Administration Date Status Comme nts Influenza Unknown 06/29/2015 Administered Influenza Unknown 05/30/2016 Administered Influenza Unknown 06/18/2018 Administered Influenza Unknown 07/15/2019 Administered Influenza Unknown 07/14/2020 Administered Influenza Unknown 06/25/2021 Administered Influenza Unknown 07/14/2023 Administered Influenza Unknown 05/14/2024 Administered Influenza Unknown 05/16/2025 Administered Pneumococcal Unknown 08/22/2016 Refused Social History Tobacco Use: Social History Observation Description Date Details (start date - stop date) Never Smoker NA - NA Tobacco use other than smoking: Question Answer Notes Are you an other tobacco user? No Tobacco Control (Standard) Question Answer Notes Tobacco use: Nonsmoker Additional Findings: Tobacco non-user Current no nsmoker AUDIT-C (Standard) Question Answer Notes Did you have a drink containing alcohol in the p ast year? No Points 0 Interpretation Negative Section Notes: Flu shot--04/2015 Dr Stewart No [...] Problem Status W/U Status Risk Notes Problem Polyneuropathy due to type 2 diabetes mellitus (305347602) Type 2 diabetes mellitus with diabetic polyneuropathy (E11.42) Active confirmed Vital Signs Blood pressure diastolic 65 mm Hg 07/21/2025 Height 5ft3in in 07/21/2025 Blood pressure systolic 128 mm Hg 07/21/2025 Weight 245 lbs 07/21/2025 BMI 43.4 kg/m2 07/21/2025 Procedures Procedure Date Ordered Date Performed Result Body Sit e 36642-ZKBNFGJ NAIL, 6 OR MORE 01/27/2025 N/A 98483-ZTFY SKIN LESIONS, OVER 4 01/27/2025 N/A 31287-CXWVDWJ NAIL, 6 OR MORE 07/21/2025 N/A 15565-HZYK SKIN LESIONS, OVER 4 07/21/2025 N/A Encounters Encounter Location Date Provider Diagnosis [address] [address] 07/29/2024 Carrie Black Type 2 diabetes mellitus with diabetic polyneuropathy E11.42 ; Tinea unguium B35.1 ; Tinea pedis of both feet B35.3 ; Other hammer toe(s) (acquired), right foot M20.41 and Other hammer toe(s) (acquired), left foot M20.[address] [address] 01/27/2025 Carrie Black Type 2 diabetes mellitus with diabetic polyneuropathy E11.42 ; Tinea unguium B35.1 ; Other hammer toe(s) (acquired), right foot M20.41 and Other hammer toe(s) (acquired), left foot M20.[address] [address] 07/21/2025 Carrie Lerma Type 2 diabetes mellitus with diabetic polyneuropathy E11.42 and Tinea unguium B35.1 [facility] [place] [address] [place] [address] 01/27/2025 Carrie Lerma Assessments Encounter Date Diagnosis (ICD Code) Assessment Notes Treatment Notes Treatment Clinical Notes Section Notes 07/29/2024 Type 2 diabetes mellitus with diabetic polyneuropathy (ICD-10 - E11.42) 07/29/2024 Tinea unguium (ICD-10 - B35.1) 01/27/2025 Type 2 diabetes mellitus with diabetic polyneuropathy (ICD-10 - E11.42) 01/27/2025 Tinea unguium (ICD-10 - B35.1) 07/21/2025 Type 2 diabetes mellitus with diabetic polyneuropathy (ICD-10 - E11.42) 07/21/2025 Tinea unguium (ICD-10 - B35.1) 07/29/2024 Tinea [...] toe(s) (acquired), left foot (ICD-10 - M20.42) 07/21/2025 Other Plan Of Treatment Pending Test Test Name Order Date Hemoglobin A1c 07/14/2015 71152-FYVJWHZ NAIL, 6 OR MORE 07/21/2025 51098-TGUOSQN NAIL, 6 OR MORE 01/24/2022 41769-YXDATDN NAIL, 6 OR MORE 01/30/2023 94909-EVXUGPX NAIL, 6 OR MORE 07/25/2022 13003-TZSNXZU NAIL, 6 OR MORE 08/03/2023 58288-UPZTSKD NAIL, 6 OR MORE 02/01/2024 56572-RNLBOQY NAIL, 6 OR MORE 01/27/2025 91523-MOMCWTJ NAIL, 6 OR MORE 11/04/2013 24440-FAXFNQM NAIL, 6 OR MORE 02/06/2014 88474-AVYICWN NAIL, 6 OR MORE 05/12/2014 06831-VWWDDEY NAIL, 6 OR MORE 08/25/2014 59978-JSVPXXP NAIL, 6 OR MORE 12/15/2014 81482-XQUOFDP NAIL, 6 OR MORE 02/23/2015 94042-VAGDIWH NAIL, 6 OR MORE 05/07/2015 69060-NISIMGG NAIL, 6 OR MORE 08/03/2015 11628-MDCUBAV NAIL, 6 OR MORE 11/02/2015 79113-MXTBQYC NAIL, 6 OR MORE 02/01/2016 39456-KTNKQIA NAIL, 6 OR MORE 05/09/2016 03475-OYKFTJZ NAIL, 6 OR MORE 08/22/2016 26479-ERSRICV NAIL, 6 OR MORE 11/21/2016 93204-LRKDCCO NAIL, 6 OR MORE 02/20/2017 32783-DNQBOEX NAIL, 6 OR MORE 05/29/2017 65406-ANLCKTC NAIL, 6 OR MORE 09/04/2017 11806-PLYOESZ NAIL, 6 OR MORE 12/04/2017 53750-XCASYCH NAIL, 6 OR MORE 03/12/2018 08118-PHFEYQF NAIL, 6 OR MORE 06/11/2018 56866-QLWSZGU NAIL, 6 OR MORE 09/24/2018 82726-QGBLIOC NAIL, 6 OR MORE 12/24/2018 48984-CVUADBI NAIL, 6 OR MORE 03/25/2019 50852-BZQDHKM NAIL, 6 OR MORE 07/01/2019 43229-SCQMNOD NAIL, 6 OR MORE 10/07/2019 05694-RXQSGWH NAIL, 6 OR MORE 12/30/2019 99282-LFLBPMF NAIL, 6 OR MORE 04/13/2020 38679-DCDEOHV NAIL, 6 OR MORE 10/01/2020 57774-LUGNBCG NAIL, 6 OR MORE 01/04/2021 34734-EZKJJNM NAIL, 6 OR MORE 07/12/2021 04865-Augwuzuu Plate 11/21/2016 77732-Pughtcvo Plate 08/22/2016 47784-Zvdvqpog Plate 05/07/2015 65065-Eebjdtyf Plate 02/23/2015 13438-Cwbyejck Plate 05/12/2014 24844-Izbjubpr Plate 12/15/2014 49417-Obvxftlg Plate 08/25/2014 52711-Awkntgaw Plate 01/30/2023 00933-Uetlnmkm Plate 08/03/2023 81268-Golmyxwz Plate 07/12/2021 43726-Hlutmhvb Plate 05/09/2016 50733-Vbgjhdzt Plate Each Additional 68510-Amlxknpp Plate Each Additional 38921- Debride <25 sq cm 12/15/2014 28426- Debride <25 sq cm 08/25/2014 97112-CUEG SKIN LESIONS, OVER 4 02/24/20 15 31102-ZQYM SKIN LESIONS, OVER 4 12/16/19 15 13602-FCHC SKIN LESIONS, OVER 4 11/05/19 14 71761-XJLG SKIN LESIONS, OVER 4 08/25/19 15 99348-AYZD SKIN LESIONS, OVER 4 05/12/20 14 77839-RZYF SKIN LESIONS, OVER 4 02/07/20 14 17093-SVXQ SKIN LESIONS, OVER 4 05/07/20 15 34799-ARHK SKIN LESIONS, OVER 4 08/03/20 15 90627-EPLL SKIN LESIONS, OVER 4 02/01/20 16 00768-NQFN SKIN LESIONS, OVER 4 11/02/19 16 72294-GKYG SKIN LESIONS, OVER 4 08/22/19 17 47338-CSUZ SKIN LESIONS, OVER 4 05/09/20 16 39756-YSUZ SKIN LESIONS, OVER 4 11/22/19 17 90397-QJLH SKIN LESIONS, OVER 4 02/21/20 17 13831-OTWF SKIN LESIONS, OVER 4 07/12/20 21 11086-FZXE SKIN LESIONS, OVER 4 01/05/20 21 19724-KZMZ SKIN LESIONS, OVER 4 10/01/19 21 27318-FNGY SKIN LESIONS, OVER 4 04/13/20 20 01139-JUPF SKIN LESIONS, OVER 4 12/30/19 20 92233-CSHH SKIN LESIONS, OVER 4 10/07/19 20 17520-UFPC SKIN LESIONS, OVER 4 07/01/20 19 94143-WPGW SKIN LESIONS, OVER 4 03/25/20 19 91347-HEZB SKIN LESIONS, OVER 4 05/13/20 19 14182-SLOH SKIN LESIONS, OVER 4 09/24/19 19 57993-PJPY SKIN LESIONS, OVER 4 06/11/20 18 35810-FXCO SKIN LESIONS, OVER 4 03/12/20 18 38410-CBGF SKIN LESIONS, OVER 4 12/05/19 18 34738-YXZD SKIN LESIONS, OVER 4 09/04/19 18 06750-JRQY SKIN LESIONS, OVER 4 05/29/20 17 70135-NJSU SKIN LESIONS, OVER 4 01/25/20 22 96182-BBAY SKIN LESIONS, OVER 4 07/25/20 22 49905-HAWX SKIN LESIONS, OVER 4 08/03/20 23 48951-BNRH SKIN LESIONS, OVER 4 07/21/20 25 30362-BAQS SKIN LESIONS, OVER 4 01/28/20 25 94929-MWNF SKIN LESIONS, OVER 4 02/01/20 24 96064-SABJ SKIN LESIONS, OVER 4 01/31/20 Next Appt Details Provider Name:Carrie Lerma , 01/19/2026 03:00:00 PM, [address] [place] [address], [address], Insurance Providers Payer Name Payer Address Payer Phone Subscriber Number Group Number Insured Name Patient Relationship to Insured Coverage Start Date Coverage End Date [employer] [address] [place] [address] [id number] Myla Dunn Self - patient is the insured Medical (General) History Medical History History ICD Code Diabetic Measles Mumps Chicken pox Atrial fibrillation Other hammer toe(s) (acquired), right fo ot M20.41 Other hammer toe(s) (acquired), left princess t M20.42 Surgical History Surgery Date(Month/Year) heart surgery hole in heart 09/2007
--- OUTSIDE RECORDS SUMMARY | 2025-07-25 20:05 | XMS_ITS | Patient Health Record ---
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 Name Role Phone Pat (RETIRED) Abdulaziz GUERRERO Primary Care Provide r Unavailable Morales Adam Unavailable [phone] Allergies No Known Allergies Reason For Referral No Information Medications Medication SIG (Take, Route, Frequency, Duration) Notes Start Date End Date Status Simvastatin 10 MG Tablet Oral; Duration: 90 Active Warfarin Sodium 5 MG Tablet Oral; Duration: 90 Active dilTIAZem HCl ER Coated Beads 180 MG Capsule Extended Release 24 Hour TAKE ONE CAPSULE BY MOUTH DAILY Oral; Duration: 90 Active Furosemide 20 MG Tablet Oral; Duration: 90 Active Klor-Con M10 10 MEQ Tablet Extended Release Oral; Duration: 90 Activ e Vitamin D 1000 UNIT Tablet 1 tablet Oral ly Once a day; Duration: 30 day(s) 11/03/2021 Active metFORMIN HCl ER 500 MG Tablet Extended Release 24 Hour TAKE 1 TABLET BY MOUTH EVERY DAY Oral; Duration: 90 Active Metoprolol Succinate ER 25 MG Tablet Extended Release 24 Hour TAKE 1 TABLET BY MOUTH TWICE A DAY Oral; Duration: 90 Active Immunizations Vaccine Route Administration Date Status Comme nts Influenza Unknown 06/02/2021 Administered Social History Tobacco Use: Social History Observation Description Date Details (start date - stop date) Never Smoker NA - NA Social History Drugs/Alcohol: Social Info Question Answer Notes Alcohol Screen Did you have a drink containing alcohol in the past year? 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 [employer] Section Notes: Nonsmoker; no sig alcohol Problems Problem Type SNOMED Code ICD Code Onset Dates Problem Status W/U Status Risk Notes Problem Screening for malignant neoplasm of colon (588629464) Encounter for screening for malignant neoplasm of colon (Z12.11) Active confirmed Problem Preprocedural examination (945956898999177) Preprocedural examination (Z01.818) Active confirmed Problem Diverticulosis of colon (504815551) Diverticulosis of colon (K57.30) Active confirmed Problem Long-term current use of anticoagulant (371972681) nursing home current use of anticoagulant (Z79.01) Active confirmed Plan Of Treatment Pending Test Test Name Order Date Pathology 12/10/2021 Future Test Test Name Order Date COLONOSCOPY 11/03/2021 Insurance Providers Payer Name Payer Address Payer Phone Subscriber Number Group Number Insured Name Patient Relationship to Insured Coverage Start Date Coverage End Date [facility] [address] [place] [phone] [id number] SAVANNA VENEGAS Self - patient is the insured Medical (General) History Medical History History ICD Code High cholesterol Afib Denies NM,CVA,Lung disease,renal disease NIDDM Surgical History Surgery Date(Month/Year) Open heart surgery for a PFO 2007 Ear tubes Tonsils
== END 2025-07-25 15:26 | disposition home or self-care (01) ==
LOC: HO.ACS 15:05
PROVIDERS: PCP Physician Assistant Medical; Visit Provider Internal Medicine Medical Oncology
DX: Z79.01 Long term (current) use of anticoagulants (principal)

== ENCOUNTER → 2025-07-25 15:05 | Outpatient (BNVA) | payer OTHER, SELFPAY | PROVIDERS: PCP Physician Assistant Medical; Visit Provider Internal Medicine Medical Oncology | DX: I48.20 Chronic atrial fibrillation, unspecified (principal); Z51.81 Encounter for therapeutic drug level monitoring; Z79.01 Long term (current) use of anticoagulants | CPT/HCPCS: 85610; 99211 ==